=== PATIENT | male | born 1955 | race Caucasian/White ===

== ENCOUNTER 2017-09-05 13:58 | Emergency (ER) | payer MEDICARE, MEDICAID, SELFPAY ==
[2017-09-05 13:59] VITALS: BP 165/105; PULSE 101; RESP 24; TEMP 36.9; O2SAT 97; BMI 32.1
--- NOTE | 2017-09-05 15:14 | ED.DCSUM_ITS ---
- ER Visit Summary Date of Service: 09/05/17 Chief Complaint: [Redness right arm] History of Present Illness: The patient is a 62 M [presents the emergency department with redness to his right arm and concern for some sort of a bite. 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 He is not sure if he scratched his arm. Patient states that often times she will notice a subtle rash that is in different parts of his body that resolves typically very quickly. Patient main concern was to make sure he did not have some sort of a bite on them. Patient denies any fevers or recent illness. Patient has not seen a doctor in over 3 years due to some insurance issues. Patient denies recent illness.] Physical Examination: [HEENT-PERRLA, EOMI. Cranial nerves II through XII grossly intact. TMs clear. Mucous membranes moist. No adenopathy. Cardiovascular-regular rate and rhythm without murmur or ectopy Lungs-clear to auscultation, chest wall stable without crepitus or subcu emphysema Abdomen-normoactive bowel sounds, soft, nontender, no rebound or rigidity, no peritoneal signs. Skin-patient has linear erythematous abrasions noted to the posterior aspect of the forearm and upper arm. There are no insect bites noted. Patient also has some dry skin with some faint erythema and flaking noted superior to the umbilicus which is typical of eczema. Extremities-intact ?4, normal range of motion, normal pulses, atraumatic] Test Results: [None indicated] Emergency Department Course and Treatment: [Patient will be given referral to primary care physician and animal attendants and trainers] Treatment Plan: [Patient advised to use Hydrocort his own cream to the dry skin/ eczema lesions.] Disposition: Discharged to home in stable condition. [] Impression: [Abrasions-superficial Eczema] This note was generated with [employer] dictation software. It may contain incorrect words, spelling, and punctuation that were not noted in review of the chart prior to signing ED Disposition - Plan for ED Patient: Chief Complaint: Wound Referrals: Care Physician,No Primary [Primary Care Provider] -
--- NOTE | 2017-09-05 15:14 | ED.DEP ---
ED Disposition - Plan for ED Patient: Chief Complaint: Wound Instructions: ED Abrasion, Managing Atopic Dermatitis Referrals: Care Physician,No Primary [Primary Care Provider] - Bob Mejias MD [STAFF PHYSICIAN] - Adebayo Blue MD [STAFF PHYSICIAN] -
[2017-09-05 15:21] VITALS: RESP 18
== END 2017-09-05 15:34 | disposition home or self-care (01) ==
LOC: ED 15:30
PROVIDERS: Emergency Provider Emergency Medicine
DX: S50.811A Abrasion of right forearm, initial encounter (principal); S40.811A Abrasion of right upper arm, initial encounter; L30.9 Dermatitis, unspecified; X58.XXXA Exposure to other specified factors, initial encounter; Y93.9 Activity, unspecified; Y92.9 Unspecified place or not applicable; E11.40 Type 2 diabetes mellitus with diabetic neuropathy, unspecified; Z86.79 Personal history of other diseases of the circulatory system; Z86.39 Personal history of other endocrine, nutritional and metabolic disease; Z79.82 Long term (current) use of aspirin; Z72.0 Tobacco use
CPT/HCPCS: 99282

== ENCOUNTER 2023-09-07 14:54 | Inpatient (IN) | payer MEDICARE, SELFPAY ==
[2023-09-07] VITALS (9 sets, daily range): BP systolic 99–141; BP diastolic 85–112; PULSE 101–146; RESP 14–19; TEMP 36.4–36.9; O2SAT 96–100; BMI 22.6
--- NOTE | 2023-09-07 15:20 | CT_ITS ---
CT angiogram of the abdominal aorta with bilateral lower extremity runoff with 3-dimensional reconstructions, with MIP reconstructions Clinical history: wound left foot, deminished pulsed Technique: Multiple helical CT images were obtained from the domes the diaphragms to level of feet after intravenous administration of iodinated contrast with transaxial, coronal and sagittal multiplanar reconstructions. On a separate workstation, 3-dimensional reconstructions were obtained of the arterial vasculature using volume rendering technique and maximal intensity projection technique as per departmental protocol. The protocol utilizes one or more of the following dose reduction techniques: automated exposure control, adjustment of mA and/or kV according to patient size,and/or use of iterative reconstruction technique. RADIATION DOSAGE (If Supplied By Facility): CTDIvol = ( 7.81 ) mGy, DLP = ( 909.17 ) mGycm COMPARISON: FINDINGS: ABDOMEN / PELVIS: Fatty liver.. The visualized portions of the spleen and pancreas appear to be within normal limits. The gallbladder is unremarkable. 2.9 x 4.6 cm right renal cystic lesion.. The visualized bowel is unremarkable. The pelvic structures appear normal. VASCULAR STRUCTURES: There is mild ectasia of the distal with a maximum diameter measuring 2.7 cm abdominal aorta. Intraluminal thrombus in the distal abdominal aorta is noted with nearly 50% luminal narrowing There appears to be good opacification and patency of the celiac trunk, superior mesenteric artery. There appears to be good opacification and patency noted of the left renal artery. Mild narrowing at the right renal artery proximally. There appears to be good opacification and patency noted of the inferior mesenteric artery. ARTERIAL STRUCTURES OF THE RIGHT LOWER EXTREMITY: Common iliac artery: Atherosclerotic calcifications with no hemodynamically significant stenosis. 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 External iliac artery: Appears patent with good opacification. Internal iliac arteries: Occluded proximally with distal reconstitution. Common femoral artery: Atherosclerotic calcifications with no hemodynamically significant stenosis. Superficial femoral arteries: Mild to moderate stenosis at the proximal segment.. Distal occlusion with reconstitution. Popliteal artery: Moderate segmental stenosis. Anterior tibial artery: Appears patent with good opacification. Posterior tibial artery: Appears patent with good opacification. Peroneal artery: Segmental occlusion at the mid calf with distal reconstitution.. ARTERIAL STRUCTURES OF THE LEFT LOWER EXTREMITY: Common iliac artery: Atherosclerotic calcifications with no hemodynamically significant stenosis. Distal aneurysm measuring 1.2 cm just proximal to the bifurcation. External iliac artery: Intraluminal thrombus with 70-75% luminal narrowing. Internal iliac arteries: Appears patent with good opacification. Common femoral artery: Atherosclerotic calcifications with less than 50% luminal narrowing proximally.. Distal occlusion. Superficial femoral arteries: Occluded.. Distal reconstitution by collaterals. Popliteal artery: Appears patent with good opacification. Anterior tibial artery: Appears patent with good opacification. Posterior tibial artery: Appears patent with good opacification. Peroneal artery: Appears patent with opacification. CT/CTA Abd w/Runoff W/WO Contrast IMPRESSION: Stenosis and occlusions as noted the lower extremities. Electronically Signed: Carlos Gupta DO at 17:34 EDT Reading Location ID and State: [facility] / [place] Tel [phone], Service support ,
--- NOTE | 2023-09-07 15:24 | ED.VIS.LOWEX ---
HPI History of Present Illness Chief Complaint: Wound Detail of Chief Complaint: Wound to left foot Informant: patient and family Narrative Narrative: Patient presents with a wound to his left foot that has had for 4 to 5 weeks. Saw orthopedic surgeon today Dr. Ghosh who referred him to to the emergency department for evaluation. Patient has history of some chronic back pain with history of neuropathy related to his back pain. He denies any injury to his foot. He had some discoloration to his left toes for several weeks. He denies fevers or chills. He has history of high cholesterol and remote history of CHF. He will has a [id number] history of smoking and quit 6 weeks ago. PFSH PFSH Home Medications ?Medication ?Instructions ?Recorded ?Last Taken ?Type diazepam 5 mg tablet 5 mg PO DAILY PRN PRN Anxiety 11/30/15 Unknown History aspirin 325 mg tablet 162.5 mg PO DAILY@0800 09/05/17 Unknown History Allergy/AdvReac Type Severity Reaction Status Date / Time Penicillins Allergy Unknown Verified 09/07/23 14:57 Social History Smoking Status: Light Smoker (<10/day) ROS ROS ED Review of Systems ROS Unobtainable: other Constitutional Constitutional ED: Reports lethargy; Denies chills, fever(s), sweats or weight loss Eyes Eyes: Denies blurry vision, change in vision or diplopia ENT ENT ED: Denies rhinorrhea or sore throat Cardiovascular Cardiovascular: Denies chest pain, orthopnea or racing heartbeat Respiratory/Chest Respiratory/Chest: Reports dyspnea on exertion; Denies cough, dyspnea, orthopnea or sputum Gastrointestinal Gastrointestinal: Denies abdominal pain, diarrhea, nausea or vomiting Genitourinary Genitourinary ED: Denies dysuria, hematuria or urinary frequency Musculoskeletal Musculoskeletal: Denies arthralgias, back pain, myalgias or neck pain Integumentary Reports other Details: Wound to left foot ; Denies abscess, Abrasions or rash Neurologic Neurologic: Denies headache(s) or weakness Psychiatric Psychiatric: Denies anxiety, depression or suicidal thoughts Endocrine Endocrinology: Denies polydipsia, polyphagia or polyuria Hematologic/Lymphatic Hematologic/Lymphatic: Denies easy bleeding, easy bruising or lymphadenopathy Allergic/Immunologic Allergic/Immunologic ED: Denies mouth swelling, tongue swelling or urticaria EXAM Physical Exam Const Vital Signs: 09/07/23 14:55 09/07/23 15:55 09/07/23 15:57 Temperature 98.4 F 98 F Temperature Source Temporal Temporal Pulse Rate 146 H 108 H 104 H Respiratory Rate 16 18 14 Blood Pressure 99/85 H 127/112 H 141/99 H Blood Pressure Mean 89 117 113 Pulse Ox 97 98 98 Oxygen Delivery Method Room Air Room Air Room Air 09/07/23 16:00 09/07/23 16:05 09/07/23 17:00 Temperature 98 F 97.8 F Temperature Source Temporal Axillary Pulse Rate 103 H 103 H 105 H Respiratory Rate 14 14 15 Blood Pressure 141/99 H 141/99 H 137/102 H Blood Pressure Mean 113 113 113 Pulse Ox 99 99 99 Oxygen Delivery Method Room Air Room Air Room Air 09/07/23 18:00 Temperature 98.2 F Temperature Source Temporal Pulse Rate 120 H Respiratory Rate 19 H Blood Pressure 135/104 H Blood Pressure Mean 114 Pulse Ox 100 Oxygen Delivery Method Room Air Positive well nourished and well developed General Appearance ED: well developed and NAD HEENT Reports TM's clear and moist mucous membranes normocephalic and atraumatic; Negative for trauma or tenderness Tympanic Membrane ED: Yes TM's clear Eyes PERRL and EOMs intact bilaterally General Eye ED: Negative for pale conjunctiva or scleral icterus Neck no lymphadenopathy, supple and no JVD General: Negative for tenderness Chest Wall inspection of chest normal and palpation of chest normal Chest: Negative for tenderness Resp normal respiratory effort and clear to auscultation bilaterally Effort and Inspection: Negative for respiratory distress or pain with movement Auscultation: Negative for rhonchi, wheezes or diminished lung sounds Cardio regular rhythm, S1 normal heart sound, S2 normal heart sound and no murmurs; Negative for regular rate Cardio Narrative: Tachycardic Peripheral Pulses: pulses 2+ throughout GI normal to inspection, nondistended, normoactive bowel sounds, soft to palpation, non-tender, non-distended and no masses Back/Spine no CVA tenderness and no thoracic nor lumbar tenderness Extremity Extremity Narrative: Left foot-patient does have a wound noted to the left lateral heel with a little bit of odor to it no significant drainage. Slightly tender to palpation. There are some pale discoloration to the toes with some subtle ecchymosis. Diminished cap refill about 5 seconds. Unable to palpate dorsal pedal or posterior tibial pulse General Extremety ED: Negative for edema General Extremity: Negative for edema Neuro oriented x3, CN's II-XII intact bilaterally, no sensory deficits noted and gait normal Sensorium / Orientation: awake, alert, oriented to person, oriented to place and oriented to time Motor Exam: strength 5/5 throughout and strength abnormal Psych mental status grossly normal Skin no rashes or lesions noted and no wounds MDM MDM MDM Narrative Medical decision making narrative: Patient presents with a chronic wound to his left heel. History of pain in the left leg with ambulation. Concern for peripheral vascular disease. IV line established. Blood cultures ordered. CBC with differential white count of 9.2 with hemoglobin 14.6 and platelet count of 320. Chemistries unremarkable. Lactate normal at 2.0. C-reactive was elevated 65.9 and sed rate was elevated 28. Three-view x-rays of the left foot obtained showed my interpretation no evidence of osteomyelitis or gas in the tissues or other abnormalities. Radiology in agreement. CTA abdomen pelvis with runoffs obtained did show some vascular occlusions especially on the left with distal common femoral with reconstitution. Discussed case with Dr. Mg who is the vascular surgeon on-call and he would be happy to see patient in consultation during admission but did not feel patient needed anticoagulation at this time. Discussed case with hospitalist will evaluate patient for admission. Patient does have an elevated glucose however this is not a fasting level but suspect likely type 2 diabetes as well. Lab Data Attestation: I reviewed the patient's lab results. Labs: Laboratory Results - last 24 hr 09/07/23 15:15 WBC 9.2 RBC 5.11 Hgb 14.6 Hct 43.8 MCV 85.7 MCH 28.6 MCHC 33.3 RDW Std Deviation 39.3 RDW Coeff of [place] 12.8 Plt Count 320 MPV 9.5 Immature Gran % (Auto) 0.300 Neut % (Auto) 81.8 H Lymph % (Auto) 11.1 L [place] % (Auto) 6.0 Eos % (Auto) 0.4 Baso % (Auto) 0.4 Absolute Neuts (auto) 7.5 Absolute Lymphs (auto) 1.02 Nucleated RBC % 0 ESR 28 H Sodium 133 L Potassium 3.6 Chloride 100 Carbon Dioxide 23.0 Anion Gap 10 BUN 14 Creatinine 1.00 Est GFR (MDRD) Af Amer 96 Est GFR (MDRD) Non-Af 79 BUN/Creatinine Ratio 14.0 Glucose 178 H Lactic Acid 2.0 Calcium 9.7 Troponin I High Sens 10 C-React Prot Ext Range 65.90 H Radiography Diagnostic Testing: Clinical Impression(s) from Imaging Studies Abdomen/Pelvis CTA 09/07/23 15:20 IMPRESSION: Stenosis and occlusions as noted the lower extremities. Electronically Signed: Carlos Gupta DO at 17:34 EDT , Foot X-Ray 09/07/23 15:40 IMPRESSION: No acute pelvic pathology is seen. Electronically Signed: Carlos Gupta DO at 16:23 EDT , Three-view x-rays left foot obtained interpreted by myself as no evidence of osteomyelitis or gas in the tissues or other acute process. Radiology in agreement. EKG Initial EKG: Attestation: I personally reviewed and interpreted this EKG as follows: Comments: Sinus rhythm with rate of 101 bpm with no acute ST segment changes Discharge Plan Dx/Rx/DC Orders Clinical Impression: Cellulitis of foot, left, Peripheral vascular disease, Hyperglycemia Disposition Disposition: Acute Care [facility]
--- NOTE | 2023-09-07 15:28 | EKG12_ITS ---
Test Reason : Blood Pressure : / mmHG Vent. Rate : 101 BPM Atrial Rate : 101 BPM P-R Int : 140 ms QRS Dur : 076 ms QT Int : 338 ms P-R-T Axes : 022 004 077 degrees QTc Int : 438 ms Sinus tachycardia Otherwise normal ECG Confirmed by Bruno Cevallos ([id number]), digital editor URIAH CALDERA ([id number]) on 09/08/2023 10:14:32 AM Referred By: Confirmed By:Bruno Cevallos
[2023-09-07 15:37] LABS: Absolute Lymphocyte Count 1.02 X10^3/uL (0.83-4.51); Absolute Neutrophil Count 7.5 X10^3/uL (2.0-7.7); Basophil# 0.04 X10^3/uL; Basophil% 0.4 % (0-1); Eosinophil# 0.04 X10^3/uL; Eosinophils% 0.4 % (0-5); Hematocrit 43.8 % (40-54); Hemoglobin 14.6 g/dL (13.0-16.5); Lymphocyte # 1.02 X10^3/ul (0.83-4.51); Lymphocyte % 11.1 % (19-41); Mean Corp Hgb Conc 33.3 g/dL (32-36); Mean Corpuscular Hgb 28.6 pg (27.0-32.0); Mean Corpuscular Volume 85.7 fL (80-94); Mean Platelet Vol. 9.5 fl (6.2-12.0); Monocyte# 0.55 X10^3/uL; NRBC Flagged by Analyzer 0 % (0-5); Neutrophil # 7.52 X10^3/uL (2.7-7.7); Neutrophil % 81.8 % (47-70); Platelet Count 320 K/mm3 (150-450); RBC Distribution Width CV 12.8 % (11.6-14.6); RBC Distribution Width SD 39.3 fl (35.1-43.9); Red Blood Count 5.11 M/mm3 (4.6-6.2); White Blood Count 9.2 K/mm3 (4.4-11.0)
--- NOTE | 2023-09-07 15:40 | RAD_ITS ---
INDICATION: heel wound EXAMINATION/TECHNIQUE: X-RAY - LEFT XR Foot 3 Views COMPARISON: FINDINGS: SOFT TISSUES: No soft tissue swelling or gas. No radiopaque foreign body. BONES/JOINTS: No acute fracture or subluxation.. Normal alignment. Preservation of the joint space.. No sclerotic or destructive changes observed. RAD/Foot min 3 Views IMPRESSION: No acute pelvic pathology is seen. Electronically Signed: Carlos Gupta DO at 16:23 EDT ,
[2023-09-07 15:59] LABS: Anion Gap 10 (5-15); BUN 14 mg/dL (7-18); Calcium,Total 9.7 mg/dL (8.5-10.1); Chloride 100 mmol/L (98-107); EST Glomerular Filtration Rate 79 mL/min (>60); Est Glom Filt Rate - Afr Amer 96 mL/min (>60); Glucose 178 mg/dL (74-106); Potassium 3.6 mmol/L (3.5-5.1); Sodium Level 133 mmol/L (136-145); Troponin-I HS 10 pg/mL (3.0-78.0)
[2023-09-07] MEDS: Ondansetron 4 MG/2 ML Vial IV (16:03)
[2023-09-07] MEDS: Morphine 4 MG/ML Syringe IV ×2 (16:03→18:25)
[2023-09-07 16:34] LABS: Erythrocyte Sedimentation Rate 28 mm/hr (0-20)
[2023-09-07] MEDS: Clindamycin 900 MG/50 ML BAG 75 MG IV (17:56)
--- NOTE | 2023-09-07 18:42 | PCM.HP.STD ---
HPI - General General Date of Admission: 09/07/23 Date of Service: 09/07/23 Chief Complaint: left foot wound HPI Narrative ETHAN CROSS, is a 68 M with no significant PMH who has not seen a PCP in at least 8 years. HE was admittd with a complaint of a left foot wound which had worsened. He noticed that he had a small superficial ulceration on the heel of his left foot about 6 weeks ago. He said he did not think much of it. He however noticed that the ulceration gradually increased and he had associated pain. He initially had some scant discharge but this subsequently improved. He denied any fever or chills, nausea or vomiting, palpitations or any other symptoms. He had not had an ulcer like this before. He denied any history of diabetes. The wound gradually enlarged and he said the pain got worse and was shooting down the back of his left foot into his heel. He does have a history of neuropathy. He admits to a history of smoking and states he quit a few weeks ago. Review of systems otherwise negative. Vitals in the ED were blood pressure 135/104, pulse rate of 117, respiratory rate of 19 and temperature of 97.5 Fahrenheit. He was saturating at 97% on room air. CBC showed hemoglobin of 14.6 with WBC of 9.2 and platelets of 320. ESR was 28. Chemistry shows sodium of 133 with bicarb of 23 and potassium of 3.6. Creatinine was 1. Glucose was 178 and CRP was 65.9. Initial troponin was negative. 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 He has been admitted to be managed for cellulitis of the left lower extremity in the presence of significant peripheral artery disease. [facility] Home Medications ?Medication ?Instructions ?Recorded ?Last Taken ?Type diazepam 5 mg tablet 5 mg PO DAILY PRN PRN Anxiety 11/30/15 Unknown History aspirin 325 mg tablet 162.5 mg PO DAILY@0800 heart health 09/05/17 Unknown History Allergy/AdvReac Type Severity Reaction Status Date / Time Penicillins Allergy Unknown Verified 09/07/23 14:57 Social History Smoking Status: Light Smoker (<10/day) ROS Constitutional Constitutional: Reports malaise and weakness; Denies anorexia, change in weight, chills, fatigue or fever(s) Eyes Eyes: Denies change in vision ENT HEENT: Denies dysphagia, headache(s), sore throat or throat swelling Cardiovascular Cardiovascular: Denies chest pain, edema, orthopnea, palpitations, paroxysmal nocturnal dyspnea or syncope Respiratory/Chest Respiratory/Chest: Denies hemoptysis, shortness of breath at rest, shortness of breath with exertion or wheezing Gastrointestinal Gastrointestinal: Denies abdominal pain, nausea or vomiting Genitourinary Genitourinary: Denies dysuria or nocturia Musculoskeletal Musculoskeletal: Reports extremity pain; Denies back pain, joint pain, joint stiffness, joint swelling, limited range of motion, muscle weakness, neck pain or stiffness Integumentary Integumentary: Reports wounds; Denies dry skin Neurologic Neurologic: Denies confusion, dizziness, focal weakness, headache(s), lack of coordination, numbness, seizures or tingling Psychiatric Psychiatric: Denies anxiety or depression Endocrine Endocrinology: Denies change in body appearance Vital Signs Vital Signs Vital Signs: 09/07/23 14:55 09/07/23 15:55 09/07/23 15:57 Temperature 98.4 F 98 F Temperature Source Temporal Temporal Pulse Rate 146 H 108 H 104 H Respiratory Rate 16 18 14 Blood Pressure 99/85 H 127/112 H 141/99 H Blood Pressure Mean 89 117 113 Pulse Ox 97 98 98 Oxygen Delivery Method Room Air Room Air Room Air 09/07/23 16:00 09/07/23 16:05 09/07/23 17:00 Temperature 98 F 97.8 F Temperature Source Temporal Axillary Pulse Rate 103 H 103 H 105 H Respiratory Rate 14 14 15 Blood Pressure 141/99 H 141/99 H 137/102 H Blood Pressure Mean 113 113 113 Pulse Ox 99 99 99 Oxygen Delivery Method Room Air Room Air Room Air 09/07/23 18:00 09/07/23 18:27 Temperature 98.2 F 97.5 F L Temperature Source Temporal Pulse Rate 120 H 117 H Respiratory Rate 19 H 19 H Blood Pressure 135/104 H 135/104 H Blood Pressure Mean 114 114 Pulse Ox 100 97 Oxygen Delivery Method Room Air Physical Exam Const alert, oriented x3 and no apparent distress General Appearance: cooperative HEENT normocephalic and head/scalp atraumatic Eyes PERRL and EOMs intact bilaterally Neck no lymphadenopathy, supple and no JVD Lymph Lymphatic: no lymphadenopathy noted and no lymphedema noted Resp normal respiratory effort, normal air movement and clear to auscultation bilaterally Cardio regular rate, regular rhythm, S1 normal heart sound, S2 normal heart sound and no murmurs GI normal to inspection, nondistended, normoactive bowel sounds, soft to palpation and non-tender Extremity normal capillary refill, no clubbing, cyanosis or edema and no calf tenderness General Extremity: no tenderness to palpation of joints or extremities Skin Skin Narrative: has a ~ 10 x8cm ulceration on the left heel which appears bloody tinged; had erythema of the surrrounding skin.Distal pulses weak but palpable Neuro CN's II-XII intact bilaterally, no focal motor deficits, no sensory deficits noted and deep tendon reflexes 2+ bilaterally Motor Exam: strength 5/5 throughout and general weakness Psych thought process normal and cooperative Appearance: appropriate Results Lab / Micro Data 09/07/23 15:15 09/07/23 15:15 Labs: Laboratory Results - last 24 hr 09/07/23 15:15: WBC 9.2, RBC 5.11, Hgb 14.6, Hct 43.8, MCV 85.7, MCH 28.6, MCHC 33.3, RDW Std Deviation 39.3, RDW Coeff of [place] 12.8, Plt Count 320, MPV 9.5, Immature Gran % (Auto) 0.300, Neut % (Auto) 81.8 H, Lymph % (Auto) 11.1 L, [place] % (Auto) 6.0, Eos % (Auto) 0.4, Baso % (Auto) 0.4, Absolute Neuts (auto) 7.5, Absolute Lymphs (auto) 1.02, Nucleated RBC % 0, ESR 28 H, Sodium 133 L, Potassium 3.6, Chloride 100, Carbon Dioxide 23.0, Anion Gap 10, BUN 14, Creatinine 1.00, Est GFR (MDRD) Af Amer 96, Est GFR (MDRD) Non-Af 79, BUN/Creatinine Ratio 14.0, Glucose 178 H, Lactic Acid 2.0, Calcium 9.7, Troponin I High Sens 10, C-React Prot Ext Range 65.90 H Imaging Radiology Impression Abdomen/Pelvis CTA 09/07/23 15:20 IMPRESSION: Stenosis and occlusions as noted the lower extremities. Electronically Signed: Carlos Gupta, at 17:34 EDT , Foot X-Ray 09/07/23 15:40 IMPRESSION: No acute pelvic pathology is seen. Electronically Signed: Carlos Gupta DO at 16:23 EDT , Assessment & Plan Assessment/Plan (1) Peripheral vascular disease: (2) Cellulitis of foot, left: (3) Hyperglycemia: PLAN: Plan #LLE cellulitis with ulceration Admit to Med surg xray of the foot showed no bony involvement. get blood cultures and wound cultures consult wound care and podiatry start on IV vancomycin and IV cefepime PO tylenol, oxycodone and IV morphine prn for pain. #Peripheral artery disease CTA of the abdomen and pelvis with runoff to the lower extremity showed evidence of bilateral peripheral artery stenosis. Will consult vascular surgery. 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 I spoke to Dr Mg; will start patient on heparin drip. PO aspirin and high intensity statin #Hyperglycemia: will check A1C to see if he has diabetes. His A1c from back in February 2014 was 6.5. #Sinus tachycardia Patient's heart rate is goes up to around 117. EKG showed sinus tachycardia and his heart rate was 101 at that point. The pain might be contributing to this. He also has some anxiety. I do not see any clear evidence pointing towards a possible PE as he has not had any long distance travel recently and has no history of PE or DVT. He has been started on anticoagulation for the intraluminal thrombus of the external carotid artery. He also received contrast already today so cannot repeat a CTA. His sinus tachycardia persists, he may benefit from a CTA. Will check TSH and also check a 2D echo.\ # Anxiety: On diazepam 5 mg daily as needed DVT prophylaxis: Started on heparin drip as above CODE STATUS: Full code Patient, his sister and brother counseled extensively about different types of CODE STATUS including full code, DNR CCA and DNR CCA. Patient elects to be full code. Total [id number] time 17 minutes. Charges/Coding Visit Charges Inpatient E&M: 30435 Init Hosp L3 Procedures Hospitalists Procedures: 51026 Advncd Care Plan 30 Min
[2023-09-07 19:32] LABS: Reflex Lactate? Y
[2023-09-07] MEDS: 0.9% Normal Saline (1000mL) 1,000 ML 125 ML IV (20:19)
[2023-09-07] MEDS: Cefepime HCl 2 GM in 0.9% Normal Saline (100mL MB+) 100 ML IV (20:19)
[2023-09-07] MEDS: Acetaminophen 325 MG Tablet 650 MG PO (20:23)
[2023-09-07] MEDS: oxyCODONE 5 MG Tablet PO (20:23)
[2023-09-07 20:25] LABS: Lactic Acid 1.7 mmol/L (0.4-1.9)
[2023-09-07 20:42] LABS: International Normalized Ratio 1.1; Prothrombin Time (Protime)PT. 14.6 SECONDS (11.7-14.9)
[2023-09-07 20:43] LABS: Partial Thromboplast Time 33.9 Seconds (24.1-36.2)
[2023-09-07 20:47] LABS: Hemoglobin A1c 7.5 % (3.8-5.6)
--- NOTE | 2023-09-07 20:47 | ART_ITS ---
Reason For Study: Ulcer Procedure A bilateral lower extremity continuous wave Doppler with analog waveform analysis,segmental pressures,and ankle brachial indexes without exercise. Left Segmental Pressures Left thigh = 58mmHg. Left calf = 18mmHg. Left posterior tibial artery = 14mmHg. Left dorsalis pedis artery = 21mmHg. Left digit = 0 mmHg. The left dorsalis pedis waveforms are monophasic. The left posterior tibial artery waveforms are monophasic. Right Segmental Pressures Right brachial= 130mmHg. Right thigh = 143mmHg. Right calf = 61mmHg. Right posterior tibial artery = 68mmHg. Right dorsalis pedis artery = 55mmHg. Right digit = 0 mmHg. The right dorsalis pedis waveforms are monophasic. The right posterior tibial artery waveforms are monophasic. Indices The right ankle brachial index by the dorsalis pedis is 0.42. The right ankle brachial index by the posterior tibial artery is 0.52. The left ankle brachial index by the dorsalis pedis is 0.16. The left ankle brachial index by the posterior tibial artery is 0.11. . Preliminary report given to Alexia in Dr. Mg's office. VL/Lower Ext Art Exam w/o Exercis Interpretation Summary Right GERHARD 0.52, moderate arterial insufficiency. Doppler/PVR waveforms and segm ental pressures reveal distal SFA/popliteal disease. Left GERHARD 0.16, critical arterial insufficiency. Doppler/PVR waveforms and segme ntal pressures reveal [id number] femoral, distal SFA/popliteal disease. Ordering Physician: Lisandro Scott Performed By: Daina Sanchez RVT
[2023-09-07 20:50] LABS: Thyroid Stim Hormone (TSH) 2.42 uIU/mL (0.358-3.74)
[2023-09-07] MEDS: Vancomycin HCl 1,750 MG in 0.9% Normal Saline (500mL Bag) 500 ML 250 MG IV (21:52)
[2023-09-07] MEDS: Heparin Injection (Vial) 5,000 UNIT/ML VIAL 4000 UNIT IV (22:01)
[2023-09-07] MEDS: HEPARIN/D5w 25,000 UNITS 25,000 UNITS/250 ML IV.SOLN. 8 UNITS CONT INF (22:07)
--- NOTE | 2023-09-07 23:24 | PCM.RX.CS ---
Consult Antibiotic Management Pharmacy has been consulted to manage selected antibiotic: Vancomycin Type of Intervention Type of Consult: New start Suspected Infection Suspected Infection: Skin/Soft tissue Labs Labs: Sodium 133 mmol/L (136-145) L 09/07/23 15:15 Potassium 3.6 mmol/L (3.5-5.1) 09/07/23 15:15 Chloride 100 mmol/L (98-107) 09/07/23 15:15 Carbon Dioxide 23.0 mmol/L (21.0-32.0) 09/07/23 15:15 Anion Gap 10 (5-15) 09/07/23 15:15 BUN 14 mg/dL (7-18) 09/07/23 15:15 Creatinine 1.00 mg/dL (0.70-1.30) 09/07/23 15:15 Est GFR (MDRD) Af Amer 96 mL/min (>60) 09/07/23 15:15 Est GFR (MDRD) Non-Af 79 mL/min (>60) 09/07/23 15:15 BUN/Creatinine Ratio 14.0 RATIO (10-20) 09/07/23 15:15 Glucose 178 mg/dL (74-106) H 09/07/23 15:15 Dosing Weight Weight used for dosin kg Estimated Creatinine Clearance Estimated Creatinine Clearance: 68 Goal Trough Goal Trough: 15-20 mcg/mL Pharmacy Plan for Drug Dosing Pharmacy Plan for Drug Dosing: Pharmacy Service will continue to monitor and adjust dosing as required. Follow-Up Labs Follow-Up Labs: Trough: Vancomycin Date/Time Labs Ordered Labs to be done on [date and time ordered]: 09/09/23 @8049
[2023-09-08] VITALS (7 sets, daily range): BP systolic 121–145; BP diastolic 77–98; PULSE 80–105; RESP 18; TEMP 36.4–37.4; O2SAT 95–100
[2023-09-08] MEDS: Morphine 2 MG/ML Syringe IV (03:28)
[2023-09-08] MEDS: 0.9% Saline Lock 10 ML Syringe IV (03:29)
[2023-09-08 03:48] LABS: Bacteria 0 SEEN /hpf (None Seen); Mucous, Urine 0 SEEN /hpf (<or=2+); Red Blood Cells-Urine 0 SEEN /hpf (0-5); Squamous Epithelial Cells - UA 0 SEEN /hpf (0-5); White Blood Cells 0 SEEN /hpf (0-5)
[2023-09-08 03:52] LABS: Color, Urine Yellow (Yellow); Glucose, Dipstick Normal (Normal); Ketone-Dipstick Negative (Negative); Leukocyte Esterase-Dipstick Negative /ul (Negative); Nitrite-Dipstick Negative (Negative); Occult Blood-Urine Negative /ul (Negative); Protein-Dipstick 30 mg/dl (Negative); Specific Gravity, Urine 1.015 (1.002-1.030); Urine Bilirubin Dipstick Negative (Negative); Urine Clarity Clear (Clear); Urine Urobilinogen Normal (Normal); Urine pH 6.5 (5.0 - 8.0)
[2023-09-08 04:34] LABS: Absolute Lymphocyte Count 1.06 X10^3/uL (0.83-4.51); Absolute Neutrophil Count 5.5 X10^3/uL (2.0-7.7); Basophil# 0.03 X10^3/uL; Basophil% 0.4 % (0-1); Eosinophil# 0.14 X10^3/uL; Eosinophils% 1.9 % (0-5); Hematocrit 35.5 % (40-54); Hemoglobin 11.5 g/dL (13.0-16.5); Lymphocyte # 1.06 X10^3/ul (0.83-4.51); Lymphocyte % 14.5 % (19-41); Mean Corp Hgb Conc 32.4 g/dL (32-36); Mean Corpuscular Hgb 28.3 pg (27.0-32.0); Mean Corpuscular Volume 87.2 fL (80-94); Mean Platelet Vol. 9.4 fl (6.2-12.0); Monocyte# 0.53 X10^3/uL; Monocyte% 7.3 % (0-10); NRBC Flagged by Analyzer 0 % (0-5); Neutrophil # 5.51 X10^3/uL (2.7-7.7); Neutrophil % 75.5 % (47-70); Platelet Count 253 K/mm3 (150-450); RBC Distribution Width CV 12.8 % (11.6-14.6); Red Blood Count 4.07 M/mm3 (4.6-6.2); White Blood Count 7.3 K/mm3 (4.4-11.0)
[2023-09-08 04:49] LABS: Anion Gap 9 (5-15); BUN 11 mg/dL (7-18); Calcium,Total 8.4 mg/dL (8.5-10.1); Chloride 105 mmol/L (98-107); Creatinine, Serum 0.74 mg/dL (0.70-1.30); EST Glomerular Filtration Rate 113 mL/min (>60); Est Glom Filt Rate - Afr Amer 136 mL/min (>60); Glucose 132 mg/dL (74-106); Potassium 3.5 mmol/L (3.5-5.1); Sodium Level 137 mmol/L (136-145)
[2023-09-08 04:57] LABS: Partial Thromboplast Time 164.5 Seconds (24.1-36.2)
[2023-09-08] MEDS: oxyCODONE 5 MG Tablet PO ×2 (05:12→21:57)
[2023-09-08] MEDS: Acetaminophen 325 MG Tablet 650 MG PO ×2 (05:12→21:57)
[2023-09-08] MEDS: Cefepime HCl 2 GM in 0.9% Normal Saline (100mL MB+) 100 ML IV ×3 (05:20→22:01)
[2023-09-08] MEDS: 0.9% Normal Saline (1000mL) 1,000 ML 125 ML IV (06:35)
--- NOTE | 2023-09-08 07:11 | CON.PCM_ITS ---
Assessment & Plan Assessment/Plan (1) Atherosclerosis of left lower extremity with gangrene: QUALIFIERS: Peripheral atherosclerosis artery type: [place] artery Qualified Code(s): I70.262 - Atherosclerosis of [place] arteries of extremities with gangrene, left leg PLAN: Patient was examined and evaluated. All findings were discussed with the patient. All questions were answered to the patient satisfaction. Weightbearing status: Partial weightbearing to toes versus heel to the left lower extremity. Full weightbearing to the right lower extremity. After physical lamination the patient does show evidence of decreased blood flow to left lower extremity with dry eschar which is stable. Wound care orders were given to nursing staff for Betadine paint, dry sterile dressing with Kerlex wrap with no compression. Change daily. Left foot radiographs: Radiographs show evidence of a soft tissue defect to the left heel with no concerns of decreased architecture to the calcaneus or periosteal reaction. No evidence of osteomyelitis. CTA: Shows abdomen and pelvis with runoff to the lower extremity showed evidence of bilateral peripheral artery stenosis. Medicine: On board, medical management, IV antibiotics vancomycin and cefepime Vascular surgery: Consult pending WBC: 7.3 ESR: 28 CRP: 65.90 LA: 1.7 Glucose: 132 HbA1c: 7.5 There is no plan from a podiatry standpoint for surgical intervention due to the decreased blood flow to left lower extremity at this time. Appreciate vascular recommendation if whether or not they will intervene during this visit or as an outpatient. At this time we will continue to just provide wound care to left lower extremity with Betadine paint, dry sterile dressing and Kerlix wrap with no compression. Once recommendations are obtained from vascular surgery, the plan will be to take the patient to the operating room to perform excisional debridement with graft application to the left lower extremity either during this hospital stay or as an outpatient. Recommend the patient to continue have strict blood sugar control as his A1c indicates he is a diabetic. Podiatry will continue to follow while in-house. Please reach out to Dr. Scott with any questions or concerns. Thank you for the consult! (2) Cellulitis of foot, left: (3) 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: (4) Type 2 diabetes mellitus with peripheral neuropathy: HPI Consult Data Date of Consult: 09/08/23 HPI Narrative Reason for Consultation: Left lower extremity dry gangrene HPI Narrative: ETHAN AMERICA, is a 68 M who presents emergency hospital with concerns of a large wound to the outside of his left heel. Patient states that he noticed the wound get larger over the past 6 weeks. He has not followed up with his primary care doctor in the past 8 years. He states that he has noticed this colorization to his toes to left lower extremity when compared to the right. Patient states that he has not kept up with his medical health as he should. He states that he notices most of his pain especially at night where he has to dangle his left lower extremity at the side of his bed to make the leg pain improved. He states that he notices most of his pain whenever he is at rest. No treatment thus far. Denies trauma. Denies constitutional symptoms or no acute complaints at this time. [facility] Medical History Myocardial infarct Congestive heart failure (CHF) Hypertension DVT (deep venous thrombosis) Home Medications ?Medication ?Instructions ?Recorded ?Last Taken ?Type diazepam 5 mg tablet 5 mg PO DAILY PRN PRN Anxiety 11/30/15 Unknown History aspirin 325 mg tablet 162.5 mg PO DAILY@0800 heart health 09/05/17 Unknown History Allergy/AdvReac Type Severity Reaction Status Date / Time Penicillins Allergy Unknown Verified 09/07/23 14:57 Social History Smoking Status: Light Smoker (<10/day) Physical Exam Narrative Vascular: DP and PT pulses are faintly palpable to left extremity. Skin temperature is warm to cool from proximal ankle to distal digits to left extremity. Bogginess appreciated to all digits left lower extremity secondary to decreased blood flow. Capillary fill time is delayed. Evidence of possible micro emboli appreciated to the hallux and fifth digit left foot. Neurological: Light touch intact. Patient response to painful stimuli. Dermatological. Left lower extremity shows evidence of full-thickness ulceration/eschar measuring 10.0 x 8.0 x 0.1 cm. Stable with no sign of infection or drainage. Periwound erythema which is blanchable. Skin is tight in nature with evidence of decreased blood flow appreciated to the level of the hallux and fifth digit left foot. Is also concern for micro emboli to left lower extremity. Also skeletal: Muscle strength is 5 and 5 in all quadrants bilateral. Moderate palpatory tenderness appreciated to the hallux and fifth digit of the left foot. Mild to moderate palpatory tenderness appreciated to the dry eschar on the left heel. No pain with calf compression. Const alert, oriented x3 and no apparent distress Lab / Micro Data 09/08/23 04:20 09/08/23 04:20 Labs: Laboratory Results - last 24 hr 09/07/23 15:15: WBC 9.2, RBC 5.11, Hgb 14.6, Hct 43.8, MCV 85.7, MCH 28.6, MCHC 33.3, RDW Std Deviation 39.3, RDW [place]eff [place] 12.8, Plt Count 320, MPV 9.5, Immature Gran % (Auto) 0.300, Neut % (Auto) 81.8 H, Lymph % (Auto) 11.1 L, [place] % (Auto) 6.0, Eos % (Auto) 0.4, Baso % (Auto) 0.4, Absolute Neuts (auto) 7.5, Absolute Lymphs (auto) 1.02, Nucleated RBC % 0, ESR 28 H, PT 14.6, INR 1.1, APTT 33.9, Sodium 133 L, Potassium 3.6, Chloride 100, Carbon Dioxide 23.0, Anion Gap 10, BUN 14, Creatinine 1.00, Est GFR (MDRD) Af Amer 96, Est GFR (MDRD) Non-Af 79, BUN/Creatinine Ratio 14.0, Glucose 178 H, Hemoglobin A1c 7.5 H, Lactic Acid 2.0, Calcium 9.7, Troponin I High Sens 10, C-React Prot Ext Range 65.90 H, TSH 2.42 09/07/23 19:47: Lactic Acid 1.7 09/08/23 03:15: Urine Color Yellow, Urine Clarity Clear, Urine pH 6.5, Ur Specific [place] 1.015, Urine Protein 30 H, Urine Glucose (UA) Normal, Urine Ketones Negative, Urine Occult Blood Negative, Urine Nitrite Negative, Urine Bilirubin Negative, Urine Urobilinogen Normal, Ur Leukocyte Esterase Negative, Urine RBC 0 SEEN, Urine WBC 0 SEEN, Ur Squamous Epith Cells 0 SEEN, Urine Bacteria 0 SEEN, Urine Mucus 0 SEEN 09/08/23 04:20: WBC 7.3, RBC 4.07 L, Hgb 11.5 L, Hct 35.5 L, MCV 87.2, MCH 28.3, MCHC 32.4, RDW Std Deviation 41.0, RDW Coeff [place] 12.8, Plt Count 253, MPV 9.4, Immature Gran % (Auto) 0.400, Neut % (Auto) 75.5 H, Lymph % (Auto) 14.5 L, [place] % (Auto) 7.3, Eos % (Auto) 1.9, Baso % (Auto) 0.4, Absolute Neuts (auto) 5.5, Absolute Lymphs (auto) 1.06, Nucleated RBC % 0, APTT 164.5 H*, Sodium 137, Potassium 3.5, Chloride 105, Carbon Dioxide 23.0, Anion Gap 9, BUN 11, Creatinine 0.74, Estim Creat Clear Calc 84.50, Est GFR (MDRD) Af Amer 136, Est GFR (MDRD) Non-Af 113, BUN/Creatinine Ratio 15.0, Glucose 132 H, Calcium 8.4 L Imaging Radiology Impression Abdomen/Pelvis CTA 09/07/23 15:20 IMPRESSION: Stenosis and occlusions as noted the lower extremities. Electronically Signed: Carlos Gupta DO at 17:34 EDT , Foot X-Ray 09/07/23 15:40 IMPRESSION: No acute pelvic pathology is seen. Electronically Signed: Carlos Gupta DO at 16:23 EDT ,
--- NOTE | 2023-09-08 07:17 | WOUNDNOTE ---
wound photo: left lateral heel
--- NOTE | 2023-09-08 07:25 | WOUNDNOTE ---
skin photo: left foot (toes)
--- NOTE | 2023-09-08 07:29 | PCM.RX.CS ---
Consult Antibiotic Management Pharmacy has been consulted to manage selected antibiotic: Vancomycin Type of Intervention Type of Consult: Follow-up Suspected Infection Suspected Infection: Skin/Soft tissue Labs Labs: Sodium 137 mmol/L (136-145) 09/08/23 04:20 Potassium 3.5 mmol/L (3.5-5.1) 09/08/23 04:20 Chloride 105 mmol/L (98-107) 09/08/23 04:20 Carbon Dioxide 23.0 mmol/L (21.0-32.0) 09/08/23 04:20 Anion Gap 9 (5-15) 09/08/23 04:20 BUN 11 mg/dL (7-18) 09/08/23 04:20 Creatinine 0.74 mg/dL (0.70-1.30) 09/08/23 04:20 Est GFR (MDRD) Af Amer 136 mL/min (>60) 09/08/23 04:20 Est GFR (MDRD) Non-Af 113 mL/min (>60) 09/08/23 04:20 BUN/Creatinine Ratio 15.0 RATIO (10-20) 09/08/23 04:20 Glucose 132 mg/dL (74-106) H 09/08/23 04:20 Goal Trough Goal Trough: 15-20 mcg/mL Pharmacy Plan for Drug Dosing Pharmacy Plan for Drug Dosing: DAILY ASSESSMENT Current Vancomycin Dose: 750mg Q12H Number of Doses Received: 1750mg x1 Current Renal Function: sCr 0.74 Renal Function Trend: improved since admission Lab/Micro: pending Any Change in Vanc Plan: Yes - increase Vancomycin dosing regimen to 1250mg Q12H Pending Level: Vancomycin trough @ 09:30 09/09/23 Pharmacy Service will continue to monitor and adjust dosing as required. Follow-Up Labs Follow-Up Labs: Trough: Vancomycin (09:30 09/09/23)
[2023-09-08 08:46] LABS: Cholesterol 132 mg/dL (200); High Density Lipoprotein 25 mg/dL; Triglycerides 89 mg/dL; Very Low Density Lipoprotein 18 mg/dL (5-40)
[2023-09-08] MEDS: Vancomycin HCl 1,250 MG in 0.9% Normal Saline (250mL Bag) 250 ML 167 MG IV ×2 (09:51→23:03)
[2023-09-08] MEDS: Aspirin 81 MG TAB.CHEW PO (09:52)
[2023-09-08 10:33] LABS: Hemoglobin A1c 7.4 % (3.8-5.6)
--- NOTE | 2023-09-08 12:08 | CASEMGMT ---
Social Work SW met with pt to discuss advance directives.? Pt confirms she has completed a living will and health care POA naming Nandini, sister.? Pt notified that documents are not on file at [facility] and SW requested they be brought in for scanning into the EMR.? DIMPLE Whipple
--- NOTE | 2023-09-08 13:10 | VDLE_ITS ---
Reason For Study: Pre Operative planning RIGHT LEFT GSV Prox Thigh = 0.48cm x 0.51cm GSV Prox Thigh = 0.33cm x 0.38cm GSV Mid Thigh = 0.44cm x 0.47cm GSV Mid Thigh = 0.40cm x 0.41cm GSV Dist Thigh = 0.47cm x 0.49cm GSV Dist Thigh = 0.49cm x 0.48cm GSV Knee = 0.27cm x 0.30cm GSV Knee = 0.55cm x 0.61cm GSV Prox Calf = 0.27cm x 0.31cm GSV Prox Calf = 0.36cm x 0.38cm GSV Mid Calf = 0.29cm x 0.33cm GSV Mid Calf = 0.36cm x 0.43cm GSV Dist Calf = 0.34cm x 0.33cm GSV Dist Calf = 0.41cm x 0.46cm SSV Prox Calf = 0.31cm x 0.28cm SSV Prox Calf = 0.30cm x 0.34cm SSV Mid Calf = 0.20cm x 0.25cm SSV Mid Calf = 0.26cm x 0.27cm SSV Dist Calf = 0.13cm x 0.12cm SSV appears partially compressible. finding is consistent with vein wall thickening and ASV Dist Thigh = 0.49cm x 0.48cm chronic SVT. ASV Knee = 0.45cm x 0.49cm ASV Prox Calf = 0.29cm x 0.34cm ASV Dist calf = 0.32cm x 0.32cm GSV appears patent and compressible. GSV / ASV appear to branch at distal thigh and reconvene at distal calf. GSV / ASV / SSV all appear patent and compressible. Procedure This is a venous duplex using B-mode, color flow and spectral Doppler. Exam performed portable in patient room. Patient was scanned in reverse Trendelenburg position during reflux assessment. The exam was diagnostic. VL/Saphenous Vein Mapping, Bilat Interpretation Summary Right great saphenous vein patent with measurements above. Left great saphenous vein patent with measurements above. Right small saphenous vein patent with measurements above. Left small saphenous vein patent with measurements above. Right accessory saphenous vein patent with measurements above. Ordering Physician: Carolina Del Rio Performed By: Prabhu Danielle RVT
--- NOTE | 2023-09-08 13:11 | EX.PCM.CON.S ---
Assessment & Plan Assessment/Plan (1) Atherosclerosis of left lower extremity with gangrene: QUALIFIERS: Peripheral atherosclerosis artery type: [place] artery Qualified Code(s): I70.262 - Atherosclerosis of [place] arteries of extremities with gangrene, left leg PLAN: Plan CTA showed severe stenosis/occlusion of the L iliac, profunda femoral, common femoral, popliteal artery; there is distal reconstitution of the popliteal. Arterial studies are pending. Based on CTA images, recommend iliac artery stenting, femoral endarterectomy, and femoral-popliteal bypass. The patient is agreeable to this procedure. Will plan to complete on an inpatient basis, timing will be pending OR availability. Will need to obtain both vein mapping and a stress test prior to surgery. Both orders were placed today. He will continue with ASA and Heparin drip at this time. Continue statin. HPI Consult Data Date of Consult: 09/08/23 HPI Narrative HPI Narrative: ETHAN CROSS, is a 68 M who presented to the [facility] ER on 09/07/23 with complaint of L foot wound. He was found to have a wound to the L heel with necrotic tissue overlying and foul odor. His L foot was noted to be pale and his toes with cyanotic discoloration. He was admitted for further management. He had a CTA which showed severe atherosclerotic disease and thrombus in the L iliac, profunda, common femoral, and popliteal arteries. Arterial studies are pending. Wound and blood cultures are pending. He was seen in consultation by Dr Scott with podiatry who plans to address this surgical once vascular status is improved. He states that he noticed this wound start off as a small dark spot about 6 weeks ago. He cannot identify an inciting incident. States he may have had a stone in his shoe or had old shoes. He did replace his shoes but noticed it only continue to worsen. He does report significant pain in his foot at this time, present at rest and slightly improved with dangling. He states he has had bilateral lower extremity aching/cramping for years but always attributed this to his back problems. By his report, patient has not really had any medical care over the last few years. He states at one time he was told he had heart failure and took medications for that but has not in the last few years. Likewise, reports he used to take metformin for diabetes but has not for years. A1c here was 7.4. He is a long-time smoker, about 1 ppd for 45 years. He denies any history of heart attack or coronary interventions. He denies any prior vascular surgical interventions. He does report a history significant for remote spinal injury but never spinal surgery. [facility] Medical History Myocardial infarct Congestive heart failure (CHF) Hypertension DVT (deep venous thrombosis) Home Medications ?Medication ?Instructions ?Recorded ?Last Taken ?Type diazepam 5 mg tablet 5 mg PO DAILY PRN PRN Anxiety 11/30/15 Unknown History aspirin 325 mg tablet 162.5 mg PO DAILY@0800 heart health 09/05/17 Unknown History Allergy/AdvReac Type Severity Reaction Status Date / Time Penicillins Allergy Unknown Verified 09/07/23 14:57 Social History Smoking Status: Light Smoker (<10/day) Physical Exam Const alert, oriented x3 and no apparent distress General Appearance: cooperative HEENT normocephalic, head/scalp atraumatic, hearing grossly normal bilaterally and external ears normal Head and Scalp: normal to inspection and normocephalic Eyes EOMs intact bilaterally General Eye: normal appearance of both eyes Neck General: normal visual inspection and trachea midline Resp normal respiratory effort, no retractions and no use of accessory muscles Effort and Inspection: able to speak in complete sentences Cardio regular rate and regular rhythm Extremity Extremity Narrative: L foot dressing intact. These dressing limited pulse exam, I was able to get a weak monophasic DP signal near the L great toe. R foot with monophasic DP and PT signals. Skin Wounds: wounds noted Wound Narrative: Wound pictures were reviewed showing dry gangrene of the L heel Neuro oriented x3, CN's II-XII intact bilaterally and moves all extremities Speech: speech normal Psych mental status grossly normal Appearance: grossly normal Attitude: calm and engaged Activity / Motor Behavior: appropriate eye contact Speech: normal speech Lab / Micro Data 09/08/23 04:20 09/08/23 04:20 Labs: Laboratory Results - last 24 hr 09/07/23 15:15: WBC 9.2, RBC 5.11, Hgb 14.6, Hct 43.8, MCV 85.7, MCH 28.6, MCHC 33.3, RDW Std Deviation 39.3, RDW Coeff [place] 12.8, Plt Count 320, MPV 9.5, Immature Gran % (Auto) 0.300, Neut % (Auto) 81.8 H, Lymph % (Auto) 11.1 L, [place] % (Auto) 6.0, Eos % (Auto) 0.4, Baso % (Auto) 0.4, Absolute Neuts (auto) 7.5, Absolute Lymphs (auto) 1.02, Nucleated RBC % 0, ESR 28 H, PT 14.6, INR 1.1, APTT 33.9, Sodium 133 L, Potassium 3.6, Chloride 100, Carbon Dioxide 23.0, Anion Gap 10, BUN 14, Creatinine 1.00, Est GFR (MDRD) Af Amer 96, Est GFR (MDRD) Non-Af 79, BUN/Creatinine Ratio 14.0, Glucose 178 H, Hemoglobin A1c 7.5 H, Lactic Acid 2.0, Calcium 9.7, Troponin I High Sens 10, C-React Prot Ext Range 65.90 H, TSH 2.42 09/07/23 19:47: Lactic Acid 1.7 09/08/23 03:15: Urine Color Yellow, Urine Clarity Clear, Urine pH 6.5, Ur Specific [place] 1.015, Urine Protein 30 H, Urine Glucose (UA) Normal, Urine Ketones Negative, Urine Occult Blood Negative, Urine Nitrite Negative, Urine Bilirubin Negative, Urine Urobilinogen Normal, Ur Leukocyte Esterase Negative, Urine RBC 0 SEEN, Urine WBC 0 SEEN, Ur Squamous Epith Cells 0 SEEN, Urine Bacteria 0 SEEN, Urine Mucus 0 SEEN 09/08/23 04:20: WBC 7.3, RBC 4.07 L, Hgb 11.5 L, Hct 35.5 L, MCV 87.2, MCH 28.3, MCHC 32.4, RDW Std Deviation 41.0, RDW Coeff [place] 12.8, Plt Count 253, MPV 9.4, Immature Gran % (Auto) 0.400, Neut % (Auto) 75.5 H, Lymph % (Auto) 14.5 L, [place] % (Auto) 7.3, Eos % (Auto) 1.9, Baso % (Auto) 0.4, Absolute Neuts (auto) 5.5, Absolute Lymphs (auto) 1.06, Nucleated RBC % 0, APTT 164.5 H*, Sodium 137, Potassium 3.5, Chloride 105, Carbon Dioxide 23.0, Anion Gap 9, BUN 11, Creatinine 0.74, Estim Creat Clear Calc 84.50, Est GFR (MDRD) Af Amer 136, Est GFR (MDRD) Non-Af 113, BUN/Creatinine Ratio 15.0, Glucose 132 H, Hemoglobin A1c 7.4 H, Calcium 8.4 L, Triglycerides 89, Cholesterol 132, LDL Cholesterol 89, VLDL Cholesterol 18, HDL Cholesterol 25 L Micro: Microbiology 09/07/23 15:50 Wound - Left Foot Wound Culture - Preliminary GNR lactose process assistant Gram negative genesis Imaging Radiology Impression Abdomen/Pelvis CTA 09/07/23 15:20 IMPRESSION: Stenosis and occlusions as noted the lower extremities. Electronically Signed: Carlos Gupta DO at 17:34 EDT , Foot X-Ray 09/07/23 15:40 IMPRESSION: No acute pelvic pathology is seen. Electronically Signed: Carlos Gupta DO at 16:23 EDT ,
[2023-09-08 13:14] LABS: Partial Thromboplast Time 32.6 Seconds (24.1-36.2)
[2023-09-08] MEDS: Heparin Injection (Vial) 5,000 UNIT/ML VIAL IV ×2 (13:23→23:10)
--- NOTE | 2023-09-08 15:50 | CASEMGMT ---
THANIA GUIDRY Assessment: Face to Face with pt for initial transition planning/care coordination assessment. THANIA GUIDRY introduced self and role at [facility], pt voices understanding and consents to assessment. Pt is A&O x4 and answers all questions appropriately at this time. Pt lying in bed in no distress with sister present in room. Pt appeared to become overwhelmed during assessment. Care providers, pharmacy, and demographics verified/updated. Admitting Dx: cellulitis with LLE heel wound PCP:None, provided pt with a local healthcare directory pamphlet. Pt states he needs to get his foot healed first before getting a PCP. Educated pt on need for PCP and if he had one other services could be available to help him such as HHC. Pt states he will call when he goes home to set up. Specialists:aristides Rivers Pharmacy: [facility] Insurance: [facility] Prescription Benefit: yes LNOK: Nandini Izaguirre, sister Living Arrangements: Pt lives alone in a single story home with no steps to enter. Pt reports he is able to do ADL's but is slow. His sister is preparing meals and doing pt laundry. Pt denies concerns at home. Transportation: Pt drives self and denies concerns with transportation. DME:2 walkers HHC/SNF: Denies hx of Pt states no concerns with going home at time of dc. Discussed in detail importance of PCP. Appears pt will have surgery this stay but it is not scheduled yet. Pt states no further concerns/needs. CM to follow. Advised pt to ask CM if any further question/concerns/needs arise, voices understanding. Pt Goal: Home Plan: TBD pending surgery and progress with therapy Jett MONTEIRO CM
--- NOTE | 2023-09-08 15:58 | PCM.PN.HOSP ---
Reason for Visit Reason for Visit: Left lower extremity wound Subjective Subjective Patient reports significant pain in his left lower extremity. Vascular surgery is at the bedside at the time of my evaluation and he does need intervention however will likely not be able to be done until the end of next week based on the OR schedule and preliminary workup that needs to be done. We did discuss this with the patient's and he voices understanding. We discussed the need for stress test which will be performed tomorrow and he voices understanding. He has no specific complaints other than ongoing pain which is to be expected with a vascular wound in his foot. He does have very significant vascular disease in the left lower extremity. He does realize that once vascular surgery is done he will need some intervention from podiatry and this intervention has yet to be determined. Objective Data Objective Data Vital Signs: Vital Signs Temp Pulse Resp BP Pulse Ox O2 Del Method 98.0 F 96 18 145/96 H 100 Room Air 09/08/23 09:06 09/08/23 09:06 09/08/23 09:06 09/08/23 09:06 09/08/23 09:06 09/08/23 09:06 Oxygen Delivery Method Room Air Weight: 67.6 kg Body Mass Index (BMI) 22.6 Intake & Output: Intake and Output for Last 24 Hours 09/06/23 09/07/23 09/08/23 23:59 23:59 23:59 Intake Total 345.83 / 345.83 2463.91 / 2463.91 Output Total 580 / 580 Balance 345.83 / 345.83 1883.91 / 1883.91 Medical Nutrition Assessment Dietitian: Malnutrition Criteria Met Start: 09/08/23 13:28 Freq: Status: Active Protocol: Document 09/08/23 13:28 CORNELIUS (Rec: 09/08/23 13:28 CORNELIUS [id number]) Nutrition Malnutrition Evidence of Malnutrition Exists Yes Malnutrition (severe): Acute Illness/Injury Evidenced By Suboptimal Energy Intake ( Severe),Weight Loss (Severe) Intake Problem Increased Nutrient Needs (specify) Etiology protein related to skin status Signs/Symptoms as evidenced by LLE heel ulcer Status Active Problem Clinical Problem Acute Disease or Injury Related Malnutrition Etiology related to increased pain from LLE heel ulcer causing inadequate energy intake Signs/Symptoms as evidenced by 12.4% unintentional wt loss and po intake meeting <50% 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 Altered Nutrient-Related Laboratory Values Etiology related to potential undiagnosed DM Signs/Symptoms as evidenced by A1c 7.4 Status Active Problem Recommendation Dietitian Recommendations/Changes Change diet to CHO Control d/t elevated A1c Add Glucerna Shake 4 oz tid w/ meals for increased nutrition if consumed Add Vladimir bid w/ medpass for increased nutrition if consumed Lab / Micro Data 09/08/23 04:20 09/08/23 04:20 Labs: Laboratory Results - last 24 hr 09/07/23 15:15: ESR 28 H, PT 14.6, INR 1.1, APTT 33.9, Sodium 133 L, Potassium 3.6, Chloride 100, Carbon Dioxide 23.0, Anion Gap 10, BUN 14, Creatinine 1.00, Est GFR (MDRD) Af Amer 96, Est GFR (MDRD) Non-Af 79, BUN/Creatinine Ratio 14.0, Glucose 178 H, Hemoglobin A1c 7.5 H, Lactic Acid 2.0, Calcium 9.7, Troponin I High Sens 10, C-React Prot Ext Range 65.90 H, TSH 2.42 09/07/23 19:47: Lactic Acid 1.7 09/08/23 03:15: Urine Color Yellow, Urine Clarity Clear, Urine pH 6.5, Ur Specific [place] 1.015, Urine Protein 30 H, Urine Glucose (UA) Normal, Urine Ketones Negative, Urine Occult Blood Negative, Urine Nitrite Negative, Urine Bilirubin Negative, Urine Urobilinogen Normal, Ur Leukocyte Esterase Negative, Urine RBC 0 SEEN, Urine WBC 0 SEEN, Ur Squamous Epith Cells 0 SEEN, Urine Bacteria 0 SEEN, Urine Mucus 0 SEEN 09/08/23 04:20: WBC 7.3, RBC 4.07 L, Hgb 11.5 L, Hct 35.5 L, MCV 87.2, MCH 28.3, MCHC 32.4, RDW Std Deviation 41.0, RDW [place] 12.8, Plt Count 253, MPV 9.4, Immature Gran % (Auto) 0.400, Neut % (Auto) 75.5 H, Lymph % (Auto) 14.5 L, [place] % (Auto) 7.3, Eos % (Auto) 1.9, Baso % (Auto) 0.4, Absolute Neuts (auto) 5.5, Absolute Lymphs (auto) 1.06, Nucleated RBC % 0, APTT 164.5 H*, Sodium 137, Potassium 3.5, Chloride 105, Carbon Dioxide 23.0, Anion Gap 9, BUN 11, Creatinine 0.74, Estim Creat Clear Calc 84.50, Est GFR (MDRD) Af Amer 136, Est GFR (MDRD) Non-Af 113, BUN/Creatinine Ratio 15.0, Glucose 132 H, Hemoglobin A1c 7.4 H, Calcium 8.4 L, Triglycerides 89, Cholesterol 132, LDL Cholesterol 89, VLDL Cholesterol 18, HDL Cholesterol 25 L 09/08/23 12:17: APTT 32.6 Micro: Microbiology 09/07/23 15:50 Wound - Left Foot Gram Stain - Final 09/07/23 15:50 Wound - Left Foot Wound 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 Electronically Signed: Carlos Gupta DO at 17:34 EDT , Foot X-Ray 09/07/23 15:40 IMPRESSION: No acute pelvic pathology is seen. 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 the bedside HEENT head/scalp atraumatic and moist oral mucous membranes HEENT Narrative: Dentition is poor, Mallampati is 2, no thrush, temporal wasting noted Head and Scalp: normocephalic Eyes PERRL, EOMs intact bilaterally and conjunctivae normal Eyes Narrative: No scleral icterus Neck no lymphadenopathy and supple Neck Narrative: Trachea midline, no thyroid enlargement Resp normal respiratory effort, no retractions, no use of accessory muscles and clear to auscultation bilaterally Resp Narrative: Diffusely diminished but no adventitious sounds noted Auscultation: Negative for rales, rhonchi or wheezes Cardio regular rate, regular rhythm, S1 normal heart sound, S2 normal heart sound, no murmurs, no rub, no gallops and no clicks GI normal to inspection, nondistended, normoactive bowel sounds, soft to palpation and non-tender Extremity no clubbing, cyanosis or edema Extremity Narrative: Decreased lean muscle mass, no significant palpable pedal pulses with decreased cap refill in bilateral lower extremities Skin Skin Narrative: Multiple left lower extremity toes are dusky, lower extremity dressing in place however images reviewed from wound care and show a lateral foot ulcer in the midfoot Neuro oriented x3, moves all extremities and no focal motor deficits Neuro Narrative: Generalized weakness noted but no focal deficits Speech: speech normal Psych affect normal Psych Narrative: Very friendly, pleasant, interacts appropriately Assessment & Plan Assessment/Plan (1) 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: (2) Atherosclerosis of left lower extremity with gangrene: QUALIFIERS: Peripheral atherosclerosis artery type: [place] artery Qualified Code(s): I70.262 - Atherosclerosis of [place] arteries of extremities with gangrene, left leg (3) Peripheral vascular disease: (4) Hyperlipidemia: PLAN: Plan Left foot ulcer related to peripheral vascular disease -Vascular studies are markedly abnormal and will need vascular intervention prior to podiatry being able to manage his foot due to limited healing if blood flow is not reestablished -Continue cefepime and vancomycin -Cultures are pending -Podiatry has evaluated the patient and recommends vascular surgical intervention to be followed by his intervention -Patient is partial weightbearing to his toes versus heel in his left lower extremity with full weightbearing on the right lower extremity -Wound care orders are for Betadine paint with sterile dry dressing and Kerlix wrap with no compression to be changed daily -Imaging shows no evidence of bone involvement at this time -Wound care is following Atherosclerosis of the left lower extremity with gangrene/peripheral vascular disease -CTA of the left lower extremity shows severe stenosis/occlusion of the left iliac, profundofemoral, common femoral, popliteal artery with distal reconstitution at the popliteal artery level -Arterial studies are pending -Current recommendations are for common iliac stenting with femoral endarterectomy and femoropopliteal bypass -This will likely be achieved by next -Check preoperative stress test -Check vein mapping -Continue aspirin and heparin drip -Check lipids and hemoglobin A1c -Atorvastatin 40 mg initiated Hyperglycemia without established diagnosis of diabetes -Hemoglobin A1c is pending -Will likely need diabetic diet and sliding scale insulin -Possible need of Accu-Cheks -Once we have A1c will address further Elevated blood pressure -Systolic pressures have been variable -Will continue to monitor to capture more of a baseline and consider initiating antihypertensives -Hydralazine every 6 hours as needed for systolic greater than 160 for now Remote DVT -Patient is not anticoagulated at baseline -Continue heparin drip for arterial disease Severe malnutrition -Likely related to acute illness -Dietitian is following -Supplements added Tobacco abuse -Highly recommend cessation patient states he realizes that smoking is because this and he needs to quit -Nicotine patch if needed DVT prophylaxis -Continue heparin drip CODE STATUS -Full code as verified upon admission Charges/Coding Visit Charges Inpatient E&M: 50628 Subs Hosp L3
--- NOTE | 2023-09-08 18:59 | NURSING ---
1830 aPTT still pending at this time
[2023-09-08 19:21] LABS: Partial Thromboplast Time 40.8 Seconds (24.1-36.2)
[2023-09-08] MEDS: Atorvastatin Calcium 40 MG Tablet PO (21:57)
[2023-09-09] MEDS: oxyCODONE 5 MG Tablet PO ×3 (01:50→16:33)
[2023-09-09 03:23] VITALS: BP 155/101; PULSE 103; RESP 20; TEMP 36.5; O2SAT 97
[2023-09-09 04:01] LABS: Hemoglobin 10.9 g/dL (13.0-16.5); Mean Corpuscular Hgb 28.5 pg (27.0-32.0); Mean Corpuscular Volume 86.2 fL (80-94); Mean Platelet Vol. 9.3 fl (6.2-12.0); Platelet Count 215 K/mm3 (150-450); RBC Distribution Width CV 13.1 % (11.6-14.6); RBC Distribution Width SD 40.6 fl (35.1-43.9); Red Blood Count 3.83 M/mm3 (4.6-6.2)
[2023-09-09 04:19] LABS: ALB/GLOB Ratio 0.6 RATIO (0.9-2.4); AST(SGOT) 17 U/L (15-37); Alanine Aminotransfer ALT/SGPT 29 U/L (16-61); Albumin, Serum 2.1 g/dL (3.2-5.0); Alkaline Phosphatase 53 U/L (45-117); Anion Gap 8 (5-15); BUN 11 mg/dL (7-18); BUN/Creat Ratio 17.7 RATIO (10-20); Calcium,Total 8.2 mg/dL (8.5-10.1); Chloride 107 mmol/L (98-107); Creatinine, Serum 0.62 mg/dL (0.70-1.30); EST Glomerular Filtration Rate 137 mL/min (>60); Est Glom Filt Rate - Afr Amer 165 mL/min (>60); Globulin 3.8 g/dL (2.2-4.2); Glucose 120 mg/dL (74-106); Magnesium 1.9 mg/dL (1.6-2.6); Phosphorus 2.7 mg/dL (2.5-4.9); Potassium 3.3 mmol/L (3.5-5.1); Protein, Total 5.9 g/dL (6.4-8.2); Sodium Level 137 mmol/L (136-145)
[2023-09-09 04:43] LABS: Partial Thromboplast Time 106.8 Seconds (24.1-36.2)
[2023-09-09] MEDS: Acetaminophen 325 MG Tablet 650 MG PO ×3 (04:55→21:33)
[2023-09-09] MEDS: Cefepime HCl 2 GM in 0.9% Normal Saline (100mL MB+) 100 ML IV ×3 (05:00→21:21)
--- NOTE | 2023-09-09 05:55 | RAD_ITS ---
EXAM: XR CHEST, 1 VIEW CLINICAL INDICATION: preop TECHNIQUE: Frontal view of the chest. COMPARISON: 11/30/2015 FINDINGS: LUNGS AND PLEURAL SPACES: Unremarkable. No consolidation or edema. No pneumothorax. No effusion. HEART: Unremarkable. Cardiac silhouette not enlarged. MEDIASTINUM: Central airways and mediastinal contour are unremarkable. BONES/JOINTS: Unremarkable. No acute fracture. SOFT TISSUES: Unremarkable. RAD/Chest 1 View (Portable) IMPRESSION: No radiographic evidence of acute cardiopulmonary disease. Electronically Signed: Brian Marks MD at 23:59 EDT ,
[2023-09-09 09:30] VITALS: BP 152/109; PULSE 98; RESP 18; TEMP 36.7; O2SAT 99
[2023-09-09] MEDS: Carvedilol 6.25 MG Tablet PO ×2 (09:44→21:33)
[2023-09-09] MEDS: diazePAM 5 MG Tablet PO ×2 (09:45→16:33)
[2023-09-09] MEDS: Aspirin 81 MG TAB.CHEW PO (09:46)
[2023-09-09 10:18] LABS: Vancomycin, Trough Level 16.4 ug/mL (5.0-15.0)
[2023-09-09] MEDS: HEPARIN/D5w 25,000 UNITS 25,000 UNITS/250 ML IV.SOLN. 6 UNITS CONT INF (10:21)
--- NOTE | 2023-09-09 10:28 | PCM.RX.CS ---
Consult Antibiotic Management Pharmacy has been consulted to manage selected antibiotic: Vancomycin Type of Intervention Type of Consult: Follow-up Suspected Infection Suspected Infection: Skin/Soft tissue Prior Doses of Antibiotics Prior Doses of Antibiotics Received/Current Regimen: Vancomycin 1250 mg IV given 09/07 @ 0951, and 09/07 @ 2303 Labs Labs: Sodium 137 mmol/L (136-145) 09/09/23 03:50 Potassium 3.3 mmol/L (3.5-5.1) L 09/09/23 03:50 Chloride 107 mmol/L (98-107) 09/09/23 03:50 Carbon Dioxide 22.0 mmol/L (21.0-32.0) 09/09/23 03:50 Anion Gap 8 (5-15) 09/09/23 03:50 BUN 11 mg/dL (7-18) 09/09/23 03:50 Creatinine 0.62 mg/dL (0.70-1.30) L 09/09/23 03:50 Est GFR (MDRD) Af Amer 165 mL/min (>60) 09/09/23 03:50 Est GFR (MDRD) Non-Af 137 mL/min (>60) 09/09/23 03:50 BUN/Creatinine Ratio 17.7 RATIO (10-20) 09/09/23 03:50 Glucose 120 mg/dL (74-106) H 09/09/23 03:50 Vancomycin Trough 16.4 ug/mL (5.0-15.0) H 09/09/23 09:30 Microbiology Microbiology: Microbiology 09/07/23 15:50 Wound - Left Foot Gram Stain - Final 09/07/23 15:50 Wound - Left Foot Wound Culture - Preliminary Enterobacter cloacae complex Stenotrophomonas maltophilia Dosing Weight Weight used for dosin kg Estimated Creatinine Clearance Estimated Creatinine Clearance: ~ 84 Goal Trough Goal Trough: 15-20 mcg/mL Pharmacy Plan for Drug Dosing Pharmacy Plan for Drug Dosing: Vancomycin trough = 16.4, continue current regimen, trough in 2 days. Pharmacy Service will continue to monitor and adjust dosing as required. Follow-Up Labs Follow-Up Labs: Trough: Vancomycin Date/Time Labs Ordered Labs to be done on [date and time ordered]: 09/11/23 @ 0930
[2023-09-09] MEDS: Vancomycin HCl 1,250 MG in 0.9% Normal Saline (250mL Bag) 250 ML 167 MG IV ×2 (10:37→22:25)
[2023-09-09] MEDS: Vancomycin Trough/Random Due 1 LAB MC (10:38)
[2023-09-09 12:06] LABS: Partial Thromboplast Time 41.5 Seconds (24.1-36.2)
--- NOTE | 2023-09-09 12:20 | PN.HOSP_ITS ---
Reason for Visit Reason for Visit: Left lower extremity arterial wound Subjective Subjective Patient having persistent pain in left foot despite medication. No neuropathy present. Brother at bedside and we explained the overall plan of care for right now. Has just returned from stress test. Objective Data Objective Data Vital Signs: Vital Signs Temp Pulse Resp BP Pulse Ox O2 Del Method 98.0 F 98 18 152/109 H 99 Room Air 09/09/23 09:30 09/09/23 09:30 09/09/23 09:30 09/09/23 09:30 09/09/23 09:30 09/09/23 09:30 Oxygen Delivery Method Room Air Weight: 67.6 kg Body Mass Index (BMI) 22.6 Intake & Output: Intake and Output for Last 24 Hours 09/07/23 09/08/23 09/09/23 23:59 23:59 23:59 Intake Total 345.83 / 345.83 4622.13 / 4622.13 512.0 / 512.0 Output Total 1330 / 1330 300 / 300 Balance 345.83 / 345.83 3292.13 / 3292.13 212.0 / 212.0 Medical Nutrition Assessment Dietitian: Malnutrition Criteria Met Start: 09/08/23 13:28 Freq: Status: Active Protocol: Document 09/08/23 13:28 CORNELIUS (Rec: 09/08/23 13:28 [facility] [id number]) Nutrition Malnutrition Evidence of Malnutrition Exists Yes Malnutrition (severe): Acute Illness/Injury Evidenced By Suboptimal Energy Intake ( Severe),Weight Loss (Severe) Intake Problem Increased Nutrient Needs (specify) Etiology protein related to skin status Signs/Symptoms as evidenced by LLE heel ulcer Status Active Problem Clinical Problem Acute Disease or Injury Related Malnutrition Etiology related to increased pain from LLE heel ulcer causing inadequate energy intake Signs/Symptoms as evidenced by 12.4% unintentional wt loss and po intake meeting <50% 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 Altered Nutrient-Related Laboratory Values Etiology related to potential undiagnosed DM Signs/Symptoms as evidenced by A1c 7.4 Status Active Problem Recommendation Dietitian Recommendations/Changes Change diet to CHO Control d/t elevated A1c Add Glucerna Shake 4 oz tid w/ meals for increased nutrition if consumed Add Vladimir bid w/ medpass for increased nutrition if consumed Lab / Micro Data 09/09/23 03:50 09/09/23 03:50 Labs: Laboratory Results - last 24 hr 09/08/23 12:17: APTT 32.6 09/08/23 18:35: APTT 40.8 H 09/09/23 03:50: WBC 6.0, RBC 3.83 L, Hgb 10.9 L, Hct 33.0 L, MCV 86.2, MCH 28.5, MCHC 33.0, RDW Std Deviation 40.6, RDW Co[place] 13.1, Plt Count 215, MPV 9.3, APTT 106.8 H*, Sodium 137, Potassium 3.3 L, Chloride 107, Carbon Dioxide 22.0, Anion Gap 8, BUN 11, Creatinine 0.62 L, Estim Creat Clear Calc 84.50, Est GFR (MDRD) Af Amer 165, Est GFR (MDRD) Non-Af 137, BUN/Creatinine Ratio 17.7, G lucose 120 H, Calcium 8.2 L, Phosphorus 2.7, Magnesium 1.9, Total Bilirubin 0.60, AST 17, ALT 29, Alkaline Phosphatase 53, Total Protein 5.9 L, Albumin 2.1 L, Globulin 3.8, Albumin/Globulin Ratio 0.6 L 09/09/23 09:30: Vancomycin Trough 16.4 H 09/09/23 11:49: APTT 41.5 H Micro: Microbiology 09/08/23 03:15 Urine, Catheterized Urine Culture - Preliminary Culture exhibits no growth. 09/07/23 15:50 Wound - Left Foot Gram Stain - Final 09/07/23 15:50 Wound - Left Foot Wound Culture - Preliminary Enterobacter cloacae complex Stenotrophomonas maltophilia Coag Negative Staph Gram positive genesis Physical Exam Const alert, oriented x3, no apparent distress and average body habitus; Negative for healthy appearing or well nourished Constitutional Narrative: Upper middle-aged, white male, lying in bed, appears much older than stated age, appears slightly uncomfortable with regards to pain in his leg but nontoxic, brother at bedside, nursing staff at bedside General Appearance: cooperative HEENT normocephalic, head/scalp atraumatic and moist oral mucous membranes HEENT Narrative: Dentition is poor, Mallampati is 2, no thrush Eyes PERRL, EOMs intact bilaterally and conjunctivae normal Eyes Narrative: No scleral icterus Neck no lymphadenopathy, supple and no JVD Neck Narrative: Trachea midline, no thyroid enlargement Resp normal respiratory effort, normal air movement, no retractions, no use of accessory muscles and clear to auscultation bilaterally Resp Narrative: Diffusely diminished but no adventitious sounds noted Auscultation: Negative for rales, rhonchi or wheezes Cardio regular rate, regular rhythm, S1 normal heart sound, S2 normal heart sound, no murmurs, no rub, no gallops and no clicks GI normal to inspection, nondistended, normoactive bowel sounds, soft to palpation and non-tender Extremity no clubbing, cyanosis or edema Extremity Narrative: Decreased lean muscle mass, no significant palpable pedal pulses with decreased cap refill in bilateral lower extremities Skin No no rashes or lesions noted, No no wounds, skin turgor normal, no jaundice, no petechiae and no mottling Neuro oriented x3, moves all extremities and no focal motor deficits Neuro Narrative: Generalized weakness noted but no focal deficits Speech: speech normal Psych thought process normal, cooperative and affect normal Psych Narrative: Very friendly, pleasant, interacts appropriately Appearance: appropriate Assessment & Plan Assessment/Plan (1) 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: (2) Atherosclerosis of left lower extremity with gangrene: QUALIFIERS: Peripheral atherosclerosis artery type: [place] artery Qualified Code(s): I70.262 - Atherosclerosis of [place] arteries of extremities with gangrene, left leg (3) Peripheral vascular disease: (4) Hyperlipidemia: PLAN: Plan Left foot ulcer related to peripheral vascular disease -Vascular studies are markedly abnormal and will need vascular intervention prior to podiatry being able to manage his foot due to limited healing if blood flow is not reestablished -Continue cefepime and vancomycin -Cultures are pending -Podiatry has evaluated the patient and recommends vascular surgical intervention to be followed by his intervention -Patient is partial weightbearing to his toes versus heel in his left lower extremity with full weightbearing on the right lower extremity -Wound care orders are for Betadine paint with sterile dry dressing and Kerlix wrap with no compression to be changed daily -Imaging shows no evidence of bone involvement at this time -Wound care is following Atherosclerosis of the left lower extremity with gangrene/peripheral vascular disease -CTA of the left lower extremity shows severe stenosis/occlusion of the left iliac, profundofemoral, common femoral, popliteal artery with distal reconstitution at the popliteal artery level -Arterial studies read remains pending -Current recommendations are for common iliac stenting with femoral endarterectomy and femoropopliteal bypass -This will likely be achieved by next -Preoperative stress test is pending -Vein mapping ordered and pending -Continue aspirin and heparin drip -Patient is diabetic with an A1c of 7.4 -Total cholesterol is 132 however LDL is 89/HDL 25/triglycerides 89 -Continue atorvastatin 40 mg with LDL goal being less than 70 Hypokalemia -40 mEq's p.o. potassium ordered -Recheck in a.m. Urinary retention -Has had to straight cath x 2 -Start Flomax 0.8 nightly -Suspect BPH with obstruction in combination with narcotics for pain control DM-2-newly diagnosed -Hemoglobin A1c was 7.4 -Transition to cardiac/carb controlled diet -Fasting blood sugars have not been all that high and this morning when 20 -Will likely start on oral agent at discharge in the form of metformin however will wait till procedures have been completed for initiation -Patient is on aspirin and statin Hypertension -Pressures remain elevated -Start Coreg 6.25 -Will consider initiation of losartan after surgery depending on ongoing blood pressure measurements as this would be beneficial with his diabetes diagnosis -Hydralazine every 6 hours as needed for systolic greater than 160 for now Remote DVT -Patient is not anticoagulated at baseline -Continue heparin drip for arterial disease Severe malnutrition -Likely related to acute illness -Dietitian is following -Supplements added Tobacco abuse -Highly recommend cessation patient states he realizes that smoking is because this and he needs to quit -Nicotine patch if needed DVT prophylaxis -Continue heparin drip CODE STATUS -Full code as verified upon admission Charges/Coding Visit Charges Inpatient E&M: 84697 Subs Hosp L3
[2023-09-09] MEDS: Tamsulosin HCl 0.4 MG Capsule 0.8 MG PO (13:52)
[2023-09-09] MEDS: Potassium Chloride Oral Tablet 20 MEQ 40 MEQ PO (13:53)
[2023-09-09] MEDS: Juven (unflavored) Packet 1 PACKET PO (13:54)
[2023-09-09 14:15] VITALS: BP 148/91; PULSE 90; PULSE 94; RESP 18; TEMP 36.7; O2SAT 95
[2023-09-09 18:54] LABS: Partial Thromboplast Time 45.4 Seconds (24.1-36.2)
[2023-09-09 21:28] VITALS: BP 123/90; PULSE 102; RESP 18; TEMP 36.9; O2SAT 96
[2023-09-09] MEDS: Atorvastatin Calcium 40 MG Tablet PO (21:33)
[2023-09-10 05:10] VITALS: BP 141/91; PULSE 97; RESP 18; TEMP 37.1; O2SAT 95
[2023-09-10] MEDS: Cefepime HCl 2 GM in 0.9% Normal Saline (100mL MB+) 100 ML IV (05:37)
[2023-09-10 07:23] LABS: Anion Gap 8 (5-15); BUN 8 mg/dL (7-18); Calcium,Total 8.3 mg/dL (8.5-10.1); Chloride 104 mmol/L (98-107); Creatinine, Serum 0.57 mg/dL (0.70-1.30); EST Glomerular Filtration Rate 151 mL/min (>60); Est Glom Filt Rate - Afr Amer 183 mL/min (>60); Glucose 123 mg/dL (74-106); Potassium 3.4 mmol/L (3.5-5.1); Sodium Level 135 mmol/L (136-145)
[2023-09-10 07:31] LABS: Partial Thromboplast Time 48.7 Seconds (24.1-36.2)
--- NOTE | 2023-09-10 08:16 | PCM.PROGNOTE ---
Subjective Subjective Mr. Mohamud is a 68-year-old male seen at bedside today for follow-up evaluation of left heel wound. Patient denies any acute events overnight. He still admits to having some pain to left lower extremity but is improved. Patient is understanding of this plan of care. He did have a stress test and is awaiting interpretation of results. Denies trauma. Denies constitutional symptoms. No other pedal complaints at this time. Objective Data Objective Data Vital Signs: Vital Signs Temp Pulse Resp BP Pulse Ox O2 Del Method 98.8 F 97 18 141/91 H 95 Room Air 09/10/23 05:10 09/10/23 05:10 09/10/23 05:10 09/10/23 05:10 09/10/23 05:10 09/10/23 05:10 Oxygen Delivery Method Room Air Weight: 67.6 kg Body Mass Index (BMI) 22.6 Intake & Output: Intake and Output for Last 24 Hours 09/08/23 09/09/23 09/10/23 23:59 23:59 23:59 Intake Total 4622.13 / 4622.13 1992.9 / 1991.9 423.13 / 423.13 Output Total 1330 / 1330 1100 / 1100 500 / 500 Balance 3292.13 / 3292.13 892.9 / 892.9 -76.87 / -76.87 Medical Nutrition Assessment Dietitian: Malnutrition Criteria Met Start: 09/08/23 13:28 Freq: Status: Active Protocol: Document 09/08/23 13:28 CORNELIUS (Rec: 09/08/23 13:28 CORNELIUS [id number]) Nutrition Malnutrition Evidence of Malnutrition Exists Yes Malnutrition (severe): Acute Illness/Injury Evidenced By Suboptimal Energy Intake ( Severe),Weight Loss (Severe) Intake Problem Increased Nutrient Needs (specify) Etiology protein related to skin status Signs/Symptoms as evidenced by LLE heel ulcer Status Active Problem Clinical Problem Acute Disease or Injury Related Malnutrition Etiology related to increased pain from LLE heel ulcer causing inadequate energy intake Signs/Symptoms as evidenced by 12.4% unintentional wt loss and po intake meeting <50% 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 Altered Nutrient-Related Laboratory Values Etiology related to potential undiagnosed DM Signs/Symptoms as evidenced by A1c 7.4 Status Active Problem Recommendation Dietitian Recommendations/Changes Change diet to CHO Control d/t elevated A1c Add Glucerna Shake 4 oz tid w/ meals for increased nutrition if consumed Add Vladimir bid w/ medpass for increased nutrition if consumed Lab / Micro Data 09/09/23 03:50 09/10/23 06:40 Labs: Laboratory Results - last 24 hr 09/09/23 09:30: Vancomycin Trough 16.4 H 09/09/23 11:49: APTT 41.5 H 09/09/23 18:21: APTT 45.4 H 09/10/23 00:50: APTT 55.0 H 09/10/23 06:40: APTT 48.7 H, Sodium 135 L, Potassium 3.4 L, Chloride 104, Carbon Dioxide 23.0, Anion Gap 8, BUN 8, Creatinine 0.57 L, Estim Creat Clear Calc 84.50, Est GFR (MDRD) Af Amer 183, Est GFR (MDRD) Non-Af 151, BUN/Creatinine Ratio 14.0, Glucose 123 H, Calcium 8.3 L Micro: Microbiology 09/07/23 15:32 Blood Culture (Wb) - Left Hand Blood Culture - Preliminary No growth in 48 hours. 09/07/23 15:15 Blood Culture (Wb) - Anticubital Left Blood Culture - Preliminary No growth in 48 hours. 09/08/23 03:15 Urine, Catheterized Urine Culture - Preliminary Culture exhibits no growth. 09/07/23 15:50 Wound - Left Foot Gram Stain - Final 09/07/23 15:50 Wound - Left Foot Wound Culture - Preliminary Enterobacter cloacae complex Stenotrophomonas maltophilia Coag Negative Staph Gram positive genesis Radiography Diagnostic Testing: Radiology Impression Chest X-Ray 09/09/23 05:55 IMPRESSION: No radiographic evidence of acute cardiopulmonary disease. Electronically Signed: Brian Marks MD at 23:59 EDT , Physical Exam Narrative Vascular: DP and PT pulses are faintly palpable to left extremity. Skin temperature is warm to cool from proximal ankle to distal digits to left extremity. Bogginess appreciated to all digits left lower extremity secondary to decreased blood flow. Capillary fill time is delayed. Evidence of possible micro emboli appreciated to the hallux and fifth digit left foot, improving. Neurological: Light touch intact. Patient response to painful stimuli. Dermatological. Left lower extremity shows evidence of full-thickness ulceration/eschar measuring 10.0 x 8.0 x 0.1 cm, periwound erythema but stable. Skin is tight in nature with evidence of decreased blood flow appreciated to the level of the hallux and fifth digit left foot. Is also concern for micro emboli to left lower extremity. Musculoskeletal: Muscle strength is 5 and 5 in all quadrants bilateral. Mild palpatory tenderness appreciated to the hallux and fifth digit of the left foot. Mild to moderate palpatory tenderness appreciated to the dry eschar on the left heel. No pain with calf compression. Const alert, oriented x3 and no apparent distress Assessment & Plan Assessment/Plan (1) Atherosclerosis of left lower extremity with gangrene: QUALIFIERS: Peripheral atherosclerosis artery type: [place] artery Qualified Code(s): I70.262 - Atherosclerosis of [place] arteries of extremities with gangrene, left leg PLAN: Patient was examined and evaluated. All findings were discussed with the patient. All questions were answered to the patient satisfaction. Weightbearing status: Partial weightbearing to toes versus heel to left lower extremity. Full weightbearing to the right lower extremity. Continue to have the PRAFO boot in place to left lower extremity and continue to offload the left heel at all times. Wound care orders are in for wound care nurse/nursing to change with Betadine paint dry sterile dressing no compression. Change daily. Cx: E. cloacae, S. maltophilia, Coag (-) Staph, Gm(+) genesis Vascular studies: Right lower extremity shows evidence of PT/DP monophasic pulses. The left lower extremity shows evidence of monophasic pulses to the PT and absent pulses to the DP. Ankle-brachial index to the right lower extremity is 0.52. Ankle-brachial index to the left lower extremity is 0.16. Nuclear medicine stress test: Results pending Chest x-ray:No evidence of acute cardiopulmonary disease. Medicine: On board, medical management. IV antibiotics vancomycin, cefepime Vascular surgery: Recommends iliac artery stenting, femoral endarterectomy, and femoral?popliteal bypass. Procedure pending OR availability. Plan to obtain both vein mapping and stress test prior to surgery. Podiatry will follow from a distance while the patient is in house and will anticipate surgical intervention once vascular surgery has completed their intervention and give recommendations for runoff of the left lower extremity. Podiatry will continue to follow from a distance while the patient is in house. Thank you for letting us be involved with the patient care. 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
[2023-09-10] MEDS: Juven (unflavored) Packet 1 PACKET PO ×2 (09:07→17:22)
[2023-09-10] MEDS: Carvedilol 6.25 MG Tablet PO ×2 (09:07→22:53)
[2023-09-10] MEDS: Losartan Potassium 25 MG Tablet PO (09:07)
[2023-09-10] MEDS: Potassium Chloride Oral Tablet 20 MEQ 40 MEQ PO (09:08)
[2023-09-10] MEDS: Aspirin 81 MG TAB.CHEW PO (09:08)
[2023-09-10] MEDS: Vancomycin HCl 1,250 MG in 0.9% Normal Saline (250mL Bag) 250 ML 167 MG IV ×2 (10:16→22:44)
--- NOTE | 2023-09-10 12:34 | PCM.PN.HOSP ---
Reason for Visit Reason for Visit: Left lower extremity vascular wound Subjective Subjective Patient states his foot still hurts. Still having difficulty sleeping however feels that his pain is controlled as well as it is going to be until more intervention is pursued. We did discuss the fact that he is diabetic. He states has been told this in the past but then was told by somebody else he was not diabetic. He had been on metformin previously and I did discuss with him the fact that we will probably restart this at the time of discharge. He indicated he tolerated it well. We also did discuss the fact that we added losartan for his blood pressure as this was also be renal protective. Objective Data Objective Data Vital Signs: Vital Signs Temp Pulse Resp BP Pulse Ox O2 Del Method 98.8 F 97 18 141/91 H 95 Room Air 09/10/23 05:10 09/10/23 05:10 09/10/23 05:10 09/10/23 05:10 09/10/23 05:10 09/10/23 05:10 Oxygen Delivery Method Room Air Weight: 67.6 kg Body Mass Index (BMI) 22.6 Intake & Output: Intake and Output for Last 24 Hours 09/08/23 09/09/23 09/10/23 23:59 23:59 23:59 Intake Total 4622.13 / 4622.13 1992.9 / 1991.9 758.80 / 758.80 Output Total 1330 / 1330 1100 / 1100 1300 / 1300 Balance 3292.13 / 3292.13 892.9 / 892.9 -541.20 / -541.20 Medical Nutrition Assessment Dietitian: Malnutrition Criteria Met Start: 09/08/23 13:28 Freq: Status: Active Protocol: Document 09/08/23 13:28 CORNELIUS (Rec: 09/08/23 13:28 [facility] [id number]) Nutrition Malnutrition Evidence of Malnutrition Exists Yes Malnutrition (severe): Acute Illness/Injury Evidenced By Suboptimal Energy Intake ( Severe),Weight Loss (Severe) Intake Problem Increased Nutrient Needs (specify) Etiology protein related to skin status Signs/Symptoms as evidenced by LLE heel ulcer Status Active Problem Clinical Problem Acute Disease or Injury Related Malnutrition Etiology related to increased pain from LLE heel ulcer causing inadequate energy intake Signs/Symptoms as evidenced by 12.4% unintentional wt loss and po intake meeting <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 Altered Nutrient-Related Laboratory Values Etiology related to potential undiagnosed DM Signs/Symptoms as evidenced by A1c 7.4 Status Active Problem Recommendation Dietitian Recommendations/Changes Change diet to CHO Control d/t elevated A1c Add Glucerna Shake 4 oz tid w/ meals for increased nutrition if consumed Add Vladimir bid w/ medpass for increased nutrition if consumed Lab / Micro Data 09/09/23 03:50 09/10/23 06:40 Labs: Laboratory Results - last 24 hr 09/09/23 18:21: APTT 45.4 H 09/10/23 00:50: APTT 55.0 H 09/10/23 06:40: APTT 48.7 H, Sodium 135 L, Potassium 3.4 L, Chloride 104, Carbon Dioxide 23.0, Anion Gap 8, BUN 8, Creatinine 0.57 L, Estim Creat Clear Calc 84.50, Est GFR (MDRD) Af Amer 183, Est GFR (MDRD) Non-Af 151, BUN/Creatinine Ratio 14.0, Glucose 123 H, Calcium 8.3 L Micro: Microbiology 09/08/23 03:15 Urine, Catheterized Urine Culture - Final Culture exhibits no growth. 09/07/23 15:50 Wound - Left Foot Gram Stain - Final 09/07/23 15:50 Wound - Left Foot Wound Culture - Final Enterobacter cloacae complex Stenotrophomonas maltophilia Coag Negative Staph Gram positive genesis 09/07/23 15:32 Blood Culture (Wb) - Left Hand Blood Culture - Preliminary No growth in 48 hours. 09/07/23 15:15 Blood Culture (Wb) - Anticubital Left Blood Culture - Preliminary No growth in 48 hours. Radiography Diagnostic Testing: Radiology Impression Chest X-Ray 09/09/23 05:55 IMPRESSION: No radiographic evidence of acute cardiopulmonary disease. Electronically Signed: Brain Marks MD at 23:59 EDT , Physical Exam Const alert, oriented x3, no apparent distress and average body habitus; Negative for healthy appearing or well nourished Constitutional Narrative: Upper middle-aged, white male, sitting up on the edge of the bed eating lunch, appears much older than stated age, appears comfortable, nontoxic General Appearance: cooperative HEENT normocephalic, head/scalp atraumatic and moist oral mucous membranes HEENT Narrative: Dentition is poor, Mallampati is 2, no thrush Resp normal respiratory effort, normal air movement, no retractions, no use of accessory muscles and clear to auscultation bilaterally Resp Narrative: Diffusely diminished but no adventitious sounds noted Auscultation: Negative for rales, rhonchi or wheezes Cardio regular rate, regular rhythm, S1 normal heart sound, S2 normal heart sound, no murmurs, no rub, no gallops and no clicks GI normal to inspection, nondistended, normoactive bowel sounds, soft to palpation and non-tender Extremity no clubbing, cyanosis or edema Extremity Narrative: Decreased lean muscle mass, no significant palpable pedal pulses with decreased cap refill in bilateral lower extremities, left lower extremity dressing in place Skin Skin Narrative: Multiple left lower extremity toes are dusky Neuro oriented x3, moves all extremities and no focal motor deficits Neuro Narrative: Generalized weakness noted but no focal deficits Speech: speech normal Psych thought process normal, cooperative and affect normal Psych Narrative: Very friendly, pleasant, interacts appropriately Appearance: appropriate Assessment & Plan Assessment/Plan (1) 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: (2) Atherosclerosis of left lower extremity with gangrene: QUALIFIERS: Peripheral atherosclerosis artery type: [place] artery Qualified Code(s): I70.262 - Atherosclerosis of [place] arteries of extremities with gangrene, left leg (3) Peripheral vascular disease: (4) Hyperlipidemia: PLAN: Plan Left foot ulcer related to peripheral vascular disease -Vascular studies are markedly abnormal and will need vascular intervention prior to podiatry being able to manage his foot due to limited healing if blood flow is not reestablished -Will continue vancomycin now but transition cefepime to Levaquin as the Enterobacter and coag negative staph are both sensitive to this but stenotrophomonas is present and sensitive to Levaquin and Bactrim. -Cultures show polymicrobial infection with Enterobacter, stenotrophomonas, coag negative staph and another gram-positive genesis -Podiatry has evaluated the patient and recommends vascular surgical intervention to be followed by his intervention -Patient is partial weightbearing to his toes versus heel in his left lower extremity with full weightbearing on the right lower extremity -Wound care orders are for Betadine paint with sterile dry dressing and Kerlix wrap with no compression to be changed daily -Imaging shows no evidence of bone involvement at this time -Wound care is following -Consult ID with polymicrobial infection Atherosclerosis of the left lower extremity with gangrene/peripheral vascular disease -CTA of the left lower extremity shows severe stenosis/occlusion of the left iliac, profundofemoral, common femoral, popliteal artery with distal reconstitution at the popliteal artery level -Arterial studies read remains pending -Current recommendations are for common iliac stenting with femoral endarterectomy and femoropopliteal bypass -This will likely be achieved by next -Stress test done but read is pending -Vein mapping ordered and pending -Continue aspirin and heparin drip -Patient is diabetic with an A1c of 7.4 -Total cholesterol is 132 however LDL is 89/HDL 25/triglycerides 89 -Continue atorvastatin 40 mg with LDL goal being less than 70 Hypokalemia - repeat potassium 40 mEq today and then recheck in a.m. Urinary retention -Has had to straight cath x 2 -Cont Flomax 0.8 nightly -Suspect BPH with obstruction in combination with narcotics for pain control DM-2-newly diagnosed -Hemoglobin A1c was 7.4 -Transition to cardiac/carb controlled diet -Fasting blood sugars have not been all that high and this morning when 20 -Will likely start on oral agent at discharge in the form of metformin however will wait till procedures have been completed for initiation -Patient is on aspirin and statin Hypertension -Pressures remain elevated -Continue Coreg 6.25 -Add Losartan 25mg daily -Hydralazine every 6 hours as needed for systolic greater than 160 for now Remote DVT -Patient is not anticoagulated at baseline -Continue heparin drip for arterial disease Severe malnutrition -Likely related to acute illness -Dietitian is following -Supplements added Tobacco abuse -Highly recommend cessation patient states he realizes that smoking is because this and he needs to quit -Nicotine patch if needed DVT prophylaxis -Continue heparin drip CODE STATUS -Full code as verified upon admission Charges/Coding Visit Charges Inpatient E&M: 18154 Subs Hosp L2
[2023-09-10 15:07] LABS: Partial Thromboplast Time 48.9 Seconds (24.1-36.2)
[2023-09-10] MEDS: levoFLOXacin IV 750 MG/150 ML BAG 100 MG IV (15:17)
[2023-09-10 15:40] VITALS: BP 100/78; PULSE 97; RESP 18; TEMP 37; O2SAT 98
--- NOTE | 2023-09-10 16:59 | PN.SURG_ITS ---
Subjective Subjective No new issues, pain modestly controlled. Arterial study and vein mapping completed, stress test done not yet interpreted. Objective Data Objective Data Vital Signs: Vital Signs Temp Pulse Resp BP Pulse Ox O2 Del Method 98.6 F 97 18 100/78 98 Room Air 09/10/23 15:40 09/10/23 15:40 09/10/23 15:40 09/10/23 15:40 09/10/23 15:40 09/10/23 15:40 Oxygen Delivery Method Room Air Weight: 149 lb 0.52 oz Body Mass Index (BMI) 22.6 Intake & Output: Intake and Output for Last 24 Hours 09/08/23 09/09/23 09/10/23 23:59 23:59 23:59 Intake Total 4622.13 / 4622.13 1992.9 / 1991.9 1206.85 / 1206.85 Output Total 1330 / 1330 1100 / 1100 1300 / 1300 Balance 3292.13 / 3292.13 892.9 / 892.9 -93.15 / -93.15 Medical Nutrition Assessment Dietitian: Malnutrition Criteria Met Start: 09/08/23 13:28 Freq: Status: Active Protocol: Document 09/08/23 13:28 SLA (Rec: 09/08/23 13:28 [facility] [id number]) Nutrition Malnutrition Evidence of Malnutrition Exists Yes Malnutrition (severe): Acute Illness/Injury Evidenced By Suboptimal Energy Intake ( Severe),Weight Loss (Severe) Intake Problem Increased Nutrient Needs (specify) Etiology protein related to skin status Signs/Symptoms as evidenced by LLE heel ulcer Status Active Problem Clinical Problem Acute Disease or Injury Related Malnutrition Etiology related to increased pain from LLE heel ulcer causing inadequate energy intake Signs/Symptoms as evidenced by 12.4% unintentional wt loss and po intake meeting <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 Altered Nutrient-Related Laboratory Values Etiology related to potential undiagnosed DM Signs/Symptoms as evidenced by A1c 7.4 Status Active Problem Recommendation Dietitian Recommendations/Changes Change diet to CHO Control d/t elevated A1c Add Glucerna Shake 4 oz tid w/ meals for increased nutrition if consumed Add Vladimir bid w/ medpass for increased nutrition if consumed Lab / Micro Data 09/09/23 03:50 09/10/23 06:40 Labs: Laboratory Results - last 24 hr 09/09/23 18:21: APTT 45.4 H 09/10/23 00:50: APTT 55.0 H 09/10/23 06:40: APTT 48.7 H, Sodium 135 L, Potassium 3.4 L, Chloride 104, Carbon Dioxide 23.0, Anion Gap 8, BUN 8, Creatinine 0.57 L, Estim Creat Clear Calc 84.50, Est GFR (MDRD) Af Amer 183, Est GFR (MDRD) Non-Af 151, BUN/Creatinine Ratio 14.0, Glucose 123 H, Calcium 8.3 L 09/10/23 14:35: APTT 48.9 H Micro: Microbiology 09/08/23 03:15 Urine, Catheterized Urine Culture - Final Culture exhibits no growth. 09/07/23 15:50 Wound - Left Foot Gram Stain - Final 09/07/23 15:50 Wound - Left Foot Wound Culture - Final Enterobacter cloacae complex Stenotrophomonas maltophilia Coag Negative Staph Gram positive genesis 09/07/23 15:32 Blood Culture (Wb) - Left Hand Blood Culture - Preliminary No growth in 48 hours. 09/07/23 15:15 Blood Culture (Wb) - Anticubital Left Blood Culture - Preliminary No growth in 48 hours. Radiography Diagnostic Testing: Radiology Impression Chest X-Ray 09/09/23 05:55 IMPRESSION: No radiographic evidence of acute cardiopulmonary disease. Electronically Signed: Brian Marks MD at 23:59 EDT Reading Location ID and State: [address] [place] [address] Tel , Service support , Physical Exam Const alert, oriented x3, no apparent distress and healthy appearing General Appearance: cooperative; Negative for combative or lethargic Orientation / Consciousness: awake Exam Limitations: no limitations HEENT Head and Scalp: normocephalic and atraumatic Eyes EOMs intact bilaterally General Eye: normal appearance of both eyes Neck full ROM, no lymphadenopathy, thyroid normal and No no carotid bruits General: trachea midline; Negative for lymphadenopathy or tenderness Thyroid: thyroid normal Resp normal respiratory effort and no use of accessory muscles Effort and Inspection: Negative for labored, stridor or audible wheezes Cardio regular rate and regular rhythm Back/Spine Cervical Spine: cervical ROM normal Extremity full ROM, normal capillary refill and no clubbing, cyanosis or edema Skin no rashes or lesions noted and no wounds Neuro oriented x3, CN's II-XII intact bilaterally, no focal motor deficits and no sensory deficits noted Psych thought process normal, cooperative, affect normal, speech normal and activity/motor behavior normal Assessment & Plan Assessment/Plan (1) Atherosclerosis of left lower extremity with gangrene: QUALIFIERS: Peripheral atherosclerosis artery type: [place] artery Qualified Code(s): I70.262 - Atherosclerosis of [place] arteries of extremities with gangrene, left leg PLAN: -CTA with multi level disease -will need left iliac stent, extensive femoral endarterectomy, fem-pop -GERHARD 0.14 -vein adequate on mapping -await stress test results -will look for OR time -cont heparin Charges/Coding Multi Select Codes Visit Charges Visit Charges: 44837 Subs Hosp L3
[2023-09-10 17:06] LABS: Heparin-Induced Plt Ab 0.027 OD (0.000-0.400)
[2023-09-10] MEDS: Tamsulosin HCl 0.4 MG Capsule 0.8 MG PO (17:22)
[2023-09-10] MEDS: HEPARIN/D5w 25,000 UNITS 25,000 UNITS/250 ML IV.SOLN. 10 UNITS CONT INF (17:22)
[2023-09-10] MEDS: Acetaminophen 325 MG Tablet 650 MG PO (17:30)
[2023-09-10] MEDS: oxyCODONE 5 MG Tablet PO ×2 (17:30→22:53)
[2023-09-10 21:30] LABS: Partial Thromboplast Time 63.6 Seconds (24.1-36.2)
[2023-09-10 22:50] VITALS: BP 106/83; PULSE 99; RESP 20; TEMP 36.7; O2SAT 95
[2023-09-10] MEDS: Atorvastatin Calcium 40 MG Tablet PO (22:53)
[2023-09-11 03:24] LABS: Hematocrit 33.1 % (40-54); Hemoglobin 10.7 g/dL (13.0-16.5); Mean Corp Hgb Conc 32.3 g/dL (32-36); Mean Corpuscular Hgb 28.5 pg (27.0-32.0); Mean Platelet Vol. 9.4 fl (6.2-12.0); Platelet Count 234 K/mm3 (150-450); RBC Distribution Width CV 13.2 % (11.6-14.6); RBC Distribution Width SD 41.6 fl (35.1-43.9); Red Blood Count 3.76 M/mm3 (4.6-6.2)
[2023-09-11 03:33] LABS: Anion Gap 7 (5-15); BUN 14 mg/dL (7-18); BUN/Creat Ratio 24.5 RATIO (10-20); Calcium,Total 8.5 mg/dL (8.5-10.1); Chloride 105 mmol/L (98-107); Creatinine, Serum 0.57 mg/dL (0.70-1.30); EST Glomerular Filtration Rate 150 mL/min (>60); Est Glom Filt Rate - Afr Amer 182 mL/min (>60); Glucose 132 mg/dL (74-106); Magnesium 1.9 mg/dL (1.6-2.6); Potassium 3.8 mmol/L (3.5-5.1); Sodium Level 137 mmol/L (136-145)
[2023-09-11 04:31] LABS: Partial Thromboplast Time 61.1 Seconds (24.1-36.2)
[2023-09-11 05:11] VITALS: BP 143/86; PULSE 91; RESP 20; TEMP 36.8; O2SAT 96
[2023-09-11] MEDS: Acetaminophen 325 MG Tablet 650 MG PO ×3 (05:17→21:34)
[2023-09-11] MEDS: oxyCODONE 5 MG Tablet PO ×3 (05:17→21:34)
[2023-09-11 09:20] VITALS: BP 89/69; PULSE 100; RESP 16; TEMP 36.6; O2SAT 94
[2023-09-11] MEDS: levoFLOXacin IV 750 MG/150 ML BAG 100 MG IV (09:28)
[2023-09-11] MEDS: Juven (unflavored) Packet 1 PACKET PO ×2 (09:46→17:51)
[2023-09-11] MEDS: Aspirin 81 MG TAB.CHEW PO (09:46)
[2023-09-11 11:09] LABS: Vancomycin, Trough Level 17.1 ug/mL (5.0-15.0)
--- NOTE | 2023-09-11 11:18 | PCM.RX.CS ---
Consult Antibiotic Management Pharmacy has been consulted to manage selected antibiotic: Vancomycin Type of Intervention Type of Consult: Follow-up Suspected Infection Suspected Infection: Skin/Soft tissue Prior Doses of Antibiotics Prior Doses of Antibiotics Received/Current Regimen: current dose is vanc 1250mg IV q12h Labs Labs: Sodium 137 mmol/L (136-145) 09/11/23 03:05 Potassium 3.8 mmol/L (3.5-5.1) 09/11/23 03:05 Chloride 105 mmol/L (98-107) 09/11/23 03:05 Carbon Dioxide 25.0 mmol/L (21.0-32.0) 09/11/23 03:05 Anion Gap 7 (5-15) 09/11/23 03:05 BUN 14 mg/dL (7-18) 09/11/23 03:05 Creatinine 0.57 mg/dL (0.70-1.30) L 09/11/23 03:05 Est GFR (MDRD) Af Amer 182 mL/min (>60) 09/11/23 03:05 Est GFR (MDRD) Non-Af 150 mL/min (>60) 09/11/23 03:05 BUN/Creatinine Ratio 24.5 RATIO (10-20) H 09/11/23 03:05 Glucose 132 mg/dL (74-106) H 09/11/23 03:05 Vancomycin Trough 17.1 ug/mL (5.0-15.0) H 09/11/23 10:15 Microbiology Microbiology: Microbiology 09/08/23 03:15 Urine, Catheterized Urine Culture - Final Culture exhibits no growth. 09/07/23 15:50 Wound - Left Foot Gram Stain - Final 09/07/23 15:50 Wound - Left Foot Wound Culture - Final Enterobacter cloacae complex Stenotrophomonas maltophilia Coag Negative Staph Gram positive genesis 09/07/23 15:32 Blood Culture (Wb) - Left Hand Blood Culture - Preliminary No growth in 48 hours. 09/07/23 15:15 Blood Culture (Wb) - Anticubital Left Blood Culture - Preliminary No growth in 48 hours. Dosing Weight Weight used for dosin.6 kg Estimated Creatinine Clearance Estimated Creatinine Clearance: 84 ml/min Goal Trough Goal Trough: 15-20 mcg/mL Pharmacy Plan for Drug Dosing Pharmacy Plan for Drug Dosing: The vanc trough drawn at 10:15 today (approx 11.5 hours after the previous dose) was 17.1. This is within goal range again so will keep same dose. Repeat another trough in 4 days per protocol. Pharmacy Service will continue to monitor and adjust dosing as required. Follow-Up Labs Follow-Up Labs: Trough: Vancomycin Date/Time Labs Ordered Labs to be done on [date and time ordered]: 09/15/23 09:30
[2023-09-11 11:25] VITALS: BP 135/80; PULSE 105; RESP 16; TEMP 37.2; O2SAT 96
--- NOTE | 2023-09-11 11:29 | PCM.PN.HOSP ---
Reason for Visit Reason for Visit: Left lower extremity foot wound Subjective Subjective Patient reports he still not sleeping well. Sounds as if his pain is a little bit better controlled. Frustrated because his breakfast keeps getting interrupted by therapy and then me. I apologized and he voiced understanding. Objective Data Objective Data Vital Signs: Vital Signs Temp Pulse Resp BP Pulse Ox O2 Del Method 97.8 F 100 16 89/69 L 94 Room Air 09/11/23 09:20 09/11/23 09:20 09/11/23 09:20 09/11/23 09:20 09/11/23 09:20 09/11/23 09:20 Oxygen Delivery Method Room Air Weight: 67.6 kg Body Mass Index (BMI) 22.6 Intake & Output: Intake and Output for Last 24 Hours 09/09/23 09/10/23 09/11/23 23:59 23:59 23:59 Intake Total 1992.9 / 1992.9 1516.02 / 1516.02 345.17 / 345.17 Output Total 1100 / 1100 1999 / 1999 700 / 700 Balance 892.9 / 892.9 -483.98 / -483.98 -354.83 / -354.83 Medical Nutrition Assessment Dietitian: Malnutrition Criteria Met Start: 09/08/23 13:28 Freq: Status: Active Protocol: Document 09/08/23 13:28 CORNELIUS (Rec: 09/08/23 13:28 [facility] [id number]) Nutrition Malnutrition Evidence of Malnutrition Exists Yes Malnutrition (severe): Acute Illness/Injury Evidenced By Suboptimal Energy Intake ( Severe),Weight Loss (Severe) Intake Problem Increased Nutrient Needs (specify) Etiology protein related to skin status Signs/Symptoms as evidenced by LLE heel ulcer Status Active Problem Clinical Problem Acute Disease or Injury Related Malnutrition Etiology related to increased pain from LLE heel ulcer causing inadequate energy intake Signs/Symptoms as evidenced by 12.4% unintentional wt loss and po intake meeting <50% 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 Altered Nutrient-Related Laboratory Values Etiology related to potential undiagnosed DM Signs/Symptoms as evidenced by A1c 7.4 Status Active Problem Recommendation Dietitian Recommendations/Changes Change diet to CHO Control d/t elevated A1c Add Glucerna Shake 4 oz tid w/ meals for increased nutrition if consumed Add Vladimir bid w/ medpass for increased nutrition if consumed Lab / Micro Data 09/11/23 03:05 09/11/23 03:05 Labs: Laboratory Results - last 24 hr 09/08/23 04:20: Heparin-induced Plt Ab 0.027 09/10/23 14:35: APTT 48.9 H 09/10/23 21:07: APTT 63.6 H 09/11/23 03:05: WBC 6.0, RBC 3.76 L, Hgb 10.7 L, Hct 33.1 L, MCV 88.0, MCH 28.5, MCHC 32.3, RDW Std Deviation 41.6, RDW Coeff [place] 13.2, Plt Count 234, MPV 9.4, APTT 61.1 H, Sodium 137, Potassium 3.8, Chloride 105, Carbon Dioxide 25.0, Anion Gap 7, BUN 14, Creatinine 0.57 L, Estim Creat Clear Calc 84.50, Est GFR (MDRD) Af Amer 182, Est GFR (MDRD) Non-Af 150, BUN/Creatinine Ratio 24.5 H, Glucose 132 H, Calcium 8.5, Magnesium 1.9 09/11/23 10:15: Vancomycin Trough 17.1 H Micro: Microbiology 09/08/23 03:15 Urine, Catheterized Urine Culture - Final Culture exhibits no growth. 09/07/23 15:50 Wound - Left Foot Gram Stain - Final 09/07/23 15:50 Wound - Left Foot Wound Culture - Final Enterobacter cloacae complex Stenotrophomonas maltophilia Coag Negative Staph Gram positive genesis 09/07/23 15:32 Blood Culture (Wb) - Left Hand Blood Culture - Preliminary No growth in 48 hours. 09/07/23 15:15 Blood Culture (Wb) - Anticubital Left Blood Culture - Preliminary No growth in 48 hours. Physical Exam Const alert, oriented x3, no apparent distress and average body habitus; Negative for healthy appearing or well nourished Constitutional Narrative: Upper middle-aged, white male, sitting up in a chair reclined eating breakfast and watching television, appears much older than stated age, appears comfortable, nontoxic General Appearance: cooperative HEENT normocephalic, head/scalp atraumatic and moist oral mucous membranes HEENT Narrative: Dentition is extremely poor, Mallampati 2, no thrush Resp normal respiratory effort, normal air movement, no retractions, no use of accessory muscles and clear to auscultation bilaterally Resp Narrative: Diffusely diminished but no adventitious sounds noted Auscultation: Negative for rales, rhonchi or wheezes Cardio regular rate, regular rhythm, S1 normal heart sound, S2 normal heart sound, no murmurs, no rub, no gallops and no clicks GI normal to inspection, nondistended, normoactive bowel sounds, soft to palpation and non-tender Extremity no clubbing, cyanosis or edema Extremity Narrative: Decreased lean muscle mass, no significant palpable pedal pulses with decreased cap refill in bilateral lower extremities, left lower extremity dressing in place but toes are dusky Neuro oriented x3, moves all extremities and no focal motor deficits Neuro Narrative: Generalized weakness noted but no focal deficits Speech: speech normal Psych cooperative and affect normal Psych Narrative: Pleasant interacts and appropriately Assessment & Plan Assessment/Plan (1) 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: (2) Atherosclerosis of left lower extremity with gangrene: QUALIFIERS: Peripheral atherosclerosis artery type: [place] artery Qualified Code(s): I70.262 - Atherosclerosis of [place] arteries of extremities with gangrene, left leg (3) Peripheral vascular disease: (4) Hyperlipidemia: PLAN: Plan Left foot ulcer related to peripheral vascular disease -Wound cultures are positive for Enterobacter, coag negative staph, and stenotrophomonas since -Continue vancomycin and Levaquin -ID consult is pending -Outpatient follow-up at wound center with podiatry after discharge -No surgical intervention required as an inpatient from podiatry standpoint -Toe-touch weightbearing on left lower extremity for now -Wound care orders are for Betadine paint with sterile dry dressing and Kerlix wrap with no compression to be changed daily -Imaging shows no evidence of bone involvement at this time -Wound care is following Atherosclerosis of the left lower extremity with gangrene/peripheral vascular disease -CTA of the left lower extremity shows severe stenosis/occlusion of the left iliac, profundofemoral, common femoral, popliteal artery with distal reconstitution at the popliteal artery level -Arterial studies read remains pending -Current recommendations are for common iliac stenting with femoral endarterectomy and femoropopliteal bypass -I rediscussed with Dr. 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 twice daily at discharge -Patient is on aspirin and statin Hypertension -Pressures remain elevated -Continue Coreg 6.25 -Discontinue losartan as blood pressures tend to be a little bit lower with this addition and will transition to lisinopril 2.5 mg daily -Hydralazine every 6 hours as needed for systolic greater than 160 for now Remote DVT -Patient is not anticoagulated at baseline -Continue heparin drip for arterial disease Severe malnutrition -Likely related to acute illness -Dietitian is following -Supplements added Tobacco abuse -Highly recommend cessation patient states he realizes that smoking is because this and he needs to quit -Nicotine patch if needed DVT prophylaxis -Continue heparin drip CODE STATUS -Full code Charges/Coding Visit Charges Inpatient E&M: 33788 Subs Hosp L2
[2023-09-11] MEDS: Vancomycin HCl 1,250 MG in 0.9% Normal Saline (250mL Bag) 250 ML 167 MG IV ×2 (12:01→21:34)
--- NOTE | 2023-09-11 12:02 | STRESSREP ---
Stress Test Report Date: 09/09/2023 Procedure: Pharmacologic stress nuclear imaging study Indications: Preoperative evaluation Consent: Per the patient Procedure: The patient underwent pharmacologic (Regadenoson) evaluation with a peak heart rate of 153 beats per minute (100%predicted maximal heart rate) and a peak blood pressure of 150/92 mmHg. The baseline ECG demonstrated normal sinus rhythm. EKG during lexiscan infusion revealed no significant ischemic changes. EKG post infusion revealed no significant ischemic changes [There were no cardiac dysrhythmias pretest, during pharmacologic infusion, or recovery]. [There was no complaint of chest discomfort during pharmacologic infusion or recovery]. The examination was discontinued secondary to completion of protocol. Impression: 1. Lexiscan stress test test is negative for Lexiscan infusion induced EKG changes of ischemia. 2. Lexiscan stress test test is negative for Lexiscan infusion induced chest pain. 3. Results of the nuclear portion of the test is as below Myocardial perfusion imaging study: Technique: The patient was injected with 11 millicuries of technetium 99m Cardiolite and subsequently rest SPECT Cardiolite nuclear imaging was obtained in the horizontal long, vertical long, and short axis views. The patient underwent pharmacologic [Regadenoson 0.4mg] evaluation. Please see above for details. The patient was injected with 36 millicuries of technetium 99m Cardiolite and subsequently stress SPECT Cardiolite nuclear imaging was obtained in the horizontal long, vertical long, and short axis views. A gated Cardiolite study at peak stress was obtained. Interpretation: Rest and stress SPECT Cardiolite nuclear imaging status post realignment, normalization, and attenuation correction demonstrate no evidence of significant ischemia or infarction after attenuation correction. Prior to attenuation correction there is mild decrease in the radioisotope uptake in the inferior wall on both the rest and stress images suggestive of diaphragmatic attenuation artifact. Gated images reveal no significant regional wall motion abnormalities. The reported LVEF is greater than 70%. Impression: 1. There is no evidence of significant ischemia or infarction. 2. Estimated ejection fraction is greater than 70%. This note was generated with [employer] software. It may contain incorrect words, spelling, and punctuation that were not noted in checking the note before signing.
[2023-09-11 15:55] VITALS: BP 108/91; PULSE 110; RESP 16; TEMP 37.1; O2SAT 97
[2023-09-11] MEDS: Tamsulosin HCl 0.4 MG Capsule 0.8 MG PO (17:51)
[2023-09-11] MEDS: HEPARIN/D5w 25,000 UNITS 25,000 UNITS/250 ML IV.SOLN. 10 UNITS CONT INF (18:38)
[2023-09-11 19:50] VITALS: BP 138/90; PULSE 107; RESP 18; TEMP 37.3; O2SAT 97
[2023-09-11] MEDS: Carvedilol 6.25 MG Tablet PO (19:50)
[2023-09-11] MEDS: Atorvastatin Calcium 40 MG Tablet PO (19:50)
[2023-09-11] MEDS: MELATONIN 10 MG TABLET PO (21:34)
[2023-09-12] VITALS (7 sets, daily range): BP systolic 102–156; BP diastolic 68–100; PULSE 95–104; RESP 16–20; TEMP 36.3–37; O2SAT 95–98
[2023-09-12] MEDS: diazePAM 5 MG Tablet PO ×2 (00:48→15:20)
[2023-09-12] MEDS: Aspirin 81 MG TAB.CHEW PO (07:59)
[2023-09-12] MEDS: Juven (unflavored) Packet 1 PACKET PO ×2 (07:59→16:46)
[2023-09-12 08:30] LABS: Partial Thromboplast Time 46.7 Seconds (24.1-36.2)
[2023-09-12] MEDS: Lisinopril 5 MG Tablet PO (09:02)
[2023-09-12] MEDS: Carvedilol 6.25 MG Tablet PO ×2 (09:02→20:01)
--- NOTE | 2023-09-12 09:47 | WOUNDNOTE ---
skin photo: left foot (toes)
--- NOTE | 2023-09-12 09:47 | WOUNDNOTE ---
wound photo: left lateral heel
[2023-09-12] MEDS: Vancomycin HCl 1,250 MG in 0.9% Normal Saline (250mL Bag) 250 ML 167 MG IV ×2 (09:49→21:34)
--- NOTE | 2023-09-12 09:58 | PCM.CONS.GEN ---
Assessment & Plan Assessment/Plan (1) Atherosclerosis of left lower extremity with gangrene: QUALIFIERS: Peripheral atherosclerosis artery type: [place] artery Qualified Code(s): I70.262 - Atherosclerosis of [place] arteries of extremities with gangrene, left leg PLAN: Wound cx with enterobacter, steno, CoNS, GPR. Cont vanc, levaquin. Vascular and podiatry following. Will change levaquin to po. Will follow, thank you (2) Type 2 diabetes mellitus with peripheral neuropathy: HPI Consult Data Date of Consult: 09/12/23 HPI Narrative Reason for Consultation: foot infection HPI Narrative: ETHAN CROSS, is a 68 M who presented 09/06 with several weeks L foot progressive pain, dark ulceration. Thinks it started with a rock in his shoe. No fever, no n/v/d. No recent abx prior to admit. No drainage from foot. Came to ED, admitted on vanc/cefepime. Seen by podiatry and vascular. Now on vanc/levaquin. Reports rash with PCN as a small child, not sure if has taken other beta lactams. Full ROS performed and neg except as noted above. [facility] Medical History Tobacco abuse Myocardial infarct Congestive heart failure (CHF) Hypertension DVT (deep venous thrombosis) Home Medications ?Medication ?Instructions ?Recorded ?Last Taken ?Type diazepam 5 mg tablet 5 mg PO DAILY PRN PRN Anxiety 11/30/15 Unknown History aspirin 325 mg tablet 162.5 mg PO DAILY@0800 heart health 09/05/17 Unknown History Allergy/AdvReac Type Severity Reaction Status Date / Time Penicillins Allergy Unknown Verified 09/07/23 14:57 Social History Smoking Status: Light Smoker (<10/day) Physical Exam Const alert, oriented x3 and no apparent distress General Appearance: cooperative HEENT normocephalic and head/scalp atraumatic Eyes PERRL and EOMs intact bilaterally Neck supple and No nodes Resp normal air movement and clear to auscultation bilaterally Cardio regular rate and regular rhythm GI soft to palpation, non-tender and non-distended Extremity General Extremity: edema Skin Skin Narrative: reviewed wound photos Neuro CN's II-XII intact bilaterally Medical Records Data Medical Nutrition Assessment Dietitian: Malnutrition Criteria Met Start: 09/08/23 13:28 Freq: Status: Active Protocol: Document 09/08/23 13:28 CORNELIUS (Rec: 09/08/23 13:28 CORNELIUS [id number]) Nutrition Malnutrition Evidence of Malnutrition Exists Yes Malnutrition (severe): Acute Illness/Injury Evidenced By Suboptimal Energy Intake ( Severe),Weight Loss (Severe) Intake Problem Increased Nutrient Needs (specify) Etiology protein related to skin status Signs/Symptoms as evidenced by LLE heel ulcer Status Active Problem Clinical Problem Acute Disease or Injury Related Malnutrition Etiology related to increased pain from LLE heel ulcer causing inadequate energy intake Signs/Symptoms as evidenced by 12.4% unintentional wt loss and po intake meeting <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 09/11/23 03:05 09/11/23 03:05 Labs: Laboratory Results - last 24 hr 09/11/23 10:15: Vancomycin Trough 17.1 H 09/12/23 07:59: APTT 46.7 H
[2023-09-12] MEDS: Acetaminophen 325 MG Tablet 650 MG PO ×2 (10:33→17:58)
[2023-09-12] MEDS: levoFLOXacin 750 MG Tablet PO (10:33)
--- NOTE | 2023-09-12 15:26 | PN.HOSP_ITS ---
Reason for Visit Reason for Visit: Left foot pain and wound Subjective Subjective Patient states his pain is old but better controlled. Denies any acute complaints at this time. We did discuss that his stress test was negative and would not need cardiology involvement preoperatively. Currently awaiting plan from Dr. Mg for surgical intervention. Objective Data Objective Data Vital Signs: Vital Signs Temp Pulse Resp BP Pulse Ox O2 Del Method 98.2 F 96 18 102/68 97 Room Air 09/12/23 14:50 09/12/23 14:50 09/12/23 14:50 09/12/23 14:50 09/12/23 14:50 09/12/23 14:50 Oxygen Delivery Method Room Air Weight: 67.6 kg Body Mass Index (BMI) 22.6 Intake & Output: Intake and Output for Last 24 Hours 09/10/23 09/11/23 09/12/23 23:59 23:59 23:59 Intake Total 1516.02 / 1516.02 1977.33 / 2377.33 1219 / 1219 Output Total 1999 / 1999 1100 / 1450 1550 / 1550 Balance -483.98 / -483.98 877.33 / 927.33 -331 / -331 Medical Nutrition Assessment Dietitian: Malnutrition Criteria Met Start: 09/08/23 13:28 Freq: Status: Active Protocol: Document 09/08/23 13:28 CORNELIUS (Rec: 09/08/23 13:28 [facility] [id number]) Nutrition Malnutrition Evidence of Malnutrition Exists Yes Malnutrition (severe): Acute Illness/Injury Evidenced By Suboptimal Energy Intake ( Severe),Weight Loss (Severe) Intake Problem Increased Nutrient Needs (specify) Etiology protein related to skin status Signs/Symptoms as evidenced by LLE heel ulcer Status Active Problem Clinical Problem Acute Disease or Injury Related Malnutrition Etiology related to increased pain from LLE heel ulcer causing inadequate energy intake Signs/Symptoms as evidenced by 12.4% unintentional wt loss and po intake meeting <50% 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 09/07/23 15:50 Wound - Left Foot Gram Stain - Final 09/07/23 15:50 Wound - Left Foot Wound Culture - Final Enterobacter cloacae complex Stenotrophomonas maltophilia Coag Negative Staph Gram positive genesis 09/07/23 15:32 Blood Culture (Wb) - Left Hand Blood Culture - Preliminary No growth in 48 hours. 09/07/23 15:15 Blood Culture (Wb) - Anticubital Left Blood Culture - Preliminary No growth in 48 hours. Physical Exam Const alert, oriented x3, no apparent distress and average body habitus; Negative for healthy appearing or well nourished Constitutional Narrative: Upper middle-aged, white male, finishing going to the bathroom and getting cleaned up, appears much older than stated age, appears comfortable, nontoxic, needs significant help for transfer back to bed General Appearance: cooperative HEENT normocephalic, head/scalp atraumatic and moist oral mucous membranes HEENT Narrative: Dentition is poor, Mallampati is 2, no thrush Resp normal respiratory effort, normal air movement, no retractions, no use of accessory muscles and clear to auscultation bilaterally Resp Narrative: Diffusely diminished but no adventitious sounds noted Auscultation: Negative for rales, rhonchi or wheezes Cardio regular rate, regular rhythm, S1 normal heart sound, S2 normal heart sound, no murmurs, no rub, no gallops and no clicks GI normal to inspection, nondistended, normoactive bowel sounds, soft to palpation and non-tender Extremity no clubbing, cyanosis or edema Extremity Narrative: Decreased lean muscle mass, no significant palpable pedal pulses with decreased cap refill in bilateral lower extremities, left lower extremity dressing in place but toes are dusky Skin Skin Narrative: Multiple left lower extremity toes are dusky, left heel wound reviewed and photographed from wound nursing notes and shows significant eschar involving a long area but does not appear to be deep at first glance Neuro oriented x3, moves all extremities and no focal motor deficits Neuro Narrative: Generalized weakness noted but no focal deficits Speech: speech normal Psych thought process normal, cooperative and affect normal Psych Narrative: Pleasant interacts and appropriately Appearance: appropriate Assessment & Plan Assessment/Plan (1) 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: (2) Atherosclerosis of left lower extremity with gangrene: QUALIFIERS: Peripheral atherosclerosis artery type: [place] artery Qualified Code(s): I70.262 - Atherosclerosis of [place] arteries of extremities with gangrene, left leg (3) Peripheral vascular disease: (4) Hyperlipidemia: PLAN: Plan Left foot ulcer related to peripheral vascular disease -Wound cultures are positive for Enterobacter, coag negative staph, and stenotrophomonas since -Continue vancomycin and Levaquin -ID evaluated the patient and transition to oral Levaquin--> will discuss and see if we can discontinue vancomycin tomorrow -Toe-touch weightbearing on left lower extremity for now -Wound care orders are for Betadine paint with sterile dry dressing and Kerlix wrap with no compression to be changed daily -No plans from podiatry for any surgical intervention as an inpatient -Will plan for outpatient wound center after discharge -Imaging shows no evidence of bone involvement at this time -Wound care is following Atherosclerosis of the left lower extremity with gangrene/peripheral vascular disease -CTA of the left lower extremity shows severe stenosis/occlusion of the left iliac, profundofemoral, common femoral, popliteal artery with distal reconstitution at the popliteal artery level -Current recommendations are for common iliac stenting with femoral endarterectomy and femoropopliteal bypass -Awaiting confirmation for surgical timing from Dr. 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 twice daily at discharge -Patient is on aspirin and statin Hypertension -Pressures remain elevated -Continue Coreg 6.25 -Continue lisinopril at 5 mg daily -Hold lisinopril preoperatively -Goal blood pressure is less than 130/80 -Hydralazine every 6 hours as needed for systolic greater than 160 for now Remote DVT -Patient is not anticoagulated at baseline -Continue heparin drip for arterial disease per vascular surgery Severe malnutrition -Likely related to acute illness -Dietitian is following -Supplements added Tobacco abuse -Highly recommend cessation patient states he realizes that smoking is because this and he needs to quit -Nicotine patch if needed DVT prophylaxis -Continue heparin drip CODE STATUS -Full code Charges/Coding Visit Charges Inpatient E&M: 93616 Subs Hosp L2
[2023-09-12 15:44] LABS: Partial Thromboplast Time 46.3 Seconds (24.1-36.2)
[2023-09-12] MEDS: Tamsulosin HCl 0.4 MG Capsule 0.8 MG PO (16:46)
[2023-09-12] MEDS: HEPARIN/D5w 25,000 UNITS 25,000 UNITS/250 ML IV.SOLN. 12 UNITS CONT INF (16:47)
--- NOTE | 2023-09-12 17:27 | PCM.PN.SRG ---
Subjective Subjective Mr. Mohamud is seen resting in bed this afternoon. He does not have any new complaints/concerns. He was switched to PO antibiotics today. Pain remains modestly controlled. Objective Data Objective Data Vital Signs: Vital Signs Temp Pulse Resp BP Pulse Ox O2 Del Method 98.2 F 96 18 102/68 97 Room Air 09/12/23 14:50 09/12/23 14:50 09/12/23 14:50 09/12/23 14:50 09/12/23 14:50 09/12/23 14:50 Oxygen Delivery Method Room Air Weight: 149 lb 0.52 oz Body Mass Index (BMI) 22.6 Intake & Output: Intake and Output for Last 24 Hours 09/10/23 09/11/23 09/12/23 23:59 23:59 23:59 Intake Total 1516.02 / 1516.02 1977.33 / 2377.33 1305.07 / 1305.07 Output Total 1999 / 1999 1100 / 1450 1550 / 1550 Balance -483.98 / -483.98 877.33 / 927.33 -244.93 / -244.93 Medical Nutrition Assessment Dietitian: Malnutrition Criteria Met Start: 09/08/23 13:28 Freq: Status: Active Protocol: Document 09/08/23 13:28 CORNELIUS (Rec: 09/08/23 13:28 [facility] [id number]) Nutrition Malnutrition Evidence of Malnutrition Exists Yes Malnutrition (severe): Acute Illness/Injury Evidenced By Suboptimal Energy Intake ( Severe),Weight Loss (Severe) Intake Problem Increased Nutrient Needs (specify) Etiology protein related to skin status Signs/Symptoms as evidenced by LLE heel ulcer Status Active Problem Clinical Problem Acute Disease or Injury Related Malnutrition Etiology related to increased pain from LLE heel ulcer causing inadequate energy intake Signs/Symptoms as evidenced by 12.4% unintentional wt loss and po intake meeting <50% of est nutritional needs x 2 months [employer] Status Active Problem Altered Nutrient-Related Laboratory Values Etiology related to potential undiagnosed DM Signs/Symptoms as evidenced by A1c 7.4 Status Active Problem Recommendation Dietitian Recommendations/Changes Change diet to CHO Control d/t elevated A1c Add Glucerna Shake 4 oz tid w/ meals for increased nutrition if consumed Add Vladimir bid w/ medpass for increased nutrition if consumed Lab / Micro Data 09/11/23 03:05 09/11/23 03:05 Labs: Laboratory Results - last 24 hr 09/12/23 07:59: APTT 46.7 H 09/12/23 15:10: APTT 46.3 H Micro: Microbiology 09/08/23 03:15 Urine, Catheterized Urine Culture - Final Culture exhibits no growth. 09/07/23 15:50 Wound - Left Foot Gram Stain - Final 09/07/23 15:50 Wound - Left Foot Wound Culture - Final Enterobacter cloacae complex Stenotrophomonas maltophilia Coag Negative Staph Gram positive genesis 09/07/23 15:32 Blood Culture (Wb) - Left Hand Blood Culture - Preliminary No growth in 48 hours. 09/07/23 15:15 Blood Culture (Wb) - Anticubital Left Blood Culture - Preliminary No growth in 48 hours. Physical Exam Const alert, oriented x3 and no apparent distress General Appearance: cooperative HEENT normocephalic, head/scalp atraumatic, hearing grossly normal bilaterally and external ears normal Head and Scalp: normal to inspection and normocephalic Eyes EOMs intact bilaterally General Eye: normal appearance of both eyes Neck General: normal visual inspection and trachea midline Resp normal respiratory effort, no retractions and no use of accessory muscles Effort and Inspection: able to speak in complete sentences Cardio regular rate and regular rhythm Extremity Extremity Narrative: L foot dressing intact. Skin Wounds: wounds noted Wound Narrative: Wound pictures were reviewed showing dry gangrene of the L heel Neuro oriented x3, CN's II-XII intact bilaterally and moves all extremities Speech: speech normal Psych mental status grossly normal Appearance: grossly normal Attitude: calm and engaged Activity / Motor Behavior: appropriate eye contact Speech: normal speech Assessment & Plan Assessment/Plan (1) Atherosclerosis of left lower extremity with gangrene: QUALIFIERS: Peripheral atherosclerosis artery type: [place] artery Qualified Code(s): I70.262 - Atherosclerosis of [place] arteries of extremities with gangrene, left leg PLAN: Plan Patient is scheduled for surgery on 09/17 at 0730. Continue heparin and ASA. No need to hold ASA for surgery.
[2023-09-12] MEDS: oxyCODONE 5 MG Tablet PO (20:01)
[2023-09-12] MEDS: Atorvastatin Calcium 40 MG Tablet PO (20:02)
[2023-09-12] MEDS: MELATONIN 10 MG TABLET PO (21:34)
[2023-09-12 22:50] LABS: Partial Thromboplast Time 51.3 Seconds (24.1-36.2)
[2023-09-13] VITALS (8 sets, daily range): BP systolic 98–139; BP diastolic 62–93; PULSE 89–97; RESP 16–20; TEMP 36.4–36.8; O2SAT 95–99
[2023-09-13 05:18] LABS: Hematocrit 33.2 % (40-54); Hemoglobin 10.8 g/dL (13.0-16.5); Mean Corp Hgb Conc 32.5 g/dL (32-36); Mean Corpuscular Hgb 28.6 pg (27.0-32.0); Mean Corpuscular Volume 88.1 fL (80-94); Mean Platelet Vol. 9.1 fl (6.2-12.0); Platelet Count 255 K/mm3 (150-450); RBC Distribution Width CV 13.5 % (11.6-14.6); RBC Distribution Width SD 42.9 fl (35.1-43.9); Red Blood Count 3.77 M/mm3 (4.6-6.2); White Blood Count 8.8 K/mm3 (4.4-11.0)
[2023-09-13] MEDS: oxyCODONE 5 MG Tablet PO ×4 (05:20→21:06)
[2023-09-13] MEDS: Acetaminophen 325 MG Tablet 650 MG PO ×3 (05:20→21:06)
[2023-09-13] MEDS: levoFLOXacin 750 MG Tablet PO (05:20)
[2023-09-13 05:41] LABS: Anion Gap 7 (5-15); BUN 15 mg/dL (7-18); BUN/Creat Ratio 27.8 RATIO (10-20); Calcium,Total 8.8 mg/dL (8.5-10.1); Chloride 104 mmol/L (98-107); Creatinine, Serum 0.54 mg/dL (0.70-1.30); EST Glomerular Filtration Rate 161 mL/min (>60); Est Glom Filt Rate - Afr Amer 195 mL/min (>60); Glucose 145 mg/dL (74-106); Potassium 3.9 mmol/L (3.5-5.1); Sodium Level 136 mmol/L (136-145)
[2023-09-13 05:45] LABS: Partial Thromboplast Time 63.3 Seconds (24.1-36.2)
[2023-09-13] MEDS: Aspirin 81 MG TAB.CHEW PO (07:28)
[2023-09-13] MEDS: Juven (unflavored) Packet 1 PACKET PO ×2 (07:28→16:15)
[2023-09-13] MEDS: Vancomycin HCl 1,250 MG in 0.9% Normal Saline (250mL Bag) 250 ML 167 MG IV ×2 (09:54→21:06)
[2023-09-13] MEDS: Carvedilol 3.125 MG TABLET PO ×2 (10:47→16:15)
--- NOTE | 2023-09-13 10:47 | PCM.PN.HOSP ---
Reason for Visit Reason for Visit: Left foot wound Subjective Subjective No issues overnight. Patient is aware that his surgery will be next Monday. Denies any issues currently. Just had some oxycodone so he states he is tired. Objective Data Objective Data Vital Signs: Vital Signs Temp Pulse Resp BP Pulse Ox O2 Del Method 97.9 F 89 18 109/73 95 Room Air 09/13/23 10:25 09/13/23 10:25 09/13/23 10:25 09/13/23 10:25 09/13/23 10:25 09/13/23 10:25 Oxygen Delivery Method Room Air Weight: 67.6 kg Body Mass Index (BMI) 22.6 Intake & Output: Intake and Output for Last 24 Hours 09/11/23 09/12/23 09/13/23 23:59 23:59 23:59 Intake Total 1977.33 / 2377.33 1903.47 / 1903.47 440.57 / 440.57 Output Total 1100 / 1450 2600 / 2600 800 / 800 Balance 877.33 / 927.33 -696.53 / -696.53 -359.43 / -359.43 Medical Nutrition Assessment Dietitian: Malnutrition Criteria Met Start: 09/08/23 13:28 Freq: Status: Active Protocol: Document 09/13/23 10:30 NAOMI (Rec: 09/13/23 10:30 [id number]) Nutrition Malnutrition Evidence of Malnutrition Exists Yes Malnutrition (severe): Chronic Evidenced By Suboptimal Energy Intake ( Severe),Weight Loss (Severe) Intake Problem Increased Nutrient Needs (specify) Etiology protein related to skin status Signs/Symptoms as evidenced by LLE heel ulcer Status Active Problem Clinical Problem Chronic Disease or Condition Related Malnutrition Etiology severe related to decreased appetite caused by increased pain from LLE heel ulcer Signs/Symptoms as evidenced by 12.4% unintentional wt loss and po intake meeting <75% of estimated nutritional needs x 2 months prior to admission Status Active Problem Acute Disease or Injury Related Malnutrition Status Inactive Problem Altered Nutrient-Related Laboratory Values Etiology related to diet/lifestyle and newly diagnosed diabetes Signs/Symptoms as evidenced by A1C 7.4 Status Active Problem Recommendation Dietitian Recommendations/Changes Continue CCD diet to manage blood sugars. Continue Glucerna Shake 4 oz tid w/ meals for increased nutrition if consumed Continue Vladimir bid w/ medpass for increased nutrition if consumed Lab / Micro Data 09/13/23 05:05 09/13/23 05:05 Labs: Laboratory Results - last 24 hr 09/12/23 15:10: APTT 46.3 H 09/12/23 22:00: APTT 51.3 H 09/13/23 05:05: WBC 8.8, RBC 3.77 L, Hgb 10.8 L, Hct 33.2 L, MCV 88.1, MCH 28.6, MCHC 32.5, RDW Std Deviation 42.9, RDW [place] 13.5, Plt Count 255, MPV 9.1, APTT 63.3 H, Sodium 136, Potassium 3.9, Chloride 104, Carbon Dioxide 25.0, Anion Gap 7, BUN 15, Creatinine 0.54 L, Estim Creat Clear Calc 84.50, Est GFR (MDRD) Af Amer 195, Est GFR (MDRD) Non-Af 161, BUN/Creatinine Ratio 27.8 H, Glucose 145 H, Calcium 8.8 Micro: Microbiology 09/07/23 15:15 Blood Culture (Wb) - Anticubital Left Blood Culture - Final No growth in 5 days. 09/07/23 15:32 Blood Culture (Wb) - Left Hand Blood Culture - Final No growth in 5 days. 09/08/23 03:15 Urine, Catheterized Urine Culture - Final Culture exhibits no growth. 09/07/23 15:50 Wound - Left Foot Gram Stain - Final 09/07/23 15:50 Wound - Left Foot Wound Culture - Final Enterobacter cloacae complex Stenotrophomonas maltophilia Coag Negative Staph Gram positive genesis Radiography Diagnostic Testing: Radiology Impression Extremity Arterial Study 09/07/23 20:47 Interpretation Summary Right GERHARD 0.52, moderate arterial insufficiency. Doppler/PVR waveforms and segmental pressures reveal distal SFA/popliteal disease. Left GERHARD 0.16, critical arterial insufficiency. Doppler/PVR waveforms and segmental pressures reveal axuzq-jvqnq-pzxiunhr femoral, distal SFA/popliteal disease. Ordering Physician: Lisandro Scott Performed By: Daina Sanchez, RVT Saphenous Venous Mapping 09/08/23 13:10 Interpretation Summary Right great saphenous vein patent with measurements above. Left great saphenous vein patent with measurements above. Right small saphenous vein patent with measurements above. Left small saphenous vein patent with measurements above. Right accessory saphenous vein patent with measurements above. Ordering Physician: Carolina Del Rio Performed By: Prabhu Danielle, RVT Physical Exam Const alert, oriented x3, no apparent distress and average body habitus; Negative for healthy appearing or well nourished Constitutional Narrative: Upper middle-aged, white male, lying in bed napping but awakens easily, appears comfortable, nontoxic General Appearance: cooperative HEENT normocephalic, head/scalp atraumatic and moist oral mucous membranes HEENT Narrative: Mallampati 2, dentition is poor Resp normal respiratory effort, normal air movement, no retractions, no use of accessory muscles and clear to auscultation bilaterally Resp Narrative: Diffusely diminished but no adventitious sounds noted Auscultation: Negative for rales, rhonchi or wheezes Cardio regular rate, regular rhythm, S1 normal heart sound, S2 normal heart sound, no murmurs, no rub, no gallops and no clicks GI normal to inspection, nondistended, normoactive bowel sounds, soft to palpation and non-tender Extremity no clubbing, cyanosis or edema Extremity Narrative: No significant edema, no clubbing or cyanosis, ischemic changes noted in the distal toes on the left with nonpalpable pulses bilaterally, bilateral cap refill is poor left worse than right, left lower extremity dressing in place for wound Neuro oriented x3, moves all extremities and no focal motor deficits Neuro Narrative: Generalized weakness noted but no focal deficits Speech: speech normal Psych thought process normal, cooperative and affect normal Psych Narrative: Pleasant interacts and appropriately Appearance: appropriate Assessment & Plan Assessment/Plan (1) 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: (2) Atherosclerosis of left lower extremity with gangrene: QUALIFIERS: Peripheral atherosclerosis artery type: [place] artery Qualified Code(s): I70.262 - Atherosclerosis of [place] arteries of extremities with gangrene, left leg (3) Peripheral vascular disease: (4) Hyperlipidemia: PLAN: Plan Left foot ulcer related to peripheral vascular disease -Wound cultures are positive for Enterobacter, coag negative staph, and stenotrophomonas since -Continue IV vancomycin and p.o. Levaquin -Antibiotics per infectious disease -Toe-touch weightbearing on left lower extremity for now -Wound care orders are for Betadine paint with sterile dry dressing and Kerlix wrap with no compression to be changed daily -No plans from podiatry for any surgical intervention as an inpatient -Will plan for outpatient wound center after discharge -Imaging shows no evidence of bone involvement at this time -Wound care is following Atherosclerosis of the left lower extremity with gangrene/peripheral vascular disease -CTA of the left lower extremity shows severe stenosis/occlusion of the left iliac, profundofemoral, common femoral, popliteal artery with distal reconstitution at the popliteal artery level -Current recommendations are for common iliac stenting with femoral endarterectomy and femoropopliteal bypass -Awaiting confirmation for surgical timing from Dr. 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 twice daily at discharge -Patient is on aspirin and statin Hypertension -Pressures remain elevated -Continue Coreg but decreased to 3.125 daily -Continue lisinopril but decrease to 2.5 mg daily -Hold lisinopril preoperatively -Goal blood pressure is less than 130/80 -Hydralazine every 6 hours as needed for systolic greater than 160 for now -Has not required any as needed medication Remote DVT -Patient is not anticoagulated at baseline -Continue heparin drip for arterial disease per vascular surgery Severe malnutrition -Likely related to acute illness -Dietitian is following -Supplements added Tobacco abuse -Highly recommend cessation patient states he realizes that smoking is because this and he needs to quit -Nicotine patch if needed DVT prophylaxis -Continue heparin drip CODE STATUS -Full code Charges/Coding Visit Charges Inpatient E&M: 16596 Subs Hosp L2
[2023-09-13] MEDS: HEPARIN/D5w 25,000 UNITS 25,000 UNITS/250 ML IV.SOLN. 13 UNITS CONT INF (11:35)
[2023-09-13 12:48] LABS: Partial Thromboplast Time 47.6 Seconds (24.1-36.2)
--- NOTE | 2023-09-13 13:54 | PN.ID_ITS ---
Physical Exam Narrative Feeling ok, no fever, no n/v/d. Const alert and no apparent distress General Appearance: cooperative Resp normal air movement and clear to auscultation bilaterally Cardio regular rate and regular rhythm GI soft to palpation, non-tender and non-distended Skin Skin Narrative: no new rash, foot wrapped ID ID: Route of nutrition/ use of supplements: [] Nutritional Intake: [] IV Site: [] Mendoza Catheter: [] Assessment & Plan Assessment/Plan (1) Atherosclerosis of left lower extremity with gangrene: QUALIFIERS: Peripheral atherosclerosis artery type: [place] artery Qualified Code(s): I70.262 - Atherosclerosis of [place] arteries of extremities with gangrene, left leg PLAN: Wound cx with enterobacter, steno, CoNS, GPR. Cont vanc, levaquin. Vascular and podiatry following. OR planned for 09/17 with vascular. Will follow (2) Type 2 diabetes mellitus with peripheral neuropathy:
--- NOTE | 2023-09-13 14:38 | CASEMGMT ---
Plan for OR on 09/18/23, RN CM to follow for needs post surgery.
[2023-09-13] MEDS: Tamsulosin HCl 0.4 MG Capsule 0.8 MG PO (16:15)
[2023-09-13 19:58] LABS: Partial Thromboplast Time 55.4 Seconds (24.1-36.2)
[2023-09-13] MEDS: Atorvastatin Calcium 40 MG Tablet PO (21:01)
[2023-09-13] MEDS: MELATONIN 10 MG TABLET PO (21:01)
[2023-09-13] MEDS: diazePAM 5 MG Tablet PO (21:06)
[2023-09-14 04:15] VITALS: BP 143/90; PULSE 96; RESP 16; TEMP 36.6; O2SAT 93
[2023-09-14] MEDS: Acetaminophen 325 MG Tablet 650 MG PO ×3 (04:22→19:43)
[2023-09-14] MEDS: oxyCODONE 5 MG Tablet PO ×4 (04:22→21:55)
[2023-09-14] MEDS: levoFLOXacin 750 MG Tablet PO (05:43)
[2023-09-14] MEDS: Morphine 2 MG/ML Syringe IV (06:55)
[2023-09-14] MEDS: HEPARIN/D5w 25,000 UNITS 25,000 UNITS/250 ML IV.SOLN. 14 UNITS CONT INF (07:17)
[2023-09-14 07:23] LABS: Partial Thromboplast Time 56.4 Seconds (24.1-36.2)
[2023-09-14 08:30] VITALS: BP 136/89; PULSE 104; RESP 18; TEMP 37.2; O2SAT 94
[2023-09-14] MEDS: Carvedilol 3.125 MG TABLET PO ×2 (08:31→16:42)
[2023-09-14] MEDS: Juven (unflavored) Packet 1 PACKET PO ×2 (08:31→16:42)
[2023-09-14] MEDS: Lisinopril 2.5 MG Tablet PO (08:31)
[2023-09-14] MEDS: Aspirin 81 MG TAB.CHEW PO (08:31)
--- NOTE | 2023-09-14 08:53 | PCM.PN.SRG ---
Subjective Subjective He continues to have pain in his L foot, this is generally well controlled/tolerable on current regimen. He remains on heparin drip, Hgb overall stable. No new complaints/concerns. Objective Data Objective Data Vital Signs: Vital Signs Temp Pulse Resp BP Pulse Ox O2 Del Method 97.8 F 96 16 143/90 H 93 Room Air 09/14/23 04:15 09/14/23 04:15 09/14/23 04:15 09/14/23 04:15 09/14/23 04:15 09/14/23 04:15 Oxygen Delivery Method Room Air Weight: 149 lb 0.52 oz Body Mass Index (BMI) 22.6 Intake & Output: Intake and Output for Last 24 Hours 09/12/23 09/13/23 09/14/23 23:59 23:59 23:59 Intake Total 1903.47 / 1903.47 1082.44 / 1282.44 635.02 / 635.02 Output Total 2600 / 2600 1500 / 2300 1700 / 1700 Balance -696.53 / -696.53 -417.56 / -1017.56 -1064.98 / -1064.98 Medical Nutrition Assessment Dietitian: Malnutrition Criteria Met Start: 09/08/23 13:28 Freq: Status: Active Protocol: Document 09/13/23 10:30 (Rec: 09/13/23 10:30 [id number]) Nutrition Malnutrition Evidence of Malnutrition Exists Yes Malnutrition (severe): Chronic Evidenced By Suboptimal Energy Intake ( Severe),Weight Loss (Severe) Intake Problem Increased Nutrient Needs (specify) Etiology protein related to skin status Signs/Symptoms as evidenced by LLE heel ulcer Status Active Problem Clinical Problem Chronic Disease or Condition Related Malnutrition Etiology severe related to decreased appetite caused by increased pain from LLE heel ulcer Signs/Symptoms as evidenced by 12.4% unintentional wt loss and po intake meeting <75% of estimated nutritional needs x 2 months prior to admission Status Active Problem Acute Disease or Injury Related Malnutrition Status Inactive Problem Altered Nutrient-Related Laboratory Values Etiology related to diet/lifestyle and newly diagnosed diabetes Signs/Symptoms as evidenced by A1C 7.4 Status Active Problem Recommendation Dietitian Recommendations/Changes Continue CCD diet to manage blood sugars. Continue Glucerna Shake 4 oz tid w/ meals for increased nutrition if consumed Continue Vladimir bid w/ medpass for increased nutrition if consumed Lab / Micro Data 09/13/23 05:05 09/13/23 05:05 Labs: Laboratory Results - last 24 hr 09/13/23 12:10: APTT 47.6 H 09/13/23 19:03: APTT 55.4 H 09/14/23 01:08: APTT 60.0 H 09/14/23 06:29: APTT 56.4 H Micro: Microbiology 09/07/23 15:15 Blood Culture (Wb) - Anticubital Left Blood Culture - Final No growth in 5 days. 09/07/23 15:32 Blood Culture (Wb) - Left Hand Blood Culture - Final No growth in 5 days. 09/08/23 03:15 Urine, Catheterized Urine Culture - Final Culture exhibits no growth. 09/07/23 15:50 Wound - Left Foot Gram Stain - Final 09/07/23 15:50 Wound - Left Foot Wound Culture - Final Enterobacter cloacae complex Stenotrophomonas maltophilia Coag Negative Staph Gram positive genesis Physical Exam Const alert, oriented x3 and no apparent distress General Appearance: cooperative HEENT normocephalic, head/scalp atraumatic, hearing grossly normal bilaterally and external ears normal Head and Scalp: normal to inspection and normocephalic Eyes EOMs intact bilaterally General Eye: normal appearance of both eyes Neck General: normal visual inspection and trachea midline Resp normal respiratory effort, no retractions and no use of accessory muscles Effort and Inspection: able to speak in complete sentences Cardio regular rate and regular rhythm Extremity Extremity Narrative: L foot dressing intact. Skin Wounds: wounds noted Wound Narrative: Wound pictures were reviewed showing dry gangrene of the L heel Neuro oriented x3, CN's II-XII intact bilaterally and moves all extremities Speech: speech normal Psych mental status grossly normal Appearance: grossly normal Attitude: calm and engaged Activity / Motor Behavior: appropriate eye contact Speech: normal speech Assessment & Plan Assessment/Plan (1) Atherosclerosis of left lower extremity with gangrene: QUALIFIERS: Peripheral atherosclerosis artery type: [place] artery Qualified Code(s): I70.262 - Atherosclerosis of [place] arteries of extremities with gangrene, left leg PLAN: Plan Plan remains for surgery on 09/17 at 0730. Continue ASA and heparin drip.
[2023-09-14] MEDS: Vancomycin HCl 1,250 MG in 0.9% Normal Saline (250mL Bag) 250 ML 167 MG IV ×2 (09:39→21:38)
--- NOTE | 2023-09-14 13:11 | PN.HOSP_ITS ---
Reason for Visit Reason for Visit: Left lower extremity wound Subjective Subjective Patient states he is sleepy this morning. Is sleeping better at night as well. Just took some pain medication. No complaints at this time. Objective Data Objective Data Vital Signs: Vital Signs Temp Pulse Resp BP Pulse Ox O2 Del Method 99 F 104 H 18 136/89 H 94 Room Air 09/14/23 08:30 09/14/23 08:30 09/14/23 08:30 09/14/23 08:30 09/14/23 08:30 09/14/23 08:30 Oxygen Delivery Method Room Air Weight: 67.6 kg Body Mass Index (BMI) 22.6 Intake & Output: Intake and Output for Last 24 Hours 09/12/23 09/13/23 09/14/23 23:59 23:59 23:59 Intake Total 1903.47 / 1903.47 1082.44 / 1282.44 910.02 / 910.02 Output Total 2600 / 2600 1500 / 2300 1999 / 1999 Balance -696.53 / -696.53 -417.56 / -1017.56 -1089.98 / -1089.98 Medical Nutrition Assessment Dietitian: Malnutrition Criteria Met Start: 09/08/23 13:28 Freq: Status: Active Protocol: Document 09/13/23 10:30 LO (Rec: 09/13/23 10:30 [id number]) Nutrition Malnutrition Evidence of Malnutrition Exists Yes Malnutrition (severe): Chronic Evidenced By Suboptimal Energy Intake ( Severe),Weight Loss (Severe) Intake Problem Increased Nutrient Needs (specify) Etiology protein related to skin status Signs/Symptoms as evidenced by LLE heel ulcer Status Active Problem Clinical Problem Chronic Disease or Condition Related Malnutrition Etiology severe related to decreased appetite caused by increased pain from LLE heel ulcer Signs/Symptoms as evidenced by 12.4% unintentional wt loss and po intake meeting <75% of estimated nutritional needs x 2 months prior to admission Status Active Problem Acute Disease or Injury Related Malnutrition Status Inactive Problem Altered Nutrient-Related Laboratory Values Etiology related to diet/lifestyle and newly diagnosed diabetes Signs/Symptoms as evidenced by A1C 7.4 Status Active Problem Recommendation Dietitian Recommendations/Changes Continue CCD diet to manage blood sugars. Continue Glucerna Shake 4 oz tid w/ meals for increased nutrition if consumed Continue Vladimir bid w/ medpass for increased nutrition if consumed Lab / Micro Data 09/13/23:05 09/13/23 05:05 Labs: Laboratory Results - last 24 hr 09/13/23 19:03: APTT 55.4 H 09/14/23 01:08: APTT 60.0 H 09/14/23 06:29: APTT 56.4 H Micro: Microbiology 09/07/23 15:15 Blood Culture (Wb) - Anticubital Left Blood Culture - Final No growth in 5 days. 09/07/23 15:32 Blood Culture (Wb) - Left Hand Blood Culture - Final No growth in 5 days. 09/08/23 03:15 Urine, Catheterized Urine Culture - Final Culture exhibits no growth. 09/07/23 15:50 Wound - Left Foot Gram Stain - Final 09/07/23 15:50 Wound - Left Foot Wound Culture - Final Enterobacter cloacae complex Stenotrophomonas maltophilia Coag Negative Staph Gram positive genesis Physical Exam Const alert, oriented x3, no apparent distress and average body habitus; Negative for healthy appearing or well nourished Constitutional Narrative: Upper middle-aged, white male, lying in bed napping but awakens easily, appears comfortable, nontoxic General Appearance: cooperative HEENT normocephalic, head/scalp atraumatic and moist oral mucous membranes HEENT Narrative: Mallampati 2, no thrush, dentition is poor Resp normal respiratory effort, normal air movement, no retractions, no use of accessory muscles and clear to auscultation bilaterally Resp Narrative: Diffusely diminished but no adventitious sounds noted Auscultation: Negative for rales, rhonchi or wheezes Cardio regular rate, regular rhythm, S1 normal heart sound, S2 normal heart sound, no murmurs, no rub, no gallops and no clicks GI normal to inspection, nondistended, normoactive bowel sounds, soft to palpation and non-tender Extremity no clubbing, cyanosis or edema Extremity Narrative: Does appear worse with regards to ischemia, no palpable pulses bilateral lower extremities, dressing in place Neuro oriented x3, moves all extremities and no focal motor deficits Neuro Narrative: Generalized weakness noted but no focal deficits Speech: speech normal Psych thought process normal, cooperative and affect normal Psych Narrative: Pleasant interacts and appropriately Appearance: appropriate Assessment & Plan Assessment/Plan (1) 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: (2) Atherosclerosis of left lower extremity with gangrene: QUALIFIERS: Peripheral atherosclerosis artery type: [place] artery Qualified Code(s): I70.262 - Atherosclerosis of [place] arteries of extremities with gangrene, left leg (3) Peripheral vascular disease: (4) Hyperlipidemia: PLAN: Plan Left foot ulcer related to peripheral vascular disease -Wound cultures are positive for Enterobacter, coag negative staph, and stenotrophomonas since -Continue IV vancomycin and p.o. Levaquin -Antibiotics per infectious disease -Toe-touch weightbearing on left lower extremity for now -Wound care orders are for Betadine paint with sterile dry dressing and Kerlix wrap with no compression to be changed daily -No plans from podiatry for any surgical intervention as an inpatient -Will plan for outpatient wound center after discharge -Imaging shows no evidence of bone involvement at this time -Wound care is following Atherosclerosis of the left lower extremity with gangrene/peripheral vascular disease -CTA of the left lower extremity shows severe stenosis/occlusion of the left iliac, profundofemoral, common femoral, popliteal artery with distal reconstitution at the popliteal artery level -Current recommendations are for common iliac stenting with femoral endarterectomy and femoropopliteal bypass -Plan is for surgery on a.m. 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 twice daily at discharge -Patient is on aspirin and statin -Continue low-dose GWYN inhibitor for renal protection in the setting of diabetes Hypertension -Pressures remain elevated -Continue Coreg 3.125 daily -Continue lisinopril 2.5 mg daily -Hold lisinopril preoperatively -Goal blood pressure is less than 130/80 -Hydralazine every 6 hours as needed for systolic greater than 160 for now -Has not required any as needed medication Remote DVT -Patient is not anticoagulated at baseline -Continue heparin drip for arterial disease per vascular surgery Severe malnutrition -Likely related to acute illness -Dietitian is following -Supplements added Tobacco abuse -Highly recommend cessation patient states he realizes that smoking is because this and he needs to quit -Nicotine patch if needed DVT prophylaxis -Continue heparin drip CODE STATUS -Full code Charges/Coding Visit Charges Inpatient E&M: 38151 Subs Hosp L2
[2023-09-14 13:35] VITALS: BP 108/71; PULSE 106; RESP 18; TEMP 36.6; O2SAT 97
--- NOTE | 2023-09-14 14:49 | PCM.PROGNOTE ---
Subjective Subjective Patient was seen today for follow up on left foot. He is resting in bed with family at bedside. He relates to pain to left foot. He is planning to have vascular intervention on September 17. No new complaints. Objective Data Objective Data Vital Signs: Vital Signs Temp Pulse Resp BP Pulse Ox O2 Del Method 97.8 F 106 H 18 108/71 97 Room Air 09/14/23 13:35 09/14/23 13:35 09/14/23 13:35 09/14/23 13:35 09/14/23 13:35 09/14/23 13:35 Oxygen Delivery Method Room Air Weight: 67.6 kg Body Mass Index (BMI) 22.6 Intake & Output: Intake and Output for Last 24 Hours 09/12/23 09/13/23 09/14/23 23:59 23:59 23:59 Intake Total 1903.47 / 1903.47 1082.44 / 1282.44 910.02 / 910.02 Output Total 2600 / 2600 1500 / 2300 1999 / 1999 Balance -696.53 / -696.53 -417.56 / -1017.56 -1089.98 / -1089.98 Medical Nutrition Assessment Dietitian: Malnutrition Criteria Met Start: 09/08/23 13:28 Freq: Status: Active Protocol: Document 09/13/23 10:30 NAOMI (Rec: 09/13/23 10:30 [id number]) Nutrition Malnutrition Evidence of Malnutrition Exists Yes Malnutrition (severe): Chronic Evidenced By Suboptimal Energy Intake ( Severe),Weight Loss (Severe) Intake Problem Increased Nutrient Needs (specify) Etiology protein related to skin status Signs/Symptoms as evidenced by LLE heel ulcer Status Active Problem Clinical Problem Chronic Disease or Condition Related Malnutrition Etiology severe related to decreased appetite caused by increased pain from LLE heel ulcer Signs/Symptoms as evidenced by 12.4% unintentional wt loss and po intake meeting <75% of estimated nutritional needs x 2 months prior to admission Status Active Problem Acute Disease or Injury Related Malnutrition Status Inactive Problem Altered Nutrient-Related Laboratory Values Etiology related to diet/lifestyle and newly diagnosed diabetes Signs/Symptoms as evidenced by A1C 7.4 Status Active Problem Recommendation Dietitian Recommendations/Changes Continue CCD diet to manage blood sugars. Continue Glucerna Shake 4 oz tid w/ meals for increased nutrition if consumed Continue Vladimir bid w/ medpass for increased nutrition if consumed Lab / Micro Data 09/13/23 05:05 09/13/23 05:05 Labs: Laboratory Results - last 24 hr 09/13/23 19:03: APTT 55.4 H 09/14/23 01:08: APTT 60.0 H 09/14/23 06:29: APTT 56.4 H Micro: Microbiology 09/07/23 15:15 Blood Culture (Wb) - Anticubital Left Blood Culture - Final No growth in 5 days. 09/07/23 15:32 Blood Culture (Wb) - Left Hand Blood Culture - Final No growth in 5 days. 09/08/23 03:15 Urine, Catheterized Urine Culture - Final Culture exhibits no growth. 09/07/23 15:50 Wound - Left Foot Gram Stain - Final 09/07/23 15:50 Wound - Left Foot Wound Culture - Final Enterobacter cloacae complex Stenotrophomonas maltophilia Coag Negative Staph Gram positive genesis Physical Exam Const alert, oriented x3 and no apparent distress Constitutional Narrative: Left foot with dry stable eschar to the lateral hindfoot, toes left foot dusky with delayed CFT, chronic vascular disease to the left foot, no maloder, no drainage, no fluctuance, no crepitus, no visible abscess, no streaking present, slight erythema to the eschar margins, but otherwise no erythema to the foot or ankle, calf is soft and supple bilateral. Assessment & Plan Assessment/Plan (1) Peripheral vascular disease: (2) Atherosclerosis of left lower extremity with gangrene: QUALIFIERS: Peripheral atherosclerosis artery type: [place] artery Qualified Code(s): I70.262 - Atherosclerosis of [place] arteries of extremities with gangrene, left leg (3) Type 2 diabetes mellitus with peripheral neuropathy: PLAN: Plan Evaluation performed. Reviewed diagnostic data. Chronic left LE vascular disease - patient is planning to have vascular intervention with Dr. Mg on September 18, 2023. Discussed with Dr. Mg today. Patient is on antibiotics per ID service. Keep left foot padded and offloaded - patient has foam offloading boot. Continue with betadine gauze dressing changes daily. Podiatry - no plans for debridement at this time - will continue to monitor foot - patient to have vascular intervention as noted above, will let foot demarcate, and plan to have possible debridement in future. Podiatry will continue to follow.
--- NOTE | 2023-09-14 15:50 | CASEMGMT ---
Social Work- SW met with pt and pt sister to begin discussions on pt's preferences at d/c. Pt states that he would like to go to TCU if needed. Sw will f/u with pt following his surgery next week. DIMPLE Whipple
[2023-09-14] MEDS: diazePAM 5 MG Tablet PO (15:55)
[2023-09-14 16:40] VITALS: BP 102/68; PULSE 108; RESP 18; TEMP 36.4; O2SAT 96
[2023-09-14] MEDS: Tamsulosin HCl 0.4 MG Capsule 0.8 MG PO (16:42)
[2023-09-14] MEDS: MELATONIN 10 MG TABLET PO (21:33)
[2023-09-14] MEDS: Atorvastatin Calcium 40 MG Tablet PO (21:33)
[2023-09-14] MEDS: 0.9% Saline Lock 10 ML Syringe IV (21:38)
[2023-09-14 21:41] VITALS: BP 119/83; PULSE 112; RESP 18; TEMP 36.8; O2SAT 96
[2023-09-14 21:42] VITALS: PULSE 112
[2023-09-15] MEDS: HEPARIN/D5w 25,000 UNITS 25,000 UNITS/250 ML IV.SOLN. 14 UNITS CONT INF ×2 (03:55→22:06)
[2023-09-15] MEDS: Acetaminophen 325 MG Tablet 650 MG PO ×3 (03:57→21:57)
[2023-09-15 04:00] VITALS: BP 134/75; PULSE 108; RESP 16; TEMP 36.8; O2SAT 95
[2023-09-15] MEDS: levoFLOXacin 750 MG Tablet PO (05:31)
[2023-09-15] MEDS: oxyCODONE 5 MG Tablet PO ×4 (06:32→21:56)
[2023-09-15 08:23] VITALS: PULSE 98
[2023-09-15 08:38] LABS: Vancomycin, Trough Level 16.8 ug/mL (5.0-15.0)
[2023-09-15 08:51] LABS: Partial Thromboplast Time 57.1 Seconds (24.1-36.2)
--- NOTE | 2023-09-15 09:11 | PCM.RX.CS ---
Consult Antibiotic Management Pharmacy has been consulted to manage selected antibiotic: Vancomycin Type of Intervention Type of Consult: Follow-up Suspected Infection Suspected Infection: Skin/Soft tissue Prior Doses of Antibiotics Prior Doses of Antibiotics Received/Current Regimen: Presently on 1250mg iv q12h. Labs Labs: Sodium 136 mmol/L (136-145) 09/13/23 05:05 Potassium 3.9 mmol/L (3.5-5.1) 09/13/23 05:05 Chloride 104 mmol/L (98-107) 09/13/23 05:05 Carbon Dioxide 25.0 mmol/L (21.0-32.0) 09/13/23 05:05 Anion Gap 7 (5-15) 09/13/23 05:05 BUN 15 mg/dL (7-18) 09/13/23 05:05 Creatinine 0.54 mg/dL (0.70-1.30) L 09/13/23 05:05 Est GFR (MDRD) Af Amer 195 mL/min (>60) 09/13/23 05:05 Est GFR (MDRD) Non-Af 161 mL/min (>60) 09/13/23 05:05 BUN/Creatinine Ratio 27.8 RATIO (10-20) H 09/13/23 05:05 Glucose 145 mg/dL (74-106) H 09/13/23 05:05 Vancomycin Trough 16.8 ug/mL (5.0-15.0) H 09/15/23 07:45 Microbiology Microbiology: Microbiology 09/07/23 15:15 Blood Culture (Wb) - Anticubital Left Blood Culture - Final No growth in 5 days. 09/07/23 15:32 Blood Culture (Wb) - Left Hand Blood Culture - Final No growth in 5 days. 09/08/23 03:15 Urine, Catheterized Urine Culture - Final Culture exhibits no growth. 09/07/23 15:50 Wound - Left Foot Gram Stain - Final 09/07/23 15:50 Wound - Left Foot Wound Culture - Final Enterobacter cloacae complex Stenotrophomonas maltophilia Coag Negative Staph Gram positive genesis Dosing Weight Weight used for dosin.6 kg Estimated Creatinine Clearance Estimated Creatinine Clearance: 85ml/min Goal Trough Goal Trough: 10-15 mcg/mL Pharmacy Plan for Drug Dosing Pharmacy Plan for Drug Dosing: Trough today 16.8 and in desired range of 15-20 mcg/ml. Continue same dose with new trough before another 4th dose per protocol. Pharmacy Service will continue to monitor and adjust dosing as required. Follow-Up Labs Follow-Up Labs: Trough: Vancomycin (6.1.24 @0190)
[2023-09-15] MEDS: Aspirin 81 MG TAB.CHEW PO (09:14)
[2023-09-15] MEDS: Juven (unflavored) Packet 1 PACKET PO ×2 (09:15→16:38)
[2023-09-15] MEDS: Carvedilol 3.125 MG TABLET PO ×2 (09:15→16:39)
[2023-09-15] MEDS: Lisinopril 2.5 MG Tablet PO (09:16)
[2023-09-15] MEDS: Vancomycin HCl 1,250 MG in 0.9% Normal Saline (250mL Bag) 250 ML 167 MG IV ×2 (09:36→22:00)
[2023-09-15] MEDS: Vancomycin Trough/Random Due 1 LAB MC (09:37)
[2023-09-15 09:47] VITALS: BP 139/90; PULSE 115; RESP 18; TEMP 36.7; O2SAT 97
--- NOTE | 2023-09-15 10:06 | NURSING ---
heparin remains at current dose of 14/hr due to ptt in goal range PTT ordered for 09/15 am
--- NOTE | 2023-09-15 11:08 | PCM.PN.HOSP ---
Reason for Visit Reason for Visit: Left foot wound Subjective Subjective Patient states he is sleeping little bit better. He states he is not sleeping for long periods of time but he states he feels like the quality of his sleep is better and his pain control is better. No issues at this time. Aware that the plan is for surgery on Monday. Objective Data Objective Data Vital Signs: Vital Signs Temp Pulse Resp BP Pulse Ox O2 Del Method 98.0 F 115 H 18 139/90 H 97 Room Air 09/15/23 09:47 09/15/23 09:47 09/15/23 09:47 09/15/23 09:47 09/15/23 09:47 09/15/23 09:47 Oxygen Delivery Method Room Air Weight: 67.6 kg Body Mass Index (BMI) 22.6 Intake & Output: Intake and Output for Last 24 Hours 09/13/23 09/14/23 09/15/23 23:59 23:59 23:59 Intake Total 1082.44 / 1282.44 1185.02 / 1535.02 897.43 / 897.43 Output Total 1500 / 2300 2000 / 2200 1100 / 1100 Balance -417.56 / -1017.56 -814.98 / -664.98 -202.57 / -202.57 Medical Nutrition Assessment Dietitian: Malnutrition Criteria Met Start: 09/08/23 13:28 Freq: Status: Active Protocol: Document 09/13/23 10:30 LO (Rec: 09/13/23 10:30 [id number]) Nutrition Malnutrition Evidence of Malnutrition Exists Yes Malnutrition (severe): Chronic Evidenced By Suboptimal Energy Intake ( Severe),Weight Loss (Severe) Intake Problem Increased Nutrient Needs (specify) Etiology protein related to skin status Signs/Symptoms as evidenced by LLE heel ulcer Status Active Problem Clinical Problem Chronic Disease or Condition Related Malnutrition Etiology severe related to decreased appetite caused by increased pain from LLE heel ulcer Signs/Symptoms as evidenced by 12.4% unintentional wt loss and po intake meeting <75% of estimated nutritional needs x 2 months prior to admission Status Active Problem Acute Disease or Injury Related Malnutrition Status Inactive Problem Altered Nutrient-Related Laboratory Values Etiology related to diet/lifestyle and newly diagnosed diabetes Signs/Symptoms as evidenced by A1C 7.4 Status Active Problem Recommendation Dietitian Recommendations/Changes Continue CCD diet to manage blood sugars. Continue Glucerna Shake 4 oz tid w/ meals for increased nutrition if consumed Continue Vladimir bid w/ medpass for increased nutrition if consumed Lab / Micro Data 09/13/23 05:05 09/13/23 05:05 Labs: Laboratory Results - last 24 hr 09/15/23 07:45: APTT 57.1 H, Vancomycin Trough 16.8 H Micro: Microbiology 09/07/23 15:15 Blood Culture (Wb) - Anticubital Left Blood Culture - Final No growth in 5 days. 09/07/23 15:32 Blood Culture (Wb) - Left Hand Blood Culture - Final No growth in 5 days. 09/08/23 03:15 Urine, Catheterized Urine Culture - Final Culture exhibits no growth. 09/07/23 15:50 Wound - Left Foot Gram Stain - Final 09/07/23 15:50 Wound - Left Foot Wound Culture - Final Enterobacter cloacae complex Stenotrophomonas maltophilia Coag Negative Staph Gram positive genesis Physical Exam Const alert, oriented x3, no apparent distress and average body habitus; Negative for healthy appearing or well nourished Constitutional Narrative: Upper middle-aged, white male, sitting up in a chair at the bedside, watching television, appears comfortable, nontoxic General Appearance: cooperative HEENT normocephalic, head/scalp atraumatic and moist oral mucous membranes HEENT Narrative: Dentition is poor, Mallampati is 2, no thrush Resp normal respiratory effort, normal air movement, no retractions, no use of accessory muscles and clear to auscultation bilaterally Resp Narrative: Diffusely diminished but no adventitious sounds noted Auscultation: Negative for rales, rhonchi or wheezes Cardio regular rate, regular rhythm, S1 normal heart sound, S2 normal heart sound, no murmurs, no rub, no gallops and no clicks GI normal to inspection, nondistended, normoactive bowel sounds, soft to palpation and non-tender Extremity no clubbing, cyanosis or edema Extremity Narrative: Toes are slightly more ischemic than they have been with no palpable pulses and poor cap refill bilateral lower extremities left greater than right Neuro oriented x3, moves all extremities and no focal motor deficits Neuro Narrative: Generalized weakness noted but no focal deficits Speech: speech normal Psych thought process normal, cooperative and affect normal Psych Narrative: Pleasant interacts and appropriately Appearance: appropriate Assessment & Plan Assessment/Plan (1) 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 Levaquin -Antibiotics per infectious disease -Toe-touch weightbearing on left lower extremity for now -Wound care orders are for Betadine paint with sterile dry dressing and Kerlix wrap with no compression to be changed daily -No plans from podiatry for any surgical intervention as an inpatient per discussion with Dr. Scott -Will plan for outpatient wound center after discharge -Imaging shows no evidence of bone involvement at this time -Wound care is following Atherosclerosis of the left lower extremity with gangrene/peripheral vascular disease -CTA of the left lower extremity shows severe stenosis/occlusion of the left iliac, profundofemoral, common femoral, popliteal artery with distal reconstitution at the popliteal artery level -Current recommendations are for common iliac stenting with femoral endarterectomy and femoropopliteal bypass -Plan is for surgery on a.m. 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 twice daily at discharge -Patient is on aspirin and statin -Continue low-dose GWYN inhibitor for renal protection in the setting of diabetes Hypertension -Pressures remain elevated -Continue Coreg 3.125 daily -Continue lisinopril 2.5 mg daily -Hold lisinopril preoperatively--> hold order is in place -Goal blood pressure is less than 130/80 -Hydralazine every 6 hours as needed for systolic greater than 160 for now -Has not required any as needed medication Remote DVT -Patient is not anticoagulated at baseline -Continue heparin drip for arterial disease per vascular surgery Severe malnutrition -Likely related to acute illness -Dietitian is following -Supplements added Tobacco abuse -Highly recommend cessation patient states he realizes that smoking is because this and he needs to quit -Nicotine patch if needed DVT prophylaxis -Continue heparin drip CODE STATUS -Full code Charges/Coding Visit Charges Inpatient E&M: 92993 Subs Hosp L2
[2023-09-15] MEDS: diazePAM 5 MG Tablet PO (12:43)
[2023-09-15 16:00] VITALS: BP 121/66; PULSE 70; RESP 18; TEMP 36.7; O2SAT 99
[2023-09-15] MEDS: Tamsulosin HCl 0.4 MG Capsule 0.8 MG PO (16:38)
[2023-09-15] MEDS: MELATONIN 10 MG TABLET PO (19:50)
[2023-09-15] MEDS: Atorvastatin Calcium 40 MG Tablet PO (19:50)
[2023-09-15 19:59] VITALS: BP 143/79; PULSE 108; RESP 18; TEMP 36.9; O2SAT 96
[2023-09-16] MEDS: Morphine 2 MG/ML Syringe IV (00:05)
[2023-09-16 02:30] VITALS: BP 136/92; PULSE 114; RESP 18; TEMP 36.9; O2SAT 94
[2023-09-16] MEDS: levoFLOXacin 750 MG Tablet PO (05:06)
[2023-09-16 06:08] LABS: Hematocrit 33.3 % (40-54); Hemoglobin 10.5 g/dL (13.0-16.5); Mean Corp Hgb Conc 31.5 g/dL (32-36); Mean Corpuscular Hgb 28.1 pg (27.0-32.0); Mean Platelet Vol. 9.3 fl (6.2-12.0); Platelet Count 301 K/mm3 (150-450); RBC Distribution Width CV 14.4 % (11.6-14.6); RBC Distribution Width SD 45.4 fl (35.1-43.9); Red Blood Count 3.74 M/mm3 (4.6-6.2); White Blood Count 8.9 K/mm3 (4.4-11.0)
[2023-09-16 06:13] LABS: Partial Thromboplast Time 66.5 Seconds (24.1-36.2)
[2023-09-16 06:33] LABS: Anion Gap 7 (5-15); BUN 14 mg/dL (7-18); BUN/Creat Ratio 20.9 RATIO (10-20); Chloride 103 mmol/L (98-107); Creatinine, Serum 0.67 mg/dL (0.70-1.30); EST Glomerular Filtration Rate 126 mL/min (>60); Est Glom Filt Rate - Afr Amer 152 mL/min (>60); Glucose 152 mg/dL (74-106); Potassium 3.7 mmol/L (3.5-5.1); Sodium Level 134 mmol/L (136-145)
[2023-09-16 08:00] VITALS: BP 145/65; PULSE 90; RESP 18; TEMP 36.9; O2SAT 97
--- NOTE | 2023-09-16 08:41 | PCM.PN.HOSP ---
Subjective Subjective Doing well, no issues overnight Objective Data Objective Data Vital Signs: Vital Signs Temp Pulse Resp BP Pulse Ox O2 Del Method 98.4 F 114 H 18 136/92 H 94 Room Air 09/16/23 02:30 09/16/23 02:30 09/16/23 02:30 09/16/23 02:30 09/16/23 02:30 09/16/23 02:30 Oxygen Delivery Method Room Air Weight: 149 lb 0.52 oz Body Mass Index (BMI) 22.6 Intake & Output: Intake and Output for Last 24 Hours 09/15/23 09/16/23 09/17/23 03:59 03:59 03:59 Intake Total 1582.45 / 1582.45 2833 / 2833 Output Total 1400 / 1400 1750 / 1750 900 / 900 Balance 182.45 / 182.45 1083 / 1083 -900 / -900 Medical Nutrition Assessment Dietitian: Malnutrition Criteria Met Start: 09/08/23 13:28 Freq: Status: Active Protocol: Document 09/13/23 10:30 (Rec: 09/13/23 10:30 [id number]) Nutrition Malnutrition Evidence of Malnutrition Exists Yes Malnutrition (severe): Chronic Evidenced By Suboptimal Energy Intake ( Severe),Weight Loss (Severe) Intake Problem Increased Nutrient Needs (specify) Etiology protein related to skin status Signs/Symptoms as evidenced by LLE heel ulcer Status Active Problem Clinical Problem Chronic Disease or Condition Related Malnutrition Etiology severe related to decreased appetite caused by increased pain from LLE heel ulcer Signs/Symptoms as evidenced by 12.4% unintentional wt loss and po intake meeting <75% of estimated nutritional needs x 2 months prior to admission Status Active Problem Acute Disease or Injury Related Malnutrition Status Inactive Problem Altered Nutrient-Related Laboratory Values Etiology related to diet/lifestyle and newly diagnosed diabetes Signs/Symptoms as evidenced by A1C 7.4 Status Active Problem Recommendation Dietitian Recommendations/Changes Continue CCD diet to manage blood sugars. Continue Glucerna Shake 4 oz tid w/ meals for increased nutrition if consumed Continue Vladimir bid w/ medpass for increased nutrition if consumed Lab / Micro Data 09/16/23 05:25 09/16/23 05:25 Labs: Laboratory Results - last 24 hr 09/15/23 07:45: APTT 57.1 H 09/16/23 05:25: WBC 8.9, RBC 3.74 L, Hgb 10.5 L, Hct 33.3 L, MCV 89.0, MCH 28.1, MCHC 31.5 L, RDW Std Deviation 45.4 H, RDW Coeff [place] 14.4, Plt Count 301, MPV 9.3, APTT 66.5 H, Sodium 134 L, Potassium 3.7, Chloride 103, Carbon Dioxide 24.0, Anion Gap 7, BUN 14, Creatinine 0.67 L, Estim Creat Clear Calc 84.50, Est GFR (MDRD) Af Amer 152, Est GFR (MDRD) Non-Af 126, BUN/Creatinine Ratio 20.9 H, Glucose 152 H, Calcium 9.0 Micro: Microbiology 09/07/23 15:15 Blood Culture (Wb) - Anticubital Left Blood Culture - Final No growth in 5 days. 09/07/23 15:32 Blood Culture (Wb) - Left Hand Blood Culture - Final No growth in 5 days. 09/08/23 03:15 Urine, Catheterized Urine Culture - Final Culture exhibits no growth. 09/07/23 15:50 Wound - Left Foot Gram Stain - Final 09/07/23 15:50 Wound - Left Foot Wound Culture - Final Enterobacter cloacae complex Stenotrophomonas maltophilia Coag Negative Staph Gram positive genesis Physical Exam Narrative General: Alert, Oriented x3, Cooperative, No apparent distress HEENT: Atraumatic, PERRLA, EOMI, Normocephalic Oral: Moist Mucosa Neck: Supple, No JVD Lungs: Diminished, Normal air movement, No rhonchi, No wheeze, No rales Cardiovascular: Regular rate, Regular Rhythm, Normal S1, Normal S2, No murmurs Abdomen: Soft, Non Tender, Non-Distended, No Hepato-splenomegaly Extremities: No edema, Capillary Refill Less than 3 Seconds Skin: Left lower extremity with ischemic toes and diminished pulses on the left greater than the right Musculoskeletal: No Tenderness to Palpation of Joints or Extremities Neurological: No focal neurological deficits, Motor Exam 5/5 strength throughout, Sensory exam intact to light touch and pain Psych/Mental Status: Normal Affect, Appropriate Assessment & Plan Assessment/Plan (1) 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: (2) Atherosclerosis of left lower extremity with gangrene: QUALIFIERS: Peripheral atherosclerosis artery type: [place] artery Qualified Code(s): I70.262 - Atherosclerosis of [place] arteries of extremities with gangrene, left leg (3) Peripheral vascular disease: (4) Hyperlipidemia: PLAN: Plan 1. Left foot ulcer secondary to peripheral vascular disease/atherosclerosis of left lower extremity with gangrene ? Continue with IV antibiotics ? Appreciate infectious disease assistance ? Cultures are positive for Enterobacter as well as coag negative staph and stenotrophomonas ? He is toe-touch weightbearing ? Plan for vascular intervention on Monday as CTA of the left lower extremity showed severe stenosis and occlusion of the left iliac as well as common femoral popliteal artery plan for common iliac stenting and femoropopliteal bypass ? Continue with aspirin and heparin drip 2. Essential HTN ? He was not on any medications on admission, continue with aspirin ? We will monitor make adjustments as necessary ? Continue with Coreg as well as lisinopril ? She does have hydralazine as needed available 3. DM2 ? A1c was 7.4 ? Sliding scale insulin with Accu-Cheks ? Plan for metformin on discharge 4. BPH with obstruction ? Continue with Flomax 5. Severe malnutrition -Likely related to acute illness -Dietitian is following -Supplements added DVT: Heparin drip Charges/Coding Visit Charges Inpatient E&M: 52236 Subs Hosp L2
[2023-09-16] MEDS: Lisinopril 2.5 MG Tablet PO (09:48)
[2023-09-16] MEDS: Aspirin 81 MG TAB.CHEW PO (09:48)
[2023-09-16] MEDS: Juven (unflavored) Packet 1 PACKET PO ×2 (09:49→17:00)
[2023-09-16] MEDS: Carvedilol 3.125 MG TABLET PO ×2 (09:49→17:00)
[2023-09-16] MEDS: oxyCODONE 5 MG Tablet PO (10:04)
[2023-09-16] MEDS: Vancomycin HCl 1,250 MG in 0.9% Normal Saline (250mL Bag) 250 ML 167 MG IV ×2 (10:05→23:07)
[2023-09-16 15:11] VITALS: BP 110/73; PULSE 110; RESP 18; TEMP 37.1; O2SAT 98
[2023-09-16] MEDS: Tamsulosin HCl 0.4 MG Capsule 0.8 MG PO (17:00)
[2023-09-16] MEDS: HEPARIN/D5w 25,000 UNITS 25,000 UNITS/250 ML IV.SOLN. 14 UNITS CONT INF (20:01)
[2023-09-16 21:36] VITALS: BP 120/81; PULSE 106; RESP 15; TEMP 37.2; O2SAT 94
[2023-09-16] MEDS: MELATONIN 10 MG TABLET PO (21:41)
[2023-09-16] MEDS: Atorvastatin Calcium 40 MG Tablet PO (21:41)
[2023-09-16 22:00] VITALS: PULSE 106; RESP 15
[2023-09-16 22:23] LABS: Vancomycin, Trough Level 14.7 ug/mL (5.0-15.0)
--- NOTE | 2023-09-16 22:41 | PCM.RX.CS ---
Consult Antibiotic Management Pharmacy has been consulted to manage selected antibiotic: Vancomycin Type of Intervention Type of Consult: Follow-up Labs Labs: Sodium 134 mmol/L (136-145) L 09/16/23 05:25 Potassium 3.7 mmol/L (3.5-5.1) 09/16/23 05:25 Chloride 103 mmol/L (98-107) 09/16/23 05:25 Carbon Dioxide 24.0 mmol/L (21.0-32.0) 09/16/23 05:25 Anion Gap 7 (5-15) 09/16/23 05:25 BUN 14 mg/dL (7-18) 09/16/23 05:25 Creatinine 0.67 mg/dL (0.70-1.30) L 09/16/23 05:25 Est GFR (MDRD) Af Amer 152 mL/min (>60) 09/16/23 05:25 Est GFR (MDRD) Non-Af 126 mL/min (>60) 09/16/23 05:25 BUN/Creatinine Ratio 20.9 RATIO (10-20) H 09/16/23 05:25 Glucose 152 mg/dL (74-106) H 09/16/23 05:25 Vancomycin Trough 14.7 ug/mL (5.0-15.0) 09/16/23 21:42 Microbiology Microbiology: Microbiology 09/07/23 15:15 Blood Culture (Wb) - Anticubital Left Blood Culture - Final No growth in 5 days. 09/07/23 15:32 Blood Culture (Wb) - Left Hand Blood Culture - Final No growth in 5 days. 09/08/23 03:15 Urine, Catheterized Urine Culture - Final Culture exhibits no growth. 09/07/23 15:50 Wound - Left Foot Gram Stain - Final 09/07/23 15:50 Wound - Left Foot Wound Culture - Final Enterobacter cloacae complex Stenotrophomonas maltophilia Coag Negative Staph Gram positive genesis Goal Trough Goal Trough: 15-20 mcg/mL Pharmacy Plan for Drug Dosing Pharmacy Plan for Drug Dosing: Pharmacy Service will continue to monitor and adjust dosing as required. TROUGH 14.7 @ 11.5 HOURS. NO CHANGES, FOLLOW UP TROUGH IN 2 DAYS Follow-Up Labs Follow-Up Labs: Trough: Vancomycin Date/Time Labs Ordered Labs to be done on [date and time ordered]: 09/17 @ 7811
[2023-09-17] VITALS (8 sets, daily range): BP systolic 121–126; BP diastolic 76–91; PULSE 98–115; RESP 15–16; TEMP 36.3–37.6; O2SAT 93–98; BMI 22.0
[2023-09-17 05:08] LABS: Absolute Lymphocyte Count 1.14 X10^3/uL (0.83-4.51); Absolute Neutrophil Count 6.2 X10^3/uL (2.0-7.7); Basophil# 0.05 X10^3/uL; Basophil% 0.6 % (0-1); Eosinophil# 0.04 X10^3/uL; Eosinophils% 0.5 % (0-5); Hematocrit 28.6 % (40-54); Hemoglobin 9.5 g/dL (13.0-16.5); Lymphocyte # 1.14 X10^3/ul (0.83-4.51); Lymphocyte % 13.6 % (19-41); Mean Corp Hgb Conc 33.2 g/dL (32-36); Mean Corpuscular Hgb 29.4 pg (27.0-32.0); Mean Corpuscular Volume 88.5 fL (80-94); Mean Platelet Vol. 8.9 fl (6.2-12.0); Monocyte# 0.91 X10^3/uL; Monocyte% 10.8 % (0-10); NRBC Flagged by Analyzer 0 % (0-5); Neutrophil # 6.22 X10^3/uL (2.7-7.7); Platelet Count 281 K/mm3 (150-450); RBC Distribution Width CV 14.3 % (11.6-14.6); RBC Distribution Width SD 45.4 fl (35.1-43.9); Red Blood Count 3.23 M/mm3 (4.6-6.2); White Blood Count 8.4 K/mm3 (4.4-11.0)
[2023-09-17 05:38] LABS: Partial Thromboplast Time 71.6 Seconds (24.1-36.2)
[2023-09-17 05:46] LABS: Anion Gap 7 (5-15); BUN 16 mg/dL (7-18); BUN/Creat Ratio 27.9 RATIO (10-20); Calcium,Total 8.6 mg/dL (8.5-10.1); Chloride 104 mmol/L (98-107); Creatinine, Serum 0.57 mg/dL (0.70-1.30); EST Glomerular Filtration Rate 150 mL/min (>60); Est Glom Filt Rate - Afr Amer 182 mL/min (>60); Glucose 157 mg/dL (74-106); Potassium 3.5 mmol/L (3.5-5.1); Sodium Level 134 mmol/L (136-145)
[2023-09-17] MEDS: levoFLOXacin 750 MG Tablet PO (06:45)
--- NOTE | 2023-09-17 08:24 | PN.HOSP_ITS ---
Subjective Subjective Doing well, no issues overnight Objective Data Objective Data Vital Signs: Vital Signs Temp Pulse Resp BP Pulse Ox O2 Del Method 97.5 F L 111 H 15 123/79 H 93 Room Air 09/17/23 03:00 09/17/23 03:00 09/17/23 03:24 09/17/23 03:00 09/17/23 03:00 09/17/23 03:24 Oxygen Delivery Method Room Air Weight: 149 lb 0.52 oz Body Mass Index (BMI) 22.6 Intake & Output: Intake and Output for Last 24 Hours 09/16/23 09/17/23 09/18/23 03:59 03:59 03:59 Intake Total 2833 / 2833 2900 / 2900 160.77 / 160.77 Output Total 1750 / 1750 2450 / 2450 Balance 1083 / 1083 450 / 450 160.77 / 160.77 Medical Nutrition Assessment Dietitian: Malnutrition Criteria Met Start: 09/08/23 13:28 Freq: Status: Active Protocol: Document 09/13/23 10:30 (Rec: 09/13/23 10:30 [id number]) Nutrition Malnutrition Evidence of Malnutrition Exists Yes Malnutrition (severe): Chronic Evidenced By Suboptimal Energy Intake ( Severe),Weight Loss (Severe) Intake Problem Increased Nutrient Needs (specify) Etiology protein related to skin status Signs/Symptoms as evidenced by LLE heel ulcer Status Active Problem Clinical Problem Chronic Disease or Condition Related Malnutrition Etiology severe related to decreased appetite caused by increased pain from LLE heel ulcer Signs/Symptoms as evidenced by 12.4% unintentional wt loss and po intake meeting <75% of estimated nutritional needs x 2 months prior to admission Status Active Problem Acute Disease or Injury Related Malnutrition Status Inactive Problem Altered Nutrient-Related Laboratory Values Etiology related to diet/lifestyle and newly diagnosed diabetes Signs/Symptoms as evidenced by A1C 7.4 Status Active Problem Recommendation Dietitian Recommendations/Changes Continue CCD diet to manage blood sugars. Continue Glucerna Shake 4 oz tid w/ meals for increased nutrition if consumed Continue Vladimir bid w/ medpass for increased nutrition if consumed Lab / Micro Data 09/17/23 04:25 09/17/23 04:25 Labs: Laboratory Results - last 24 hr 09/16/23 21:42: Vancomycin Trough 14.7 09/17/23 04:25: WBC 8.4, RBC 3.23 L, Hgb 9.5 L, Hct 28.6 L, MCV 88.5, MCH 29.4, MCHC 33.2 D, RDW Std Deviation 45.4 H, RDW Coeff [place] 14.3, Plt Count 281, MPV 8.9, Immature Gran % (Auto) 0.500, Neut % (Auto) 74.0 H, Lymph % (Auto) 13.6 L, Price % (Auto) 10.8 H, Eos % (Auto) 0.5, Baso % (Auto) 0.6, Absolute Neuts (auto) 6.2, Absolute Lymphs (auto) 1.14, Nucleated RBC % 0, APTT 71.6 H, Sodium 134 L, Potassium 3.5, Chloride 104, Carbon Dioxide 23.0, Anion Gap 7, BUN 16, C reatinine 0.57 L, Estim Creat Clear Calc 84.50, Est GFR (MDRD) Af Amer 182, Est GFR (MDRD) Non-Af 150, BUN/Creatinine Ratio 27.9 H, Glucose 157 H, Calcium 8.6 Micro: Microbiology 09/07/23 15:15 Blood Culture (Wb) - Anticubital Left Blood Culture - Final No growth in 5 days. 09/07/23 15:32 Blood Culture (Wb) - Left Hand Blood Culture - Final No growth in 5 days. 09/08/23 03:15 Urine, Catheterized Urine Culture - Final Culture exhibits no growth. 09/07/23 15:50 Wound - Left Foot Gram Stain - Final 09/07/23 15:50 Wound - Left Foot Wound Culture - Final Enterobacter cloacae complex Stenotrophomonas maltophilia Coag Negative Staph Gram positive genesis Physical Exam Narrative General: Alert, Oriented x3, Cooperative, No apparent distress HEENT: Atraumatic, PERRLA, EOMI, Normocephalic Oral: Moist Mucosa Neck: Supple, No JVD Lungs: Diminished, Normal air movement, No rhonchi, No wheeze, No rales Cardiovascular: Regular rate, Regular Rhythm, Normal S1, Normal S2, No murmurs Abdomen: Soft, Non Tender, Non-Distended, No Hepato-splenomegaly Extremities: No edema, poor peripheral perfusion Skin: Left lower extremity with ischemic toes and diminished pulses on the left greater than the right Musculoskeletal: No Tenderness to Palpation of Joints or Extremities Neurological: No focal neurological deficits, Motor Exam 5/5 strength throughout, Sensory exam intact to light touch and pain Psych/Mental Status: Normal Affect, Appropriate Assessment & Plan Assessment/Plan (1) 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 Left foot ulcer secondary to peripheral vascular disease/atherosclerosis of left lower extremity with gangrene ? Continue with IV antibiotics ? Appreciate infectious disease assistance ? Cultures are positive for Enterobacter as well as coag negative staph and stenotrophomonas ? He is toe-touch weightbearing ? Plan for vascular intervention on Monday as CTA of the left lower extremity showed severe stenosis and occlusion of the left iliac as well as common femoral popliteal artery plan for common iliac stenting and femoropopliteal bypass ? Continue with aspirin and heparin drip 2. Essential HTN ? He was not on any medications on admission, continue with aspirin ? We will monitor make adjustments as necessary ? Continue with Coreg as well as lisinopril ? She does have hydralazine as needed available 3. DM2 ? A1c was 7.4 ? Sliding scale insulin with Accu-Cheks ? Plan for metformin on discharge 4. BPH with obstruction ? Continue with Flomax 5. Severe malnutrition -Likely related to acute illness -Dietitian is following -Supplements added DVT: Heparin drip Charges/Coding Visit Charges Inpatient E&M: 72041 Subs Hosp L2
[2023-09-17] MEDS: Carvedilol 3.125 MG TABLET PO ×2 (08:25→16:09)
[2023-09-17] MEDS: Aspirin 81 MG TAB.CHEW PO (08:26)
[2023-09-17] MEDS: Juven (unflavored) Packet 1 PACKET PO ×2 (08:26→16:09)
--- NOTE | 2023-09-17 10:22 | PCM.PN.SRG ---
Subjective Subjective No new issues. Pain controlled. No F/C. Objective Data Objective Data A&O x 3, NAD RRR Resp non labored, no accessory muscle use LLE digits dusky, unchanged Vital Signs: Vital Signs Temp Pulse Resp BP Pulse Ox O2 Del Method 97.5 F L 111 H 15 123/79 H 93 Room Air 09/17/23 03:00 09/17/23 03:00 09/17/23 03:24 09/17/23 03:00 09/17/23 03:00 09/17/23 03:24 Oxygen Delivery Method Room Air Weight: 149 lb 0.52 oz Body Mass Index (BMI) 22.6 Intake & Output: Intake and Output for Last 24 Hours 09/15/23 09/16/23 09/17/23 23:59 23:59 23:59 Intake Total 3430.43 / 3430.43 2425 / 2625 635.77 / 635.77 Output Total 1450 / 1950 2550 / 2950 400 / 400 Balance 1980.43 / 1480.43 -125 / -325 235.77 / 235.77 Medical Nutrition Assessment Dietitian: Malnutrition Criteria Met Start: 09/08/23 13:28 Freq: Status: Active Protocol: Document 09/13/23 10:30 LO (Rec: 09/13/23 10:30 LO [id number]) Nutrition Malnutrition Evidence of Malnutrition Exists Yes Malnutrition (severe): Chronic Evidenced By Suboptimal Energy Intake ( Severe),Weight Loss (Severe) Intake Problem Increased Nutrient Needs (specify) Etiology protein related to skin status Signs/Symptoms as evidenced by LLE heel ulcer Status Active Problem Clinical Problem Chronic Disease or Condition Related Malnutrition Etiology severe related to decreased appetite caused by increased pain from LLE heel ulcer Signs/Symptoms as evidenced by 12.4% unintentional wt loss and po intake meeting <75% of estimated nutritional needs x 2 months prior to admission Status Active Problem Acute Disease or Injury Related Malnutrition Status Inactive Problem Altered Nutrient-Related Laboratory Values Etiology related to diet/lifestyle and newly diagnosed diabetes Signs/Symptoms as evidenced by A1C 7.4 Status Active Problem Recommendation Dietitian Recommendations/Changes Continue CCD diet to manage blood sugars. Continue Glucerna Shake 4 oz tid w/ meals for increased nutrition if consumed Continue Vladimir bid w/ medpass for increased nutrition if consumed Lab / Micro Data 09/17/23 04:25 09/17/23 04:25 Labs: Laboratory Results - last 24 hr 09/16/23 21:42: Vancomycin Trough 14.7 09/17/23 04:25: WBC 8.4, RBC 3.23 L, Hgb 9.5 L, Hct 28.6 L, MCV 88.5, MCH 29.4, MCHC 33.2 D, RDW Std Deviation 45.4 H, RDW Co[place] 14.3, Plt Count 281, MPV 8.9, Immature Gran % (Auto) 0.500, Neut % (Auto) 74.0 H, Lymph % (Auto) 13.6 L, [place] % (Auto) 10.8 H, Eos % (Auto) 0.5, Baso % (Auto) 0.6, Absolute Neuts (auto) 6.2, Absolute Lymphs (auto) 1.14, Nucleated RBC % 0, APTT 71.6 H, Sodium 134 L, Potassium 3.5, Chloride 104, Carbon Dioxide 23.0, Anion Gap 7, BUN 16, Creatinine 0.57 L, Estim Creat Clear Calc 84.50, Est GFR (MDRD) Af Amer 182, Est GFR (MDRD) Non-Af 150, BUN/Creatinine Ratio 27.9 H, Glucose 157 H, Calcium 8.6 Micro: Microbiology 09/07/23 15:15 Blood Culture (Wb) - Anticubital Left Blood Culture - Final No growth in 5 days. 09/07/23 15:32 Blood Culture (Wb) - Left Hand Blood Culture - Final No growth in 5 days. 09/08/23 03:15 Urine, Catheterized Urine Culture - Final Culture exhibits no growth. 09/07/23 15:50 Wound - Left Foot Gram Stain - Final 09/07/23 15:50 Wound - Left Foot Wound Culture - Final Enterobacter cloacae complex Stenotrophomonas maltophilia Coag Negative Staph Gram positive genesis Assessment & Plan Assessment/Plan (1) Atherosclerosis of left lower extremity with gangrene: QUALIFIERS: Peripheral atherosclerosis artery type: [place] artery Qualified Code(s): I70.262 - Atherosclerosis of [place] arteries of extremities with gangrene, left leg PLAN: -OR tomorrow -questions answered, agreeable to proceed/sign consent -NPO for surgery, hold heparin at 0600 hrs tomorrow -type and cross -on atbx Charges/Coding Visit Charges Inpatient E&M: 67942 Subs Hosp L2
[2023-09-17] MEDS: Vancomycin HCl 1,250 MG in 0.9% Normal Saline (250mL Bag) 250 ML 167 MG IV ×2 (11:39→23:00)
[2023-09-17 14:25] LABS: Partial Thromboplast Time 60.9 Seconds (24.1-36.2)
[2023-09-17] MEDS: Tamsulosin HCl 0.4 MG Capsule 0.8 MG PO (16:09)
[2023-09-17] MEDS: HEPARIN/D5w 25,000 UNITS 25,000 UNITS/250 ML IV.SOLN. 13 UNITS CONT INF (17:11)
[2023-09-17 20:30] LABS: Partial Thromboplast Time 59.6 Seconds (24.1-36.2)
[2023-09-17] MEDS: oxyCODONE 5 MG Tablet PO (21:21)
[2023-09-17] MEDS: Atorvastatin Calcium 40 MG Tablet PO (21:22)
[2023-09-17] MEDS: MELATONIN 10 MG TABLET PO (23:05)
[2023-09-18] VITALS (17 sets, daily range): BP systolic 96–147; BP diastolic 66–88; PULSE 86–107; RESP 14–25; TEMP 36.1–37; O2SAT 94–99
[2023-09-18 06:04] LABS: Absolute Lymphocyte Count 1.08 X10^3/uL (0.83-4.51); Basophil# 0.05 X10^3/uL; Basophil% 0.6 % (0-1); Eosinophil# 0.09 X10^3/uL; Eosinophils% 1.1 % (0-5); Hematocrit 29.6 % (40-54); Hemoglobin 9.5 g/dL (13.0-16.5); Lymphocyte # 1.08 X10^3/ul (0.83-4.51); Lymphocyte % 13.4 % (19-41); Mean Corp Hgb Conc 32.1 g/dL (32-36); Mean Corpuscular Hgb 28.5 pg (27.0-32.0); Mean Corpuscular Volume 88.9 fL (80-94); Mean Platelet Vol. 9.1 fl (6.2-12.0); Monocyte# 0.79 X10^3/uL; Monocyte% 9.8 % (0-10); NRBC Flagged by Analyzer 0 % (0-5); Neutrophil # 6.01 X10^3/uL (2.7-7.7); Neutrophil % 74.6 % (47-70); Platelet Count 293 K/mm3 (150-450); RBC Distribution Width CV 14.3 % (11.6-14.6); RBC Distribution Width SD 45.4 fl (35.1-43.9); Red Blood Count 3.33 M/mm3 (4.6-6.2); White Blood Count 8.1 K/mm3 (4.4-11.0)
[2023-09-18 06:19] LABS: Bedside Glucose 139 mg/dL (74-106)
--- NOTE | 2023-09-18 06:30 | RAD_ITS ---
PROCEDURE: Intraoperative fluoroscopic services were provided for left iliac stent and left femoral endarterectomy and popliteal bypass graft. DATE OF EXAMINATION: September 18, 2023. INDICATION: Male, 68 years old. Left lower extremity ischemia. FLUOROSCOPY TIME (if supplied): (5 minutes and 5 seconds) minutes/seconds. 71.8 mCi. RAD/Fluoroscopy 1 Hr or Less IMPRESSION: Intraoperative imaging provided for left femoral endarterectomy and left iliac stent placement. Electronically Signed: Seferino Donahue MD at 14:11 EDT ,
[2023-09-18 06:34] LABS: Partial Thromboplast Time 53.5 Seconds (24.1-36.2)
[2023-09-18 06:37] LABS: Anion Gap 8 (5-15); BUN 13 mg/dL (7-18); Calcium,Total 8.6 mg/dL (8.5-10.1); Chloride 104 mmol/L (98-107); Creatinine, Serum 0.57 mg/dL (0.70-1.30); EST Glomerular Filtration Rate 152 mL/min (>60); Est Glom Filt Rate - Afr Amer 184 mL/min (>60); Estimated Creatinine Clearance 84.75 ml/min; Glucose 154 mg/dL (74-106); Potassium 3.6 mmol/L (3.5-5.1); Sodium Level 135 mmol/L (136-145)
[2023-09-18] MEDS: Lactated Ringers 1,000 ML 15 ML IV (07:30)
--- NOTE | 2023-09-18 07:30 | PLAQ_PTH ---
PATIENT: ETHAN CROSS LOC: [facility] U#:[id number] AGE/SX: 68/M ROOM: [facility] RE09/07/[address]: Dr. Everette Workman MD : 1955 BED: 1 DIS: 09/21/2023 SPEC #: [id number] RECD: 09/18/23 17:51 STATUS: PRIYANKA RECarlos Enrique #: [id number] NAYELI: 09/18/23 07:[address]: Acosta Mg DEPT: SURGICAL PATHOLOGY RECD BY: Yolanda Fry ENTERED: 09/19/23 07:48 SP TYPE: PLAQUE OTHR DR: MD Dr. Lisandro Barrett, DPM DO Dr. Rosa Porter MD Dr. Nicholas F Kotsonis, MD Dr. Robert Leininger, MD No Primary Care Phys Tissues: PLAQUE Procedures: Decalcification bone/plaque Surgery Specimen Level III Comments: @ Ordering doctor for DEC edited from to @ by CHERIE at 09/19/23 1250 @ Ordering doctor for SUIII edited from to @ by CHERIE at 09/19/23 1250 @ Submitting doctor edited from to @ by CHERIE at 09/19/23 1250 HEADER OPERATION: Femoral endarterectomy, sartorius flap, femoral popliteal PRE-OP DIAGNOSIS: Peripheral vascular disease TISSUE SUBMITTED: Plaque, left femoral MICROSCOPIC DIAGNOSIS Left femoral artery plaque, endarterectomy: Calcified atheromatous plaque with occluding blood clot . Focal ossification of media. / 09/21/2023 GROSS DESCRIPTION Received in fixative is one container labeled with the patient's name and designated Plaque, left femoral. The specimen consists of a firm piece of delgado-yellow indurated tissue measuring 7.5cm in length and up to 1.2cm in diameter. The lumen appears to be completely filled with blood clot. The specimen cuts with a gritty sensation. Toggle Press Folder And Feeder sections are submitted in two cassettes after decalcification. / 09/19/2023 TC:5 CPT:91771,73357
[2023-09-18] MEDS: Heparin Injection (Vial) 5,000 UNIT/ML VIAL 5000 UNIT (08:24)
[2023-09-18] MEDS: Heparin 10,000 UNITS/10 ML Vial 10000 UNITS (08:24)
--- NOTE | 2023-09-18 08:35 | WOUNDNOTE ---
Pt is currently off unit for vascular procedure.
--- NOTE | 2023-09-18 09:21 | PCM.PN.HOSP ---
Subjective Subjective N.p.o. for surgical intervention today Objective Data Objective Data Vital Signs: Vital Signs Temp Pulse Resp BP Pulse Ox O2 Del Method 97.3 F L 99 15 147/88 H 99 Room Air 09/18/23 03:00 09/18/23 03:52 09/18/23 03:00 09/18/23 03:00 09/18/23 03:00 09/18/23 03:52 Oxygen Delivery Method Room Air Weight: 149 lb 7.574 oz Body Mass Index (BMI) 22.0 Intake & Output: Intake and Output for Last 24 Hours 09/17/23 09/18/23 09/19/23 03:59 03:59 03:59 Intake Total 2900 / 2900 2984.02 / 2984.02 132.38 / 132.38 Output Total 2450 / 2450 1400 / 1400 400 / 400 Balance 450 / 450 1584.02 / 1584.02 -267.62 / -267.62 Medical Nutrition Assessment Dietitian: Malnutrition Criteria Met Start: 09/08/23 13:28 Freq: Status: Active Protocol: Document 09/13/23 10:30 LO (Rec: 09/13/23 10:30 [id number]) Nutrition Malnutrition Evidence of Malnutrition Exists Yes Malnutrition (severe): Chronic Evidenced By Suboptimal Energy Intake ( Severe),Weight Loss (Severe) Intake Problem Increased Nutrient Needs (specify) Etiology protein related to skin status Signs/Symptoms as evidenced by LLE heel ulcer Status Active Problem Clinical Problem Chronic Disease or Condition Related Malnutrition Etiology severe related to decreased appetite caused by increased pain from LLE heel ulcer Signs/Symptoms as evidenced by 12.4% unintentional wt loss and po intake meeting <75% of estimated nutritional needs x 2 months prior to admission Status Active Problem Acute Disease or Injury Related Malnutrition Status Inactive Problem Altered Nutrient-Related Laboratory Values Etiology related to diet/lifestyle and newly diagnosed diabetes Signs/Symptoms as evidenced by A1C 7.4 Status Active Problem Recommendation Dietitian Recommendations/Changes Continue CCD diet to manage blood sugars. Continue Glucerna Shake 4 oz tid w/ meals for increased nutrition if consumed Continue Vladimir bid w/ medpass for increased nutrition if consumed Lab / Micro Data 09/18/23 05:18 09/18/23 05:18 Labs: Laboratory Results - last 24 hr 09/17/23 10:40: Blood Type A POSITIVE, Antibody Screen NEGATIVE, Crossmatch See Detail 09/17/23 13:40: APTT 60.9 H 09/17/23 19:48: APTT 59.6 H 09/18/23 05:18: WBC 8.1, RBC 3.33 L, Hgb 9.5 L, Hct 29.6 L, MCV 88.9, MCH 28.5, MCHC 32.1, RDW Std Deviation 45.4 H, RDW Co[place] 14.3, Plt Count 293, MPV 9.1, Immature Gran % (Auto) 0.500, Neut % (Auto) 74.6 H, Lymph % (Auto) 13.4 L, [place] % (Auto) 9.8, Eos % (Auto) 1.1, Baso % (Auto) 0.6, Absolute Neuts (auto) 6.0, Absolute Lymphs (auto) 1.08, Nucleated RBC % 0, APTT 53.5 H, Sodium 135 L, Potassium 3.6, Chloride 104, Carbon Dioxide 23.0, Anion Gap 8, BUN 13, Creatinine 0.57 L, Estim Creat Clear Calc 84.75, Est GFR (MDRD) Af Amer 184, Est GFR (MDRD) Non-Af 152, BUN/Creatinine Ratio 23.0 H, Glucose 154 H, Calcium 8.6 09/18/23 05:58: POC Glucose 139 H Micro: Microbiology 09/07/23 15:15 Blood Culture (Wb) - Anticubital Left Blood Culture - Final No growth in 5 days. 09/07/23 15:32 Blood Culture (Wb) - Left Hand Blood Culture - Final No growth in 5 days. 09/08/23 03:15 Urine, Catheterized Urine Culture - Final Culture exhibits no growth. 09/07/23 15:50 Wound - Left Foot Gram Stain - Final 09/07/23 15:50 Wound - Left Foot Wound Culture - Final Enterobacter cloacae complex Stenotrophomonas maltophilia Coag Negative Staph Gram positive genesis Physical Exam Narrative General: Alert, Oriented x3, Cooperative, No apparent distress HEENT: Atraumatic, PERRLA, EOMI, Normocephalic Oral: Moist Mucosa Neck: Supple, No JVD Lungs: Diminished, Normal air movement, No rhonchi, No wheeze, No rales Cardiovascular: Regular rate, Regular Rhythm, Normal S1, Normal S2, No murmurs Abdomen: Soft, Non Tender, Non-Distended, No Hepato-splenomegaly Extremities: No edema, poor peripheral perfusion Skin: Left lower extremity with ischemic toes and diminished pulses on the left greater than the right Musculoskeletal: No Tenderness to Palpation of Joints or Extremities Neurological: No focal neurological deficits, Motor Exam 5/5 strength throughout, Sensory exam intact to light touch and pain Psych/Mental Status: Normal Affect, Appropriate Assessment & Plan Assessment/Plan (1) 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: (2) Atherosclerosis of left lower extremity with gangrene: QUALIFIERS: Peripheral atherosclerosis artery type: [place] artery Qualified Code(s): I70.262 - Atherosclerosis of [place] arteries of extremities with gangrene, left leg (3) Peripheral vascular disease: (4) Hyperlipidemia: PLAN: Plan 1. Left foot ulcer secondary to peripheral vascular disease/atherosclerosis of left lower extremity with gangrene ? Continue with IV antibiotics ? Appreciate infectious disease assistance ? Cultures are positive for Enterobacter as well as coag negative staph and stenotrophomonas ? He is toe-touch weightbearing ? Plan for vascular intervention 09/18/2023 as CTA of the left lower extremity showed severe stenosis and occlusion of the left iliac as well as common femoral popliteal artery plan for common iliac stenting and femoropopliteal bypass ? Continue with aspirin 2. Essential HTN ? He was not on any medications on admission, continue with aspirin ? We will monitor make adjustments as necessary ? Continue with Coreg as well as lisinopril ? She does have hydralazine as needed available 3. DM2 ? A1c was 7.4 ? Sliding scale insulin with Accu-Cheks ? Plan for metformin on discharge 4. BPH with obstruction ? Continue with Flomax 5. Severe malnutrition -Likely related to acute illness -Dietitian is following -Supplements added DVT: Heparin drip Charges/Coding Visit Charges Inpatient E&M: 35926 Subs Hosp L2
[2023-09-18] MEDS: Vancomycin HCl 1,250 MG in 0.9% Normal Saline (250mL Bag) 250 ML 167 MG IV (10:00)
--- NOTE | 2023-09-18 16:37 | OP.PCM_ITS ---
Report of Operation Date of Procedure: 09/18/23 Pre-Operative Diagnosis: atherosclerosis [place] arteries with gangrene, left lo wer extremity Post-Operative Diagnosis: same Surgery/Procedure Performed:: left common femoral endarterectomy left profunda endarterectomy left external iliac stent left femoral-below knee popliteal bypass with reversed GSV left sartorius flap Surgeon: Acosta Mg Type of Anesthesia: General Estimated Blood Loss (mL): 550 Description of Procedure: Kulwant Orrlver PTX 8x100
--- NOTE | 2023-09-18 16:37 | PCM.OPRPT ---
Report of Operation Date of Procedure: 09/18/23 Pre-Operative Diagnosis: atherosclerosis [place] arteries with gangrene, left lower extremity Post-Operative Diagnosis: same Surgery/Procedure Performed:: left common femoral endarterectomy left profunda endarterectomy left external iliac stent left femoral-below knee popliteal bypass with reversed GSV left sartorius flap Surgeon: Acosta Mg Type of Anesthesia: General Estimated Blood Loss (mL): 550 Description of Procedure: HPI: Patient is a 68-year-old male who is presented with left lower extremity rest pain and ganglion he was found to have severe multilevel arterial insufficiency with external iliac artery high-grade stenosis, totally occluded with left common femoral, profundofemoral, SFA popliteal with reconstitution of below the knee popliteal artery. Given his degree of arterial insufficiency and his tissue loss and he is taken now for multilevel revascularization. Description of procedure: Upon obtaining informed consent and verification correct patient procedure and site patient taken to the operating room he was placed under general anesthesia. He was then positioned prepped and draped in usual sterile fashion and timeout is performed. Ultrasound was used to deni the great saphenous vein along the entirety of the length of the thigh and down to the mid calf. Longitudinal incision was made over the common femoral artery and Bovie electrocautery was dissect down to the subcutaneous tissue. Self-retaining retractors then put in position further dissection was carried in the femoral sheath. The femoral sheath was incised vertically up to the inguinal ligament was freed along its inferior border likely retracted cephalad. Sharp dissection then used to dissect free the common femoral artery up onto the distal external artery with the vessel was patent. The right and he is placed Vesseloops around the medial and lateral vessels as well as the distal external iliac artery. Next dissection was carried down distally onto the femoral bifurcation onto the superficial femoral artery. This was then dissected free circumferentially and a right angle was placed vessel loop. Sharp dissection used to dissect free down the profundofemoral artery down onto the tertiary branches before a patent soft and palpable vessel was encountered. A right angle used to place Vesseloops around each of the tertiary branches individually. Next a longitudinal incision was made medial to the tibia and Bovie electrocautery to dissect down through the subcutaneous tissue and self-retaining retractor put in position. Further dissection was then carried down to the gastrocnemius muscle which was retracted posterior medially and then blunt dissection used to dissect down to the neurovascular bundle. Sharp dissection was dissect free the popliteal artery which was soft and relatively free of any atherosclerosis. Dissection carried distally onto the anterior tibial artery and tibioperoneal trunk annulotomy was placed vascular proximally and distally. The anterior tibial vein was ligated at its origin to provide better visualization. Next the saphenous vein was harvested via skip incisions along the medial thigh and calf with sidebranches ligated with silk ties and then divided. Next a tunneler was used to tunnel anatomically from the popliteal incision to the common femoral artery. Patient was then heparinized allowed to circulate for 3 minutes. Given the degree of disease of the distal external iliac artery we chose to access the vessel and placed over the wire prior to clamping so a micropuncture sheath was accessed the distal external iliac artery in retrograde fashion was exchanged out for micropuncture sheath. Through the micropuncture sheath Bentson wire was advanced into the abdominal aorta and the micropuncture sheath exchanged for a pigtail catheter. This then advanced over the wire and positioned into the aorta after which a hand-injection subtraction angiography was performed revealing satisfactory positioning. Bentson wires and readvanced through the catheter and the catheter withdrawn. The distal external iliac artery, sidebranches, SFA and tertiary profunda branches were then occluded with Vesseloops longitudinal arteriotomy created with 11 blade on the common femoral artery extended Xiong scissors down distally onto the very distal secondary branches of the profunda. Given the extensive common femoral and external artery repair required a modifier 22 was applied to the bypass which had a total of 1 hour vessel preparation for the bypass to be performed. Next performed her endarterectomy with a freer elevator with satisfactory endpoint distally on the profunda and eversion endarterectomy was performed with the SFA origin. The distal endpoint was intact with 7-0 Prolene interrupted sutures and bovine pericardial patch was then brought on the field. Required 2 separate pericardial patches to cover the entirety of the length of the endarterectomy of both the profunda and the common femoral artery. We began at the profunda with the initial patch and this was then secured in position using 5-0 Prolene. At the profunda were withdrawn and the patch was then transected and a second patch was secured becoming cephalad and suture line carried down towards the distal vessel. This patch was then cut to length to match the initial patch and a suture line was completed. Next 5-0 Prolene was used to close the patch junction transversely. 7 [place] sheath was then advanced over the [place] wire which exited via the patch junction site. This was then advanced into the common iliac artery and a marker pigtail catheter advanced over the wire. This was then positioned in the external iliac artery and the sheath withdrawn down to the common femoral artery. Injection subtraction angiography was performed which confirmed the extent of the lesion and the length was obtained with the pigtail catheter markings. A 6 mm x 80 angioplasty was advanced in position and used to predilate the lesion to nominal for 3 minutes then deflated and withdrawn. A Hortaulver PTX 8 x 100 was advanced in position and deployed. This then postdilated with a 7 mm x 80 angioplasty balloon. Completion angiography revealed satisfactory response with no significant residual stenosis and no extravasation dissection. The sheath and wire were then withdrawn and the suture line secured. Next the great saphenous vein was ligated and divided at the distal extent of the harvest site as well as the saphenofemoral junction. The saphenofemoral junction was oversewn with 5-0 Prolene. The vein was then flushed and sidebranches assessed with reinforcement performed as needed with Prolene. The common femoral artery was then reoccluded with atraumatic clamps and longitudinal arteriotomy created the patch and extended Xiong scissors. The vein was then oriented in reverse fashion and beveled to match the arteriotomy. The anastomosis performed using a 6-0 Prolene running fashion. After completing suture and the vessel clamps were released and there was brisk pulsatile flow through the bypass graft. The vein was then marked to maintain orientation and secured at the time of the flow through the popliteal incision. The popliteal artery was then occluded with Vesseloops and longitudinal arteriotomy created 11 blade extended Xiong scissors. The vein was then cut to length and beveled to match the arteriotomy and anastomosis performed using 6-0 Prolene in running fashion. Podoplanin suture line the vessels were backbled and the graft was flushed. After completing suture line clamps removed satisfactory stasis was noted. There is a palpable pulse in the bypass graft and the outflow vessels. We then turned our attention to the sartorius muscle with dissection carried laterally with Bovie electrocautery to the fascia. The fascia was then incised longitudinally exposing the sartorius muscle. This was then dissected free up to the ASIS and the muscle was then mobilized along its lateral border. The muscle insertion was then taken down with Bovie cautery and then transposed over the vessels and bypass proximal segment. The incisions were then inspected for hemostasis and Floseal topical hemostatic applied to the femoral profunda endarterectomy sites. Once satisfactory stasis was noted the muscle was secured in position with 2-0 Vicryl and interrupted fashion. Incision was then closed with 2-0 Vicryl, 3-0 Vicryl, 4 Monocryl and Dermabond for the skin. At the conclusion of case patient was awake from anesthesia taken recovery room anticipated admission to the intensive care unit for hemodynamic and vascular monitoring. Grafts/Implants Used: Radius Zilver PTX 8x100
[2023-09-18 17:53] LABS: Bedside Glucose 196 mg/dL (74-106)
[2023-09-18] MEDS: 0.45% Normal Saline 1,000 ML 75 ML IV (18:04)
[2023-09-18] MEDS: Tamsulosin HCl 0.4 MG Capsule 0.8 MG PO (18:08)
[2023-09-18] MEDS: Carvedilol 3.125 MG TABLET PO (18:16)
[2023-09-18] MEDS: Acetaminophen 325 MG Tablet 650 MG PO (20:06)
[2023-09-18] MEDS: Clopidogrel Bisulfate 300 MG Tablet PO (20:06)
[2023-09-18] MEDS: oxyCODONE 5 MG Tablet PO (20:06)
[2023-09-18] MEDS: 0.9% Saline Lock 10 ML Syringe IV (21:46)
[2023-09-18] MEDS: MELATONIN 10 MG TABLET PO (21:46)
[2023-09-18] MEDS: Atorvastatin Calcium 40 MG Tablet PO (21:46)
[2023-09-18] MEDS: HEPARIN/D5w 25,000 UNITS 25,000 UNITS/250 ML IV.SOLN. 5 UNITS CONT INF (21:47)
[2023-09-18] MEDS: Morphine 2 MG/ML Syringe IV (21:53)
[2023-09-18] MEDS: Insulin Lispro 100 UNIT/ML INSULN.PEN SC (22:03)
[2023-09-18 22:18] LABS: Bedside Glucose 199 mg/dL (74-106)
[2023-09-18 22:36] LABS: Vancomycin, Trough Level 13.6 ug/mL (5.0-15.0)
[2023-09-18] MEDS: Vancomycin HCl 1,500 MG in 0.9% Normal Saline (500mL Bag) 500 ML 250 MG IV (23:01)
[2023-09-19] VITALS (27 sets, daily range): BP systolic 88–117; BP diastolic 59–76; PULSE 90–111; RESP 11–24; TEMP 36.4–37.4; O2SAT 93–99; BMI 23.8
--- NOTE | 2023-09-19 01:57 | PCM.RX.CS ---
Consult Antibiotic Management Pharmacy has been consulted to manage selected antibiotic: Vancomycin Type of Intervention Type of Consult: Follow-up Labs Labs: Sodium 135 mmol/L (136-145) L 09/18/23 05:18 Potassium 3.6 mmol/L (3.5-5.1) 09/18/23 05:18 Chloride 104 mmol/L (98-107) 09/18/23 05:18 Carbon Dioxide 23.0 mmol/L (21.0-32.0) 09/18/23 05:18 Anion Gap 8 (5-15) 09/18/23 05:18 BUN 13 mg/dL (7-18) 09/18/23 05:18 Creatinine 0.57 mg/dL (0.70-1.30) L 09/18/23 05:18 Est GFR (MDRD) Af Amer 184 mL/min (>60) 09/18/23 05:18 Est GFR (MDRD) Non-Af 152 mL/min (>60) 09/18/23 05:18 BUN/Creatinine Ratio 23.0 RATIO (10-20) H 09/18/23 05:18 Glucose 154 mg/dL (74-106) H 09/18/23 05:18 Vancomycin Trough 13.6 ug/mL (5.0-15.0) 09/18/23 21:40 Microbiology Microbiology: Microbiology 09/07/23 15:15 Blood Culture (Wb) - Anticubital Left Blood Culture - Final No growth in 5 days. 09/07/23 15:32 Blood Culture (Wb) - Left Hand Blood Culture - Final No growth in 5 days. 09/08/23 03:15 Urine, Catheterized Urine Culture - Final Culture exhibits no growth. 09/07/23 15:50 Wound - Left Foot Gram Stain - Final 09/07/23 15:50 Wound - Left Foot Wound Culture - Final Enterobacter cloacae complex Stenotrophomonas maltophilia Coag Negative Staph Gram positive genesis Goal Trough Goal Trough: 15-20 mcg/mL Pharmacy Plan for Drug Dosing Pharmacy Plan for Drug Dosing: Pharmacy Service will continue to monitor and adjust dosing as required. TROUGH 13.6 @ 11.5 HOURS. INCREASE TO 1500MG Q12H AND FOLLOW UP TROUGH PRIOR TO 4TH DOSE Follow-Up Labs Follow-Up Labs: Trough: Vancomycin Date/Time Labs Ordered Labs to be done on [date and time ordered]: 08/19 @ 1000
[2023-09-19 03:27] LABS: Absolute Lymphocyte Count 0.78 X10^3/uL (0.83-4.51); Absolute Neutrophil Count 7.1 X10^3/uL (2.0-7.7); Basophil# 0.04 X10^3/uL; Basophil% 0.5 % (0-1); Eosinophil# 0.02 X10^3/uL; Eosinophils% 0.2 % (0-5); Hematocrit 24.1 % (40-54); Hemoglobin 7.7 g/dL (13.0-16.5); Lymphocyte # 0.78 X10^3/ul (0.83-4.51); Lymphocyte % 8.8 % (19-41); Mean Corpuscular Hgb 28.6 pg (27.0-32.0); Mean Corpuscular Volume 89.6 fL (80-94); Mean Platelet Vol. 8.9 fl (6.2-12.0); Monocyte# 0.81 X10^3/uL; Monocyte% 9.1 % (0-10); NRBC Flagged by Analyzer 0 % (0-5); Neutrophil # 7.14 X10^3/uL (2.7-7.7); Neutrophil % 80.6 % (47-70); Platelet Count 252 K/mm3 (150-450); RBC Distribution Width CV 14.5 % (11.6-14.6); RBC Distribution Width SD 46.8 fl (35.1-43.9); Red Blood Count 2.69 M/mm3 (4.6-6.2); White Blood Count 8.9 K/mm3 (4.4-11.0)
[2023-09-19 03:39] LABS: Partial Thromboplast Time 50.8 Seconds (24.1-36.2)
[2023-09-19 03:41] LABS: Anion Gap 5 (5-15); BUN 12 mg/dL (7-18); BUN/Creat Ratio 19.8 RATIO (10-20); Chloride 105 mmol/L (98-107); EST Glomerular Filtration Rate 141 mL/min (>60); Est Glom Filt Rate - Afr Amer 171 mL/min (>60); Estimated Creatinine Clearance 84.75 ml/min; Glucose 159 mg/dL (74-106); Potassium 3.7 mmol/L (3.5-5.1); Sodium Level 136 mmol/L (136-145)
[2023-09-19] MEDS: levoFLOXacin 750 MG Tablet PO (05:39)
[2023-09-19] MEDS: Acetaminophen 325 MG Tablet 650 MG PO ×2 (07:41→15:02)
[2023-09-19] MEDS: oxyCODONE 5 MG Tablet PO ×3 (07:41→20:04)
[2023-09-19] MEDS: Juven (unflavored) Packet 1 PACKET PO ×2 (07:42→16:16)
[2023-09-19] MEDS: Aspirin 81 MG TAB.CHEW PO (07:42)
[2023-09-19] MEDS: Carvedilol 3.125 MG TABLET PO ×2 (07:42→17:57)
[2023-09-19 08:09] LABS: Bedside Glucose 117 mg/dL (74-106)
--- NOTE | 2023-09-19 08:55 | PN.HOSP_ITS ---
Subjective Subjective Doing well, no issues overnight. No significant pain from surgery and he does have pulses intact Objective Data Objective Data Vital Signs: Vital Signs Temp Pulse Resp BP Pulse Ox O2 Del Method O2 Flow Rate 98.6 F 98 16 103/71 98 Room Air 3 09/19/23 08:00 09/19/23 08:00 09/19/23 08:00 09/19/23 08:00 09/19/23 08:00 09/19/23 08:00 09/18/23 16:50 Oxygen Flow Rate (L/min) 3 Oxygen Delivery Method Room Air Weight: 161 lb 2.526 oz Body Mass Index (BMI) 23.8 Intake & Output: Intake and Output for Last 24 Hours 09/18/23 09/19/23 09/20/23 03:59 03:59 03:59 Intake Total 2984.02 / 2984.02 4873.88 / 4873.88 150 / 150 Output Total 1400 / 1400 2690 / 2690 900 / 900 Balance 1584.02 / 1584.02 2183.88 / 2183.88 -750 / -750 Medical Nutrition Assessment Dietitian: Malnutrition Criteria Met Start: 09/08/23 13:28 Freq: Status: Active Protocol: Document 09/13/23 10:30 LO (Rec: 09/13/23 10:30 LO [id number]) Nutrition Malnutrition Evidence of Malnutrition Exists Yes Malnutrition (severe): Chronic Evidenced By Suboptimal Energy Intake ( Severe),Weight Loss (Severe) Intake Problem Increased Nutrient Needs (specify) Etiology protein related to skin status Signs/Symptoms as evidenced by LLE heel ulcer Status Active Problem Clinical Problem Chronic Disease or Condition Related Malnutrition Etiology severe related to decreased appetite caused by increased pain from LLE heel ulcer Signs/Symptoms as evidenced by 12.4% unintentional wt loss and po intake meeting <75% of estimated nutritional needs x 2 months prior to admission Status Active Problem Acute Disease or Injury Related Malnutrition Status Inactive Problem Altered Nutrient-Related Laboratory Values Etiology related to diet/lifestyle and newly diagnosed diabetes Signs/Symptoms as evidenced by A1C 7.4 Status Active Problem Recommendation Dietitian Recommendations/Changes Continue CCD diet to manage blood sugars. Continue Glucerna Shake 4 oz tid w/ meals for increased nutrition if consumed Continue Vladimir bid w/ medpass for increased nutrition if consumed Lab / Micro Data 09/19/23 03:15 09/19/23 03:15 Labs: Laboratory Results - last 24 hr 09/18/23 17:35: POC Glucose 196 H 09/18/23 21:40: Vancomycin Trough 13.6 09/18/23 22:00: POC Glucose 199 H 09/19/23 03:15: WBC 8.9, RBC 2.69 L, Hgb 7.7 L, Hct 24.1 L, MCV 89.6, MCH 28.6, MCHC 32.0, RDW Std Deviation 46.8 H, RDW Coeff [place] 14.5, Plt Count 252, MPV 8.9, Immature Gran % (Auto) 0.800, Neut % (Auto) 80.6 H, Lymph % (Auto) 8.8 L, [place] % (Auto) 9.1, Eos % (Auto) 0.2, Baso % (Auto) 0.5, Absolute Neuts (auto) 7.1, Absolute Lymphs (auto) 0.78 L, Nucleated RBC % 0, APTT 50.8 H, Sodium 136, Potassium 3.7, Chloride 105, Carbon Dioxide 26.0, Anion Gap 5, BUN 12, C reatinine 0.60 L, Estim Creat Clear Calc 84.75, Est GFR (MDRD) Af Amer 171, Est GFR (MDRD) Non-Af 141, BUN/Creatinine Ratio 19.8, Glucose 159 H, Calcium 8.0 L 09/19/23 07:37: POC Glucose 117 H Micro: Microbiology 09/07/23 15:15 Blood Culture (Wb) - Anticubital Left Blood Culture - Final No growth in 5 days. 09/07/23 15:32 Blood Culture (Wb) - Left Hand Blood Culture - Final No growth in 5 days. 09/08/23 03:15 Urine, Catheterized Urine Culture - Final Culture exhibits no growth. 09/07/23 15:50 Wound - Left Foot Gram Stain - Final 09/07/23 15:50 Wound - Left Foot Wound Culture - Final Enterobacter cloacae complex Stenotrophomonas maltophilia Coag Negative Staph Gram positive genesis Radiography Diagnostic Testing: Radiology Impression Fluoroscopy 09/18/23 06:30 IMPRESSION: Intraoperative imaging provided for left femoral endarterectomy and left iliac stent placement. Electronically Signed: Seferino Donahue MD at 14:11 EDT , Physical Exam Narrative General: Alert, Oriented x3, Cooperative, No apparent distress HEENT: Atraumatic, PERRLA, EOMI, Normocephalic Oral: Moist Mucosa Neck: Supple, No JVD Lungs: Diminished, Normal air movement, No rhonchi, No wheeze, No rales Cardiovascular: Regular rate, Regular Rhythm, Normal S1, Normal S2, No murmurs Abdomen: Soft, Non Tender, Non-Distended, No Hepato-splenomegaly Extremities: No edema, poor peripheral perfusion Skin: Left lower extremity with ischemic toes and dopplerable pulses after surgical intervention Musculoskeletal: No Tenderness to Palpation of Joints or Extremities Neurological: No focal neurological deficits, Motor Exam 5/5 strength throughout, Sensory exam intact to light touch and pain Psych/Mental Status: Normal Affect, Appropriate Assessment & Plan Assessment/Plan (1) 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: (2) Atherosclerosis of left lower extremity with gangrene: QUALIFIERS: Peripheral atherosclerosis artery type: [place] artery Qualified Code(s): I70.262 - Atherosclerosis of [place] arteries of extremities with gangrene, left leg (3) Peripheral vascular disease: (4) Hyperlipidemia: PLAN: Plan 1. Left foot ulcer secondary to peripheral vascular disease status post left common femoral endarterectomy with a left femoral below the knee popliteal bypass and external iliac stent on 09/18/2023/atherosclerosis of left lower extremity with gangrene ? Continue with IV antibiotics ? Appreciate infectious disease assistance ? Cultures are positive for Enterobacter as well as coag negative staph and stenotrophomonas ? He is toe-touch weightbearing ? Continue with aspirin 2. Essential HTN ? He was not on any medications on admission, continue with aspirin ? We will monitor make adjustments as necessary ? Continue with Coreg as well as lisinopril ? She does have hydralazine as needed available 3. DM2 ? A1c was 7.4 ? Sliding scale insulin with Accu-Cheks ? Plan for metformin on discharge 4. BPH with obstruction ? Continue with Flomax 5. Severe malnutrition -Likely related to acute illness -Dietitian is following -Supplements added DVT: Heparin drip Charges/Coding Visit Charges Inpatient E&M: 41123 Subs Hosp L2
--- NOTE | 2023-09-19 09:55 | CASEMGMT ---
Social Work Referral made to TCU, SW will continue to follow. As per physician, pt will be ready for discharge later this week. KARLA Mcadams
--- NOTE | 2023-09-19 10:36 | PCM.PN.SRG ---
Subjective Subjective Mr. Mohamud was seen resting in bed this morning with family member at bedside. He does report pain in the RLE, he has point tenderness at a spot on his posteromedial distal calf/ankle. There is a wound in this area. There is no erythema, focal swelling, warmth. Objective Data Objective Data Vital Signs: Vital Signs Temp Pulse Resp BP Pulse Ox O2 Del Method O2 Flow Rate 98.6 F 91 16 96/67 97 Room Air 3 09/19/23 08:00 09/19/23 10:09/19/23 10:00 09/19/23 10:00 09/19/23 10:00 09/19/23 10:00 09/18/23 16:50 Oxygen Flow Rate (L/min) 3 Oxygen Delivery Method Room Air Weight: 161 lb 2.526 oz Body Mass Index (BMI) 23.8 Intake & Output: Intake and Output for Last 24 Hours 09/17/23 09/18/23 09/19/23 23:59 23:59 23:59 Intake Total 3034.02 / 3184.02 4768.88 / 4768.88 1308.75 / 1308.75 Output Total 1600 / 1800 2890 / 2890 900 / 900 Balance 1434.02 / 1384.02 1878.88 / 1878.88 408.75 / 408.75 Medical Nutrition Assessment Dietitian: Malnutrition Criteria Met Start: 09/08/23 13:28 Freq: Status: Active Protocol: Document 09/13/23 10:30 (Rec: 09/13/23 10:30 [id number]) Nutrition Malnutrition Evidence of Malnutrition Exists Yes Malnutrition (severe): Chronic Evidenced By Suboptimal Energy Intake ( Severe),Weight Loss (Severe) Intake Problem Increased Nutrient Needs (specify) Etiology protein related to skin status Signs/Symptoms as evidenced by LLE heel ulcer Status Active Problem Clinical Problem Chronic Disease or Condition Related Malnutrition Etiology severe related to decreased appetite caused by increased pain from LLE heel ulcer Signs/Symptoms as evidenced by 12.4% unintentional wt loss and po intake meeting <75% of estimated nutritional needs x 2 months prior to admission Status Active Problem Acute Disease or Injury Related Malnutrition Status Inactive Problem Altered Nutrient-Related Laboratory Values Etiology related to diet/lifestyle and newly diagnosed diabetes Signs/Symptoms as evidenced by A1C 7.4 Status Active Problem Recommendation Dietitian Recommendations/Changes Continue CCD diet to manage blood sugars. Continue Glucerna Shake 4 oz tid w/ meals for increased nutrition if consumed Continue Vladimir bid w/ medpass for increased nutrition if consumed Lab / Micro Data 09/19/23 14:48 09/19/23 03:15 Labs: Laboratory Results - last 24 hr 09/17/23 10:40: Blood Type A POSITIVE, Antibody Screen NEGATIVE, Crossmatch See Detail 09/18/23 17:35: POC Glucose 196 H 09/18/23 21:40: Vancomycin Trough 13.6 09/18/23 22:00: POC Glucose 199 H 09/19/23 03:15: WBC 8.9, RBC 2.69 L, Hgb 7.7 L, Hct 24.1 L, MCV 89.6, MCH 28.6, MCHC 32.0, RDW Std Deviation 46.8 H, RDW [place] 14.5, Plt Count 252, MPV 8.9, Immature Gran % (Auto) 0.800, Neut % (Auto) 80.6 H, Lymph % (Auto) 8.8 L, [place] % (Auto) 9.1, Eos % (Auto) 0.2, Baso % (Auto) 0.5, Absolute Neuts (auto) 7.1, Absolute Lymphs (auto) 0.78 L, Nucleated RBC % 0, APTT 50.8 H, Sodium 136, Potassium 3.7, Chloride 105, Carbon Dioxide 26.0, Anion Gap 5, BUN 12, Creatinine 0.60 L, Estim Creat Clear Calc 84.75, Est GFR (MDRD) Af Amer 171, Est GFR (MDRD) Non-Af 141, BUN/Creatinine Ratio 19.8, Glucose 159 H, Calcium 8.0 L 09/19/23 07:37: POC Glucose 117 H Micro: Microbiology 09/07/23 15:15 Blood Culture (Wb) - Anticubital Left Blood Culture - Final No growth in 5 days. 09/07/23 15:32 Blood Culture (Wb) - Left Hand Blood Culture - Final No growth in 5 days. 09/08/23 03:15 Urine, Catheterized Urine Culture - Final Culture exhibits no growth. 09/07/23 15:50 Wound - Left Foot Gram Stain - Final 09/07/23 15:50 Wound - Left Foot Wound Culture - Final Enterobacter cloacae complex Stenotrophomonas maltophilia Coag Negative Staph Gram positive genesis Radiography Diagnostic Testing: Radiology Impression Fluoroscopy 09/18/23 06:30 IMPRESSION: Intraoperative imaging provided for left femoral endarterectomy and left iliac stent placement. Electronically Signed: Seferino Donahue MD at 14:11 EDT , Physical Exam Const alert, oriented x3 and no apparent distress General Appearance: cooperative HEENT normocephalic, head/scalp atraumatic, hearing grossly normal bilaterally, external ears normal and external nose normal Eyes EOMs intact bilaterally Neck General: normal visual inspection and trachea midline Resp normal respiratory effort, no retractions and no use of accessory muscles Effort and Inspection: able to speak in complete sentences; Negative for labored, stridor or audible wheezes Cardio regular rate and regular rhythm Extremity Extremity Narrative: Good L DP and PT signals, faintly palpable L foot warm and pink L groin incision site is covered with Prevena vac dressing with good seal noted L medial leg incision sites with postoperative dressings C/D/I Skin no rashes or lesions noted Skin Narrative: L heel wound stable dry gangrene L great toe with discoloration Neuro oriented x3, CN's II-XII intact bilaterally, moves all extremities and no focal motor deficits Psych mental status grossly normal Appearance: grossly normal Attitude: calm and engaged Activity / Motor Behavior: appropriate eye contact Speech: normal speech Mood & Affect: euthymic mood Assessment & Plan Assessment/Plan (1) Atherosclerosis of left lower extremity with gangrene: QUALIFIERS: Peripheral atherosclerosis artery type: [place] artery Qualified Code(s): I70.262 - Atherosclerosis of [place] arteries of extremities with gangrene, left leg PLAN: He is POD#1 from L common femoral and profunda femoral endarterectomy, L ext iliac stent, L femoral to below knee popliteal bypass with reversed GSV, and L sartorius flap. His pain is overall fairly controlled. His Hgb was 7.7 this morning. Transfused 1 unit PRBC and it improved to 9.0. Will continue with heparin drip today and anticipate transitioning to Xarelto tomorrow. D/c jauregui. Continue to advance diet. Plan is for d/c to [facility].
[2023-09-19 11:42] LABS: Bedside Glucose 153 mg/dL (74-106)
[2023-09-19] MEDS: Vancomycin HCl 1,500 MG in 0.9% Normal Saline (500mL Bag) 500 ML 250 MG IV ×2 (12:24→21:33)
[2023-09-19] MEDS: Insulin Lispro 100 UNIT/ML INSULN.PEN SC ×2 (12:25→20:02)
--- NOTE | 2023-09-19 13:25 | PCM.PN.ID ---
Physical Exam Narrative Feeling ok, pain improved in foot. No fever. Const alert and no apparent distress General Appearance: cooperative Resp normal air movement and clear to auscultation bilaterally Cardio regular rate and regular rhythm GI soft to palpation, non-tender and non-distended Skin Skin Narrative: leg wrapped, toes warmer ID ID: Route of nutrition/ use of supplements: [] Nutritional Intake: [] IV Site: [] Mendoza Catheter: [] Assessment & Plan Assessment/Plan (1) Atherosclerosis of left lower extremity with gangrene: QUALIFIERS: Peripheral atherosclerosis artery type: [place] artery Qualified Code(s): I70.262 - Atherosclerosis of [place] arteries of extremities with gangrene, left leg PLAN: Wound cx with enterobacter, steno, CoNS, GPR. Cont vanc, levaquin. Vascular and podiatry following. OR for 6/3 with vascular intervention, blood flow is improved. Will follow (2) Type 2 diabetes mellitus with peripheral neuropathy:
--- NOTE | 2023-09-19 14:36 | WOUNDNOTE ---
wound photo: left heel
--- NOTE | 2023-09-19 14:37 | WOUNDNOTE ---
wound photo: toes left foot
[2023-09-19 15:23] LABS: Hematocrit 27.8 % (40-54)
--- NOTE | 2023-09-19 15:46 | CASEMGMT ---
Social Work TCU can take pt as long as no new needs arise. SW let pt and pt's sister know. They asked SW about Medicare Part D, pt's sister states that the [facility] was going to follow up on this. SW will ask [facility] to follow up w/pt and sister tomorrow. MAURICE did explain the SNF Medicare benefit to pt and pt's sister. SW will continue to follow. KARLA Mcadams
[2023-09-19] MEDS: Tamsulosin HCl 0.4 MG Capsule 0.8 MG PO (16:16)
[2023-09-19 16:44] LABS: Bedside Glucose 123 mg/dL (74-106)
[2023-09-19] MEDS: MELATONIN 10 MG TABLET PO ×2 (20:04)
[2023-09-19] MEDS: Atorvastatin Calcium 40 MG Tablet PO (20:04)
[2023-09-19 20:40] LABS: Bedside Glucose 219 mg/dL (74-106)
[2023-09-20] VITALS (19 sets, daily range): BP systolic 93–120; BP diastolic 61–84; PULSE 92–107; RESP 12–24; TEMP 36.7–37.7; O2SAT 96–100; BMI 24.3
[2023-09-20] MEDS: 0.9% Saline Lock 10 ML Syringe IV ×4 (03:29→23:30)
[2023-09-20] MEDS: Morphine 2 MG/ML Syringe IV ×2 (03:29→23:30)
[2023-09-20 03:38] LABS: Absolute Lymphocyte Count 0.83 X10^3/uL (0.83-4.51); Absolute Neutrophil Count 7.2 X10^3/uL (2.0-7.7); Basophil# 0.06 X10^3/uL; Basophil% 0.7 % (0-1); Eosinophil# 0.04 X10^3/uL; Eosinophils% 0.4 % (0-5); Hematocrit 26.9 % (40-54); Hemoglobin 8.7 g/dL (13.0-16.5); Lymphocyte # 0.83 X10^3/ul (0.83-4.51); Lymphocyte % 9.2 % (19-41); Mean Corp Hgb Conc 32.3 g/dL (32-36); Mean Corpuscular Volume 89.7 fL (80-94); Mean Platelet Vol. 8.9 fl (6.2-12.0); Monocyte# 0.85 X10^3/uL; Monocyte% 9.4 % (0-10); NRBC Flagged by Analyzer 0 % (0-5); Neutrophil % 79.9 % (47-70); Platelet Count 260 K/mm3 (150-450); RBC Distribution Width CV 14.3 % (11.6-14.6); RBC Distribution Width SD 46.7 fl (35.1-43.9)
[2023-09-20 03:48] LABS: International Normalized Ratio 1.2
[2023-09-20 03:49] LABS: Partial Thromboplast Time 43.6 Seconds (24.1-36.2)
[2023-09-20 04:03] LABS: Anion Gap 7 (5-15); BUN 11 mg/dL (7-18); BUN/Creat Ratio 16.8 RATIO (10-20); Calcium,Total 8.1 mg/dL (8.5-10.1); Chloride 103 mmol/L (98-107); Creatinine, Serum 0.66 mg/dL (0.70-1.30); EST Glomerular Filtration Rate 129 mL/min (>60); Est Glom Filt Rate - Afr Amer 156 mL/min (>60); Estimated Creatinine Clearance 88.38 ml/min; Glucose 136 mg/dL (74-106); Potassium 3.5 mmol/L (3.5-5.1); Sodium Level 136 mmol/L (136-145)
[2023-09-20] MEDS: levoFLOXacin 750 MG Tablet PO (05:51)
--- NOTE | 2023-09-20 06:31 | SUR.OPER ---
09/20/23 All miscellaneous supply items will be charged by the Master Planner with a Batch Charge
[2023-09-20] MEDS: HEPARIN/D5w 25,000 UNITS 25,000 UNITS/250 ML IV.SOLN. 11 UNITS CONT INF (07:53)
[2023-09-20] MEDS: Juven (unflavored) Packet 1 PACKET PO ×2 (08:22→17:03)
[2023-09-20] MEDS: Carvedilol 3.125 MG TABLET PO ×2 (08:22→17:05)
[2023-09-20] MEDS: Aspirin 81 MG TAB.CHEW PO (08:22)
[2023-09-20 08:30] LABS: Bedside Glucose 131 mg/dL (74-106)
[2023-09-20] MEDS: Vancomycin Trough/Random Due 1 LAB MC (10:00)
[2023-09-20] MEDS: Acetaminophen 325 MG Tablet 650 MG PO (10:11)
[2023-09-20] MEDS: oxyCODONE 5 MG Tablet PO ×2 (10:11→14:31)
--- NOTE | 2023-09-20 10:23 | PN.HOSP_ITS ---
Subjective Subjective Doing well, no issues overnight. No significant surgical pain Objective Data Objective Data Vital Signs: Vital Signs Temp Pulse Resp BP Pulse Ox O2 Del Method O2 Flow Rate 98.1 F 101 H 12 102/74 97 Nasal Cannula 1 09/20/23 08:00 09/20/23 09:00 09/20/23 09:00 09/20/23 09:00 09/20/23 09:00 09/20/23 09:00 09/20/23 09:00 Oxygen Flow Rate (L/min) 1 Oxygen Delivery Method Nasal Cannula Weight: 165 lb 2.02 oz Body Mass Index (BMI) 24.3 Intake & Output: Intake and Output for Last 24 Hours 09/19/23 09/20/23 09/21/23 03:59 03:59 03:59 Intake Total 4873.88 / 4873.88 2439.75 / 2439.75 670.5 / 670.5 Output Total 2690 / 2690 1575 / 1575 500 / 500 Balance 2183.88 / 2183.88 864.75 / 864.75 170.5 / 170.5 Medical Nutrition Assessment Dietitian: Malnutrition Criteria Met Start: 09/08/23 13:28 Freq: Status: Active Protocol: Document 09/13/23 10:30 LO (Rec: 09/13/23 10:30 [id number]) Nutrition Malnutrition Evidence of Malnutrition Exists Yes Malnutrition (severe): Chronic Evidenced By Suboptimal Energy Intake ( Severe),Weight Loss (Severe) Intake Problem Increased Nutrient Needs (specify) Etiology protein related to skin status Signs/Symptoms as evidenced by LLE heel ulcer Status Active Problem Clinical Problem Chronic Disease or Condition Related Malnutrition Etiology severe related to decreased appetite caused by increased pain from LLE heel ulcer Signs/Symptoms as evidenced by 12.4% unintentional wt loss and po intake meeting <75% of estimated nutritional needs x 2 months prior to admission Status Active Problem Acute Disease or Injury Related Malnutrition Status Inactive Problem Altered Nutrient-Related Laboratory Values Etiology related to diet/lifestyle and newly diagnosed diabetes Signs/Symptoms as evidenced by A1C 7.4 Status Active Problem Recommendation Dietitian Recommendations/Changes Continue CCD diet to manage blood sugars. Continue Glucerna Shake 4 oz tid w/ meals for increased nutrition if consumed Continue Vladimir bid w/ medpass for increased nutrition if consumed Lab / Micro Data 09/20/23 03:15 09/20/23 03:15 Labs: Laboratory Results - last 24 hr 09/17/23 10:40: Blood Type A POSITIVE, Antibody Screen NEGATIVE, Crossmatch See Detail 09/19/23 11:25: POC Glucose 153 H 09/19/23 14:48: Hgb 9.0 L, Hct 27.8 L 09/19/23 16:12: POC Glucose 123 H 09/19/23 20:01: POC Glucose 219 H 09/20/23 03:15: WBC 9.0, RBC 3.00 L, Hgb 8.7 L, Hct 26.9 L, MCV 89.7, MCH 29.0, MCHC 32.3, RDW Std Deviation 46.7 H, RDW [place] 14.3, Plt Count 260, MPV 8.9, Immature Gran % (Auto) 0.400, Neut % (Auto) 79.9 H, Lymph % (Auto) 9.2 L, [place] % (Auto) 9.4, Eos % (Auto) 0.4, Baso % (Auto) 0.7, Absolute Neuts (auto) 7.2, Absolute Lymphs (auto) 0.83, Nucleated RBC % 0, PT 15.0 H, INR 1.2, APTT 43.6 H, Sodium 136, Potassium 3.5, Chloride 103, Carbon Dioxide 26.0, Anion Gap 7, BUN 11, Creatinine 0.66 L, Estim Creat Clear Calc 88.38, Est GFR (MDRD) Af Amer 156, Est GFR (MDRD) Non-Af 129, BUN/Creatinine Ratio 16.8, Glucose 136 H, C alcium 8.1 L 09/20/23 08:09: POC Glucose 131 H Micro: Microbiology 09/07/23 15:15 Blood Culture (Wb) - Anticubital Left Blood Culture - Final No growth in 5 days. 09/07/23 15:32 Blood Culture (Wb) - Left Hand Blood Culture - Final No growth in 5 days. 09/08/23 03:15 Urine, Catheterized Urine Culture - Final Culture exhibits no growth. 09/07/23 15:50 Wound - Left Foot Gram Stain - Final 09/07/23 15:50 Wound - Left Foot Wound Culture - Final Enterobacter cloacae complex Stenotrophomonas maltophilia Coag Negative Staph Gram positive genesis Physical Exam Narrative General: Alert, Oriented x3, Cooperative, No apparent distress HEENT: Atraumatic, PERRLA, EOMI, Normocephalic Oral: Moist Mucosa Neck: Supple, No JVD Lungs: Diminished, Normal air movement, No rhonchi, No wheeze, No rales Cardiovascular: Regular rate, Regular Rhythm, Normal S1, Normal S2, No murmurs Abdomen: Soft, Non Tender, Non-Distended, No Hepato-splenomegaly Extremities: No edema Skin: Left lower extremity with ischemic toes and dopplerable pulses after surgical intervention Musculoskeletal: No Tenderness to Palpation of Joints or Extremities Neurological: No focal neurological deficits, Motor Exam 5/5 strength throughout, Sensory exam intact to light touch and pain Psych/Mental Status: Normal Affect, Appropriate Assessment & Plan Assessment/Plan (1) 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: (2) Atherosclerosis of left lower extremity with gangrene: QUALIFIERS: Peripheral atherosclerosis artery type: [place] artery Qualified Code(s): I70.262 - Atherosclerosis of [place] arteries of extremities with gangrene, left leg (3) Peripheral vascular disease: (4) Hyperlipidemia: PLAN: Plan 1. Left foot ulcer secondary to peripheral vascular disease status post left common femoral endarterectomy with a left femoral below the knee popliteal bypass and external iliac stent on 09/18/2023/atherosclerosis of left lower extremity with gangrene ? Continue with IV antibiotics ? Appreciate infectious disease assistance ? Cultures are positive for Enterobacter as well as coag negative staph and stenotrophomonas ? He is toe-touch weightbearing ? Continue with aspirin will need to be transitioned to Xarelto on discharge 2. Essential HTN ? He was not on any medications on admission, continue with aspirin ? We will monitor make adjustments as necessary ? Continue with Coreg as well as lisinopril ? She does have hydralazine as needed available 3. DM2 ? A1c was 7.4 ? Sliding scale insulin with Accu-Cheks ? Plan for metformin on discharge 4. BPH with obstruction ? Continue with Flomax 5. Severe malnutrition -Likely related to acute illness -Dietitian is following -Supplements added DVT: Heparin drip Charges/Coding Visit Charges Inpatient E&M: 67919 Subs Hosp L2
[2023-09-20 10:55] LABS: Vancomycin, Trough Level 15.4 ug/mL (5.0-15.0)
[2023-09-20] MEDS: Insulin Lispro 100 UNIT/ML INSULN.PEN SC ×2 (11:28→20:24)
[2023-09-20] MEDS: Vancomycin HCl 1,500 MG in 0.9% Normal Saline (500mL Bag) 500 ML 250 MG IV ×2 (11:35→23:29)
[2023-09-20 11:48] LABS: Bedside Glucose 175 mg/dL (74-106)
--- NOTE | 2023-09-20 12:23 | PCM.RX.CS ---
Consult Antibiotic Management Pharmacy has been consulted to manage selected antibiotic: Vancomycin Type of Intervention Type of Consult: Follow-up Suspected Infection Suspected Infection: Skin/Soft tissue Prior Doses of Antibiotics Prior Doses of Antibiotics Received/Current Regimen: 09/18/23 @ 2301 09/19/23 @ 1224 09/19/23@ 5423 Labs Labs: Sodium 136 mmol/L (136-145) 09/20/23 03:15 Potassium 3.5 mmol/L (3.5-5.1) 09/20/23 03:15 Chloride 103 mmol/L (98-107) 09/20/23 03:15 Carbon Dioxide 26.0 mmol/L (21.0-32.0) 09/20/23 03:15 Anion Gap 7 (5-15) 09/20/23 03:15 BUN 11 mg/dL (7-18) 09/20/23 03:15 Creatinine 0.66 mg/dL (0.70-1.30) L 09/20/23 03:15 Est GFR (MDRD) Af Amer 156 mL/min (>60) 09/20/23 03:15 Est GFR (MDRD) Non-Af 129 mL/min (>60) 09/20/23 03:15 BUN/Creatinine Ratio 16.8 RATIO (10-20) 09/20/23 03:15 Glucose 136 mg/dL (74-106) H 09/20/23 03:15 Vancomycin Trough 15.4 ug/mL (5.0-15.0) H 09/20/23 10:00 Microbiology Microbiology: Microbiology 09/07/23 15:15 Blood Culture (Wb) - Anticubital Left Blood Culture - Final No growth in 5 days. 09/07/23 15:32 Blood Culture (Wb) - Left Hand Blood Culture - Final No growth in 5 days. 09/08/23 03:15 Urine, Catheterized Urine Culture - Final Culture exhibits no growth. 09/07/23 15:50 Wound - Left Foot Gram Stain - Final 09/07/23 15:50 Wound - Left Foot Wound Culture - Final Enterobacter cloacae complex Stenotrophomonas maltophilia Coag Negative Staph Gram positive genesis Dosing Weight Weight used for dosin kg Estimated Creatinine Clearance Estimated Creatinine Clearance: 88 Goal Trough Goal Trough: 15-20 mcg/mL Pharmacy Plan for Drug Dosing Pharmacy Plan for Drug Dosing: Pharmacy Service will continue to monitor and adjust dosing as required. Follow-Up Labs Follow-Up Labs: Trough: Vancomycin Date/Time Labs Ordered Labs to be done on [date and time ordered]: 09/21/23 @ 1999
--- NOTE | 2023-09-20 13:47 | PCM.PN.SRG ---
Subjective Subjective Mr. Mohamud was seen this morning resting in bed. He still has general pain through his LLE but admits it is not unbearable as it was prior to surgery. The pain he has now he describes as a shooting, burning pain starting in his groin and shooting down his leg. No signs of bleeding with increase to therapeutic dose of heparin. Objective Data Objective Data Vital Signs: Vital Signs Temp Pulse Resp BP Pulse Ox O2 Del Method O2 Flow Rate 98.1 F 101 H 24 H 106/67 99 Nasal Cannula 1 09/20/23 08:00 09/20/23 10:00 09/20/23 10:00 09/20/23 10:00 09/20/23 10:00 09/20/23 10:00 09/20/23 10:00 Oxygen Flow Rate (L/min) 1 Oxygen Delivery Method Nasal Cannula Weight: 165 lb 2.02 oz Body Mass Index (BMI) 24.3 Intake & Output: Intake and Output for Last 24 Hours 09/18/23 09/19/23 09/20/23 23:59 23:59 23:59 Intake Total 4768.88 / 4768.88 2969.75 / 2969.75 670.5 / 670.5 Output Total 2890 / 2890 1575 / 1575 500 / 500 Balance 1878.88 / 1878.88 1394.75 / 1394.75 170.5 / 170.5 Medical Nutrition Assessment Dietitian: Malnutrition Criteria Met Start: 09/08/23 13:28 Freq: Status: Active Protocol: Document 09/13/23 10:30 (Rec: 09/13/23 10:30 [id number]) Nutrition Malnutrition Evidence of Malnutrition Exists Yes Malnutrition (severe): Chronic Evidenced By Suboptimal Energy Intake ( Severe),Weight Loss (Severe) Intake Problem Increased Nutrient Needs (specify) Etiology protein related to skin status Signs/Symptoms as evidenced by LLE heel ulcer Status Active Problem Clinical Problem Chronic Disease or Condition Related Malnutrition Etiology severe related to decreased appetite caused by increased pain from LLE heel ulcer Signs/Symptoms as evidenced by 12.4% unintentional wt loss and po intake meeting <75% of estimated nutritional needs x 2 months prior to admission Status Active Problem Acute Disease or Injury Related Malnutrition Status Inactive Problem Altered Nutrient-Related Laboratory Values Etiology related to diet/lifestyle and newly diagnosed diabetes Signs/Symptoms as evidenced by A1C 7.4 Status Active Problem Recommendation Dietitian Recommendations/Changes Continue CCD diet to manage blood sugars. Continue Glucerna Shake 4 oz tid w/ meals for increased nutrition if consumed Continue Vladimir bid w/ medpass for increased nutrition if consumed Lab / Micro Data 09/20/23 03:15 09/20/23 03:15 Labs: Laboratory Results - last 24 hr 09/17/23 10:40: Crossmatch See Detail 09/19/23 14:48: Hgb 9.0 L, Hct 27.8 L 09/19/23 16:12: POC Glucose 123 H 09/19/23 20:01: POC Glucose 219 H 09/20/23 03:15: WBC 9.0, RBC 3.00 L, Hgb 8.7 L, Hct 26.9 L, MCV 89.7, MCH 29.0, MCHC 32.3, RDW Std Deviation 46.7 H, RDW [place] 14.3, Plt Count 260, MPV 8.9, Immature Gran % (Auto) 0.400, Neut % (Auto) 79.9 H, Lymph % (Auto) 9.2 L, [place] % (Auto) 9.4, Eos % (Auto) 0.4, Baso % (Auto) 0.7, Absolute Neuts (auto) 7.2, Absolute Lymphs (auto) 0.83, Nucleated RBC % 0, PT 15.0 H, INR 1.2, APTT 43.6 H, Sodium 136, Potassium 3.5, Chloride 103, Carbon Dioxide 26.0, Anion Gap 7, BUN 11, Creatinine 0.66 L, Estim Creat Clear Calc 88.38, Est GFR (MDRD) Af Amer 156, Est GFR (MDRD) Non-Af 129, BUN/Creatinine Ratio 16.8, Glucose 136 H, Calcium 8.1 L 09/20/23 08:09: POC Glucose 131 H 09/20/23 10:00: Vancomycin Trough 15.4 H 09/20/23 11:26: POC Glucose 175 H Micro: Microbiology 09/07/23 15:15 Blood Culture (Wb) - Anticubital Left Blood Culture - Final No growth in 5 days. 09/07/23 15:32 Blood Culture (Wb) - Left Hand Blood Culture - Final No growth in 5 days. 05/24/24 03:15 Urine, Catheterized Urine Culture - Final Culture exhibits no growth. 09/07/23 15:50 Wound - Left Foot Gram Stain - Final 09/07/23 15:50 Wound - Left Foot Wound Culture - Final Enterobacter cloacae complex Stenotrophomonas maltophilia Coag Negative Staph Gram positive genesis Physical Exam Const alert, oriented x3 and no apparent distress General Appearance: cooperative HEENT normocephalic, head/scalp atraumatic, hearing grossly normal bilaterally, external ears normal and external nose normal Eyes EOMs intact bilaterally Neck General: normal visual inspection and trachea midline Resp normal respiratory effort, no retractions and no use of accessory muscles Effort and Inspection: able to speak in complete sentences; Negative for labored, stridor or audible wheezes Cardio regular rate and regular rhythm Extremity Extremity Narrative: Good L DP and PT signals, faintly palpable L foot warm and pink L groin incision site is covered with Prevena vac dressing with good seal noted L medial leg incision sites with postoperative dressings C/D/I Skin no rashes or lesions noted Skin Narrative: L heel wound stable dry gangrene L great toe with discoloration Neuro oriented x3, CN's II-XII intact bilaterally, moves all extremities and no focal motor deficits Psych mental status grossly normal Appearance: grossly normal Attitude: calm and engaged Activity / Motor Behavior: appropriate eye contact Speech: normal speech Mood & Affect: euthymic mood Assessment & Plan Assessment/Plan (1) Atherosclerosis of left lower extremity with gangrene: QUALIFIERS: Peripheral atherosclerosis artery type: [place] artery Qualified Code(s): I70.262 - Atherosclerosis of [place] arteries of extremities with gangrene, left leg PLAN: He is POD#2 from L common femoral and profunda femoral endarterectomy, L ext iliac stent, L femoral to below knee popliteal bypass with reversed GSV, and L sartorius flap. His pain today sounds more neurogenic in nature, he did have extensive dissection associated with the profunda femoral endart which may be contributing to this. Will initiate gabapentin to see if this provides improved pain control. His L DP and PT signals remain strong and significantly improved from preop. His Hgb was stable at 8.7 today. No signs of bleeding with therapeutic heparin today so will transition to Xarelto. Plan is for d/c to TCU. From a surgical standpoint, he is appropriate for discharge when a TCU bed is available.
[2023-09-20 14:49] LABS: Partial Thromboplast Time 52.4 Seconds (24.1-36.2)
[2023-09-20] MEDS: Heparin Injection (Vial) 5,000 UNIT/ML VIAL IV (15:11)
[2023-09-20 17:01] LABS: Bedside Glucose 121 mg/dL (74-106)
[2023-09-20] MEDS: Tamsulosin HCl 0.4 MG Capsule 0.8 MG PO (17:03)
[2023-09-20] MEDS: Gabapentin 100 MG Capsule PO (17:06)
--- NOTE | 2023-09-20 17:26 | NURSING ---
Report called to Letitia MONTEIRO in PCU.
[2023-09-20] MEDS: Rivaroxaban 20 MG Tablet PO (18:27)
[2023-09-20] MEDS: Atorvastatin Calcium 40 MG Tablet PO (20:24)
[2023-09-20 21:46] LABS: Partial Thromboplast Time 70.3 Seconds (24.1-36.2)
[2023-09-20 22:28] LABS: Bedside Glucose 170 mg/dL (74-106)
[2023-09-20] MEDS: 0.9% Normal Saline (250mL Bag) 250 ML 15 ML IV (23:29)
[2023-09-21 03:19] VITALS: BMI 24.5
[2023-09-21] MEDS: levoFLOXacin 750 MG Tablet PO (05:33)
[2023-09-21 06:00] VITALS: BP 117/78; PULSE 94; RESP 14; TEMP 37; O2SAT 97
[2023-09-21 06:33] LABS: Bedside Glucose 129 mg/dL (74-106)
[2023-09-21 07:17] VITALS: O2SAT 93
[2023-09-21 07:54] VITALS: BP 106/73; PULSE 95; RESP 16; TEMP 36.7; O2SAT 97
[2023-09-21] MEDS: Aspirin 81 MG TAB.CHEW PO (08:01)
[2023-09-21] MEDS: Carvedilol 3.125 MG TABLET PO (08:01)
[2023-09-21] MEDS: Juven (unflavored) Packet 1 PACKET PO (08:02)
[2023-09-21] MEDS: oxyCODONE 5 MG Tablet PO (08:02)
[2023-09-21] MEDS: Gabapentin 100 MG Capsule PO ×2 (08:02→11:33)
--- NOTE | 2023-09-21 09:49 | PCM.TXEXTCAR ---
Diet Diet Order/Speech Therapy: 09/19/23 16:09 Diet: Consistent Carb - Calorie Controlled Type of Dietary Supplement:: Glucerna Shake Is pt able to select menu?: Yes Diet Comments: 4 oz TID w/meals, no apples only bananas How many daily calories?: 1800 calorie Routine Orders/Code Status Routine Lab Work: CBC and BMP Code Status: Full Code Wound(s) LEFT HEEL: Wound Type: Stasis Ulcer left lateral heel: Wound Type: dry black eschar (pressure/PVD) Dressing Change: betadine with dry dressing LEFT HIP: Wound Type: Pressure Injury LEFT LEG: Wound Type: Surgical Incision Therapies Physical Therapy: Eval and Treat Occupational Therapy: Eval and Treat Problem/Diagnosis (1) Atherosclerosis of left lower extremity with gangrene: Status: Acute Code(s): I70.262 - Atherosclerosis of [place] arteries of extremities with gangrene, left leg Plan 1. Left foot ulcer secondary to peripheral vascular disease status post left common femoral endarterectomy with a left femoral below the knee popliteal bypass and external iliac stent on 09/18/2023/atherosclerosis of left lower extremity with gangrene ? Continue with IV antibiotics ? Appreciate infectious disease assistance ? Cultures are positive for Enterobacter as well as coag negative staph and stenotrophomonas ? He is toe-touch weightbearing ? Continue with aspirin will need to be transitioned to Xarelto on discharge 2. Essential HTN ? He was not on any medications on admission, continue with aspirin ? We will monitor make adjustments as necessary ? Continue with Coreg as well as lisinopril ? She does have hydralazine as needed available 3. DM2 ? A1c was 7.4 ? Sliding scale insulin with Accu-Cheks ? Plan for metformin on discharge 4. BPH with obstruction ? Continue with Flomax 5. Severe malnutrition -Likely related to acute illness -Dietitian is following -Supplements added DVT: Heparin drip Allergies/Procedures Done in Hospital Allergies Penicillins Allergy (Verified 09/07/23 14:57) Unknown Procedures: None Type of Care/Length of Stay Estimated LOS: Convalescent Care Less Than 30 days Type of Care Needed: Skilled Rehab Potential: Good Prognosis: Good Additional Orders/Day of Discharge Day of Discharge: 09/21/23 Dietary and Speech Recommendations Dietitian Recommendations/Changes: ADAT to CCD diet to manage blood sugars when medically able. Resume Glucerna Shake 4 oz tid w/ meals when diet advances >Clear Liquid for increased nutrition if consumed Continue Vladimir bid w/ medpass to promote wound healing Discharge Plan Admission Admit Date/Time: 09/07/23 18:26 Attending Provider: Everette Workman Primary Care Provider: Care Physician,No Primary Consulting Providers: Rosa Braxton; Negra Stovall; Ze Conte; Lisandro Scott; Acosta Mg Discharge Orders/Prescriptions Prescriptions: New atorvastatin 40 mg Tablet 40 mg PO QHS Qty: 0 0RF carvedilol 3.125 mg Tablet 3.125 mg PO BIDCM Qty: 0 0RF tamsulosin 0.4 mg Capsule 0.8 mg PO DAILY@1730 Qty: 0 0RF aspirin 81 mg Tablet,Chewable 81 mg PO BREAKFAST Qty: 0 0RF gabapentin 100 mg Capsule 100 mg PO TIDCM Qty: 0 0RF lisinopril 2.5 mg Tablet 2.5 mg PO DAILY Qty: 0 0RF oxycodone 5 mg Tablet 5 mg PO Q4H PRN PRN (Reason: Pain Score 4-10) Qty: 0 0RF Xarelto 20 mg Tablet 20 mg PO DINNER Qty: 0 0RF Continued diazepam 5 MG tablet 5 mg PO DAILY PRN PRN (Reason: Anxiety) Patient Comments: has not taken for a few weeks Discontinued aspirin 325 MG tablet 162.5 mg PO DAILY@0800 Referrals / Follow Up: Care Physician,No Primary [Primary Care Provider] - Disposition Disposition (needs filled in before D/C Order can be placed): Long-Term Facility (1) Atherosclerosis of left lower extremity with gangrene Qualifiers: Peripheral atherosclerosis artery type: [place] artery Qualified Code(s): I70.262 - Atherosclerosis of [place] arteries of extremities with gangrene, left leg
--- NOTE | 2023-09-21 10:37 | PN.ID_ITS ---
Physical Exam Narrative Feeling ok, pain controlled, no fever Const alert and no apparent distress Resp normal air movement and clear to auscultation bilaterally Cardio regular rate and regular rhythm GI soft to palpation, non-tender and non-distended Skin Skin Narrative: reviewed most recent wound photos ID ID: Route of nutrition/ use of supplements: [] Nutritional Intake: [] IV Site: [] Mendoza Catheter: [] Assessment & Plan Assessment/Plan (1) Atherosclerosis of left lower extremity with gangrene: QUALIFIERS: Peripheral atherosclerosis artery type: [place] artery Qualified Code(s): I70.262 - Atherosclerosis of [place] arteries of extremities with gangrene, left leg PLAN: Wound cx with enterobacter, steno, CoNS, GPR. On vanc, levaquin. Vascular and podiatry following. OR for 6/3 with vascular intervention, blood flow is improved. Will stop abx, ok for discharge from ID perspective. Will follow (2) Type 2 diabetes mellitus with peripheral neuropathy:
[2023-09-21] MEDS: Insulin Lispro 100 UNIT/ML INSULN.PEN SC (11:28)
[2023-09-21 12:20] LABS: Bedside Glucose 173 mg/dL (74-106)
--- NOTE | 2023-09-21 12:59 | CASEMGMT ---
Patient is ready for discharge to TCU. SW spoke with patient. Introduced self and role at [facility]. Patient was aware he was going to TCU today. Patient denied the need for SW to call his family. Plan: d/c to [facility] TCU under skilled level of care. Miladis PALOMO
--- NOTE | 2023-09-21 13:26 | PCM.DC.SUM ---
Providers Date of Admission: 09/07/23 Primary Care Physician: Ragini Primary Care Phys Consultations 09/07/23 19:09 Consult: Podiatry Routine Consulting Provider: Lisandro Scott Reason for Consult: left foot wound with cellulitis EMERGENT Consult: No MD Notified: Yes Date Notified: 09/07/23 Time Notified: 18:41 Method of Notification: Text 09/08/23 06:45 Consult: Onc/Wound/tone regulator Routine Comment: Reason for Consult:: L heel stasis ulcer 09/08/23 08:18 Consult: Vascular Surgery Routine Consulting Provider: Acosta Mg Reason for Consult: L LE Wound and Vascular disease EMERGENT Consult: No MD Notified: Yes Date Notified: 09/08/23 Time Notified: 08:18 Method of Notification: Answering Service 09/10/23 12:38 Consult: Infectious Disease Routine Consulting Provider: Ze Conte Reason for Consult: Polymicrobial LLE vascular wound infection EMERGENT Consult: No MD Notified: Yes Date Notified: 09/12/23 Time Notified: 05:11 Method of Notification: Answering Service Reason For Visit: CELLULITIS WITH LLE HEEL WOUND Diagnosis Discharge Diagnosis (1) Atherosclerosis of left lower extremity with gangrene: Status: Acute Code(s): I70.262 - Atherosclerosis of [place] arteries of extremities with gangrene, left leg Qualifiers: Peripheral atherosclerosis artery type: [place] artery Qualified Code(s): I70.262 - Atherosclerosis of [place] arteries of extremities with gangrene, left leg Medications at Discharge Home Medications diazepam 5 mg tablet 5 mg PO DAILY PRN PRN Anxiety 11/30/15 aspirin 81 mg chewable tablet 81 mg PO BREAKFAST #0 tabs 09/21/23 atorvastatin 40 mg tablet 40 mg PO QHS #0 tabs 09/21/23 carvedilol 3.125 mg tablet 3.125 mg PO BIDCM #0 tabs 09/21/23 gabapentin 100 mg capsule 100 mg PO TIDCM #0 caps 09/21/23 lisinopril 2.5 mg tablet 2.5 mg PO DAILY #0 tabs 09/21/23 oxycodone 5 mg tablet 5 mg PO Q4H PRN PRN Pain Score 4-10 #0 tabs 09/21/23 rivaroxaban 20 mg tablet (Xarelto) 20 mg PO DINNER #0 tabs 09/21/23 tamsulosin 0.4 mg capsule 0.8 mg (2 x 0.4 mg) PO DAILY@1730 #0 caps 09/21/23 Hospital Course Operations - (left common femoral endarterectomy left profunda endarterectomy left external iliac stent left femoral-below knee popliteal bypass with reversed GSV left sartorius flap ) Procedures Nuclear stress test Summary of Care Provided Minutes Spent on Discharge: 36 Hospital Course: Per HPI: ETHAN CROSS, is a 68 M with no significant PMH who has not seen a PCP in at least 8 years. HE was admittd with a complaint of a left foot wound which had worsened. He noticed that he had a small superficial ulceration on the heel of his left foot about 6 weeks ago. He said he did not think much of it. He however noticed that the ulceration gradually increased and he had associated pain. He initially had some scant discharge but this subsequently improved. He denied any fever or chills, nausea or vomiting, palpitations or any other symptoms. He had not had an ulcer like this before. He denied any history of diabetes. The wound gradually enlarged and he said the pain got worse and was shooting down the back of his left foot into his heel. He does have a history of neuropathy. He admits to a history of smoking and states he quit a few weeks ago. Review of systems otherwise negative. Vitals in the ED were blood pressure 135/104, pulse rate of 117, respiratory rate of 19 and temperature of 97.5 Fahrenheit. He was saturating at 97% on room air. CBC showed hemoglobin of 14.6 with WBC of 9.2 and platelets of 320. ESR was 28. Chemistry shows sodium of 133 with bicarb of 23 and potassium of 3.6. Creatinine was 1. Glucose was 178 and CRP was 65.9. Initial troponin was negative. 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 He has been admitted to be managed for cellulitis of the left lower extremity in the presence of significant peripheral artery disease. Hospital Course: 1. Left foot ulcer secondary to peripheral vascular disease status post left common femoral endarterectomy and left femoral to below the knee popliteal bypass and external iliac stent on 09/18/2023/atherosclerosis of left lower extremity with gangrene with severe protein calorie malnutrition?68-year-old male presented to the hospital with a left foot wound and pain. He had arterial studies that showed significantly reduced ABIs in his left lower extremity from his left common femoral artery down to dorsalis pedis. Initially podiatry was consulted and then recommended vascular evaluation and potential intervention. He did have a stress test for surgical clearance that demonstrated no ischemic issues. He was started on blood pressure medications as well as cholesterol medications prior to surgery. Infectious disease was also consulted secondary to the ulceration and infection cultures were obtained from his foot wound that demonstrated Enterobacter as well as coag negative staph and stenotrophomonas. He was started on vancomycin and Levaquin which she completed prior to discharge and does not need any antibiotics on discharge. He underwent surgery on 09/18/2023 which he tolerated well. No active signs of bleeding from his wounds. He was maintained on a heparin drip during his hospitalization and transition to Xarelto 20 mg nightly prior to discharge. Discussed with him the plan for discharge to SNF today and he expressed understanding of the risks and benefits of [facility] and would like to go today. He remains toe-touch weightbearing. 2. DM2?A1c on admission was 7.4 and was continued on sliding scale insulin and Accu-Cheks while here in the hospital. Will plan for discharge on metformin 500 mg daily as his blood sugars have been very well-controlled while here in the hospital and appropriate diet. 3. Essential hypertension?he was not taking any medications on admission, and was started on Coreg as well as lisinopril which we will continue on discharge. Physical Exam Narrative General: Alert, Oriented x3, Cooperative, No apparent distress HEENT: Atraumatic, PERRLA, EOMI, Normocephalic Oral: Moist Mucosa Neck: Supple, No JVD Lungs: Diminished, Normal air movement, No rhonchi, No wheeze, No rales Cardiovascular: Regular rate, Regular Rhythm, Normal S1, Normal S2, No murmurs Abdomen: Soft, Non Tender, Non-Distended, No Hepato-splenomegaly Extremities: No edema Skin: Left lower extremity with ischemic toes and dopplerable pulses after surgical intervention Musculoskeletal: No Tenderness to Palpation of Joints or Extremities Neurological: No focal neurological deficits, Motor Exam 5/5 strength throughout, Sensory exam intact to light touch and pain Psych/Mental Status: Normal Affect, Appropriate Medical Records Data Medical Nutrition Assessment Dietitian: Malnutrition Criteria Met Start: 09/08/23 13:28 Freq: Status: Active Protocol: Document 09/13/23 10:30 LO (Rec: 09/13/23 10:30 LO [id number]) Nutrition Malnutrition Evidence of Malnutrition Exists Yes Malnutrition (severe): Chronic Evidenced By Suboptimal Energy Intake ( Severe),Weight Loss (Severe) Intake Problem Increased Nutrient Needs (specify) Etiology protein related to skin status Signs/Symptoms as evidenced by LLE heel ulcer Status Active Problem Clinical Problem Chronic Disease or Condition Related Malnutrition Etiology severe related to decreased appetite caused by increased pain from LLE heel ulcer Signs/Symptoms as evidenced by 12.4% unintentional wt loss and po intake meeting <75% of estimated nutritional needs x 2 months prior to admission Status Active Problem Acute Disease or Injury Related Malnutrition Status Inactive Problem Altered Nutrient-Related Laboratory Values Etiology related to diet/lifestyle and newly diagnosed diabetes Signs/Symptoms as evidenced by A1C 7.4 Status Active Problem Recommendation Dietitian Recommendations/Changes Continue CCD diet to manage blood sugars. Continue Glucerna Shake 4 oz tid w/ meals for increased nutrition if consumed Continue Vladimir bid w/ medpass for increased nutrition if consumed Weight / BMI Weight Weight: 165 lb 12.602 oz Body Mass Index (BMI) 24.5 ABG / Lab / Microbiology Data 09/20/23 03:15 09/20/23 03:15 Laboratory: Laboratory Results - last 24 hr 09/17/23 10:40: Crossmatch See Detail 09/20/23 14:25: APTT 52.4 H 09/20/23 16:34: POC Glucose 121 H 09/20/23 20:15: POC Glucose 170 H 09/20/23 21:22: APTT 70.3 H 09/21/23 05:31: POC Glucose 129 H 09/21/23 11:23: POC Glucose 173 H Microbiology: Microbiology 09/07/23 15:15 Blood Culture (Wb) - Anticubital Left Blood Culture - Final No growth in 5 days. 09/07/23 15:32 Blood Culture (Wb) - Left Hand Blood Culture - Final No growth in 5 days. 09/08/23 03:15 Urine, Catheterized Urine Culture - Final Culture exhibits no growth. 09/07/23 15:50 Wound - Left Foot Gram Stain - Final 09/07/23 15:50 Wound - Left Foot Wound Culture - Final Enterobacter cloacae complex Stenotrophomonas maltophilia Coag Negative Staph Gram positive genesis Meaningful Use Info Meaningful Use Meaningful Use Diagnoses (Choose all that apply): None applicable Ischemic Stroke Statin Dosing Therapy Reference: STATIN DOSE THERAPY REFERENCE: * Patients > 75 years receive moderate or high dose statin therapy. * Patients 75 years or YOUNGER should receive HIGH intensity statin dose unless contraindicated. You will be required to document reason for non-treatment if statin daily dose does not meet guidelines. HIGH DOSE STATIN THERAPY DAILY Atorvastatin > than or = to 40 mg Rosuvastatin > than or = to 20 mg Amlodipine + Atorvastatin > than or = to 2.5/40 mg Ezetimibe + Simvastatin 10/80 mg Simvastatin 80mg Discharge Plan Admission Admit Date/Time: 09/07/23 18:26 Attending Provider: Everette Workman Primary Care Provider: Care Physician,No Primary Consulting Providers: Rosa Braxton; Negra Stovall; Ze Conte; Lisandro Scott; Acosta Mg Discharge Orders/Prescriptions Prescriptions: New atorvastatin 40 mg Tablet 40 mg PO QHS Qty: 0 0RF carvedilol 3.125 mg Tablet 3.125 mg PO BIDCM Qty: 0 0RF tamsulosin 0.4 mg Capsule 0.8 mg PO DAILY@1730 Qty: 0 0RF aspirin 81 mg Tablet,Chewable 81 mg PO BREAKFAST Qty: 0 0RF gabapentin 100 mg Capsule 100 mg PO TIDCM Qty: 0 0RF lisinopril 2.5 mg Tablet 2.5 mg PO DAILY Qty: 0 0RF oxycodone 5 mg Tablet 5 mg PO Q4H PRN PRN (Reason: Pain Score 4-10) Qty: 0 0RF Xarelto 20 mg Tablet 20 mg PO DINNER Qty: 0 0RF Continued diazepam 5 MG tablet 5 mg PO DAILY PRN PRN (Reason: Anxiety) Patient Comments: has not taken for a few weeks Discontinued aspirin 325 MG tablet 162.5 mg PO DAILY@0800 Referrals / Follow Up: Care Physician,No Primary [Primary Care Provider] - Disposition Disposition (needs filled in before D/C Order can be placed): Residential Facility Charges/Coding Visit Charges Inpatient E&M: 07136 Disch Hosp >30min
--- NOTE | 2023-09-21 13:48 | NURSING ---
Report called to TCU nurse. Pt to go to [facility]. Nurse will call when room is clean
[2023-09-21 13:59] VITALS: BP 109/71; PULSE 101; RESP 16; TEMP 37; O2SAT 98
--- NOTE | 2023-09-21 14:48 | CHAPLAIN ---
Type of Pastoral Visit _x__ Initial Visit ___ Follow-up Visit ___ On-call Visit ___ General Patient Visit ___ Spiritual Assessment ___ Family Conference ___ Bereavement ___ Rapid Response ___ Code Blue ___ Other (describe below) Pastoral Care Referral From _x__ Patient ___ Family ___ Nurse ___ Physician ___ Watch Technician ___ Admitting Manager ___ Other (describe below) Sacrament/Intervention _x__ Active listening ___ Anointing ___ Evangelical ___ Bereavement ___ Communion ___ Joelle exploration ___ ___ Life review _x__ Prayer ___ Reconciliation ___ Sacrament of Sick ___ Supportive presence ___ Wedding ___ Other (describe below) Pastoral Comments patient says that he is handling things okay with acknowledgement that he needs help and patience; pt says he is not particularly quaker but believes we all need help; pt denies concerns but accepts a prayer
== END 2023-09-21 14:57 | DRG 270 ==
LOC: ED 18:12 → MS3 18:26 → ICU 09-18 10:12 → PCU 09-20 18:00
PROVIDERS: Family Medicine; Internal Medicine; Internal Medicine Infectious Disease; Surgery Trauma Surgery; Admitting Provider Student in an Organized Health Care Education/Training Program; Emergency Provider Emergency Medicine; Visit Provider Family Medicine
PROC: 04CL3ZZ Extirpation of Matter from Left Femoral Artery, Percutaneous Approach (ICD-10-PCS; principal; 2023-09-18 07:10)
DX: I70.262 Atherosclerosis of native arteries of extremities with gangrene, left leg (principal); E43 Unspecified severe protein-calorie malnutrition; L97.421 Non-pressure chronic ulcer of left heel and midfoot limited to breakdown of skin; E11.42 Type 2 diabetes mellitus with diabetic polyneuropathy; E11.621 Type 2 diabetes mellitus with foot ulcer; B96.5 Pseudomonas (aeruginosa) (mallei) (pseudomallei) as the cause of diseases classified elsewhere; I11.0 Hypertensive heart disease with heart failure; E11.65 Type 2 diabetes mellitus with hyperglycemia; I50.9 Heart failure, unspecified; I65.29 Occlusion and stenosis of unspecified carotid artery; F17.210 Nicotine dependence, cigarettes, uncomplicated; E78.5 Hyperlipidemia, unspecified; E87.6 Hypokalemia; Z79.01 Long term (current) use of anticoagulants; Z79.82 Long term (current) use of aspirin; Z79.84 Long term (current) use of oral hypoglycemic drugs; N40.1 Benign prostatic hyperplasia with lower urinary tract symptoms; Z68.24 Body mass index [BMI] 24.0-24.9, adult; R33.8 Other retention of urine
CPT/HCPCS: 36415; 71045; 73630; 75635; 76000; 78452; 80048; 80053; 80061; 80202; 81001; 82962; 83036; 83605; 83735; 84100; 84443; 84484; 85014; 85018; 85025; 85027; 85610; 85652; 85730; 86022; 86140; 86850; 86900; 86901; 86920; 86922; 87040; 87070; 87077; 87086; 87186; 87205; 88304; 88311; 93005; 93017; 93923; 93970; 94668; 97110; 97162; 97166; 97530; 97535; 97802; 97803; 99252; 99285; A4648; A9500; C1769; C1894; J7030; J7040; J7050; J7120; P9016; Q9967; A4216; C1725; G0463; J2405; J2785

== ENCOUNTER 2023-09-21 15:19 | Inpatient (IN) | payer MEDICARE, SELFPAY ==
[2023-09-21 15:34] VITALS: BP 119/81; PULSE 101; RESP 18; TEMP 37.4; O2SAT 97; BMI 25.7
[2023-09-21] MEDS: oxyCODONE 5 MG Tablet PO (18:04)
[2023-09-21] MEDS: Carvedilol 3.125 MG TABLET PO (18:04)
[2023-09-21] MEDS: Rivaroxaban 20 MG Tablet PO (18:04)
[2023-09-21] MEDS: Tamsulosin HCl 0.4 MG Capsule 0.8 MG PO (18:04)
[2023-09-21] MEDS: Gabapentin 100 MG Capsule PO (18:04)
--- NOTE | 2023-09-21 21:00 | PCM.HP.STD ---
HPI - General General Date of Admission: 09/21/23 Date of Service: 09/21/23 Chief Complaint: Here for rehabilitation, wound care. HPI Narrative 09/07/2023 ETHAN CROSS, is a 68 Male who presents to [facility] ED left foot wound. Left foot wound for 4-5 weeks, Dr. Encinas referred patient to ED. Low back pain with neuropathy, no foot injury, left toes dislocated. Chronic left heel wound, lactate 2.0, CRP 65.9, ESR 28. X-ray left foot negative osteomyelitis. CTA abdomen/pelvis with runoff showed vascular occlusion left lower extremity. Discussed with Dr. Mg for vascular intervention. 09/07/2023 Admit [facility]. Vancomycin, Cefepime, chang cultured, pain control for left lower extremity cellulitis. Dr. Mg consulted for PVD. 09/08/2023 Left lower extremity pain, stress test prior to LLE intervention. Vancomycin, Cefepime for LLE cellulitis. Betadine, DSD, Kerlix to left heel wound. 09/09/2023 Left foot pain persists. Cardiac stress test negative, EF 70%. 09/10/2023 Left foot pain persists. Culture growing Enterobacter, stenotrophomonas, Coagulase negative staph, Consult Dr. Conte, Infectious Disease. Diabetes Mellitus Type 2, A1c 7.4, Metformin 500mg bid, aspirin, statin. 09/11/2023 Left foot pain better. Imaging negative for osteomyelitis. Aspirin, Heparin drop for left lower extremity PVD/occlusion. 09/12/2023 Dr. Conte recommended Vancomycin, Levaquin for Enterobacter, Steno, CoNS, GPR. 09/12/2023 Left foot pain better. Recommend tobacco cessation. 09/13/2023 Oxycodone for left foot pain. Vancomycin, Levaqin for left lower extremity cellulitis. 09/14/2023 Sleepy. Heparin drip for LLE PVD/occlusion. 09/18/2023 Dr. Mg performed left common femoral endarterectomy, left profunda endarterectomy, left external iliac stent, left femoral below knee popliteal bypass with GSV, Left sartorius flap. 09/19/2023 Doing well, pain controlled. Continue iv antibiotics for LLE cellulitis. 09/20/2023 Doing well, no pain. Aspirin to Xarelto on discharge. 09/20/2023 LLE pain much better. Gabapentin for left sciatic pain. 09/21/2023 Dr. Conte stopped all antibiotics. 09/21/2023 Admit to TCU with debility, here for rehabilitation, strengthening, wound care, prior to discharge home alone. [facility] Medical History Tobacco abuse Myocardial infarct Congestive heart failure (CHF) Hypertension DVT (deep venous thrombosis) Home Medications ?Medication ?Instructions ?Recorded ?Last Taken ?Type diazepam 5 mg tablet 5 mg PO DAILY PRN PRN Anxiety 11/30/15 09/15/23 History aspirin 81 mg chewable tablet 81 mg PO BREAKFAST Heart #0 tabs 09/21/23 09/21/23 08:00 Rx atorvastatin 40 mg tablet 40 mg PO QHS Cholesterol #0 tabs 09/21/23 09/20/23 Rx carvedilol 3.125 mg tablet 3.125 mg PO BIDCM BP #0 tabs 09/21/23 09/21/23 08:00 Rx gabapentin 100 mg capsule 100 mg PO TIDCM Nerve Pain #0 caps 09/21/23 09/21/23 11:35 Rx lisinopril 2.5 mg tablet 2.5 mg PO DAILY BP #0 tabs 09/21/23 09/16/23 Rx metformin 500 mg tablet 500 mg PO DAILY Diabetes 09/21/23 Unknown History oxycodone 5 mg tablet 5 mg PO Q4H PRN PRN Pain Score 09/21/23 09/21/23 08:00 Rx 4-10 #0 tabs rivaroxaban 20 mg tablet (Xarelto) 20 mg PO DINNER Blood Thinner #0 09/21/23 09/20/23 Rx tabs tamsulosin 0.4 mg capsule 0.8 mg (2 x 0.4 mg) PO DAILY@1730 09/21/23 09/20/23 Rx Urinary Retention #0 caps Allergy/AdvReac Type Severity Reaction Status Date / Time Penicillins Allergy Unknown Verified 09/07/23 14:57 Surgical History H/O right knee surgery Social History (Updated 09/21/23 @ 21:[address] Roney Kaur MD) household members: none Smoking Status: Former smoker alcohol intake: never substance use type: does not use ROS Constitutional Constitutional: Reports fatigue and weakness; Denies chills, fever(s) or weight gain ENT HEENT: Denies headache(s), nasal congestion or nasal discharge Cardiovascular Cardiovascular: Denies chest pain or palpitations Respiratory/Chest Respiratory/Chest: Denies cough, excessive phlegm production or shortness of breath with exertion Gastrointestinal Gastrointestinal: Denies abdominal pain, nausea or vomiting Genitourinary Genitourinary: Denies dysuria Musculoskeletal Musculoskeletal: Reports radiating pain into limb and other Details: Left heel pain. ; Denies joint pain or joint swelling Integumentary Integumentary: Denies rash or wounds Neurologic Neurologic: Denies focal weakness, numbness or tingling Psychiatric Psychiatric: Denies anxiety, auditory hallucinations, depression, homicidal ideation or suicidal ideation Vital Signs Vital Signs Vital Signs: 09/21/23 15:34 09/21/23 15:34 Temperature 99.3 F H Temperature Source Temporal Pulse Rate 101 H Pulse Rhythm Regular Pulse Strength Normal (2+) Respiratory Rate 18 Respiratory Effort Normal Non-Labored Respiratory Depth Normal Respiratory Pattern Normal Blood Pressure 119/81 H Blood Pressure Mean 93 Blood Pressure Position Semi-Fowlers Blood Pressure Location Right Arm Pulse Ox 97 Oxygen Delivery Method Room Air Room Air Weight Weight: 76.566 kg Body Mass Index (BMI) 25.7 Physical Exam Const alert General Appearance: cooperative HEENT normocephalic Eyes PERRL and EOMs intact bilaterally Neck supple, no JVD and no carotid bruits Resp normal respiratory effort, normal air movement and clear to auscultation bilaterally Cardio regular rate and regular rhythm GI normal to inspection, nondistended, normoactive bowel sounds, non-tender and non-distended Extremity normal capillary refill Extremity Narrative: Left foot dressed, left medial leg wound with wound VAC. General Extremity: Negative for edema Skin no rashes or lesions noted General Skin Exam: no breakdown Psych affect normal Appearance: appropriate Assessment & Plan Assessment/Plan (1) Debility: (2) 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: (3) Type 2 diabetes mellitus with peripheral neuropathy: (4) Atherosclerosis of left lower extremity with gangrene: QUALIFIERS: Peripheral atherosclerosis artery type: [place] artery Qualified Code(s): I70.262 - Atherosclerosis of [place] arteries of extremities with gangrene, left leg (5) Peripheral vascular disease: (6) Cellulitis of foot, left: (7) Hyperlipidemia: (8) Type 2 diabetes mellitus with hyperglycemia: (9) Anxiety: (10) Essential (primary) hypertension: PLAN: Plan 68 year old male with below past medical history hospitalized for cellulitis left lower extremity, left heel arterial ulcer, underwent left lower extremity revascularization 09/18/[address] Mg, admitted to TCU with debility, here for rehabilitation, strengthening, prior to discharge home alone. Debility - PT/OT. Pain - Tylenol 1000mg q6 prn pain (1-3), Tramadol 50mg q6 prn pain (4-5), Oxycodone 5mg q4 prn pain (6-10). Bowel - senna/colace 2 tablets bid, Magnesium citrate 300ml daily prn. Adult immunization - Administer pneumonia vaccine, covid vaccine, flu vaccine as appropriate. DVT prophylaxis - on Xarelto. PVD s/p LLE revascularization - Xarelto 20mg daily, Aspirin 81mg daily. Hyperlipidemia - Atorvastatin 40mg qhs. Hypertension - Coreg 3.125mg bidcm. Lisinopril 2.5mg daily. Anxiety - Diazepam 5mg daily prn, stable chronic snf use, GDR not recommended. Diabetic polyneuropathy/left sciatica - Gabapentin 100mg tidcm. Skin irritation - Calmoseptine topical bid, Eucerin topical bidcm. Diabetes Mellitus II - Metformin 500mg daily. BPH - Tamsulosin 0.8mg daily.
[2023-09-21] MEDS: Atorvastatin Calcium 40 MG Tablet PO (22:25)
[2023-09-21] MEDS: Menthol/Lanolin/Calamine/Znox 113 GM Tube 1 APPLIC TOPICAL (22:25)
[2023-09-21] MEDS: Senna/Docusate Sodium 1 Tablet 2 TABLET PO (22:25)
[2023-09-21] MEDS: 0.9% Saline Lock 10 ML Syringe IV (22:26)
[2023-09-22 06:15] LABS: Absolute Lymphocyte Count 0.94 X10^3/uL (0.83-4.51); Absolute Neutrophil Count 6.3 X10^3/uL (2.0-7.7); Basophil# 0.05 X10^3/uL; Basophil% 0.6 % (0-1); Eosinophil# 0.18 X10^3/uL; Eosinophils% 2.2 % (0-5); Hematocrit 27.3 % (40-54); Hemoglobin 8.8 g/dL (13.0-16.5); Lymphocyte # 0.94 X10^3/ul (0.83-4.51); Lymphocyte % 11.4 % (19-41); Mean Corp Hgb Conc 32.2 g/dL (32-36); Mean Corpuscular Hgb 28.7 pg (27.0-32.0); Mean Corpuscular Volume 88.9 fL (80-94); Monocyte# 0.72 X10^3/uL; Monocyte% 8.7 % (0-10); NRBC Flagged by Analyzer 0 % (0-5); Neutrophil # 6.27 X10^3/uL (2.7-7.7); Neutrophil % 76.1 % (47-70); Platelet Count 302 K/mm3 (150-450); RBC Distribution Width CV 14.4 % (11.6-14.6); Red Blood Count 3.07 M/mm3 (4.6-6.2); White Blood Count 8.2 K/mm3 (4.4-11.0)
[2023-09-22] MEDS: metFORMIN HCl 500 MG Tablet PO (08:53)
[2023-09-22] MEDS: Gabapentin 100 MG Capsule PO ×3 (08:53→17:02)
[2023-09-22] MEDS: Menthol/Lanolin/Calamine/Znox 113 GM Tube 1 APPLIC TOPICAL ×2 (08:53→20:14)
[2023-09-22] MEDS: Carvedilol 3.125 MG TABLET PO ×2 (08:53→17:01)
[2023-09-22] MEDS: Aspirin 81 MG TAB.CHEW PO (08:53)
[2023-09-22] MEDS: Lisinopril 2.5 MG Tablet PO (08:54)
[2023-09-22] MEDS: Senna/Docusate Sodium 1 Tablet 2 TABLET PO ×2 (08:54→20:14)
[2023-09-22 09:36] LABS: Anion Gap 9 (5-15); BUN 15 mg/dL (7-18); Chloride 103 mmol/L (98-107); Creatinine, Serum 0.56 mg/dL (0.70-1.30); EST Glomerular Filtration Rate 156 mL/min (>60); Est Glom Filt Rate - Afr Amer 188 mL/min (>60); Glucose 145 mg/dL (74-106); Potassium 3.6 mmol/L (3.5-5.1); Sodium Level 137 mmol/L (136-145)
[2023-09-22] MEDS: Tuberculin,Purif.prot.deriv. 50 TU/ML Vial 0.1 ML ID (10:08)
[2023-09-22 10:27] VITALS: BP 120/78; PULSE 105; RESP 16; TEMP 36.3; O2SAT 97
--- NOTE | 2023-09-22 10:39 | CASEMGMT ---
Addendum entered by Jaclyn Cotton 09/22/23 13:07: SW reached out to [facility] retail pharmacy who ran pt social security to verify prescription coverage. Information attached to pt is as follows: Plan: [employer] BIN: [id number] ID: [id number] RX Group: [id number] DIMPLE Whipple Original Note: Social Work- SW met with Marlon, brother, to pass on resources for prescription programs, transportation programs, office of the aging/direction home and community action senior services. Marlon also expressed some concerns that warranted SW passing on patient Lester andrews, contact information. DIMPLE Whipple
--- NOTE | 2023-09-22 11:57 | NURSING ---
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 He has stated he prefers to do independent activities such as tv or read the paper in his room when not in therapy. His brother will visit from [place] and sister lives here. Staff will continue to remind him of weekly activities, encourage social activities and respect his right to say no.
--- NOTE | 2023-09-22 12:52 | NURSING ---
Updated that a patient on the unit tested covid positive. Patient does not want family called, said he will update them.
--- NOTE | 2023-09-22 13:51 | CON.PCM_ITS ---
Assessment & Plan Assessment/Plan (1) Atherosclerosis of left lower extremity with gangrene: QUALIFIERS: Peripheral atherosclerosis artery type: [place] artery Qualified Code(s): I70.262 - Atherosclerosis of [place] arteries of extremities with gangrene, left leg (2) Type 2 diabetes mellitus with peripheral neuropathy: (3) 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: (4) Type 2 diabetes mellitus with foot ulcer: (5) Essential (primary) hypertension: (6) Hyperlipidemia: (7) Debility: PLAN: Plan Patient seen and evaluated Reviewed prior radiographs from ED visit 09/07/2023 demonstrating no acute pathology. Reviewed recent laboratory data on 09/22/2023. WBC WNL, A1c 7.4% on 09/08/2023. Patient has finished antibiotic course Vanco/Levaquin per ID recommendation. Examination left Foot: DP and PT pulses are faintly palpable to the left lower extremity, CFT less than 4 seconds to digits of the left foot s/p vascular intervention. Normal temperature gradient. Left lower extremity posterior lateral heel demonstrates evidence of full-thickness ulceration/eschar measuring 10.0 cm x 8.0 cm x 0.1 cm. Periwound erythema has improved s/p vascular intervention. Eschar is noted to be stable at this time. The skin is taut with rubor and peeling skin about the digits of the forefoot with concern of possible micro emboli to the hallux and fifth digit. There is noted improvement s/p vascular intervention. No signs of infection. Patient did undergo successful vascular intervention on 09/18/2023 and is continue to be followed by Dr. Mg. Evaluation s/p vascular intervention demonstrates improvement in pedal pulses and capillary fill time in addition to improvement in digits of the forefoot. At this time recommend continued monitoring of the digits of the forefoot, but will recommend debridement of the posterior lateral heel eschar. Discussed with patient and his brother today planning to perform debridement in outpatient setting via either return to the OR with debridement and application of advanced wound care product versus debridement with Sanytl with additional debridement at wound care center with continued applications of advanced wound care product. Discussed with patient and brother possibility of performing both debridement in OR and continued care in wound center. I did address questions and concerns regarding the wound sites and foot following his vascular intervention. All questions were answered to the patient and brothers level of satisfaction. Discussed the procedures required for debridement in detail in addition to answering questions pertaining to the advanced wound care products of use. Patient and brother are understanding of the care plan at this time. Patient states they are continuing to work with therapy to aid in establishing more strength prior to possible discharge home. The patient's brother states that he will be going back to [place] soon but will continue to check-in. Dressings were changed consisting of Betadine to the hallux and fifth digit and posterior lateral heel. Dressed with dry sterile dressing and ABD offloading padding. Dressings changed daily. Nursing to assist in dressing changes. Recommend continued offloading via PRAFO boot to the right and left lower extremity at all times. Weightbearing status: Full weightbearing to the right lower extremity. Protective weightbearing in surgical shoe to the left foot. Medicine team currently following for medical management, they are greatly appreciated. Vascular surgery continuing to follow s/p left common femoral endarterectomy, left profunda endarterectomy, left external iliac stent, and left femoropopliteal bypass with reversed GSV and sartorius flap on 09/18/2023. Wound nurse continuing to follow for assistance in dressing changes, she is appreciated. Podiatry will continue to follow for local wound care. Recommending debridement of the left heel in outpatient setting with application of advanced wound care product. Will likely need continued wound care at the wound center following his discharge. Jr. Danilo BakerPHarika. [facility] [phone] HPI Consult Data Date of Consult: 09/22/23 HPI Narrative Reason for Consultation: Atherosclerosis of left lower extremity with gangrene and heel eschar HPI Narrative: ETHAN CROSS, is a 68 M who presents to [facility] on 09/07/2023 with left foot wound which had worsened. He had noticed a eschar/ulcer on his left foot 6 weeks prior to admission which gradually increased in size with increased associated pain over this course of time. He did state occasional drainage but denied fever or chills, nausea or vomiting, palpitations. Radiographs in the ED were negative for acute pathology. Patient does state he has diabetes and has neuropathy and does not feel much in his feet. Recent A1c 7.4% on 09/08/2023. He was a former smoker but has since quit prior to his admission. Podiatry was consulted and patient did follow-up with Dr. Scott who did recommend vascular intervention prior to podiatric intervention. Vascular surgery was consulted and patient did undergo vascular intervention on 09/18/2023 with left common femoral endarterectomy, left profunda endarterectomy, left external iliac stent, and left femoropopliteal bypass with reversed GSV and sartorius flap. Patient was admitted to the ICU following his surgery and did have good recovery with improvement of pedal pulses. He was discharged to the TCU for rehabilitation, wound care, and continued monitoring s/p vascular intervention. Podiatry consulted for continued monitoring with plan for outpatient debridement once tissue has demarcated. [facility] Medical History Tobacco abuse Myocardial infarct Congestive heart failure (CHF) Hypertension DVT (deep venous thrombosis) Home Medications ?Medication ?Instructions ?Recorded ?Last Taken ?Type diazepam 5 mg tablet 5 mg PO DAILY PRN PRN Anxiety 11/30/15 09/15/23 History aspirin 81 mg chewable tablet 81 mg PO BREAKFAST Heart #0 tabs 09/21/23 09/21/23 08:00 Rx atorvastatin 40 mg tablet 40 mg PO QHS Cholesterol #0 tabs 09/21/23 09/20/23 Rx carvedilol 3.125 mg tablet 3.125 mg PO BIDCM BP #0 tabs 09/21/23 09/21/23 08:00 Rx gabapentin 100 mg capsule 100 mg PO TIDCM Nerve Pain #0 caps 09/21/23 09/21/23 11:35 Rx lisinopril 2.5 mg tablet 2.5 mg PO DAILY BP #0 tabs 09/21/23 09/16/23 Rx metformin 500 mg tablet 500 mg PO DAILY Diabetes 09/21/23 Unknown History oxycodone 5 mg tablet 5 mg PO Q4H PRN PRN Pain Score 09/21/23 09/21/23 08:00 Rx 4-10 #0 tabs rivaroxaban 20 mg tablet (Xarelto) 20 mg PO DINNER Blood Thinner #0 09/21/23 09/20/23 Rx tabs tamsulosin 0.4 mg capsule 0.8 mg (2 x 0.4 mg) PO DAILY@1730 09/21/23 09/20/23 Rx Urinary Retention #0 caps Allergy/AdvReac Type Severity Reaction Status Date / Time Penicillins Allergy Unknown Verified 09/07/23 14:57 Surgical History H/O right knee surgery Social History (Updated 09/21/23 @ 21:[address] Roney Kaur MD) household members: none Smoking Status: Former smoker alcohol intake: never substance use type: does not use ROS Constitutional Constitutional: Reports fatigue and weakness; Denies chills or fever(s) Eyes Eyes: Denies burning, diplopia or itchy eyes ENT HEENT: Denies dysphagia, rhinorrhea or sore throat Cardiovascular Cardiovascular: Denies chest pain or palpitations Respiratory/Chest Respiratory/Chest: Denies cough, dyspnea or wheezing Gastrointestinal Gastrointestinal: Denies abdominal pain, constipation, diarrhea, nausea or vomiting Genitourinary Genitourinary: Denies dysuria or hematuria Musculoskeletal Musculoskeletal: Denies joint pain, joint stiffness or joint swelling Integumentary Integumentary: Denies jaundice, lesions, pruritus or rash Neurologic Neurologic: Denies dizziness, numbness or seizures Psychiatric Psychiatric: Denies anxiety or depression Endocrine Endocrinology: Denies cold intolerance or heat intolerance Physical Exam Const alert, oriented x3 and no apparent distress General Appearance: cooperative HEENT normocephalic Eyes General Eye: normal appearance of both eyes Neck General: normal visual inspection Lymph Lymphatic: no lymphadenopathy noted and no lymphedema noted Resp normal respiratory effort Cardio regular rate and regular rhythm Extremity Extremity Narrative: Vascular: DP and PT pulses are faintly palpable to the left lower extremity, Weakly palpable to the right lower extremity. CFT less than 4 seconds to digits of the left foot s/p vascular intervention. Normal temperature gradient. There is some rubor noted to the digits with possible micro emboli appreciated to the distal hallux and the fifth digit of the left foot, they are improving s/p vascular intervention. Neurologic: Light touch sensation intact. Gross sensation intact. Protective sensation is diminished to the foot consistent with diabetic peripheral polyneuropathy. Patient does respond to painful stimuli. Dermatologic: Left lower extremity posterior lateral heel demonstrates evidence of full-thickness ulceration/eschar measuring 10.0 cm x 8.0 cm x 0.1 cm. Periwound erythema has improved s/p vascular intervention. Eschar is noted to be stable at this time. The skin is taut with rubor and peeling skin about the digits of the forefoot with concern of micro emboli to the hallux and fifth digit. There is noted improvement s/p vascular intervention. No signs of infection. Musculoskeletal: Muscle strength 5 of 5 age-appropriate. There is some tenderness to palpation about the hallux and fifth digit of the left foot. There is mild to moderate tenderness about the dry stable eschar posterior lateral heel. There is decreased range of motion about the ankle joint with the knee extended and the foot in dorsiflexion without pain or crepitus. No pain to palpation left calf. Skin no rashes or lesions noted, skin turgor normal and no jaundice Neuro moves all extremities Lab / Micro Data 09/22/23 05:23 09/22/23 05:23 Labs: Laboratory Results - last 24 hr 09/22/23 05:23: WBC 8.2, RBC 3.07 L, Hgb 8.8 L, Hct 27.3 L, MCV 88.9, MCH 28.7, MCHC 32.2, RDW Std Deviation 46.0 H, RDW [place] 14.4, Plt Count 302, MPV 9.0, Immature Gran % (Auto) 1.000 H, Neut % (Auto) 76.1 H, Lymph % (Auto) 11.4 L , Humphreys % (Auto) 8.7, Eos % (Auto) 2.2, Baso % (Auto) 0.6, Absolute Neuts (auto) 6.3, Absolute Lymphs (auto) 0.94, Nucleated RBC % 0, Sodium 137, Potassium 3.6, Chloride 103, Carbon Dioxide 25.0, Anion Gap 9, BUN 15, Creatinine 0.56 L, Estim Creat Clear Calc 85.50, Est GFR (MDRD) Af Amer 188, Est GFR (MDRD) Non-Af 156, B UN/Creatinine Ratio 27.0 H, Glucose 145 H, Calcium 8.0 L Micro: Microbiology 09/22/23 10:05 Nasal Secretion SARS-CoV-2 Antigen (Rapid) - Final
[2023-09-22 13:58] VITALS: O2SAT 97
--- NOTE | 2023-09-22 14:13 | CASEMGMT ---
Social Work SW met with pt and brother Marlon and introduced self and role of SW. Psychosocial assessment completed. Pt had advance directives on file at [facility] naming his sister Nandini Izaguirre. SW educated pt and brother that Medicare will pay for TCU for first 20 days. Starting on day 21 (10/10) pt will have a copay. SW also briefly discussed Medicaid and watermelon inspector care. Pt is hopeful he will be able to return to his home at [facility] alone, but this will depend on pt's functional ability at time of discharge. MAURICE will continue to follow for dc planning and support. DIMPLE [place]
--- NOTE | 2023-09-22 14:30 | PHA.CONS_ITS ---
TCU RX Drug Regimen Review Subjective/Objective Subjective/Objective: Subjective: DW is a 68 yr old male who presented to the ED on 09/06 for a left foot wound. Resident was admitted to [facility] for left lower extremity cellulitis and the wound was cultured. Resident was put on antibiotics while on the floor and is now being discharged to the transitional care unit for rehabilitation, strengthening, and wound care prior to discharging to home. Objective: Allergies Penicillins Allergy (Verified 09/07/23 14:57) Unknown Current Medications Generic Name Dose Route Start Last Admin Trade Name Freq PRN Reason Stop Dose Admin Acetaminophen 1,000 mg 09/21/23 21:20 Acetaminophen 500 Mg Tablet PO Q6H PRN PRN Pain Score 1-3 Aspirin 81 mg 09/22/23 08:00 09/22/23 08:53 Aspirin 81 Mg Tab.Chew PO 81 mg BREAKFAST DEVAN Administration Atorvastatin Calcium 40 mg 09/21/23 22:00 09/21/23 22:25 Atorvastatin Calcium 40 Mg Tablet PO 40 mg QHS DEVAN Administration Calamine/Phenol 1 applic 09/21/23 22:00 09/22/23 08:53 Menthol/Lanolin/Calamine/Znox 113 Gm Tube TOPICAL 1 applic BID [facility] Administration Protocol Carvedilol 3.125 mg 09/21/23 17:00 09/22/23 08:53 Carvedilol 3.125 Mg Tablet PO 3.125 mg BIDCM [facility] Administration Protocol Diazepam 5 mg 09/21/23 15:55 Diazepam 5 Mg Tablet PO DAILY PRN PRN Anxiety Gabapentin 100 mg 09/21/23 17:45 09/22/23 12:53 Gabapentin 100 Mg Capsule PO 100 mg TIDCM DEVAN Administration L-Arginine/L-Glutamine/Calcium HMB 1 packet 09/22/23 17:00 Vladimir (Unflavored) Packet PO BIDCM [facility] Lisinopril 2.5 mg 09/22/23 10:00 09/22/23 08:54 Lisinopril 2.5 Mg Tablet PO 2.5 mg DAILY DEVAN Administration Protocol Magnesium Citrate 300 ml 09/21/23 21:20 Magnesium Citrate 300 Ml PO DAILY PRN Constipation Metformin HCl 500 mg 09/22/23 08:00 09/22/23 08:53 Metformin Hcl 500 Mg Tablet PO 500 mg DAILYCM [facility] Administration Multi-Ingredient Cream 1 applic 09/21/23 18:24 Petrolatum 33% Tube TOPICAL BID PRN PRN DRY SKIN Protocol Oxycodone HCl 5 mg 09/21/23 21:22 Oxycodone 5 Mg Tablet PO Q4H PRN PRN Pain 6-10 q4hrs or Pre PT/OT Rivaroxaban 20 mg 09/21/23 17:00 09/21/23 18:04 Rivaroxaban 20 Mg Tablet PO 20 mg DINNER DEVAN Administration Senna/Docusate Sodium 2 tablet 09/21/23 22:00 09/22/23 08:54 Senna/Docusate Sodium 1 Tablet PO 2 tablet BID DEVAN Administration Sodium Chloride 10 - 40 ml 09/21/23 15:45 09/21/23 22:26 0.9% Saline Lock 10 Ml Syringe IV 20 ml UD PRN Administration SALINE FLUSH Tamsulosin HCl 0.8 mg 09/21/23 17:30 09/21/23 18:04 Tamsulosin Hcl 0.4 Mg Capsule PO 0.8 mg DAILY@1730 DEVAN Administration Tramadol HCl 50 mg 09/21/23 21:20 Tramadol 50 Mg Tablet PO Q6H PRN PRN Pain 4-5 q6h or Pre PT/OT Tuberculin PPD 0.1 ml 09/29/23 10:00 Tuberculin,Purif.Prot.Deriv. 50 Tu/Ml Vial ID 09/29/23 10:01 X1 ONE Problem List Essential (primary) hypertension (Acute) Anxiety (Acute) Type 2 diabetes mellitus with hyperglycemia (Acute) Debility (Acute) Hyperlipidemia (Acute) 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 (Acute) Type 2 diabetes mellitus with peripheral neuropathy (Acute) Atherosclerosis of left lower extremity with gangrene (Acute) Peripheral vascular disease (Acute) Cellulitis of foot, left (Acute) Vital Signs Temp Pulse Resp BP Pulse Ox O2 Del Method 97.4 F L 105 H 16 120/78 97 Room Air 09/22/23 10:27 09/22/23 10:27 09/22/23 10:27 09/22/23 10:27 09/22/23 13:58 09/22/23 10:27 Oxygen Delivery Method Room Air Weight: 76.566 kg Body Mass Index (BMI) 25.7 Sodium 137 mmol/L (136-145) 09/22/23 05:23 Potassium 3.6 mmol/L (3.5-5.1) 09/22/23 05:23 Chloride 103 mmol/L (98-107) 09/22/23 05:23 Carbon Dioxide 25.0 mmol/L (21.0-32.0) 09/22/23 05:23 Anion Gap 9 (5-15) 09/22/23 05:23 BUN 15 mg/dL (7-18) 09/22/23 05:23 Creatinine 0.56 mg/dL (0.70-1.30) L 09/22/23 05:23 Est GFR (MDRD) Af Amer 188 mL/min (>60) 09/22/23 05:23 Est GFR (MDRD) Non-Af 156 mL/min (>60) 09/22/23 05:23 BUN/Creatinine Ratio 27.0 RATIO (10-20) H 09/22/23 05:23 Glucose 145 mg/dL (74-106) H 09/22/23 05:23 Assessment/Plan: 1. Pain- acetaminophen 1000mg PO Q6H PRN (1-3), tramadol 50mg PO Q6H PRN pain (4-5), oxycodone 5mg PO Q4H PRN pain (6-10). Please continue to monitor for s/s of increased/decreased pain, falls (BEERs), respiratory depression, agitation, and constipation. - To date, no prn medications have been used. Pain is currently controlled on the current regimen. 2. Bowel- senna/docusate 2 tablets PO BID, magnesium citrate 300ml daily PRN. Please continue to monitor for s/s of constipation/diarrhea. - 1 bowel movement documented (09/20) 3. DVT prophylaxis/ PVD s/p LLE revascularization- Xarelto 20mg PO daily, Aspirin 81mg PO daily. Please continue to monitor for s/s of bleeding (Hgb 8.8 g/dL Hct 27.3% 09/21) and dizziness. 4. Hyperlipidemia- atorvastatin 40mg PO QHS. Please continue to monitor lipid panel annually (in range 08/2023), myopathy, and myalgias. 5. Hypertension- carvedilol 3.125mg PO BIDCM, lisinopril 2.5mg PO daily. Please continue to monitor BP (120/78 09/21), pulse (range 101-105 BPM) and dizziness. 6. Diabetes mellitus II - metformin 500mg PO daily. Please continue to monitor A1c (7.4 09/07), vitamin b12, GFR (165 on 09/21), and diarrhea. Please consider increasing the metformin dose to BID based on glucose and A1c value. 7. Diabetic neuropathy: gabapentin 100mg PO TIDCM. Please continue to monitor for oversedation, falls (BEERs), renal function (CrCl 85 mL/min on 09/21). 8. BPH- tamsulosin 0.8mg PO daily. Please continue to monitor for dizziness, hypotension, and headache. 9. Skin irritation- Calmoseptine topically BID, Eucerin topical BID. Please monitor for skin irritation, redness, and ulcer formation. Assessment/Plan for indications treated with psychotropic medications: 1.Anxiety- Diazepam 5mg PO daily PRN. Please monitor for confusion (BEERs), falls (BEERs), delirium (BEERs), and drowsiness. - Resident has not taken any at this time. Medical chart and medication regimen reviewed. The following medication irregularities or issues were identified: 1. Diabetes mellitus II - metformin 500mg PO daily. Please consider increasing the metformin dose to BID based on glucose and A1c values. Note: eGFR is 156, no renal adjustment needed. Date Date of Note:: 09/22/23
--- NOTE | 2023-09-22 14:53 | CHAPLAIN ---
Type of Pastoral Visit ___ Initial Visit ___ Follow-up Visit ___ On-call Visit ___ General Patient Visit ___ Spiritual Assessment ___ Family Conference ___ Bereavement ___ Rapid Response ___ Code Blue ___ Other (describe below) Pastoral Care Referral From ___ Patient ___ Family ___ Nurse ___ Physician ___ Psychiatric Rn ___ Wire Drawing Setter ___ Other (describe below) Sacrament/Intervention ___ Active listening ___ Anointing ___ Confucianist ___ Bereavement ___ Communion ___ Joelle exploration ___ ___ Life review ___ Prayer ___ Reconciliation ___ Sacrament of Sick ___ Supportive presence ___ Wedding ___ Other (describe below) Pastoral Comments spoke with brother of this patient in the activities area; brother is encouraged to know that patient will receive spiritual care here and asks some questions about approach to pt such as this one; offer to see patient at better time when family from out of state is not present
[2023-09-22] MEDS: Juven (unflavored) Packet 1 PACKET PO (17:01)
[2023-09-22] MEDS: Rivaroxaban 20 MG Tablet PO (17:02)
[2023-09-22] MEDS: Tamsulosin HCl 0.4 MG Capsule 0.8 MG PO (17:02)
[2023-09-22 20:00] VITALS: O2SAT 96
[2023-09-22] MEDS: 0.9% Saline Lock 10 ML Syringe IV (20:15)
[2023-09-22] MEDS: Atorvastatin Calcium 40 MG Tablet PO (20:15)
[2023-09-23] MEDS: oxyCODONE 5 MG Tablet PO ×2 (01:15→22:30)
[2023-09-23] MEDS: Juven (unflavored) Packet 1 PACKET PO ×2 (08:30→17:19)
[2023-09-23] MEDS: metFORMIN HCl 500 MG Tablet PO (08:30)
[2023-09-23] MEDS: Aspirin 81 MG TAB.CHEW PO (08:30)
[2023-09-23] MEDS: Menthol/Lanolin/Calamine/Znox 113 GM Tube 1 APPLIC TOPICAL ×2 (08:30→22:31)
[2023-09-23] MEDS: Senna/Docusate Sodium 1 Tablet 2 TABLET PO ×2 (08:30→22:30)
[2023-09-23] MEDS: Lisinopril 2.5 MG Tablet PO (08:30)
[2023-09-23] MEDS: Gabapentin 100 MG Capsule PO ×3 (08:30→17:22)
[2023-09-23] MEDS: Carvedilol 3.125 MG TABLET PO ×2 (08:30→17:23)
[2023-09-23 10:00] VITALS: BP 100/63; PULSE 66; RESP 16; TEMP 37.1; O2SAT 96
--- NOTE | 2023-09-23 10:26 | CASEMGMT ---
Social Work Cesar from [facility] called, pt's brother Marlon asked to speak w/SW. MAURICE called Marlon, who is in pt's room in [facility] at present. He states MAURICE Anaya was able to get them the information for pt's part D prescription plan. He states that they tried to find the company on the internet in order to try to get a card, and could not find it. Marlon states did call pt's pharmacy to ask if giving them the information Jaclyn found would be enough to get pt's medications, or if they need a card. Marlon states he was told it would be enough. However, he still would like a card. MAURICE explained can call the pharmacy again to see if there is a phone number associated with the policy. MAURICE called, the help phone number listed is , and there is a Contract # also, [id number]. MAURICE called Marlon back and passed his information on to him. KARLA Mcadams
[2023-09-23] MEDS: Tamsulosin HCl 0.4 MG Capsule 0.8 MG PO (17:19)
[2023-09-23] MEDS: Rivaroxaban 20 MG Tablet PO (17:19)
[2023-09-23] MEDS: Atorvastatin Calcium 40 MG Tablet PO (22:30)
[2023-09-23] MEDS: 0.9% Saline Lock 10 ML Syringe IV (22:33)
[2023-09-24] MEDS: Gabapentin 100 MG Capsule PO ×3 (09:08→17:43)
[2023-09-24] MEDS: Juven (unflavored) Packet 1 PACKET PO ×2 (09:09→17:40)
[2023-09-24] MEDS: Aspirin 81 MG TAB.CHEW PO (09:09)
[2023-09-24] MEDS: Senna/Docusate Sodium 1 Tablet 2 TABLET PO ×2 (09:09→20:22)
[2023-09-24] MEDS: Lisinopril 2.5 MG Tablet PO (09:09)
[2023-09-24] MEDS: metFORMIN HCl 500 MG Tablet PO (09:09)
[2023-09-24] MEDS: Carvedilol 3.125 MG TABLET PO ×2 (09:09→17:40)
[2023-09-24] MEDS: Menthol/Lanolin/Calamine/Znox 113 GM Tube 1 APPLIC TOPICAL ×2 (09:09→20:21)
[2023-09-24] MEDS: oxyCODONE 5 MG Tablet PO ×2 (09:14→20:29)
[2023-09-24 09:25] VITALS: BP 127/76; PULSE 105; RESP 16; TEMP 36.4; O2SAT 95
[2023-09-24] MEDS: Rivaroxaban 20 MG Tablet PO (17:40)
[2023-09-24] MEDS: Tamsulosin HCl 0.4 MG Capsule 0.8 MG PO (17:41)
[2023-09-24] MEDS: Atorvastatin Calcium 40 MG Tablet PO (20:22)
[2023-09-24] MEDS: 0.9% Saline Lock 10 ML Syringe IV (20:27)
[2023-09-25] MEDS: metFORMIN HCl 500 MG Tablet PO (08:59)
[2023-09-25] MEDS: Juven (unflavored) Packet 1 PACKET PO ×2 (08:59→17:55)
[2023-09-25] MEDS: Carvedilol 3.125 MG TABLET PO ×2 (08:59→17:55)
[2023-09-25] MEDS: Lisinopril 2.5 MG Tablet PO (08:59)
[2023-09-25] MEDS: Gabapentin 100 MG Capsule PO ×3 (08:59→18:01)
[2023-09-25] MEDS: Aspirin 81 MG TAB.CHEW PO (08:59)
[2023-09-25] MEDS: Menthol/Lanolin/Calamine/Znox 113 GM Tube 1 APPLIC TOPICAL ×2 (09:00→21:52)
[2023-09-25] MEDS: oxyCODONE 5 MG Tablet PO (09:38)
--- NOTE | 2023-09-25 10:18 | NURSING ---
Patient having dizziness when getting up with therapy, BP 112/73 while sitting, upon standing 90/59. Updated Dr. Kaur, orders for 500cc NS bolus.
[2023-09-25] MEDS: 0.9% Normal Saline (500mL Bag) 500 ML IV (10:31)
--- NOTE | 2023-09-25 11:06 | WOUNDNOTE ---
wound photo: left groin/upper thigh
--- NOTE | 2023-09-25 11:08 | WOUNDNOTE ---
wound photo: left lower leg
--- NOTE | 2023-09-25 11:09 | WOUNDNOTE ---
wound photo: left leg
--- NOTE | 2023-09-25 11:09 | WOUNDNOTE ---
wound photo: toes left foot
--- NOTE | 2023-09-25 11:10 | WOUNDNOTE ---
wound photo: left lateral heel
--- NOTE | 2023-09-25 11:11 | WOUNDNOTE ---
skin photo: right heel
--- NOTE | 2023-09-25 11:30 | NURSING ---
Offered covid vaccine. Patient reports he had vaccine very recently about a week ago.
--- NOTE | 2023-09-25 11:46 | WOUNDNOTE ---
Pt wanted this nurse to assess the right heel. there is a small calloused area noted. patient states he feels that is how the heel on the left started as well. will monitor. right heel in offloading boot at this time. applied skin prep for protection.
[2023-09-25] MEDS: Acetaminophen 500 MG Tablet 1000 MG PO (14:19)
[2023-09-25] MEDS: traMADol 50 MG Tablet PO (14:20)
--- NOTE | 2023-09-25 14:22 | NURSING ---
Patient was positive for orthostatic hypotension this AM w/ symptomatic dizziness. 500 cc fluid bolus given per MD. Patient BP 111/61 after bolus.
[2023-09-25 14:23] VITALS: BP 111/61
[2023-09-25 15:23] VITALS: BP 115/72; PULSE 99; RESP 18; TEMP 37.4; O2SAT 98
--- NOTE | 2023-09-25 15:23 | CHAPLAIN ---
Type of Pastoral Visit _x__ Initial Visit ___ Follow-up Visit ___ On-call Visit ___ General Patient Visit ___ Spiritual Assessment ___ Family Conference ___ Bereavement ___ Rapid Response ___ Code Blue ___ Other (describe below) Pastoral Care Referral From _x__ Patient ___ Family ___ Nurse ___ Physician ___ Brake Lining Driller ___ Solar Panel Installer ___ Other (describe below) Sacrament/Intervention _x__ Active listening ___ Anointing ___ Worship ___ Bereavement ___ Communion ___ Joelle exploration ___ ___ Life review _x__ Prayer ___ Reconciliation ___ Sacrament of Sick ___ Supportive presence ___ Wedding ___ Other (describe below) Pastoral Comments patient was recently seen in the PCU; pt is watching TV; conversation is casual and pt does not speak of any concerns although he is wondering how his legs are really; pt accepts a prayer for support but does not engage in any meaningful conversation;
--- NOTE | 2023-09-25 16:29 | CASEMGMT ---
Social Work MAURICE met with patient's sister, Nandini to discuss medical insurance Part D. Nandini informed MAURICE that she has been unable to speak with anyone within insurance. Nandini informed MAURICE that she was notified that she would have to provide advanced directive paperwork to insurance in order to obtain information. Nandini requested that MAURICE fax information to [facility] [phone]. MAURICE faxed documents per family request. STACIA Dalal
[2023-09-25] MEDS: Tamsulosin HCl 0.4 MG Capsule 0.8 MG PO (17:55)
[2023-09-25] MEDS: Rivaroxaban 20 MG Tablet PO (17:55)
[2023-09-25 21:46] VITALS: PULSE 98; RESP 16; O2SAT 94
[2023-09-25] MEDS: Atorvastatin Calcium 40 MG Tablet PO (21:48)
[2023-09-25] MEDS: Senna/Docusate Sodium 1 Tablet 2 TABLET PO (21:48)
[2023-09-25] MEDS: Nystatin Powder 15gm Bottle 1 APPLIC TOPICAL (21:52)
[2023-09-26 08:34] VITALS: BP 108/76; PULSE 93; RESP 18; O2SAT 97
[2023-09-26] MEDS: 0.9% Saline Lock 10 ML Syringe IV ×2 (08:35→20:19)
[2023-09-26] MEDS: Gabapentin 100 MG Capsule PO ×2 (08:35→13:14)
[2023-09-26] MEDS: Senna/Docusate Sodium 1 Tablet 2 TABLET PO ×2 (08:36→20:16)
[2023-09-26] MEDS: metFORMIN HCl 500 MG Tablet PO (08:36)
[2023-09-26] MEDS: Menthol/Lanolin/Calamine/Znox 113 GM Tube 1 APPLIC TOPICAL ×2 (08:36→20:15)
[2023-09-26] MEDS: Juven (unflavored) Packet 1 PACKET PO ×2 (08:37→18:15)
[2023-09-26] MEDS: Aspirin 81 MG TAB.CHEW PO (08:37)
[2023-09-26] MEDS: Lisinopril 2.5 MG Tablet PO (08:39)
[2023-09-26] MEDS: Carvedilol 3.125 MG TABLET PO ×2 (08:39→18:15)
[2023-09-26] MEDS: oxyCODONE 5 MG Tablet PO ×2 (12:24→20:27)
--- NOTE | 2023-09-26 12:33 | NURSING ---
Pt's bp108/76, p-93 r-18, sp02-97% on room air this morning. Updated pt that another pt on unit tested Covid positive today. Pt refused offer to notify family, states he will notify them himself.
[2023-09-26 14:44] VITALS: TEMP 37.1
[2023-09-26 15:13] VITALS: BMI 23.3
--- NOTE | 2023-09-26 17:40 | NURSING ---
Pt complaining today of neuropathic pain to left leg, foot. States scheduled gabapentin is not effective for longer than [address] Kaur, who entered order to increase [Gabapentin] dosage to 300mg TID.
[2023-09-26] MEDS: Gabapentin 300 MG Capsule PO (18:14)
[2023-09-26] MEDS: Tamsulosin HCl 0.4 MG Capsule 0.8 MG PO (18:15)
[2023-09-26] MEDS: Rivaroxaban 20 MG Tablet PO (18:15)
[2023-09-26 20:00] VITALS: PULSE 96; O2SAT 95
[2023-09-26] MEDS: Atorvastatin Calcium 40 MG Tablet PO (20:16)
[2023-09-26] MEDS: Nystatin Powder 15gm Bottle 1 APPLIC TOPICAL (20:18)
[2023-09-27] MEDS: oxyCODONE 5 MG Tablet PO ×3 (04:37→21:32)
[2023-09-27 05:00] VITALS: PULSE 98; O2SAT 95
[2023-09-27] MEDS: Gabapentin 300 MG Capsule PO ×3 (08:20→17:37)
[2023-09-27] MEDS: metFORMIN HCl 500 MG Tablet PO (08:22)
[2023-09-27] MEDS: Carvedilol 3.125 MG TABLET PO ×2 (08:23→17:34)
[2023-09-27] MEDS: Juven (unflavored) Packet 1 PACKET PO ×2 (08:23→17:34)
[2023-09-27] MEDS: Menthol/Lanolin/Calamine/Znox 113 GM Tube 1 APPLIC TOPICAL ×2 (08:23→20:42)
[2023-09-27] MEDS: Senna/Docusate Sodium 1 Tablet 2 TABLET PO ×2 (08:23→20:43)
[2023-09-27] MEDS: Nystatin Powder 15gm Bottle 1 APPLIC TOPICAL ×2 (08:25→20:42)
[2023-09-27] MEDS: Lisinopril 2.5 MG Tablet PO (08:26)
[2023-09-27] MEDS: traMADol 50 MG Tablet PO (08:37)
[2023-09-27] MEDS: Acetaminophen 500 MG Tablet 1000 MG PO (08:37)
[2023-09-27] MEDS: 0.9% Saline Lock 10 ML Syringe IV ×2 (08:39→20:45)
[2023-09-27 08:44] VITALS: BP 120/85; PULSE 100
--- NOTE | 2023-09-27 09:11 | PCM.PROGNOTE ---
Subjective Subjective Patient was seen today for follow up on left foot. He is resting in bed alone. Patient underwent intervention to left lower extremity per vascular surgery including left fem-pop bypass. Patient denies fever chills, nausea, vomitting. Patient has no other complaints. Objective Data Objective Data Vital Signs: Vital Signs Temp Pulse Resp BP Pulse Ox O2 Del Method 98.7 F 100 18 120/85 H 95 Room Air 09/26/23 14:44 09/27/23 08:44 09/26/23 08:34 09/27/23 08:44 09/27/23 05:00 09/27/23 05:00 Oxygen Delivery Method Room Air Weight: 69.655 kg Body Mass Index (BMI) 23.3 Intake & Output: Intake and Output for Last 24 Hours 09/25/23 09/26/23 09/27/23 23:59 23:59 23:59 Intake Total 1160 / 1160 680 / 680 60 / 60 Output Total 250 / 250 250 / 250 450 / 450 Balance 910 / 910 430 / 430 -390 / -390 Medical Nutrition Assessment Dietitian: Malnutrition Criteria Met Start: 09/08/23 13:28 Freq: Status: Active Protocol: Document 09/13/23 10:30 LO (Rec: 09/13/23 10:30 LO [id number]) Nutrition Malnutrition Evidence of Malnutrition Exists Yes Malnutrition (severe): Chronic Evidenced By Suboptimal Energy Intake ( Severe),Weight Loss (Severe) Intake Problem Increased Nutrient Needs (specify) Etiology protein related to skin status Signs/Symptoms as evidenced by LLE heel ulcer Status Active Problem Clinical Problem Chronic Disease or Condition Related Malnutrition Etiology severe related to decreased appetite caused by increased pain from LLE heel ulcer Signs/Symptoms as evidenced by 12.4% unintentional wt loss and po intake meeting <75% of estimated nutritional needs x 2 months prior to admission Status Active Problem Acute Disease or Injury Related Malnutrition Status Inactive Problem Altered Nutrient-Related Laboratory Values Etiology related to diet/lifestyle and newly diagnosed diabetes Signs/Symptoms as evidenced by A1C 7.4 Status Active Problem Recommendation Dietitian Recommendations/Changes Continue CCD diet to manage blood sugars. Continue Glucerna Shake 4 oz tid w/ meals for increased nutrition if consumed Continue Vladimir bid w/ medpass for increased nutrition if consumed Lab / Micro Data 09/22/23 05:23 09/22/23 05:23 Labs: Laboratory Results - last 24 hr 09/13/23 19:03: APTT 55.4 H 09/14/23 01:08: APTT 60.0 H 09/14/23 06:29: APTT 56.4 H Micro: Microbiology 09/22/23 10:05 Nasal Secretion SARS-CoV-2 Antigen (Rapid) - Final Physical Exam Const alert, oriented x3 and no apparent distress Constitutional Narrative: Left foot with dry stable eschar to the lateral hindfoot, dry gangrene distal tuft of the left hallux and 5th toe. No acute signs fo infection left foot edematous, warm to touch. DP/PT pulses are palpable. Assessment & Plan Assessment/Plan (1) Peripheral vascular disease: (2) Atherosclerosis of left lower extremity with gangrene: QUALIFIERS: Peripheral atherosclerosis artery type: [place] artery Qualified Code(s): I70.262 - Atherosclerosis of [place] arteries of extremities with gangrene, left leg (3) Type 2 diabetes mellitus with peripheral neuropathy: (4) Non-pressure chronic ulcer of other part of left foot with necrosis of bone: (5) Other acute osteomyelitis, left ankle and foot: PLAN: Plan Evaluation performed. Reviewed diagnostic data. Patient is on antibiotics per ID service. Keep left foot padded and offloaded - patient has foam offloading boot. Continue with betadine gauze dressing changes daily. patient underwent vascular intervention involving: left common femoral endarterectomy left profunda endarterectomy left external iliac stent left femoral-below knee popliteal bypass with reversed GSV left sartorius flap Stable eschar to left foot hallux/5th toe and lateral foot - well demarcated Will plan for left foot partial hallux and 5th toe amputation along with heel wound debridement and application of a skin substitute on 09/28/23 at 12pm xarelto placed on hold, patient NPO after midnight Podiatry will continue to follow.
--- NOTE | 2023-09-27 09:59 | CASEMGMT ---
Social Work- Care Planning IDT met with patient, sister, Nandini, and brother in law, Kaleb at bedside to complete care planning. Discussed patient progress with therapy (PT/OT), dietary, and activities. Patient is independent with activities. Patient is on a regular diet, ensures and alden for wound care. Patient is currently SBA for bed mobility. Sit/stand and transfers patient is min assist and contact guard. Patient is WBAT on right foot and protected weight bearing on left foot. Patient has debridement scheduled on 09/28/2023 for left foot. Patient's blood pressure drops with therapy, but continues to be monitored. Upper body dressing patient is independent. Patient will require assistance for lower body dressing. Patient is min A for toileting. Patient states that he has a walker at home. Patient does not have a wheelchair, but he is able to obtain a wheelchair, if needed. Patient's sister informed team that the patient will have issues with showering due to weight bearing status. Patient is currently unable to get in shower. Patient will require a shower seat/ transfer bench. MAURICE educated patient and family on Medicare insurance coverage and benefits for current residential. Patient was notified that residential is currently covered 100% for first 20 days; copay days begin 10/11/2023. Patient's sister, Nandini. Patient states that he had Medicaid in the past, but he is currently not obtaining medicaid. Nandini informed MAURICE that the patient has been in contact with [facility]. Nandini informed MAURICE that she has been discussing continued rehab at a residential facility. Nandini inquired about [facility]. Patient would like to review [facility] with family. MAURICE will continue to monitor for continued care. STACIA Dalal
--- NOTE | 2023-09-27 10:03 | NURSING ---
Call from Dr. Sanchez, patient to got to surgery tomorrow at 12pm.
--- NOTE | 2023-09-27 10:13 | NURSING ---
UP TO SEE PT WITH THANIA ODOM WOUND NURSE. THANIA ODOM DID PT DRESSING. PT WILL HAVE SURGERY 09/28/23 AT 12 NOON. PT IS TO BE NPO AT MIDNIGHT,ASPIRIN AND XARELTO ON HOLD. RN AWARE
--- NOTE | 2023-09-27 12:40 | NURSING ---
Received phone call from AC. Pt to have surgery tomorrow on left foot. Pt to be NPO after midnight. Morning of Surgery only give Coreg, Gabapentin and Lisinopril hold all other medications.
[2023-09-27 13:45] VITALS: BP 93/64; PULSE 91; RESP 18; TEMP 36.3; O2SAT 98
[2023-09-27 13:58] VITALS: BP 102/64
[2023-09-27] MEDS: Tamsulosin HCl 0.4 MG Capsule 0.8 MG PO (17:34)
[2023-09-27] MEDS: Atorvastatin Calcium 40 MG Tablet PO (20:43)
[2023-09-28 06:43] VITALS: BMI 22.8
[2023-09-28] MEDS: Carvedilol 3.125 MG TABLET PO ×2 (08:18→17:33)
[2023-09-28] MEDS: Lisinopril 2.5 MG Tablet PO (08:18)
[2023-09-28 08:32] VITALS: BP 120/76; PULSE 94
[2023-09-28] MEDS: Gabapentin 300 MG Capsule PO ×3 (08:57→17:29)
--- NOTE | 2023-09-28 10:05 | CASEMGMT ---
Social Work SW met with patient at bedside to yadira ABEL. BIM () and PhQ-2 () Patient informed SW that he has been discussing care plans with his sister. Patient anticipate transition to nursing facility for continue rehab post TCU stay. Patient informed SW that he would like to improve with therapy. Patient stated that I feel like I've been declining with therapy going the opposite direction. Patient has procedure for debridement and potential amputation of toes. Patient expressed concern for functional status. SW informed patient that he will be reassessed post procedure. Patient informed SW that he wants to be able to return home post rehabilitation. SW will continue to follow to support discharge planning. STACIA Dalal
--- NOTE | 2023-09-28 10:35 | NURSING ---
PT LEFT FLOOR BY BED AT 1035 FOR SURGERY WITH .
--- NOTE | 2023-09-28 11:00 | CASEMGMT ---
Social Work SW met with patient's sister, Nandini informed SW that she discussed placement with patient and family. Nandini informed SW that she would like referral submitted to [facility] for placement at nursing facility. Nandini informed SW that the patient was notified that he may require placement for up to 2 months for rehabilitation. Nandini informed SW that the patient's brother, Marlon will be returning from [place] to support patient this weekend. MAURICE will submit referral to [facility] via [facility]. STACIA Dalal
[2023-09-28 13:56] VITALS: BP 96/70; PULSE 91; RESP 17; TEMP 36.9; O2SAT 96
--- NOTE | 2023-09-28 16:14 | NURSING ---
PT RETURNED FROM SURGERY BY BED AT 1335. ALERT AND ORIENTED X3,VITALS DONE AND WNL. SEE NEW ORDERS.
[2023-09-28] MEDS: Juven (unflavored) Packet 1 PACKET PO (17:25)
[2023-09-28] MEDS: oxyCODONE 5 MG Tablet PO (17:29)
[2023-09-28] MEDS: Tamsulosin HCl 0.4 MG Capsule 0.8 MG PO (17:30)
[2023-09-28 17:35] VITALS: BP 107/62; PULSE 96
[2023-09-28 19:55] VITALS: PULSE 98; RESP 16; O2SAT 93
[2023-09-28] MEDS: Menthol/Lanolin/Calamine/Znox 113 GM Tube 1 APPLIC TOPICAL (20:00)
[2023-09-28] MEDS: Atorvastatin Calcium 40 MG Tablet PO (20:00)
[2023-09-28] MEDS: Senna/Docusate Sodium 1 Tablet 2 TABLET PO (20:00)
[2023-09-28] MEDS: Nystatin Powder 15gm Bottle 1 APPLIC TOPICAL (20:00)
[2023-09-29 06:10] LABS: Absolute Lymphocyte Count 1.24 X10^3/uL (0.83-4.51); Absolute Neutrophil Count 8.6 X10^3/uL (2.0-7.7); Basophil# 0.03 X10^3/uL; Basophil% 0.3 % (0-1); Eosinophil# 0.17 X10^3/uL; Eosinophils% 1.6 % (0-5); Hematocrit 27.9 % (40-54); Hemoglobin 8.8 g/dL (13.0-16.5); Lymphocyte # 1.24 X10^3/ul (0.83-4.51); Lymphocyte % 11.5 % (19-41); Mean Corp Hgb Conc 31.5 g/dL (32-36); Mean Corpuscular Hgb 28.1 pg (27.0-32.0); Mean Corpuscular Volume 89.1 fL (80-94); Monocyte# 0.74 X10^3/uL; Monocyte% 6.8 % (0-10); NRBC Flagged by Analyzer 0 % (0-5); Neutrophil # 8.55 X10^3/uL (2.7-7.7); Platelet Count 451 K/mm3 (150-450); RBC Distribution Width CV 14.1 % (11.6-14.6); RBC Distribution Width SD 45.4 fl (35.1-43.9); Red Blood Count 3.13 M/mm3 (4.6-6.2); White Blood Count 10.8 K/mm3 (4.4-11.0)
[2023-09-29 06:48] LABS: Anion Gap 10 (5-15); BUN 23 mg/dL (7-18); BUN/Creat Ratio 36.8 RATIO (10-20); Calcium,Total 8.6 mg/dL (8.5-10.1); Chloride 99 mmol/L (98-107); Creatinine, Serum 0.62 mg/dL (0.70-1.30); EST Glomerular Filtration Rate 136 mL/min (>60); Est Glom Filt Rate - Afr Amer 164 mL/min (>60); Estimated Creatinine Clearance 85.23 ml/min; Glucose 157 mg/dL (74-106); Potassium 3.9 mmol/L (3.5-5.1); Sodium Level 133 mmol/L (136-145)
--- NOTE | 2023-09-29 08:13 | NURSING ---
Leak Hunter Note, MDS for 09/28/2023 Complete
[2023-09-29] MEDS: Menthol/Lanolin/Calamine/Znox 113 GM Tube 1 APPLIC TOPICAL ×2 (08:49→22:35)
[2023-09-29] MEDS: Juven (unflavored) Packet 1 PACKET PO ×2 (08:49→17:22)
[2023-09-29] MEDS: Carvedilol 3.125 MG TABLET PO ×2 (08:49→17:22)
[2023-09-29] MEDS: Nystatin Powder 15gm Bottle 1 APPLIC TOPICAL ×2 (08:49→22:34)
[2023-09-29] MEDS: Aspirin 81 MG TAB.CHEW PO (08:49)
[2023-09-29] MEDS: metFORMIN HCl 500 MG Tablet PO (08:50)
[2023-09-29] MEDS: Senna/Docusate Sodium 1 Tablet 2 TABLET PO ×2 (08:50→22:35)
[2023-09-29] MEDS: Lisinopril 2.5 MG Tablet PO (08:50)
[2023-09-29] MEDS: Gabapentin 300 MG Capsule PO ×3 (08:55→17:22)
[2023-09-29] MEDS: oxyCODONE 5 MG Tablet PO ×3 (08:55→22:36)
--- NOTE | 2023-09-29 08:58 | PCM.PROGNOTE ---
Subjective Subjective Patient seen 1 day postop. Patient notes well-controlled pain overnight. Denies fever chills nausea vomiting chest pain calf pain shortness of breath. Denies any changes overnight. Objective Data Objective Data Vital Signs: Vital Signs Temp Pulse Resp BP Pulse Ox O2 Del Method 98.5 F 98 16 107/62 93 Room Air 09/28/23 13:56 09/28/23 19:55 09/28/23 19:55 09/28/23 17:35 09/28/23 19:55 09/28/23 19:55 Oxygen Delivery Method Room Air Weight: 68.181 kg Body Mass Index (BMI) 22.8 Intake & Output: Intake and Output for Last 24 Hours 09/27/23 09/28/23 09/29/23 23:59 23:59 23:59 Intake Total 380 / 380 120 / 120 Output Total 450 / 450 575 / 575 Balance -70 / -70 -455 / -455 Lab / Micro Data 09/29/23 05:24 09/29/23 05:24 Labs: Laboratory Results - last 24 hr 09/29/23 05:24: WBC 10.8, RBC 3.13 L, Hgb 8.8 L, Hct 27.9 L, MCV 89.1, MCH 28.1, MCHC 31.5 L, RDW Std Deviation 45.4 H, RDW Coeff of [place] 14.1, Plt Count 451 H, MPV 9.0, Immature Gran % (Auto) 0.800, Neut % (Auto) 79.0 H, Lymph % (Auto) 11.5 L, [place] % (Auto) 6.8, Eos % (Auto) 1.6, Baso % (Auto) 0.3, Absolute Neuts (auto) 8.6 H, Absolute Lymphs (auto) 1.24, Nucleated RBC % 0, Sodium 133 L, Potassium 3.9, Chloride 99, Carbon Dioxide 24.0, Anion Gap 10, BUN 23 H, Creatinine 0.62 L, Estim Creat Clear Calc 85.23, Est GFR (MDRD) Af Amer 164, Est GFR (MDRD) Non-Af 136, BUN/Creatinine Ratio 36.8 H, Glucose 157 H, Calcium 8.6 Micro: Microbiology 09/29/23 07:00 Nasal Secretion SARS-CoV-2 Antigen (Rapid) - Final 09/22/23 10:05 Nasal Secretion SARS-CoV-2 Antigen (Rapid) - Final Physical Exam Narrative Neurovascular status unchanged. Left hallux and fifth digit amputation site intact with well-approximated sutures. Left heel wound Adaptic left intact. No residual signs of infection. No signs of DVT to bilateral lower extremity. Const alert and oriented x3 Assessment & Plan Assessment/Plan (1) Other acute osteomyelitis, left ankle and foot: PLAN: Exam performed incisions intact to left hallux and fifth digits. Wound healthy to lateral foot. No acute signs of infection. Redressed with Betadine Adaptic 4 x 4's ABD pads Kerlix and Bartolo. Nonweightbearing left lower extremity No additional antibiotics indicated at this time pending bone cultures and bone pathology to left heel Keep dressing clean dry and intact till next week I will follow-up with patient next week (2) Non-pressure chronic ulcer of other part of left foot with necrosis of bone: (3) Type 2 diabetes mellitus with foot ulcer: QUALIFIERS: Diabetes mellitus [facility] insulin use: with terminal operations supervisor use Qualified Code(s): E11.621 - Type 2 diabetes mellitus with foot ulcer; L97.509 - Non-pressure chronic ulcer of other part of unspecified foot with unspecified severity; Z79.4 - [facility] (current) use of insulin
--- NOTE | 2023-09-29 09:10 | WOUNDNOTE ---
Dr Sanchez was in to change the dressing to the left foot today. dressing is to remain in place until Monday. Nursing is aware and orders were placed. will continue to monitor. pt states he tolerated the dressing change well.
[2023-09-29] MEDS: Tuberculin,Purif.prot.deriv. 50 TU/ML Vial 0.1 ML ID (11:25)
[2023-09-29 14:56] VITALS: BP 98/72; PULSE 100; RESP 17; TEMP 36.7; O2SAT 96
[2023-09-29] MEDS: Tamsulosin HCl 0.4 MG Capsule 0.8 MG PO (17:22)
[2023-09-29] MEDS: Atorvastatin Calcium 40 MG Tablet PO (22:35)
[2023-09-29] MEDS: Acetaminophen 500 MG Tablet 1000 MG PO (22:36)
[2023-09-29] MEDS: 0.9% Saline Lock 10 ML Syringe IV (22:47)
[2023-09-30] MEDS: traMADol 50 MG Tablet PO ×3 (02:28→20:21)
[2023-09-30] MEDS: oxyCODONE 5 MG Tablet PO ×2 (08:38→16:30)
[2023-09-30] MEDS: Senna/Docusate Sodium 1 Tablet 2 TABLET PO ×2 (08:39→20:22)
[2023-09-30] MEDS: Gabapentin 300 MG Capsule PO ×3 (08:39→17:47)
[2023-09-30] MEDS: Juven (unflavored) Packet 1 PACKET PO ×2 (08:39→17:47)
[2023-09-30] MEDS: Lisinopril 2.5 MG Tablet PO (08:39)
[2023-09-30] MEDS: Carvedilol 3.125 MG TABLET PO ×2 (08:39→17:47)
[2023-09-30] MEDS: metFORMIN HCl 500 MG Tablet PO (08:39)
[2023-09-30] MEDS: Aspirin 81 MG TAB.CHEW PO (08:39)
[2023-09-30] MEDS: Menthol/Lanolin/Calamine/Znox 113 GM Tube 1 APPLIC TOPICAL ×2 (08:41→20:15)
[2023-09-30] MEDS: Nystatin Powder 15gm Bottle 1 APPLIC TOPICAL ×2 (08:42→20:22)
[2023-09-30 08:47] VITALS: PULSE 100; RESP 16; TEMP 36.6; O2SAT 96
--- NOTE | 2023-09-30 15:28 | NURSING ---
spoke with Dr Kaur regarding xarelto still on hold since 09/26/23. new order to restart tonight.
[2023-09-30] MEDS: Acetaminophen 500 MG Tablet 1000 MG PO (16:30)
[2023-09-30] MEDS: Tamsulosin HCl 0.4 MG Capsule 0.8 MG PO (17:47)
[2023-09-30] MEDS: Rivaroxaban 20 MG Tablet PO (17:48)
[2023-09-30 17:51] VITALS: BP 119/68; PULSE 97
[2023-09-30] MEDS: Petrolatum 33% Tube 1 APPLIC TOPICAL (20:15)
[2023-09-30] MEDS: Atorvastatin Calcium 40 MG Tablet PO (20:22)
[2023-09-30 20:26] VITALS: PULSE 98; RESP 18; O2SAT 93
[2023-10-01] MEDS: Aspirin 81 MG TAB.CHEW PO (09:10)
[2023-10-01] MEDS: Gabapentin 300 MG Capsule PO ×3 (09:10→17:32)
[2023-10-01] MEDS: Juven (unflavored) Packet 1 PACKET PO ×2 (09:11→17:26)
[2023-10-01] MEDS: metFORMIN HCl 500 MG Tablet PO (09:11)
[2023-10-01] MEDS: Carvedilol 3.125 MG TABLET PO ×2 (09:11→17:26)
[2023-10-01] MEDS: Senna/Docusate Sodium 1 Tablet 2 TABLET PO ×2 (09:12→20:57)
[2023-10-01] MEDS: Nystatin Powder 15gm Bottle 1 APPLIC TOPICAL ×2 (09:12→20:56)
[2023-10-01] MEDS: Menthol/Lanolin/Calamine/Znox 113 GM Tube 1 APPLIC TOPICAL ×2 (09:12→20:56)
[2023-10-01] MEDS: Lisinopril 2.5 MG Tablet PO (09:12)
[2023-10-01 09:17] VITALS: BP 100/74; PULSE 111
[2023-10-01] MEDS: Tamsulosin HCl 0.4 MG Capsule 0.8 MG PO (17:26)
[2023-10-01] MEDS: Rivaroxaban 20 MG Tablet PO (17:26)
[2023-10-01] MEDS: oxyCODONE 5 MG Tablet PO (17:32)
[2023-10-01] MEDS: traMADol 50 MG Tablet PO (20:56)
[2023-10-01] MEDS: Atorvastatin Calcium 40 MG Tablet PO (20:57)
[2023-10-01 21:00] VITALS: PULSE 99; RESP 16; O2SAT 94
[2023-10-02] MEDS: oxyCODONE 5 MG Tablet PO ×4 (02:22→22:03)
[2023-10-02] MEDS: Aspirin 81 MG TAB.CHEW PO (09:30)
[2023-10-02] MEDS: Juven (unflavored) Packet 1 PACKET PO ×2 (09:30→16:27)
[2023-10-02] MEDS: metFORMIN HCl 500 MG Tablet PO (09:31)
[2023-10-02] MEDS: Menthol/Lanolin/Calamine/Znox 113 GM Tube 1 APPLIC TOPICAL ×2 (09:31→22:05)
[2023-10-02] MEDS: Nystatin Powder 15gm Bottle 1 APPLIC TOPICAL ×2 (09:31→22:05)
[2023-10-02] MEDS: Lisinopril 2.5 MG Tablet PO (09:32)
[2023-10-02] MEDS: Senna/Docusate Sodium 1 Tablet 2 TABLET PO ×2 (09:32→22:03)
[2023-10-02] MEDS: Carvedilol 3.125 MG TABLET PO ×2 (09:32→16:27)
[2023-10-02] MEDS: Gabapentin 300 MG Capsule PO ×3 (09:35→17:51)
[2023-10-02 09:40] VITALS: BP 117/76; PULSE 118
--- NOTE | 2023-10-02 13:47 | WOUNDNOTE ---
wound photo: left lateral heel
--- NOTE | 2023-10-02 13:48 | WOUNDNOTE ---
wound photo: left great toe
--- NOTE | 2023-10-02 13:48 | WOUNDNOTE ---
wound photo: left 5th toe
--- NOTE | 2023-10-02 15:12 | NURSING ---
LEIRN/WOUND NURSE IN TO CHANGE PT DRESSING TO FOOT. SEE NEW ORDERS.
[2023-10-02 15:35] VITALS: BP 115/74; PULSE 100; RESP 16; TEMP 36.9; O2SAT 97
[2023-10-02] MEDS: Tamsulosin HCl 0.4 MG Capsule 0.8 MG PO (16:28)
[2023-10-02] MEDS: Rivaroxaban 20 MG Tablet PO (16:28)
[2023-10-02] MEDS: Atorvastatin Calcium 40 MG Tablet PO (22:03)
[2023-10-02] MEDS: Acetaminophen 500 MG Tablet 1000 MG PO (22:04)
[2023-10-02 22:15] VITALS: O2SAT 99
[2023-10-03 06:00] VITALS: BMI 22.6
[2023-10-03] MEDS: Menthol/Lanolin/Calamine/Znox 113 GM Tube 1 APPLIC TOPICAL ×2 (08:30→20:38)
[2023-10-03] MEDS: Nystatin Powder 15gm Bottle 1 APPLIC TOPICAL ×2 (08:30→20:38)
[2023-10-03] MEDS: Gabapentin 300 MG Capsule PO ×3 (08:31→17:35)
[2023-10-03] MEDS: Juven (unflavored) Packet 1 PACKET PO ×2 (08:31→17:35)
[2023-10-03] MEDS: Aspirin 81 MG TAB.CHEW PO (08:31)
[2023-10-03] MEDS: Senna/Docusate Sodium 1 Tablet 2 TABLET PO ×2 (08:31→20:39)
[2023-10-03] MEDS: metFORMIN HCl 500 MG Tablet PO (08:31)
[2023-10-03] MEDS: Lisinopril 2.5 MG Tablet PO (08:31)
[2023-10-03] MEDS: Carvedilol 3.125 MG TABLET PO ×2 (08:31→17:35)
[2023-10-03] MEDS: oxyCODONE 5 MG Tablet PO ×2 (08:33→17:34)
[2023-10-03] MEDS: Ciprofloxacin 500 MG Tablet PO ×2 (09:39→20:38)
[2023-10-03] MEDS: Doxycycline 100 MG CAPSULE 200 MG PO (09:40)
[2023-10-03 11:12] VITALS: BP 96/43; PULSE 114; RESP 18; TEMP 36.3; O2SAT 96
--- NOTE | 2023-10-03 14:55 | CASEMGMT ---
Social Work SW met with pt and sister Nandini and discussed discharge plan. It has been discussed that pt would benefit from going to SNF where he can stay for duration of recovery. A list of SNF providers including quality and resource use data and consistent with the patient?s preferred geographic region, medical needs, and insurance network were provided from the [employer] Guide. Pt preferred provider is [facility]. SW explained that medicare day 20 is on 10/09 and copay days start on 10/10. Pt's sister indicates that pt will not be able to afford this. Nandini states that pt has talked to Danna from [facility] but is uncertain how things have been left with Medicaid. Email sent to Danna at [facility] to discuss pt's finances. Referral sent to [facility]. MAURICE will await determination of acceptance. [employer] [place]
[2023-10-03 17:29] VITALS: BP 110/73; PULSE 93
[2023-10-03] MEDS: Acetaminophen 500 MG Tablet 1000 MG PO (17:34)
[2023-10-03] MEDS: Rivaroxaban 20 MG Tablet PO (17:35)
[2023-10-03] MEDS: Tamsulosin HCl 0.4 MG Capsule 0.8 MG PO (17:35)
[2023-10-03] MEDS: traMADol 50 MG Tablet PO (20:37)
[2023-10-03] MEDS: Atorvastatin Calcium 40 MG Tablet PO (20:37)
[2023-10-03] MEDS: Doxycycline 100 MG CAPSULE PO (20:38)
[2023-10-03 20:44] VITALS: PULSE 95; RESP 18; O2SAT 100
[2023-10-04] MEDS: oxyCODONE 5 MG Tablet PO ×2 (06:49→22:34)
[2023-10-04 06:53] VITALS: PULSE 100; RESP 16; O2SAT 99
--- NOTE | 2023-10-04 08:15 | MDS.RN ---
Information for the MDS was obtained from review of the clinical record, interview of resident, staff, and direct observation of resident?s care.
[2023-10-04 08:46] VITALS: BP 114/71; PULSE 103; RESP 16; TEMP 36.8; O2SAT 97
[2023-10-04] MEDS: Menthol/Lanolin/Calamine/Znox 113 GM Tube 1 APPLIC TOPICAL ×2 (08:47→22:28)
[2023-10-04] MEDS: Carvedilol 3.125 MG TABLET PO ×2 (08:48→17:57)
[2023-10-04] MEDS: Juven (unflavored) Packet 1 PACKET PO ×2 (08:48→17:55)
[2023-10-04] MEDS: Ciprofloxacin 500 MG Tablet PO ×2 (08:48→22:30)
[2023-10-04] MEDS: Aspirin 81 MG TAB.CHEW PO (08:48)
[2023-10-04] MEDS: Gabapentin 300 MG Capsule PO ×3 (08:48→17:54)
[2023-10-04] MEDS: Doxycycline 100 MG CAPSULE PO ×2 (08:48→22:29)
[2023-10-04] MEDS: metFORMIN HCl 500 MG Tablet PO (08:48)
[2023-10-04] MEDS: Lisinopril 2.5 MG Tablet PO (08:48)
[2023-10-04] MEDS: Senna/Docusate Sodium 1 Tablet 2 TABLET PO ×2 (08:48→22:30)
[2023-10-04] MEDS: Nystatin Powder 15gm Bottle 1 APPLIC TOPICAL ×2 (08:49→22:29)
--- NOTE | 2023-10-04 16:05 | CASEMGMT ---
Social Work [facility] is able to accept pt under a skilled level of care. MAURICE met with pt and sister Nandini and explained this. Pt was meeting with Danna from [facility] and pt is not eligible for Medicaid at this time. Pt aware that he will have a copay cost starting on 10/10. Pt requesting to dc to [facility] on Monday 10/09 as he would like to stay for time recorder visit on Monday. SW spoke with [facility] and they are able to accept pt on Monday. Pt and sister notified. Pt's sister would like to use [employer] wheelchair van for transportation. DC Date: 10/09 DC Disposition: [facility], skilled level of care [facility] [place]
[2023-10-04] MEDS: Tamsulosin HCl 0.4 MG Capsule 0.8 MG PO (17:53)
[2023-10-04] MEDS: Rivaroxaban 20 MG Tablet PO (17:54)
--- NOTE | 2023-10-04 20:40 | PCM.DC.SUM ---
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 Routine Comment: Reason For Visit: CELLILLITIS WITH LLE/HEAL WOUND Diagnosis Discharge Diagnosis (1) Other acute osteomyelitis, left ankle and foot: Status: Acute Code(s): M86.172 - Other acute osteomyelitis, left ankle and foot (2) Non-pressure chronic ulcer of other part of left foot with necrosis of bone: Status: Chronic Code(s): L97.524 - Non-pressure chronic ulcer of other part of left foot with necrosis of bone (3) Type 2 diabetes mellitus with foot ulcer: Status: Acute Code(s): E11.621 - Type 2 diabetes mellitus with foot ulcer; L97.509 - Non-pressure chronic ulcer of other part of unspecified foot with unspecified severity Qualifiers: Diabetes mellitus terminal computer operator insulin use: with terminal computer operator use Qualified Code(s): E11.621 - Type 2 diabetes mellitus with foot ulcer; L97.509 - Non-pressure chronic ulcer of other part of unspecified foot with unspecified severity; Z79.4 - half-way (current) use of insulin Plan 68 year old male with below past medical history hospitalized for cellulitis left lower extremity, left heel arterial ulcer, underwent left lower extremity revascularization 09/18/[address] Mg, admitted to TCU with debility, here for rehabilitation, strengthening, prior to discharge home alone. Debility - PT/OT. Pain - Tylenol 1000mg q6 prn pain (1-3), Tramadol 50mg q6 prn pain (4-5), Oxycodone 5mg q4 prn pain (6-10). Bowel - senna/colace 2 tablets bid, Magnesium citrate 300ml daily prn. Adult immunization - Administer pneumonia vaccine, covid vaccine, flu vaccine as appropriate. DVT prophylaxis - on Xarelto. PVD s/p LLE revascularization - Xarelto 20mg daily, Aspirin 81mg daily. Hyperlipidemia - Atorvastatin 40mg qhs. Hypertension - Coreg 3.125mg bidcm. Lisinopril 2.5mg daily. 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 Diabetic polyneuropathy/left sciatica - Gabapentin 100mg tidcm. Skin irritation - Calmoseptine topical bid, Eucerin topical bidcm. Diabetes Mellitus II - Metformin 500mg daily. BPH - Tamsulosin 0.8mg daily. Medications at Discharge Home Medications aspirin 81 mg chewable tablet 81 mg PO BREAKFAST Heart #0 tabs 09/21/23 atorvastatin 40 mg tablet 40 mg PO QHS Cholesterol #0 tabs 09/21/23 carvedilol 3.125 mg tablet 3.125 mg PO BIDCM BP #0 tabs 09/21/23 lisinopril 2.5 mg tablet 2.5 mg PO DAILY BP #0 tabs 09/21/23 metformin 500 mg tablet 500 mg PO DAILY Diabetes 09/21/23 rivaroxaban 20 mg tablet (Xarelto) 20 mg PO DINNER Blood Thinner #0 tabs 09/21/23 tamsulosin 0.4 mg capsule 0.8 mg (2 x 0.4 mg) PO DAILY@1730 Urinary Retention #0 caps 09/21/23 Petrolatum 33% [Eucerin Eqivalent] 1 applic topical BID PRN PRN ##0 10/04/23 acetaminophen 500 mg tablet 1,000 mg (2 x 500 mg) PO Q6H PRN PRN Pain Score 1-3 #0 tabs 10/04/23 arginine 7 gram-glutam 7 gram-CaHMB 1.5 auxa-pcftq-[id number]-min oral pwd pkt (Vladimir (with collagen)) 1 packet PO BIDCM #0 ea 10/04/23 ciprofloxacin HCl 500 mg tablet 500 mg PO BID #0 tabs 10/04/23 doxycycline monohydrate 100 mg capsule 100 mg PO BID #0 caps 10/04/23 gabapentin 300 mg capsule 300 mg PO TIDCM #0 caps 10/04/23 menthol 0.44 %-zinc oxide 20.6 % topical ointment (Calmoseptine) 1 applic topical BID #0 grams 10/04/23 nystatin 100,000 unit/gram topical powder (Nyamyc) 1 applic topical BID #0 grams 10/04/23 oxycodone 5 mg tablet 5 mg PO Q4H PRN PRN Pain 6-10 q4hrs or Pre PT/OT 3 days #18 tabs 10/04/23 sennosides 8.6 mg-docusate sodium 50 mg tablet (Stool Softener-Stimulant Laxative) 2 tab PO BID #0 tabs 10/04/23 tramadol 50 mg tablet 50 mg PO Q6H PRN PRN Pain 4-5 q6h or Pre PT/OT 3 days #12 tabs 10/04/23 Hospital Course Operations - (See below.) Procedures None Summary of Care Provided Minutes Spent on Discharge: 35 Hospital Course: 68 year old male with below past medical history hospitalized for cellulitis left lower extremity, left heel arterial ulcer, underwent left lower extremity revascularization 09/18/[address] Mg, admitted to TCU with debility, here for rehabilitation, strengthening, prior to discharge home alone. 09/28/2023 Dr. Sanchez performed following: Surgery/Procedure Performed:: 1 left hallux amputation 2 left fifth toe partial amputation 3 left heel wound debridement down to including level of bone 4 application of skin substitute graft left foot wound 09/28/2023 Surgical cultures growing pseudomonas, staph carnosus carnos, on Cipro/Doxycycline. Discharge to [facility] 10/10/2023, Skilled. Physical Exam Const alert General Appearance: cooperative HEENT normocephalic Eyes PERRL and EOMs intact bilaterally Neck supple, no JVD and no carotid bruits Resp normal respiratory effort, normal air movement and clear to auscultation bilaterally Cardio regular rate and regular rhythm GI normal to inspection, nondistended, normoactive bowel sounds, non-tender and non-distended Extremity normal capillary refill Extremity Narrative: Left lower extremity dressed. General Extremity: Negative for edema Skin no rashes or lesions noted General Skin Exam: no breakdown Psych affect normal Appearance: appropriate Weight / BMI Weight Weight: 67.721 kg Body Mass Index (BMI) 22.6 ABG / Lab / Microbiology Data 09/29/23 05:24 09/29/23 05:24 Microbiology: Microbiology 09/29/23 07:00 Nasal Secretion SARS-CoV-2 Antigen (Rapid) - Final 09/22/23 10:05 Nasal Secretion SARS-CoV-2 Antigen (Rapid) - Final D/C Instructions Discharge Diet: No restrictions Discharge Activity: Return to Normal Activity, May Shower and Use Walker Weight Bearing Status: No weight bearing (Left lower extremity.) Call your doctor if you observe: Fever of 101 or Higher, Inability to urinate, Inability to have a bowel movement, Shortness of breath, Dizziness, Fainting spells, Swelling in the ankles, Chest pain and Uncontrolled pain Additional Instructions: Discharge to [facility] 10/10/2023, Skilled. Please Follow Up With: Acosta Mg MD When: As scheduled. Meaningful Use Info Meaningful Use Meaningful Use Diagnoses (Choose all that apply): None applicable Ischemic Stroke Statin Dosing Therapy Reference: STATIN DOSE THERAPY REFERENCE: * Patients > 75 years receive moderate or high dose statin therapy. * Patients 75 years or YOUNGER should receive HIGH intensity statin dose unless contraindicated. You will be required to document reason for non-treatment if statin daily dose does not meet guidelines. HIGH DOSE STATIN THERAPY DAILY Atorvastatin > than or = to 40 mg Rosuvastatin > than or = to 20 mg Amlodipine + Atorvastatin > than or = to 2.5/40 mg Ezetimibe + Simvastatin 10/80 mg Simvastatin 80mg Discharge Plan Admission Admit Date/Time: 09/21/23 15:19 Primary Reason for Your Visit: Debility. Attending Provider: Roney Kaur Chi Primary Care Provider: Care Physician,No Primary Instructions Additional Instructions / Restrictions: Discharge to [facility] 10/10/2023, Skilled. Discharge Orders/Prescriptions Prescriptions: New sennosides-docusate sodium [Stool Softener-Stimulant Laxat] 8.6-50 mg Tablet 2 tab PO BID Qty: 0 0RF ciprofloxacin HCl 500 mg Tablet 500 mg PO BID Qty: 0 0RF tramadol 50 mg Tablet 50 mg PO Q6H PRN PRN (Reason: Pain 4-5 q6h or Pre PT/OT) 3 Days Qty: 12 0RF acetaminophen 500 mg Tablet 1,000 mg PO Q6H PRN PRN (Reason: Pain Score 1-3) Qty: 0 0RF doxycycline monohydrate 100 mg Capsule 100 mg PO BID Qty: 0 0RF gabapentin 300 mg Capsule 300 mg PO TIDCM Qty: 0 0RF nystatin [Nyamyc] 100,000 unit/gram Powder 1 applic topical BID Qty: 0 0RF Protocol: *Topical Application Instructions APPLICATION INSTRUCTIONS: groin and scrotum oxycodone 5 mg Tablet 5 mg PO Q4H PRN PRN (Reason: Pain 6-10 q4hrs or Pre PT/OT) 3 Days Qty: 18 0RF menthol-zinc oxide [Calmoseptine] 0.44-20.6 % Ointment 1 applic topical BID Qty: 0 0RF Protocol: *Topical Application Instructions APPLICATION INSTRUCTIONS: bilateral buttocks Vladimir (with collagen) 7-7-1.5 gram Powder In Packet 1 packet PO BIDCM Qty: 0 0RF Petrolatum 33% [Eucerin Eqivalent] 1 applic topical BID PRN PRNQty: 0 0RF Continued atorvastatin 40 mg Tablet 40 mg PO QHS Qty: 0 0RF carvedilol 3.125 mg Tablet 3.125 mg PO BIDCM Qty: 0 0RF tamsulosin 0.4 mg Capsule 0.8 mg PO DAILY@1730 Qty: 0 0RF aspirin 81 mg Tablet,Chewable 81 mg PO BREAKFAST Qty: 0 0RF lisinopril 2.5 mg Tablet 2.5 mg PO DAILY Qty: 0 0RF Xarelto 20 mg Tablet 20 mg PO DINNER Qty: 0 0RF metformin 500 mg tablet 500 mg PO DAILY Discontinued diazepam 5 MG tablet 5 mg PO DAILY PRN PRN (Reason: Anxiety) Patient Comments: has not taken for a few weeks gabapentin 100 mg Capsule 100 mg PO TIDCM Qty: 0 0RF oxycodone 5 mg Tablet 5 mg PO Q4H PRN PRN (Reason: Pain Score 4-10) Qty: 0 0RF Referrals / Follow Up: Care Physician,No Primary [Primary Care Provider] - Disposition Disposition (needs filled in before D/C Order can be placed): Intermediate Facility
--- NOTE | 2023-10-04 20:51 | TREXTCAR_ITS ---
Diet Diet Order/Speech Therapy: 09/28/23 13:53 Diet: Consistent Carb - Calorie Controlled Dietary Modifications:: No Added Salt Is pt able to select menu?: Yes Diet Comments: Glucerna 4oz TID w/meals no apples or bananas How many daily calories?: 1999 calorie Routine Orders/Code Status Code Status: DNRCC-A (No intubation.) Wound(s) Left heel: Wound Type: Neuropathic/Diabetic Foot Ulcer Dressing Change: betadine/Adaptic Left big toe: Wound Type: Surgical Incision Dressing Change: Dry Sterile Dressing Left 3rd toe: Wound Type: Blister Dressing Change: Dry Sterile Dressing Left 4th toe: Wound Type: discoloration Dressing Change: Dry Sterile Dressing Left calf: Wound Type: Surgical Incision Left calf and thigh: Wound Type: Surgical Incision Left groin: Wound Type: Surgical Incision Dressing Change: Wound Vac Therapies Weight Bearing: Non weight bearing Extremity Affected:: Left Lower Physical Therapy: Eval and Treat Occupational Therapy: Eval and Treat Problem/Diagnosis (1) Other acute osteomyelitis, left ankle and foot: Status: Acute Code(s): M86.172 - Other acute osteomyelitis, left ankle and foot (2) Non-pressure chronic ulcer of other part of left foot with necrosis of bone: Status: Chronic Code(s): L97.524 - Non-pressure chronic ulcer of other part of left foot with necrosis of bone (3) Type 2 diabetes mellitus with foot ulcer: Status: Acute Code(s): E11.621 - Type 2 diabetes mellitus with foot ulcer; L97.509 - Non-pressure chronic ulcer of other part of unspecified foot with unspecified severity Plan 68 year old male with below past medical history hospitalized for cellulitis left lower extremity, left heel arterial ulcer, underwent left lower extremity revascularization 09/18/[address] Mg, admitted to TCU with debility, here for rehabilitation, strengthening, prior to discharge home alone. * Debility - PT/OT. * Pain - Tylenol 1000mg q6 prn pain (1-3), Tramadol 50mg q6 prn pain (4-5), Oxycodone 5mg q4 prn pain (6-10). * Bowel - senna/colace 2 tablets bid, Magnesium citrate 300ml daily prn. * Adult immunization - Administer pneumonia vaccine, covid vaccine, flu vaccine as appropriate. * DVT prophylaxis - on Xarelto. * PVD s/p LLE revascularization - Xarelto 20mg daily, Aspirin 81mg daily. * Hyperlipidemia - Atorvastatin 40mg qhs. * Hypertension - Coreg 3.125mg bidcm. Lisinopril 2.5mg daily. 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 * Diabetic polyneuropathy/left sciatica - Gabapentin 100mg tidcm. * Skin irritation - Calmoseptine topical bid, Eucerin topical bidcm. * Diabetes Mellitus II - Metformin 500mg daily. * BPH - Tamsulosin 0.8mg daily. Allergies/Procedures Done in Hospital Allergies Penicillins Allergy (Verified 09/28/23 10:46) Unknown Procedures: None Type of Care/Length of Stay Estimated LOS: Convalescent Care Less Than 30 days Type of Care Needed: Skilled Rehab Potential: Good Prognosis: Fair Additional Orders/Day of Discharge Day of Discharge: 10/10/23 Dietary and Speech Recommendations Dietitian Recommendations/Changes: Continue 2000 cinda Consistent CHO / RYAN Continue glucerna shake tid w/ meals as ordered Continue Vladimir bid w/ medpass to help w/ skin healing Follow Up Care Please Follow Up With: Acosta Mg MD Discharge Plan Admission Admit Date/Time: 09/21/23 15:19 Primary Reason for Your Visit: Debility. Attending Provider: Roney Kaur Chi Primary Care Provider: Care Physician,No Primary Instructions Additional Instructions / Restrictions: Discharge to [facility] 10/10/2023, Skilled. Discharge Orders/Prescriptions Prescriptions: New sennosides-docusate sodium [Stool Softener-Stimulant Laxat] 8.6-50 mg Tablet 2 tab PO BID Qty: 0 0RF ciprofloxacin HCl 500 mg Tablet 500 mg PO BID Qty: 0 0RF tramadol 50 mg Tablet 50 mg PO Q6H PRN PRN (Reason: Pain 4-5 q6h or Pre PT/OT) 3 Days Qty: 12 0RF acetaminophen 500 mg Tablet 1,000 mg PO Q6H PRN PRN (Reason: Pain Score 1-3) Qty: 0 0RF doxycycline monohydrate 100 mg Capsule 100 mg PO BID Qty: 0 0RF gabapentin 300 mg Capsule 300 mg PO TIDCM Qty: 0 0RF nystatin [Nyamyc] 100,000 unit/gram Powder 1 applic topical BID Qty: 0 0RF Protocol: *Topical Application Instructions APPLICATION INSTRUCTIONS: groin and scrotum oxycodone 5 mg Tablet 5 mg PO Q4H PRN PRN (Reason: Pain 6-10 q4hrs or Pre PT/OT) 3 Days Qty: 18 0RF menthol-zinc oxide [Calmoseptine] 0.44-20.6 % Ointment 1 applic topical BID Qty: 0 0RF Protocol: *Topical Application Instructions APPLICATION INSTRUCTIONS: bilateral buttocks Vladimir (with collagen) 7-7-1.5 gram Powder In Packet 1 packet PO BIDCM Qty: 0 0RF Petrolatum 33% [Eucerin Eqivalent] 1 applic topical BID PRN PRNQty: 0 0RF Continued atorvastatin 40 mg Tablet 40 mg PO QHS Qty: 0 0RF carvedilol 3.125 mg Tablet 3.125 mg PO BIDCM Qty: 0 0RF tamsulosin 0.4 mg Capsule 0.8 mg PO DAILY@1730 Qty: 0 0RF aspirin 81 mg Tablet,Chewable 81 mg PO BREAKFAST Qty: 0 0RF lisinopril 2.5 mg Tablet 2.5 mg PO DAILY Qty: 0 0RF Xarelto 20 mg Tablet 20 mg PO DINNER Qty: 0 0RF metformin 500 mg tablet 500 mg PO DAILY Discontinued diazepam 5 MG tablet 5 mg PO DAILY PRN PRN (Reason: Anxiety) Patient Comments: has not taken for a few weeks gabapentin 100 mg Capsule 100 mg PO TIDCM Qty: 0 0RF oxycodone 5 mg Tablet 5 mg PO Q4H PRN PRN (Reason: Pain Score 4-10) Qty: 0 0RF Referrals / Follow Up: Care Physician,No Primary [Primary Care Provider] - Disposition Disposition (needs filled in before D/C Order can be placed): [facility] (3) Type 2 diabetes mellitus with foot ulcer Qualifiers: Diabetes mellitus intermediate designer insulin use: with intermediate designer use Qualified Code(s): E11.621 - Type 2 diabetes mellitus with foot ulcer; L97.509 - Non- pressure chronic ulcer of other part of unspecified foot with unspecified severity; Z79.4 - terminal operations supervisor (current) use of insulin
[2023-10-04] MEDS: Atorvastatin Calcium 40 MG Tablet PO (22:30)
[2023-10-05] MEDS: Gabapentin 300 MG Capsule PO ×3 (09:06→17:35)
[2023-10-05] MEDS: Aspirin 81 MG TAB.CHEW PO (09:07)
[2023-10-05] MEDS: Juven (unflavored) Packet 1 PACKET PO ×2 (09:07→17:30)
[2023-10-05] MEDS: Ciprofloxacin 500 MG Tablet PO ×2 (09:08→20:10)
[2023-10-05] MEDS: Menthol/Lanolin/Calamine/Znox 113 GM Tube 1 APPLIC TOPICAL ×2 (09:08→20:08)
[2023-10-05] MEDS: metFORMIN HCl 500 MG Tablet PO (09:08)
[2023-10-05] MEDS: Senna/Docusate Sodium 1 Tablet 2 TABLET PO ×2 (09:09→20:11)
[2023-10-05] MEDS: Nystatin Powder 15gm Bottle 1 APPLIC TOPICAL ×2 (09:09→20:11)
[2023-10-05] MEDS: Doxycycline 100 MG CAPSULE PO ×2 (09:09→20:10)
[2023-10-05] MEDS: oxyCODONE 5 MG Tablet PO ×2 (09:14→15:10)
[2023-10-05] MEDS: Carvedilol 3.125 MG TABLET PO ×2 (09:16→17:31)
[2023-10-05] MEDS: Lisinopril 2.5 MG Tablet PO (09:16)
[2023-10-05 09:19] VITALS: BP 110/74; PULSE 102
[2023-10-05 10:15] VITALS: PULSE 100; RESP 18; O2SAT 98
--- NOTE | 2023-10-05 12:01 | PN_ITS ---
Subjective Subjective Patient 1 week postop from left foot partial hallux and fifth toe amputation with heel wound debridement and graft application. Patient denies any fever chills nausea vomiting chest pain calf pain shortness of breath. Patient has some thigh pain but otherwise pain to foot is controlled. No other complaints at this time. Objective Data Objective Data Vital Signs: Vital Signs Temp Pulse Resp BP Pulse Ox O2 Del Method 98.3 F 100 18 110/74 98 Room Air 10/04/23 08:46 10/05/23 10:15 10/05/23 10:15 10/05/23 09:19 10/05/23 10:15 10/05/23 10:15 Oxygen Delivery Method Room Air Weight: 67.721 kg Body Mass Index (BMI) 22.6 Intake & Output: Intake and Output for Last 24 Hours 10/03/23 10/04/23 10/05/23 23:59 23:59 23:59 Intake Total 840 / 840 480 / 480 240 / 240 Output Total 350 / 350 Balance 840 / 840 130 / 130 240 / 240 Lab / Micro Data 09/29/23 05:24 09/29/23 05:24 Micro: Microbiology 09/29/23 07:00 Nasal Secretion SARS-CoV-2 Antigen (Rapid) - Final 09/22/23 10:05 Nasal Secretion SARS-CoV-2 Antigen (Rapid) - Final Physical Exam Narrative Unchanged neurovascular status to bilateral lower extremity. Well-healing left hallux partial amputation left fifth toe amputation. Intact sutures and incisions noted. Left heel wound is noted to be stable granular in appearance with some moderate serosanguineous drainage. No evidence DVT bilaterally. 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 doxycycline and ciprofloxacin Patient can heel weight-bear protected weightbearing in surgical shoe for transfer purposes under supervision assisted by walker. Dressings changed every other day Betadine Adaptic to incisional sites amputations of the hallux and fifth toe as well as silver alginate to the heel wound and a dry sterile dressing with light compression Patient follow-up with me on Monday of next week in the wound care center. (2) Essential (primary) hypertension: (3) Anxiety: (4) Type 2 diabetes mellitus with hyperglycemia: (5) Other acute osteomyelitis, left ankle and foot:
--- NOTE | 2023-10-05 13:00 | NURSING ---
LEIRN/WOUND NURSE AND IN TO CHANGE PT DRESSING TO LT FOOT.
[2023-10-05 13:23] VITALS: BP 99/64; PULSE 97; RESP 16; TEMP 36.8; O2SAT 100
[2023-10-05] MEDS: Tamsulosin HCl 0.4 MG Capsule 0.8 MG PO (17:31)
[2023-10-05] MEDS: Rivaroxaban 20 MG Tablet PO (17:31)
[2023-10-05 17:37] VITALS: BP 120/78
[2023-10-05] MEDS: Atorvastatin Calcium 40 MG Tablet PO (20:11)
[2023-10-06 06:06] LABS: Absolute Lymphocyte Count 1.29 X10^3/uL (0.83-4.51); Absolute Neutrophil Count 6.7 X10^3/uL (2.0-7.7); Basophil# 0.06 X10^3/uL; Basophil% 0.6 % (0-1); Eosinophil# 0.64 X10^3/uL; Eosinophils% 6.7 % (0-5); Hematocrit 30.2 % (40-54); Hemoglobin 9.3 g/dL (13.0-16.5); Lymphocyte # 1.29 X10^3/ul (0.83-4.51); Lymphocyte % 13.6 % (19-41); Mean Corp Hgb Conc 30.8 g/dL (32-36); Mean Corpuscular Hgb 27.7 pg (27.0-32.0); Mean Corpuscular Volume 89.9 fL (80-94); Mean Platelet Vol. 8.6 fl (6.2-12.0); Monocyte# 0.76 X10^3/uL; NRBC Flagged by Analyzer 0 % (0-5); Neutrophil # 6.68 X10^3/uL (2.7-7.7); Neutrophil % 70.2 % (47-70); Platelet Count 410 K/mm3 (150-450); RBC Distribution Width CV 14.6 % (11.6-14.6); RBC Distribution Width SD 47.8 fl (35.1-43.9); Red Blood Count 3.36 M/mm3 (4.6-6.2); White Blood Count 9.5 K/mm3 (4.4-11.0)
[2023-10-06 06:18] LABS: Anion Gap 3 (5-15); BUN 22 mg/dL (7-18); BUN/Creat Ratio 28.7 RATIO (10-20); Calcium,Total 8.7 mg/dL (8.5-10.1); Chloride 102 mmol/L (98-107); Creatinine, Serum 0.77 mg/dL (0.70-1.30); EST Glomerular Filtration Rate 107 mL/min (>60); Est Glom Filt Rate - Afr Amer 130 mL/min (>60); Estimated Creatinine Clearance 84.65 ml/min; Glucose 150 mg/dL (74-106); Potassium 4.4 mmol/L (3.5-5.1); Sodium Level 132 mmol/L (136-145)
[2023-10-06] MEDS: Nystatin Powder 15gm Bottle 1 APPLIC TOPICAL ×2 (08:33→22:46)
[2023-10-06] MEDS: Senna/Docusate Sodium 1 Tablet 2 TABLET PO ×2 (08:34→22:46)
[2023-10-06] MEDS: Aspirin 81 MG TAB.CHEW PO (08:34)
[2023-10-06] MEDS: Lisinopril 2.5 MG Tablet PO (08:34)
[2023-10-06] MEDS: Menthol/Lanolin/Calamine/Znox 113 GM Tube 1 APPLIC TOPICAL ×2 (08:34→22:45)
[2023-10-06] MEDS: Ciprofloxacin 500 MG Tablet PO ×2 (08:34→22:47)
[2023-10-06] MEDS: Carvedilol 3.125 MG TABLET PO ×2 (08:34→17:20)
[2023-10-06] MEDS: Juven (unflavored) Packet 1 PACKET PO ×2 (08:34→17:20)
[2023-10-06] MEDS: Doxycycline 100 MG CAPSULE PO ×2 (08:34→22:47)
[2023-10-06] MEDS: metFORMIN HCl 500 MG Tablet PO (08:34)
[2023-10-06] MEDS: Gabapentin 300 MG Capsule PO ×3 (08:39→17:24)
[2023-10-06] MEDS: oxyCODONE 5 MG Tablet PO ×2 (08:39→22:48)
[2023-10-06 09:57] VITALS: BP 120/77; PULSE 99; RESP 18; TEMP 36.5; O2SAT 99
[2023-10-06] MEDS: Tamsulosin HCl 0.4 MG Capsule 0.8 MG PO (17:20)
[2023-10-06] MEDS: Rivaroxaban 20 MG Tablet PO (17:20)
[2023-10-06] MEDS: Atorvastatin Calcium 40 MG Tablet PO (22:48)
[2023-10-06] MEDS: Acetaminophen 500 MG Tablet 1000 MG PO (22:49)
[2023-10-07] MEDS: diazePAM 5 MG Tablet PO (00:36)
[2023-10-07] MEDS: Nystatin Powder 15gm Bottle 1 APPLIC TOPICAL ×2 (09:00→21:12)
[2023-10-07] MEDS: metFORMIN HCl 500 MG Tablet PO (09:00)
[2023-10-07] MEDS: Doxycycline 100 MG CAPSULE PO ×2 (09:01→21:11)
[2023-10-07] MEDS: Aspirin 81 MG TAB.CHEW PO (09:01)
[2023-10-07] MEDS: Carvedilol 3.125 MG TABLET PO ×2 (09:01→17:02)
[2023-10-07] MEDS: Menthol/Lanolin/Calamine/Znox 113 GM Tube 1 APPLIC TOPICAL ×2 (09:01→21:10)
[2023-10-07] MEDS: Ciprofloxacin 500 MG Tablet PO ×2 (09:01→21:12)
[2023-10-07] MEDS: Juven (unflavored) Packet 1 PACKET PO ×2 (09:01→17:03)
[2023-10-07] MEDS: Senna/Docusate Sodium 1 Tablet 2 TABLET PO ×2 (09:02→21:12)
[2023-10-07] MEDS: Lisinopril 2.5 MG Tablet PO (09:02)
[2023-10-07] MEDS: Gabapentin 300 MG Capsule PO ×3 (09:05→17:02)
[2023-10-07 10:25] VITALS: BP 105/69; PULSE 116; RESP 16; TEMP 36.3; O2SAT 98
[2023-10-07] MEDS: Rivaroxaban 20 MG Tablet PO (17:02)
[2023-10-07] MEDS: Tamsulosin HCl 0.4 MG Capsule 0.8 MG PO (17:03)
[2023-10-07] MEDS: oxyCODONE 5 MG Tablet PO (17:08)
[2023-10-07] MEDS: Atorvastatin Calcium 40 MG Tablet PO (21:12)
--- NOTE | 2023-10-07 21:33 | NURSING ---
Patient accepted prune juice with butter for bowel protocol, declined all other interventions at time.
[2023-10-08 08:34] VITALS: BP 93/67; PULSE 105; RESP 17; TEMP 37.1; O2SAT 100
[2023-10-08 08:36] VITALS: BP 92/70
[2023-10-08] MEDS: Gabapentin 300 MG Capsule PO ×3 (08:40→17:09)
[2023-10-08] MEDS: Aspirin 81 MG TAB.CHEW PO (08:40)
[2023-10-08] MEDS: metFORMIN HCl 500 MG Tablet PO (08:40)
[2023-10-08] MEDS: Juven (unflavored) Packet 1 PACKET PO ×2 (08:40→17:09)
[2023-10-08] MEDS: Menthol/Lanolin/Calamine/Znox 113 GM Tube 1 APPLIC TOPICAL ×2 (08:40→21:43)
[2023-10-08] MEDS: oxyCODONE 5 MG Tablet PO ×3 (08:40→21:40)
[2023-10-08] MEDS: Doxycycline 100 MG CAPSULE PO ×2 (08:41→21:45)
[2023-10-08] MEDS: Ciprofloxacin 500 MG Tablet PO ×2 (08:41→21:45)
[2023-10-08] MEDS: Nystatin Powder 15gm Bottle 1 APPLIC TOPICAL ×2 (08:41→21:43)
[2023-10-08] MEDS: Senna/Docusate Sodium 1 Tablet 2 TABLET PO ×2 (08:42→21:44)
[2023-10-08 10:01] VITALS: BP 119/76; PULSE 99
[2023-10-08] MEDS: Carvedilol 3.125 MG TABLET PO ×2 (10:03→17:09)
[2023-10-08] MEDS: Lisinopril 2.5 MG Tablet PO (10:03)
[2023-10-08 17:04] VITALS: BP 119/75; PULSE 99
[2023-10-08] MEDS: Rivaroxaban 20 MG Tablet PO (17:09)
[2023-10-08] MEDS: Tamsulosin HCl 0.4 MG Capsule 0.8 MG PO (17:09)
[2023-10-08] MEDS: diazePAM 5 MG Tablet PO (19:59)
[2023-10-08 20:00] VITALS: PULSE 78; O2SAT 93
[2023-10-08] MEDS: Atorvastatin Calcium 40 MG Tablet PO (21:44)
[2023-10-09 04:59] VITALS: PULSE 96; O2SAT 96
[2023-10-09] MEDS: Gabapentin 300 MG Capsule PO ×3 (08:37→16:52)
[2023-10-09] MEDS: Nystatin Powder 15gm Bottle 1 APPLIC TOPICAL ×2 (08:38→21:25)
[2023-10-09] MEDS: Senna/Docusate Sodium 1 Tablet 2 TABLET PO ×2 (08:38→21:26)
[2023-10-09] MEDS: Ciprofloxacin 500 MG Tablet PO ×2 (08:38→21:26)
[2023-10-09] MEDS: Doxycycline 100 MG CAPSULE PO ×2 (08:38→21:26)
[2023-10-09] MEDS: Menthol/Lanolin/Calamine/Znox 113 GM Tube 1 APPLIC TOPICAL ×2 (08:38→21:25)
[2023-10-09] MEDS: Aspirin 81 MG TAB.CHEW PO (08:38)
[2023-10-09] MEDS: metFORMIN HCl 500 MG Tablet PO (08:38)
[2023-10-09] MEDS: Lisinopril 2.5 MG Tablet PO (08:38)
[2023-10-09] MEDS: Carvedilol 3.125 MG TABLET PO ×2 (08:38→16:52)
[2023-10-09] MEDS: Juven (unflavored) Packet 1 PACKET PO ×2 (08:38→16:52)
[2023-10-09] MEDS: oxyCODONE 5 MG Tablet PO ×3 (08:40→21:29)
[2023-10-09 08:45] LABS: Bedside Glucose 129 mg/dL (74-106)
[2023-10-09 09:29] VITALS: BP 126/76; PULSE 95; RESP 18; TEMP 36.4; O2SAT 95
--- NOTE | 2023-10-09 10:06 | CASEMGMT ---
Social Work SW spoke with pt and sister who confirm plan to discharge to [facility] tomorrow 10/09. PASRR completed and sent along with discharge orders to [place] via [facility]. 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 Sister notified that she much call [employer] to arrange payment and she is agreeable. [place], nursing pt and sister updated on discharge time. BIMS () and PHQ9() interviews completed on this date for MDS assessment. DC Date: 10/09 DC Disposition: [facility], skilled level of care [facility] [place]
--- NOTE | 2023-10-09 12:43 | WOUNDNOTE ---
Dressing was changed yesterday so will leave dressing in place today.
[2023-10-09] MEDS: Tamsulosin HCl 0.4 MG Capsule 0.8 MG PO (16:51)
[2023-10-09] MEDS: Rivaroxaban 20 MG Tablet PO (16:52)
[2023-10-09 20:50] VITALS: BP 103/66; PULSE 116; RESP 18; TEMP 36.1; O2SAT 98
[2023-10-09] MEDS: Atorvastatin Calcium 40 MG Tablet PO (21:26)
[2023-10-10 07:11] LABS: Bedside Glucose 126 mg/dL (74-106)
[2023-10-10 07:20] VITALS: PULSE 102; O2SAT 92
[2023-10-10] MEDS: Senna/Docusate Sodium 1 Tablet 2 TABLET PO (08:17)
[2023-10-10] MEDS: Juven (unflavored) Packet 1 PACKET PO (08:17)
[2023-10-10] MEDS: Aspirin 81 MG TAB.CHEW PO (08:17)
[2023-10-10] MEDS: Carvedilol 3.125 MG TABLET PO (08:17)
[2023-10-10] MEDS: metFORMIN HCl 500 MG Tablet PO (08:17)
[2023-10-10] MEDS: Doxycycline 100 MG CAPSULE PO (08:17)
[2023-10-10] MEDS: Lisinopril 2.5 MG Tablet PO (08:17)
[2023-10-10] MEDS: Menthol/Lanolin/Calamine/Znox 113 GM Tube 1 APPLIC TOPICAL (08:17)
[2023-10-10] MEDS: Ciprofloxacin 500 MG Tablet PO (08:17)
[2023-10-10] MEDS: Nystatin Powder 15gm Bottle 1 APPLIC TOPICAL (08:17)
[2023-10-10] MEDS: Gabapentin 300 MG Capsule PO (08:19)
[2023-10-10] MEDS: oxyCODONE 5 MG Tablet PO (08:19)
--- NOTE | 2023-10-10 10:26 | NURSING ---
This nurse called [facility] and gave report to Marcos.
[2023-10-10] MEDS: Acetaminophen 500 MG Tablet 1000 MG PO (10:43)
[2023-10-10] MEDS: traMADol 50 MG Tablet PO (10:44)
--- NOTE | 2023-10-10 11:29 | CASEMGMT ---
Social Work SW [facility] informing MAURICE that the patient has received a denial for Medicaid at this time. Danna contacted patient and family to notify of denial. Patient discharged 10/10/2023 to [facility] for continued rehabilitation. STACIA Dalal
== END 2023-10-10 11:00 | disposition skilled nursing facility (03) | DRG 949 ==
PROVIDERS: Admitting Provider Family Medicine Geriatric Medicine; Visit Provider Family Medicine Geriatric Medicine
DX: Z48.812 Encounter for surgical aftercare following surgery on the circulatory system (principal); E11.52 Type 2 diabetes mellitus with diabetic peripheral angiopathy with gangrene; I70.262 Atherosclerosis of native arteries of extremities with gangrene, left leg; M86.172 Other acute osteomyelitis, left ankle and foot; E44.1 Mild protein-calorie malnutrition; L03.116 Cellulitis of left lower limb; L97.424 Non-pressure chronic ulcer of left heel and midfoot with necrosis of bone; L97.428 Non-pressure chronic ulcer of left heel and midfoot with other specified severity; E11.42 Type 2 diabetes mellitus with diabetic polyneuropathy; B96.5 Pseudomonas (aeruginosa) (mallei) (pseudomallei) as the cause of diseases classified elsewhere; I11.0 Hypertensive heart disease with heart failure; I70.244 Atherosclerosis of native arteries of left leg with ulceration of heel and midfoot; E11.621 Type 2 diabetes mellitus with foot ulcer; E11.65 Type 2 diabetes mellitus with hyperglycemia; I50.9 Heart failure, unspecified; Z79.4 Long term (current) use of insulin; F41.9 Anxiety disorder, unspecified; E78.5 Hyperlipidemia, unspecified; M54.32 Sciatica, left side; Z89.422 Acquired absence of other left toe(s); Z89.412 Acquired absence of left great toe; Z79.82 Long term (current) use of aspirin; Z79.01 Long term (current) use of anticoagulants; Z87.891 Personal history of nicotine dependence; Z79.84 Long term (current) use of oral hypoglycemic drugs; Z79.899 Other long term (current) drug therapy; N40.0 Benign prostatic hyperplasia without lower urinary tract symptoms; Z68.25 Body mass index [BMI] 25.0-25.9, adult
CPT/HCPCS: 36415; 80048; 82962; 85025; 87811; 97110; 97116; 97162; 97166; 97530; 97535; 97542; 97802; J7040; A4216; J2405

== ENCOUNTER → 2023-09-27 | Outpatient (CLI) | payer MEDICARE, SELFPAY ==
--- NOTE | 2023-09-27 09:30 | VDLE_ITS ---
Reason For Study: BLE Pain RIGHT LEFT GSV visualized from SFJ to Mid Thigh. HX BPG. GSV not visualized. 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 competent and demonstrates normal Sutures noted throughout LLE. augmentation. Did not acquire compression at CFV due to FV is compressible, spontaneous, phasic, multiple sutures. Flow visualized in pulsed competent and demonstrates normal wave and color doppler. augmentation. Hematoma visualized at Groin / Area of prox POP V is compressible, spontaneous, phasic, anastomosis for BPG. competent and demonstrates normal FV is compressible, spontaneous, phasic, augmentation. competent and demonstrates normal T/P Trunk is compressible. augmentation. PTV is compressible. POP V is compressible, spontaneous, phasic, RT PerV is compressible. competent and demonstrates normal Procedure augmentation. This is a venous duplex using B-mode, color T/P Trunk is compressible. flow and spectral Doppler. PTV is compressible. Exam performed portable in patient room. LT PerV is compressible. The exam was diagnostic. A preliminary report was called and/or faxed to TCU RN. VL/Venous Duplex US - José Extrem Interpretation Summary Deep veins of the bilateral lower extremities are patent and compressible segme ntally. There is no evidence of bilateral lower extremity deep vein thrombosis. Limited study due to recent surgery Ordering Physician: aDne Sanchez Referring Physician: N/A Performed By: Prabhu Danielle RVT and Student
== END | disposition home or self-care (01) ==
PROVIDERS: Referring Provider Podiatrist; Visit Provider Podiatrist
DX: M79.605 Pain in left leg (principal)
CPT/HCPCS: 93970

== ENCOUNTER 2023-09-28 10:40 | Day surgery (SDC) | payer MEDICARE, SELFPAY ==
[2023-09-28] VITALS (7 sets, daily range): BP systolic 91–112; BP diastolic 65–78; PULSE 91–106; RESP 16–18; TEMP 36.2–37.1; O2SAT 94–99; BMI 22.9
[2023-09-28] MEDS: Lactated Ringers 1,000 ML 15 ML IV (10:59)
--- NOTE | 2023-09-28 11:06 | PRE.ANES_ITS ---
ASA Classification* ASA Classification ASA Classification: 3 Assessment & Plan Anesthesia* Anesthesia Assessment Anesthesia Assessment: Discussed sedation and/or anesthesia options, risks, benefits, and alternatives with patient/parents/legal guardian/POA. Questions invited. The patient/parents/legal guardian/POA seems to understand and agrees to proceed with anesthesia plan. Reviewed the physical assessment, medical history, allergy history and patient home medications list prior to surgery/procedure/anesthetic and documented any changes. Performed airway and anesthesia risk assessments. 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 When Was Last Pacemaker Check QUESTION #4 FULL TEXT: You/Your Family Experience fever (hyperthermia) with Anesthesia Last Oral Intake Last Oral intake: Last Oral Intake NPO since 18:00 09/28/23 10:52 Meds taken in AM with sips of Yes 09/28/23 10:52 water? Meds patient instructed to take am of surgery PONV PONV - liturgical music director: PONV - liturgical music director Female No 09/27/23 12:24 HX of Motion Sickness No 09/27/23 12:24 HX of N/V After Surgery No 09/27/23 12:24 Non-Smoker No 09/27/23 12:24 Duration of Surgery greater Yes 09/27/23 12:24 than 60 minutes Number of Risk Factors 1 09/27/23 12:24 PONV Score Low Risk 09/27/23 12:24 Height & Weight Height & Weight: Anesthesia: Height & Weight Height 5 ft 8 in 09/28/23 10:52 Weight: 68.492 kg 09/28/23 10:52 Body Mass Index (BMI) 22.9 09/28/23 10:52 Respiratory Assessment Respiratory Assessment - liturgical music director: Respiratory Tract Infection Hx - liturgical music director Hx Respiratory Tract Infection No 09/27/23 12:24 STOP Sleep Apnea STOP Sleep Apnea - liturgical music director: STOP Sleep Apnea - liturgical music director Hx Hypertension Yes: CONTROLLED WITH MED 09/27/23 12:24 Hx Sleep Apnea No 09/27/23 12:24 CPAP No 09/18/23 16:50 BIPAP No 09/07/23 19:43 Do you snore loudly (louder No 09/27/23 12:24 than talking or can be heard Do you often feel tired/ No 09/27/23 12:24 fatigued/ sleepy during daytime? Has anyone observed you stop No 09/27/23 12:24 breathing during sleep? STOP Results Negative 09/27/23 12:24 QUESTION #5 FULL TEXT : Do you snore loudly (louder than talking or can be heard through closed doors)? Tobacco Use History Tobacco Use History - liturgical music director: Tobacco Use History - liturgical music director Tobacco Use Smoking Status Former smoker 09/27/23 12:24 Hx Tobacco Use Yes 09/27/23 12:24 Years Smoking Packs Smoked per Day Smoking Cessation Date was Yes - quit smoking within 15 09/27/23 12:24 within the last 15 years years Hx Smoking Cessation Date 05/18/23 09/27/23 12:24 Hx Smoking Cessation Counseling Hematologic Medial History Hematologic Hx - liturgical music director: Hematologic Medical Hx - softball core molder Hx of Blood Transfusion No 09/27/23 12:24 Hx of Transfusion in last 3 No 09/27/23 12:24 Months Date of Last Transfusion (if within last 3 months) Ever experience any problems No 09/27/23 12:24 with transfusion(s)? Specify any problems Hx of Preganancy in last 3 N/A 09/27/23 12:24 Months Nurse Filling Out Transfusion DSCHRIBER 09/27/23 12:24 & Questions: Date: 09/27/23 09/27/23 12:24 Time: 12:26 09/27/23 12:24 Patient unable to answer at this time (ie. confused, unrespo /Reproduction History /Reproductive History - liturgical music director: /Reproductive Hx- liturgical music director Hx Now No 09/27/23 12:24 Gestational Age (in weeks): EDC: Hx Hx Para Hx Section SAB No 09/27/23 12:24 Active Medications Active Medications: Current Medications Generic Name Dose Route Start Last Admin Trade Name Freq PRN Reason Stop Dose Admin Lactated Ringer's 1,000 mls @ 15 mls/hr 09/28/23 10:45 09/28/23 10:59 IV 15 mls/hr .Q48H DEVAN Administration Clindamycin Phosphate 900 mg in 50 mls @ 75 mls/hr 09/28/23 10:53 Cleocin IV 09/28/23 11:32 X1 ONE Anesthesia Focused Assessment* Temperature: 97.1 F Pulse Rate: 91 Blood Pressure: 112/77 Respiratory Rate: 18 Pulse Ox: 99 Airway Assessment Mouth opens: >3 cm Mallampati Score: II Focused Labs Anesthesia Preop lab: CBC WBC 8.2 K/mm3 (4.4-11.0) 09/22/23 05:23 RBC 3.07 M/mm3 (4.6-6.2) L 09/22/23 05:23 Hgb 8.8 g/dL (13.0-16.5) L 09/22/23 05:23 Hct 27.3 % (40-54) L 09/22/23 05:23 Plt Count 302 K/mm3 (150-450) 09/22/23 05:23 CHEMISTRY Potassium 3.6 mmol/L (3.5-5.1) 09/22/23 05:23 Sodium 137 mmol/L (136-145) 09/22/23 05:23 Magnesium 1.9 mg/dL (1.6-2.6) 09/11/23 03:05 Phosphorus 2.7 mg/dL (2.5-4.9) 09/09/23 03:50 BUN 15 mg/dL (7-18) 09/22/23 05:23 Creatinine 0.56 mg/dL (0.70-1.30) L 09/22/23 05:23 Glucose 145 mg/dL (74-106) H 09/22/23 05:23 TSH 2.42 uIU/mL (0.358-3.74) 09/07/23 15:15 COAG PT 15.0 SECONDS (11.7-14.9) H 09/20/23 03:15 Review of Systems (Anesthesia) ROS Narrative System reviewed and no additional complaints, except as documented. [facility] Medical History Diabetes Lives in prison Alcohol use Open wound Arthritis Walker as ambulation aid Back pain Injury of head and neck Syncope Shortness of breath on exertion History of pain when walking History of edema Myocardial infarct Congestive heart failure (CHF) Hypertension DVT (deep venous thrombosis) Home Medications ?Medication ?Instructions ?Recorded ?Last Taken ?Type diazepam 5 mg tablet 5 mg PO DAILY PRN PRN Anxiety 11/30/15 09/15/23 History aspirin 81 mg chewable tablet 81 mg PO BREAKFAST Heart #0 tabs 09/21/23 09/21/23 08:00 Rx atorvastatin 40 mg tablet 40 mg PO QHS Cholesterol #0 tabs 09/21/23 09/27/23 Rx carvedilol 3.125 mg tablet 3.125 mg PO BIDCM BP #0 tabs 09/21/23 09/28/23 Rx gabapentin 100 mg capsule 100 mg PO TIDCM Nerve Pain #0 caps 09/21/23 09/28/23 Rx lisinopril 2.5 mg tablet 2.5 mg PO DAILY BP #0 tabs 09/21/23 09/28/23 Rx metformin 500 mg tablet 500 mg PO DAILY Diabetes 09/21/23 09/27/23 History oxycodone 5 mg tablet 5 mg PO Q4H PRN PRN Pain Score 09/21/23 09/21/23 08:00 Rx 4-10 #0 tabs rivaroxaban 20 mg tablet (Xarelto) 20 mg PO DINNER Blood Thinner #0 09/21/23 09/27/23 Rx tabs tamsulosin 0.4 mg capsule 0.8 mg (2 x 0.4 mg) PO DAILY@1730 09/21/23 09/27/23 Rx Urinary Retention #0 caps Allergy/AdvReac Type Severity Reaction Status Date / Time Penicillins Allergy Unknown Verified 09/28/23 10:46 Surgical History History of femoropopliteal bypass H/O right knee surgery Social History household members: none Smoking Status: Former smoker alcohol intake: never substance use type: does not use
[2023-09-28 11:09] LABS: Bedside Glucose 146 mg/dL (74-106)
--- NOTE | 2023-09-28 12:00 | AMP_PTH ---
PATIENT: ETHAN CROSS LOC: [facility] – [place] U#:[id number] AGE/SX: 68/M ROOM: RE09/28/[address]: Dr. Dane Sanchez DPM : 1955 BED: DIS: 09/28/2023 SPEC #: [id number] RECD: 09/28/23 13:28 STATUS: PRIYANKA EDWIN #: [id number] NAYELI: 09/28/23 12:[address]: Dane Sanchez DEPT: SURGICAL PATHOLOGY RECD BY: Josiah Peralta ENTERED: 09/28/23 13:51 SP TYPE: Amputation OTHR DR: No Primary Care Phys Tissues: A - Toe, NOS B - Toe, NOS C - TISSUE SURGICALLY REMOVED D - Bone of foot, NOS Procedures: Decalcification bone/plaque Surgery Specimen Level III Surgery Specimen Level IV HEADER OPERATION: Left foot hallux, 5th toe partial amputation, heel wound debris PRE-OP DIAGNOSIS: Osteosclerosis left lower extremity TISSUE SUBMITTED: A- Left foot first toe, B- Left foot fifth toe, C- Gangrene left heel wound, D- Left calcaneus bone MICROSCOPIC DIAGNOSIS A. Left foot first toe, amputation: Gangrenous necrosis of skin and soft tissue. Bone with changes of acute osteomyelitis. B. Left foot fifth toe, amputation: Skin and soft tissue with gangrenous necrosis. Bone with reparative and reactive change. C. Skin and soft tissue of left heel bone, excision: Gangrenous necrosis of skin and soft tissue. Fat necrosis. D. Left calcaneus bone, biopsy: Fragments of bone and cartilage with reparative and reactive change. / 10/04/2023 MICROSCOPIC DESCRIPTION Slides are reviewed. GROSS DESCRIPTION A. Received in fixative is one container labeled with the patient's name and designated Left foot first toe. The specimen consists of a portion of toe measuring 3.0 x 3.5 x 3.0cm. The skin surface of the plantar surface shows congestion and hemorrhagic. Underneath tissue underneath the nail also shows blueish discoloration. Also present in the container is a detached piece of bone measuring 2.0 x 1.0 x 0.6cm. Child Care Worker sections are submitted in three cassettes as follows: 1- skin with underlying congested and hemorrhagic area, 2- detached piece of bone after decalcification, 3- a section of bone from the toe after decalcification. B. Received in fixative is one container labeled with the patient's name and designated Left foot fifth toe. The specimen consists of a portion of toe measuring 1.5 x 1.5 x 1.0cm. The skin surface shows a focal area of ulceration. Also present in the container is a piece of bone measuring 1.0 x 0.6 x 0.5cm. The entire specimen is submitted in two cassettes after decalcification. C. Received in fixative is one container labeled with the patient's name and designated gangrene left heel wound. The specimen consists of a piece of brownish-blackish skin consistent with gangrene gangranous skin measuring 7.0 x 5.0 x 0.5cm. Also present in the container are three detached pieces of soft tissue measuring in aggregate 2.0 x 1.5 x 0.4cm. Child Care Worker sections are submitted in two cassettes. D. Received in fixative is one container labeled with the patient's name and designated Left calcaneus bone. The specimen consists of two pieces of bone measuring in aggregate 0.8 x 0.4 x 0.2cm. The entire specimen is submitted in one cassette after decalcification. Tiana 09/28/2023 TC:2 CPT:83612w8
[2023-09-28] MEDS: Clindamycin 900 MG/50 ML BAG 75 MG IV (12:01)
--- NOTE | 2023-09-28 13:05 | PCM.OPRPT ---
Problems Associated Problem List Diagnoses (1) Other acute osteomyelitis, left ankle and foot: (2) Non-pressure chronic ulcer of other part of left foot with necrosis of bone: (3) Type 2 diabetes mellitus with foot ulcer: Report of Operation Date of Procedure: 09/28/23 Pre-Operative Diagnosis: 1) Dry gangrene and osteomyelitis left 1st and 5th toe 2) Full thickness wound down to level of bone left calcaneus 3) Diabetic neuropathy Post-Operative Diagnosis: same Surgery/Procedure Performed:: 1 left hallux amputation 2 left fifth toe partial amputation 3 left heel wound debridement down to including level of bone 4 application of skin substitute graft left foot wound Description of Surgical Findings:: Patient underwent FEM femoropopliteal bypass per Dr. Mg last week. Patient had demarcated dry necrosis of the distal tuft of the hallux and fifth digit with a dry stable eschar to the lateral left heel. Plan will be for partial amputation of the left fifth digit as well as hallux and debridement of the left calcaneal wound down to including level of bone with bone biopsy and application of a skin substitute graft. Surgeon: Dane Sanchez physical therapy aide: None (brendon arora) Type of Anesthesia: General Special Medications: popliteal block pre op Specimen's removed: Left hallux left fifth digit and left calcaneal wound eschar. Bone biopsy and culture from left calcaneus Drains: None Estimated Blood Loss (mL): 50 cc Description of Procedure: Patient brought back the operating placed comfortably in supine position on operating room table.. Patient induced under general anesthesia. Preoperatively patient received popliteal block. Left lower extremity was positioned on blankets knock on external rotation. A well-padded left ankle tourniquet was applied but this was not used throughout the case. Left lower extremity scrubbed prepped and draped using typical aseptic fashion. Procedures #1 and #2 amputation of the left hallux and fifth toe partially: A fishmouth incision was drawn on healthy skin in the made just distal to the interphalangeal joint full-thickness down to level of bone the left left hallux was disarticulated at the level of the IPJ additional bone resection was performed using bone cutting forceps this was packed to the back table and sent to pathology for further examination. There is noted to be healthy bleeding to site with no residual necrotic tissue noted. Site was flushed with copious amounts of normal sterile saline. Site was closed primarily with simple interrupted 4-0 nylon stitches. This process was repeated for the left fifth digit. Procedure #3 and #4 excisional debridement of left heel wound down to including level of bone with application of skin substitute: Pre-Op predebridement the wound was measured to be 6.2 x 6.2 x 1.0 cm. The wound was excisionally debrided down to including level of bone using combination of 15 blade pickups and bone rongeurs. Some bone was cultured and sent to the back table to be sent for pathology and bone culture. Site was flushed with copious amounts normal sterile saline. Postdebridement measurement 6.4 x 6.4 x 1.2 cm in depth. Eschar was packed passed the back table and sent for pathologic examination as well. A 4 x 4 centimeter BioSkin graft was applied to the site. Left hallux fifth digit were dressed with Betadine Adaptic left wound site was dressed with Adaptic Steri-Strips and a bolster dressing additional dressing was composed of 4 x 4's ABD pads Kerlix and a lightly wrapped Bartolo bandage. Tourniquet was not used No complications Adequate bleeding noted to the left hallux fifth digit amputation site as well as the left heel wound debridement site. Grafts/Implants Used: 4 x 4 centimeter BioSkin graft
--- NOTE | 2023-09-28 13:06 | PCM.POST.ANE ---
Anesthesia: Postop Eval I Current Vital Signs Temperature: 98.6 F Pulse Rate: 102 Blood Pressure: 91/65 Respiratory Rate: 16 Pulse Ox: 98 Oxygen Delivery Method: Room Air Assessment Airway patent: Yes Spontaneous unlabored respirations: Yes Mental status: Awake and Calm nausea: No Vomiting: No Anesthesia Complication: No Fluid Hydration Crystalloid volume administer (ml): 800 Total IV fluid infused: 800 Progress Note Anesthesia document: Postop Eval 1 completed: Yes
--- NOTE | 2023-09-28 13:39 | POSTOPAN2_ITS ---
Anesthesia Postop Eval I Sum Postop Eval Completion status Anesthesia document: Postop Eval 1 completed: Yes Anesthesia Postop Eval I Summary Anesthesia Postop Eval I Summary: Anesthesia Postop Eval I: Assessment Summary Airway patent Yes 09/28/23 13:12 CLIENT SUPPORT [email or web address] Spontaneous unlabored Yes 09/28/23 13:12 CLIENT SUPPORT [email or web address] respirations Mental status Awake,Calm 09/28/23 13:12 CLIENT SUPPORT [email or web address] nausea No 09/28/23 13:12 CLIENT SUPPORT [email or web address] Vomiting No 09/28/23 13:12 CLIENT SUPPORT [email or web address] Anesthesia Postop Eval I: Fluid Summary Crystalloid volume administer 800 09/28/23 13:12 CLIENT SUPPORT [email or web address] (ml) Colloids volume administered ( ml) Blood Product volume administered (ml) Total IV fluid infused 800 09/28/23 13:12 CLIENT SUPPORT [email or web address] Anesthesia Postop Eval I: Summary Notes Anesthesia Complication No 09/28/23 13:12 CLIENT SUPPORT [email or web address] Anesthesia Complication Comment: Post-operative progress note Anesthesia: Postop Eval II Evaluation Mental status: Awake Pain Level: 0 nausea: No Vomiting: No Complications Anesthesia Complication: No
--- NOTE | 2023-09-28 13:39 | PCM.POSTANE2 ---
Anesthesia Postop Eval I Sum Postop Eval Completion status Anesthesia document: Postop Eval 1 completed: Yes Anesthesia Postop Eval I Summary Anesthesia Postop Eval I Summary: Anesthesia Postop Eval I: Assessment Summary Airway patent Yes 09/28/23 13:12 EVS [email or web address] Spontaneous unlabored Yes 09/28/23 13:12 EVS [email or web address].[email or web address] respirations Mental status Awake,Calm 09/28/23 13:12 EVS [email or web address].[email or web address] nausea No 09/28/23 13:12 EVS [email or web address].[email or web address] Vomiting No 09/28/23 13:12 EVS [email or web address].[email or web address] Anesthesia Postop Eval I: Fluid Summary Crystalloid volume administer 800 09/28/23 13:12 EVS [email or web address].[email or web address] (ml) Colloids volume administered ( ml) Blood Product volume administered (ml) Total IV fluid infused 800 09/28/23 13:12 EVS [email or web address].[email or web address] Anesthesia Postop Eval I: Summary Notes Anesthesia Complication No 09/28/23 13:12 EVS ATTENDANT.[email or web address] Anesthesia Complication Comment: Post-operative progress note Anesthesia: Postop Eval II Evaluation Mental status: Awake Pain Level: 0 nausea: No Vomiting: No Complications Anesthesia Complication: No
== END 2023-09-28 13:34 | disposition home or self-care (01) ==
LOC: SDC 10:41 → AC 10:41
PROVIDERS: Referring Provider Podiatrist; Visit Provider Podiatrist
PROC: (CPT 28124; principal; 2023-09-28 11:45)
DX: E11.621 Type 2 diabetes mellitus with foot ulcer (principal); I70.262 Atherosclerosis of native arteries of extremities with gangrene, left leg; L97.524 Non-pressure chronic ulcer of other part of left foot with necrosis of bone; M86.172 Other acute osteomyelitis, left ankle and foot; E11.40 Type 2 diabetes mellitus with diabetic neuropathy, unspecified; E11.69 Type 2 diabetes mellitus with other specified complication; I25.2 Old myocardial infarction; Z79.82 Long term (current) use of aspirin; Z79.899 Other long term (current) drug therapy; Z79.84 Long term (current) use of oral hypoglycemic drugs; Z79.01 Long term (current) use of anticoagulants; Z86.718 Personal history of other venous thrombosis and embolism; Z87.891 Personal history of nicotine dependence
CPT/HCPCS: 28124; 11044; 64445; 01480; 82962; 87070; 87075; 87077; 87102; 87176; 87184; 87186; 87205; 87206; 88304; 88305; 88311; J7120

== ENCOUNTER → 2023-11-10 | Outpatient (CLI) | payer MEDICARE, SELFPAY ==
--- NOTE | 2023-11-10 13:04 | ADUL_ITS ---
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 Post Tibial Artery, mid = 60.1 cm./sec. Post Tibial Artery, dist. = 72.9 cm./sec. Peroneal Artery, prox = 46.2 cm./sec. Peroneal Artery, mid = 59.2 cm./sec. Peroneal Artery,dist. = 66.9 cm./sec. Ant.Tibial Artery, prox = 62.5 cm./sec. Ant Tibial Artery, mid = 63.6 cm./sec. Ant. Tibial Artery, distal = 61.3 cm./sec. Procedure Exam performed in department. VL/US Art Duplex Unilat Lower Ext Interpretation Summary Patent left femoral-posterior tibial bypass with focal diminished velocity at d istal graft. No stenosis identified. Ordering Physician: Carolina Del Rio Referring Physician: Jen Guzman Performed By: Daina Sanchez RVT and Student
--- NOTE | 2023-11-10 13:04 | ART_ITS ---
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 Left Segmental Pressures Left brachial= 113mmHg. Left posterior tibial artery = 118mmHg. Left dorsalis pedis artery = 123mmHg. The left dorsalis pedis waveforms are triphasic. The left posterior tibial artery waveforms are triphasic. Right Segmental Pressures Right brachial= 106mmHg. Right posterior tibial artery = 57mmHg. Right dorsalis pedis artery = 60mmHg. The right dorsalis pedis waveforms are monophasic. The right posterior tibial artery waveforms are monophasic. Indices The right ankle brachial index by the dorsalis pedis is 0.53. The right ankle brachial index by the posterior tibial artery is 0.50. The left ankle brachial index by the dorsalis pedis is 1.09. The left ankle brachial index by the posterior tibial artery is 1.04. VL/Ankle Brachial Index Interpretation Summary Right GERHARD 0.53, moderate arterial insufficiency. Doppler/PVR waveforms of the r ight ankle moderately diminished at rest. Left GERHARD 1.09, normal. Doppler/PVR waveforms of the left ankle normal at rest. Ordering Physician: Carolina Del Rio Referring Physician: Jen Guzman Performed By: Daina Sanchez RVT and Student
== END | disposition home or self-care (01) ==
PROVIDERS: PCP Internal Medicine; Referring Provider Physician Assistant; Visit Provider Physician Assistant
DX: I73.9 Peripheral vascular disease, unspecified (principal); Z95.828 Presence of other vascular implants and grafts; Z48.812 Encounter for surgical aftercare following surgery on the circulatory system
CPT/HCPCS: 93922; 93926

== ENCOUNTER 2023-11-14 08:45 | Outpatient (RCR) | payer MEDICARE, SELFPAY ==
[2023-10-31 08:58] VITALS: BP 108/66; PULSE 103; RESP 18; TEMP 36.4; BMI 23.6
--- NOTE | 2023-10-31 10:21 | PCM.WC.HP ---
History of Present Illness Date of Service: 10/31/23 Progress of Wound: Patient presents follow-up left first and fifth toe amputation as well as wound debridement bone biopsy left calcaneus. Patient denies any fever chills nausea vomiting chest pain calf pain shortness of breath. Patient has been nonweightbearing to left lower extremity in half-way facility. Patient does have some pain today but this is baseline this patient has chronic pain is seen pain management in the past. Patient is recovering from left femoral popliteal bypass and is following up with vascular surgery on the . No other complaints. [facility] Medical History Diabetes Lives in long term Alcohol use Open wound Arthritis Walker as ambulation aid Back pain Injury of head and neck Syncope Shortness of breath on exertion History of pain when walking History of edema Myocardial infarct Congestive heart failure (CHF) Hypertension DVT (deep venous thrombosis) Home Medications ?Medication ?Instructions ?Recorded ?Last Taken ?Type aspirin 81 mg chewable tablet 81 mg PO BREAKFAST Heart #0 tabs 09/21/23 09/21/23 08:00 Rx atorvastatin 40 mg tablet 40 mg PO QHS Cholesterol #0 tabs 09/21/23 09/27/23 Rx carvedilol 3.125 mg tablet 3.125 mg PO BIDCM BP #0 tabs 09/21/23 09/28/23 Rx lisinopril 2.5 mg tablet 2.5 mg PO DAILY BP #0 tabs 09/21/23 09/28/23 Rx metformin 500 mg tablet 500 mg PO DAILY Diabetes 09/21/23 09/27/23 History rivaroxaban 20 mg tablet (Xarelto) 20 mg PO DINNER Blood Thinner #0 09/21/23 09/27/23 Rx tabs tamsulosin 0.4 mg capsule 0.8 mg (2 x 0.4 mg) PO DAILY@1730 09/21/23 09/27/23 Rx Urinary Retention #0 caps Petrolatum 33% [Eucerin Eqivalent] 1 applic topical BID PRN PRN ##0 10/04/23 Unknown Rx acetaminophen 500 mg tablet 1,000 mg (2 x 500 mg) PO Q6H PRN 10/04/23 Unknown Rx PRN Pain Score 1-3 #0 tabs arginine 7 gram-glutam 7 1 packet PO BIDCM #0 ea 10/04/23 Unknown Rx gram-CaHMB 1.5 [id number] oral pwd pkt (Vladimir (with collagen)) ciprofloxacin HCl 500 mg tablet 500 mg PO BID #0 tabs 10/04/23 Unknown Rx doxycycline monohydrate 100 mg 100 mg PO BID #0 caps 10/04/23 Unknown Rx capsule gabapentin 300 mg capsule 300 mg PO TIDCM #0 caps 10/04/23 Unknown Rx menthol 0.44 %-zinc oxide 20.6 % 1 applic topical BID #0 grams 10/04/23 Unknown Rx topical ointment (Calmoseptine) nystatin 100,000 unit/gram topical 1 applic topical BID #0 grams 10/04/23 Unknown Rx powder (Nyamyc) oxycodone 5 mg tablet 5 mg PO Q4H PRN PRN Pain 6-10 10/04/23 Unknown Rx q4hrs or Pre PT/OT 3 days #18 tabs sennosides 8.6 mg-docusate sodium 2 tab PO BID #0 tabs 10/04/23 Unknown Rx 50 mg tablet (Stool Softener-Stimulant Laxative) tramadol 50 mg tablet 50 mg PO Q6H PRN PRN Pain 4-5 q6h 10/04/23 Unknown Rx or Pre PT/OT 3 days #12 tabs Allergy/AdvReac Type Severity Reaction Status Date / Time Penicillins Allergy Unknown Verified 10/31/23 09:29 Surgical History History of femoropopliteal bypass H/O right knee surgery Social History household members: none Smoking Status: Former smoker alcohol intake: never substance use type: does not use Vital Signs Vital Signs Vital Signs: 10/31/23 08:58 Temperature 97.5 F L Temperature Source Temporal Pulse Rate 103 H Respiratory Rate 18 Blood Pressure 108/66 Blood Pressure Mean 80 Blood Pressure Source Monitor Weight Weight: 70.632 kg Body Mass Index (BMI) 23.6 Physical Exam Narrative Intact pulses left lower extremity. 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 Full-thickness wound to the left lateral calcaneus. This demonstrates 100% granular base with clean skin edges no acute signs of infection deep probing or undermining. Pre and postdebridement measurements documented nursing notes. No wounds to right lower extremity. Muscular strength full to bilateral lower extremity compartments. No gross wound forming deformities noted. Debridement Note Debridement Note Post-Debridement Measurements and Additional Note: Post-Debridement Measurements/Treatment WC - Nurse 1 - General Ulcer Assessment Start: 10/31/23 08:58 Freq: Status: Active Protocol: WC.LOWEXT Activity Type Activity Date Activity User E-sign Co-sign Detail Recorded Client Recorded Date Recorded By Document 10/31/23 08:58 DL [email or web address] 10/31/23 09:13 DL 10/31/23 08:58 WC - Today's Visit Information Type of service Initial Visit Arrival Mode Wheelchair Transfer Assistance None Patient Identification Verified (Name & Yes ) Patient Requires Transmission-Based No Precautions Height and Weight Height 5 ft 8 in Weight 70.632 kg Weight in Pounds 155.7 lbs Body Mass Index (BMI) 23.6 BMI Classification Normal BSA - Elias 1.84 Vital Signs Temperature (97.8 F-99.1 F) 97.5 F L Temperature Source Temporal Pulse Rate (60-100) 103 H Pulse Location Monitor Respiratory Rate (12-18) 18 Respiratory rate source Observation Blood Pressure (90/60-120/80) 108/66 Blood Pressure Mean 80 Source Monitor History Since Last Visit- (Skip if this is Patient's initial visit) Left Footwear Surgical Shoe with pressure relief insole Right Footwear Surgical Shoe with pressure relief insole Pain Scale: 0-10 Numeric Is Patient Pain Free? No L Foot -Description Dull,Throbbing -Pain Behavior Guarding, Withdrawal from Touch -Pain Aggravating Factors ADL's -Alleviating Factors/Interventions Medication Neuropathy Assessment Feet - Top Side and Bottom <Entered> (a) (a) 1 - _ 2 - _ WC - Nurse 1 - General Ulcer Measurement Start: 10/31/23 08:58 Freq: Status: Active Protocol: Activity Type Activity Date Activity User E-sign Co-sign Detail Recorded Client Recorded Date Recorded By Document 10/31/23 09:34 KW [id number] 10/31/23 09:37 KW Edit Result 10/31/23 09:34 KW (1) [id number] 10/31/23 09:38 KW (1) #3 L Heel - Exudate Type => Serosanguineous - Wound Margin => Distinct, Outline => Attached - Granulation Amt => Large (67-100%) - Granulation Quality => Hyper-granulation, => Red - Necrosis Amt => None Present (0%) - Structure Exposed => N/A - Texture (Dayana-wound Skin Appearance) => Scarring - Moisture (Dayana-wound Skin Appearance) => Dry/Scaly - Color (Dayana-wound Skin Appearance) => No Abnormality - Temperature (Dayana-wound Skin => No Abnormality (Pt Appearance) => Warm) - Tenderness on Palpation (Dayana-wound => Yes Skin Appearance) - Ulcer Cleansing => Soap and Water - Foul Odor after Cleansing => No - Anesthetic Used => 5% Lidocaine Gel 10/31/23 09:34 Wound Center Nurse 1 #3 L Heel -Current Size (cm) - Length 5 -Current Size (cm) - Width 5.6 -Current Size (cm) - Depth 0.1 -Total Square Cm 28.0 -Photo Taken Yes -Exudate Amt Medium -Exudate Type Serosanguineous -Wound Margin Distinct, Outline Attached -Granulation Amt Large (67-100%) -Granulation Quality Hyper- granulation,Red -Necrosis Amt None Present (0 %) -Structure Exposed N/A -Texture (Dayana-wound Skin Appearance) Scarring -Moisture (Dayana-wound Skin Appearance) Dry/Scaly -Color (Dayana-wound Skin Appearance) No Abnormality -Temperature (Dayana-wound Skin No Abnormality Appearance) (Pt Warm) -Tenderness on Palpation (Dayana-wound Yes Skin Appearance) -Ulcer Cleansing Soap and Water -Foul Odor after Cleansing No -Anesthetic Used 5% Lidocaine Gel #2 L 4th toe -Current Size (cm) - Length 0.1 -Current Size (cm) - Width 0.1 -Current Size (cm) - Depth 0.1 -Total Square Cm 0.01 -Photo Taken Yes -Exudate Amt None Present -Wound Margin Distinct, Outline Attached -Granulation Amt None Present (0 %) -Necrosis Amt None Present (0 %) -Structure Exposed N/A -Texture (Dayana-wound Skin Appearance) Localized Edema ,Scarring -Moisture (Dayana-wound Skin Appearance) Dry/Scaly -Color (Dayana-wound Skin Appearance) Erythema -Temperature (Dayana-wound Skin No Abnormality Appearance) (Pt Warm) -Ulcer Cleansing Soap and Water -Foul Odor after Cleansing No #1 L Grt Toe -Current Size (cm) - Length 0.1 -Current Size (cm) - Width 0.1 -Current Size (cm) - Depth 0.1 -Total Square Cm 0.01 -Photo Taken Yes -Exudate Amt None Present -Wound Margin Distinct, Outline Attached -Granulation Amt None Present (0 %) -Necrosis Amt None Present (0 %) -Structure Exposed N/A -Texture (Dayana-wound Skin Appearance) Localized Edema ,Scarring -Moisture (Dayana-wound Skin Appearance) Dry/Scaly -Color (Dayana-wound Skin Appearance) Erythema -Temperature (Dayana-wound Skin No Abnormality Appearance) (Pt Warm) -Tenderness on Palpation (Dayana-wound No Skin Appearance) -Ulcer Cleansing Soap and Water -Foul Odor after Cleansing No WC - Nurse 2 - General Ulcer CM Notes Start: 10/31/23 08:58 Freq: Status: Active Protocol: Activity Type Activity Date Activity User E-sign Co-sign Detail Recorded Client Recorded Date Recorded By Document 10/31/23 09:37 [facility] [email or web address] 10/31/23 09:52 BMF 10/31/23 09:37 Wound Center Nurse 2 #3 L Heel -Time 09:44 -Correct Patient Yes -Correct Side, Site, Position Yes -Correct Procedure Yes -Procedure Performed Yes -Type of Procedure Debridement -Clinical Debridement Subcutaneous -Tissue Removed Subcutaneous -Post Debridement (cm) - Length 3.5 -Post Debridement (cm) - Width 4.4 -Post Debridement (cm) - Depth 0.3 -Total Square (Post) (cm) 15.40 -Area of Debridement (cm) - Length 3.5 -Area of Debridement (cm) - Width 4.4 -Total Square (Area) (cm) 15.40 -Tunneling No -Undermining/Tunneling No -Circular Undermining No -Wound/Ulcer Outcome Not Healed -Ulcer Cleansing Rinsed/ Irrigated with Saline -Foul Odor after Cleansing No -Bioengineered Tissue No -Bleeding Controlled with Pressure -Treatment Response Procedure Tolerated Well -Offloading Yes -Type of Offloading Other -Other Type of Offloading heel protector -Debridement - Subq, 1st 20sq cm Yes #2 L 4th toe -Time 09:38 -Post Debridement (cm) - Length 0 -Post Debridement (cm) - Width 0 -Post Debridement (cm) - Depth 0 -Total Square (Post) (cm) 0 -Area of Debridement (cm) - Length 0 -Area of Debridement (cm) - Width 0 -Total Square (Area) (cm) 0 -Wound/Ulcer Outcome Healed- Epithelialized -Wound Comment(s) suture removal in clinic #1 L Grt Toe -Time 09:40 -Post Debridement (cm) - Length 0 -Post Debridement (cm) - Width 0 -Post Debridement (cm) - Depth 0 -Total Square (Post) (cm) 0 -Area of Debridement (cm) - Length 0 -Area of Debridement (cm) - Width 0 -Total Square (Area) (cm) 0 -Wound/Ulcer Outcome Healed- Epithelialized -Wound Comment(s) sutures removed in clinic today Pain Scale: 0-10 Numeric Is Patient Pain Free? Yes - Nurse 3 - General Ulcer D/C NN Start: 10/31/23 08:58 Freq: Status: Active Protocol: Activity Type Activity Date Activity User E-sign Co-sign Detail Recorded Client Recorded Date Recorded By Document 10/31/23 09:58 KW ; 10/31/23 09:59 KW 10/31/23 09:58 Wound Care Center Nurse 3 #3 L Heel -Primary Dressing Applied Aquacel AG 4x4 -Primary Dressing Covered/Secured with Dry Gauze & Roll Gauze, Secured with Tape -Aquacel AG 4x4 1 #2 L 4th toe -Other Dressing BETADINE -Primary Dressing Covered/Secured with Dry Gauze #1 L Grt Toe -Other Dressing BETADINE -Primary Dressing Covered/Secured with Dry Gauze Pain Scale: 0-10 Numeric Is Patient Pain Free? Yes WC - Visit Discharge Discharge Condition Stable Ambulatory Status Wheelchair Medication Reconcilliation completed & No provided to patient/care provider Clinical Summary of Care Provided Yes Assessment/Plan Assessment/Plan (1) Other specified peripheral vascular diseases: CODE(S): I73.89 - Other specified peripheral vascular diseases PLAN: Exam performed Sutures aseptically removed from hallux and fifth toe amputation site Left heel wound excisionally debrided down to including level subcutaneous tissue of all nonviable tissue using 5 mm dermal curette. Patient tolerated procedure anesthesia well apparent satisfactory condition. Topical anesthesia used. Hemostasis obtained for compression. Pre and postdebridement measurements documented nursing notes. Will plan for daily silver alginate dry sterile dressing and compression via Bartolo bandage. I have recommended some Betadine application to toes 1 through 5 due to some slight maceration on the left lower extremity. Patient continue nonweightbearing left lower extremity can transfer on right foot full weightbearing to tolerance. No additional antibiotics recommended in my opinion at this time. Follow-up in 1 week. (2) Non-pressure chronic ulcer of other part of left foot with fat layer exposed: CODE(S): L97.522 - Non-pressure chronic ulcer of other part of left foot with fat layer exposed
--- NOTE | 2023-11-01 09:40 | WC ---
PHOTO 10/31/23 LEFT HEEL
--- NOTE | 2023-11-01 09:42 | WC ---
PHOTO 10/31/23 LEFT 4TH TOE AMP SITE
--- NOTE | 2023-11-01 09:46 | WC ---
PHOTO 10/31/23 (I) LEFT GREAT TOE AMP SITE
[2023-11-07 09:07] VITALS: BP 103/77; PULSE 109; RESP 18; TEMP 36.2; BMI 23.6
--- NOTE | 2023-11-07 10:21 | PN.PCM_ITS ---
History of Present Illness Date of Service: 11/07/23 Progress of Wound: Patient presents follow-up left first and fifth toe amputation as well as wound debridement bone biopsy left calcaneus. Patient denies any fever chills nausea vomiting chest pain calf pain shortness of breath. Patient has been nonweightbearing to left lower extremity in intermediate facility. Patient does have some pain today but this is baseline this patient has chronic pain is seen pain management in the past. Patient is recovering from left femoral popliteal bypass and is following up with vascular surgery on the . No other complaints. Objective Data Objective Data Vital Signs: Vital Signs Temp Pulse Resp BP O2 Del Method 97.2 F L 109 H 18 103/77 Room Air 11/07/23 09:07 11/07/23 09:07 11/07/23 09:07 11/07/23 09:07 11/07/23 09:07 Oxygen Delivery Method Room Air Weight: 70.632 kg Body Mass Index (BMI) 23.6 Physical Exam Narrative Intact pulses left lower extremity. 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 Full-thickness wound to the left lateral calcaneus. This demonstrates 100% granular base with clean skin edges no acute signs of infection deep probing or undermining. Pre and postdebridement measurements documented nursing notes. No wounds to right lower extremity. Muscular strength full to bilateral lower extremity compartments. No gross wound forming deformities noted. Debridement Note Debridement Note Post-Debridement Measurements and Additional Note: Post-Debridement Measurements/Treatment - Nurse 1 - General Ulcer Assessment Start: 10/31/23 08:58 Freq: Status: Active Protocol: SARAH Activity Type Activity Date Activity User E-sign Co-sign Detail Recorded Client Recorded Date Recorded By Document 10/31/23 08:58 DL [email or web address] 10/31/23 09:13 DL Document 11/07/23 09:07 KW l 11/07/23 09:31 KW 10/31/23 11/07/23 08:58 09:07 - Today's Visit Information Type of service Initial Visit Follow-up Visit (Physician/[facility] ) Arrival Mode Wheelchair Wheelchair Transfer Assistance None Accompanied by sister Patient Identification Verified (Name & Yes Yes ) Patient Requires Transmission-Based No Precautions Height and Weight Height 5 ft 8 in Weight 70.632 kg Weight in Pounds 155.7 lbs Body Mass Index (BMI) 23.6 23.6 BMI Classification Normal Normal BSA - Elias 1.84 Vital Signs Temperature (97.8 F-99.1 F) 97.5 F L 97.2 F L Temperature Source Temporal Temporal Pulse Rate (60-100) 103 H 109 H Pulse Location Monitor Monitor Respiratory Rate (12-18) 18 18 Respiratory rate source Observation Observation Oxygen Delivery Method Room Air Blood Pressure (90/60-120/80) 108/66 103/77 Blood Pressure Mean (mm Hg) 80 85 Source Monitor Monitor Position Semi-Fowlers Blood Pressure Location Left Arm History Since Last Visit- (Skip if this is Patient's initial visit) Have you changed medications since your No last visit? Any new allergies or adverse reactions No Had a fall/change in ADL's that may No increase risk of falls Signs or symptoms of abuse and/or No neglect since last visit Have you been in the hospital since your No last visit? Has dressing in place as prescribed Yes Has compression in place as prescribed Yes Has offloadiing in place as prescribed N/A Experienced any changes in pain level or No management Left Footwear Surgical Shoe No Footwear with pressure relief insole Right Footwear Surgical Shoe Regular Shoe with pressure relief insole Pain Scale: 0-10 Numeric Is Patient Pain Free? No Yes L Foot -Description Dull,Throbbing -Pain Behavior Guarding, Withdrawal from Touch -Pain Aggravating Factors ADL's -Alleviating Factors/Interventions Medication Neuropathy Assessment Feet - Top Side and Bottom <Entered> (a) (a) 1 - _ 2 - _ WC - Nurse 1 - General Ulcer Measurement Start: 10/31/23 08:58 Freq: Status: Active Protocol: Activity Type Activity Date Activity User E-sign Co-sign Detail Recorded Client Recorded Date Recorded By Document 10/31/23 09:34 KW [id number] 10/31/23 09:37 KW Edit Result 10/31/23 09:34 KW (1) [id number] 10/31/23 09:38 KW Document 11/07/23 09:07 KW l 11/07/23 09:31 KW (1) #3 L Heel - Exudate Type => Serosanguineous - Wound Margin => Distinct, Outline => Attached - Granulation Amt => Large (67-100%) - Granulation Quality => Hyper-granulation, => Red - Necrosis Amt => None Present (0%) - Structure Exposed => N/A - Texture (Dayana-wound Skin Appearance) => Scarring - Moisture (Dayana-wound Skin Appearance) => Dry/Scaly - Color (Dayana-wound Skin Appearance) => No Abnormality - Temperature (Dayana-wound Skin => No Abnormality (Pt Appearance) => Warm) - Tenderness on Palpation (Dayana-wound => Yes Skin Appearance) - Ulcer Cleansing => Soap and Water - Foul Odor after Cleansing => No - Anesthetic Used => 5% Lidocaine Gel 10/31/23 11/07/23 09:34 09:07 Wound Center Nurse 1 #3 L Heel -Current Size (cm) - Length 5 4.5 -Current Size (cm) - Width 5.6 4.1 -Current Size (cm) - Depth 0.1 0 -Total Square Cm 28.0 18.45 -Date of Last Picture (Recall this 11/07/23 field) -Photo Taken Yes -Exudate Amt Medium Medium -Exudate Type Serosanguineous Serosanguineous -Wound Margin Distinct, Distinct, Outline Outline Attached Attached -Granulation Amt Large (67-100%) Large (67-100%) -Granulation Quality Hyper- Hyper- granulation,Red granulation,Red -Necrosis Amt None Present (0 Small (1-33%) %) -Necrotic Tissue Type Adherent Slough -Structure Exposed N/A -Texture (Dayana-wound Skin Appearance) Scarring Assessed -Moisture (Dayana-wound Skin Appearance) Dry/Scaly Assessed,Dry/ Scaly -Color (Dayana-wound Skin Appearance) No Abnormality Assessed -Temperature (Dayana-wound Skin No Abnormality No Abnormality Appearance) (Pt Warm) (Pt Warm) -Tenderness on Palpation (Dayana-wound Yes No Skin Appearance) -Ulcer Cleansing Soap and Water Soap and Water -Foul Odor after Cleansing No No -Anesthetic Used 5% Lidocaine 5% Lidocaine Gel Gel #2 L 4th toe -Current Size (cm) - Length 0.1 0.6 -Current Size (cm) - Width 0.1 0.4 -Current Size (cm) - Depth 0.1 0.1 -Total Square Cm 0.01 0.24 -Date of Last Picture (Recall this 11/07/23 field) -Photo Taken Yes -Exudate Amt None Present Small -Exudate Type Serosanguineous -Wound Margin Distinct, Distinct, Outline Outline Attached Attached -Granulation Amt None Present (0 Large (67-100%) %) -Granulation Quality Red -Necrosis Amt None Present (0 %) -Structure Exposed N/A -Texture (Dayana-wound Skin Appearance) Localized Edema Assessed ,Scarring -Moisture (Dayana-wound Skin Appearance) Dry/Scaly Assessed -Color (Dayana-wound Skin Appearance) Erythema Assessed -Temperature (Dayana-wound Skin No Abnormality No Abnormality Appearance) (Pt Warm) (Pt Warm) -Tenderness on Palpation (Dayana-wound No Skin Appearance) -Ulcer Cleansing Soap and Water Soap and Water -Foul Odor after Cleansing No No -Anesthetic Used 5% Lidocaine Gel #1 L Grt Toe -Current Size (cm) - Length 0.1 0.1 -Current Size (cm) - Width 0.1 0.1 -Current Size (cm) - Depth 0.1 0.1 -Total Square Cm 0.01 0.01 -Date of Last Picture (Recall this 11/07/23 field) -Photo Taken Yes -Exudate Amt None Present None Present -Wound Margin Distinct, Distinct, Outline Outline Attached Attached -Granulation Amt None Present (0 %) -Necrosis Amt None Present (0 %) -Structure Exposed N/A -Texture (Dayana-wound Skin Appearance) Localized Edema Assessed ,Scarring -Moisture (Dayana-wound Skin Appearance) Dry/Scaly Assessed -Color (Dayana-wound Skin Appearance) Erythema Assessed -Temperature (Dayana-wound Skin No Abnormality No Abnormality Appearance) (Pt Warm) (Pt Warm) -Tenderness on Palpation (Dayana-wound No No Skin Appearance) -Ulcer Cleansing Soap and Water Soap and Water -Foul Odor after Cleansing No WC - Nurse 2 - General Ulcer CM Notes Start: 10/31/23 08:58 Freq: Status: Active Protocol: Activity Type Activity Date Activity User E-sign Co-sign Detail Recorded Client Recorded Date Recorded By Document 10/31/23 09:37 [facility] [email or web address] 10/31/23 09:52 BM Document 11/07/23 10:04 JF 0000 11/07/23 10:07 JF 10/31/23 11/07/23 09:37 10:04 Wound Center Nurse 2 #3 L Heel -Time 09:44 10:05 -Correct Patient Yes Yes -Correct Side, Site, Position Yes Yes -Correct Procedure Yes Yes -Procedure Performed Yes Yes -Type of Procedure Debridement Debridement -Clinical Debridement Subcutaneous Subcutaneous -Tissue Removed Subcutaneous Subcutaneous -Post Debridement (cm) - Length 3.5 4.4 -Post Debridement (cm) - Width 4.4 3.5 -Post Debridement (cm) - Depth 0.3 0.1 -Total Square (Post) (cm) 15.40 15.40 -Area of Debridement (cm) - Length 3.5 4.4 -Area of Debridement (cm) - Width 4.4 3.5 -Total Square (Area) (cm) 15.40 15.40 -Tunneling No No -Undermining/Tunneling No No -Circular Undermining No No -Wound/Ulcer Outcome Not Healed Not Healed -Ulcer Cleansing Rinsed/ Rinsed/ Irrigated with Irrigated with Saline Saline -Foul Odor after Cleansing No No -Bioengineered Tissue No No -Bleeding Controlled with Pressure Pressure -Treatment Response Procedure Procedure Tolerated Well Tolerated Well -Offloading Yes Yes -Type of Offloading Other Surgical Shoe -Other Type of Offloading heel protector -Debridement - Subq, 1st 20sq cm Yes Yes #2 L 4th toe -Time 09:38 -Correct Patient No -Correct Side, Site, Position No -Correct Procedure No -Procedure Performed No -Post Debridement (cm) - Length 0 -Post Debridement (cm) - Width 0 -Post Debridement (cm) - Depth 0 -Total Square (Post) (cm) 0 -Area of Debridement (cm) - Length 0 -Area of Debridement (cm) - Width 0 -Total Square (Area) (cm) 0 -Wound/Ulcer Outcome Healed- Not Healed Epithelialized -Wound Comment(s) suture removal in clinic #1 L Grt Toe -Time 09:40 -Correct Patient No -Correct Side, Site, Position No -Correct Procedure No -Procedure Performed No -Post Debridement (cm) - Length 0 -Post Debridement (cm) - Width 0 -Post Debridement (cm) - Depth 0 -Total Square (Post) (cm) 0 -Area of Debridement (cm) - Length 0 -Area of Debridement (cm) - Width 0 -Total Square (Area) (cm) 0 -Wound/Ulcer Outcome Healed- Not Healed Epithelialized -Wound Comment(s) sutures removed in clinic today Pain Scale: 0-10 Numeric Is Patient Pain Free? Yes Yes - Nurse 3 - General Ulcer D/C NN Start: 10/31/23 08:58 Freq: Status: Active Protocol: Activity Type Activity Date Activity User E-sign Co-sign Detail Recorded Client Recorded Date Recorded By Document 10/31/23 09:58 KW ; 10/31/23 09:59 KW 10/31/23 09:58 Wound Care Center Nurse 3 #3 L Heel -Primary Dressing Applied Aquacel AG 4x4 -Primary Dressing Covered/Secured with Dry Gauze & Roll Gauze, Secured with Tape -Aquacel AG 4x4 1 #2 L 4th toe -Other Dressing BETADINE -Primary Dressing Covered/Secured with Dry Gauze #1 L Grt Toe -Other Dressing BETADINE -Primary Dressing Covered/Secured with Dry Gauze Pain Scale: 0-10 Numeric Is Patient Pain Free? Yes WC - Visit Discharge Discharge Condition Stable Ambulatory Status Wheelchair Medication Reconcilliation completed & No provided to patient/care provider Clinical Summary of Care Provided Yes Assessment/Plan Assessment/Plan (1) Other specified peripheral vascular diseases: CODE(S): I73.89 - Other specified peripheral vascular diseases PLAN: Exam performed Hallux and fifth toe amputation sites healed. Left heel wound excisionally debrided down to including level subcutaneous tissue of all nonviable tissue using 5 mm dermal curette. Patient tolerated procedure anesthesia well apparent satisfactory condition. Topical anesthesia used. Hemostasis obtained for compression. Pre and postdebridement measurements documented nursing notes. Will plan for daily silver alginate dry sterile dressing and compression via Bartolo bandage. I have recommended some Betadine application to toes 1 through 5 due to some slight maceration on the left lower extremity. Patient continue nonweightbearing left lower extremity can transfer on right foot full weightbearing to tolerance. No additional antibiotics recommended in my opinion at this time. Follow-up in 1 week. (2) Non-pressure chronic ulcer of other part of left foot with fat layer exposed: CODE(S): L97.522 - Non-pressure chronic ulcer of other part of left foot with fat layer exposed
[2023-11-14 08:40] VITALS: BP 91/59; PULSE 92; RESP 18; TEMP 36.2; BMI 23.6
--- NOTE | 2023-11-14 09:12 | PCM.WC.PN ---
History of Present Illness Date of Service: 11/14/23 Progress of Wound: Patient presents follow-up left first and fifth toe amputation as well as wound debridement bone biopsy left calcaneus. Patient denies any fever chills nausea vomiting chest pain calf pain shortness of breath. Patient has been nonweightbearing to left lower extremity in senior care facility. Patient does have some pain today but this is baseline this patient has chronic pain is seen pain management in the past. Patient is recovering from left femoral popliteal bypass and is following up with vascular surgery on the . No other complaints. Objective Data Objective Data Vital Signs: Vital Signs Temp Pulse Resp BP O2 Del Method 97.1 F L 92 18 91/59 L Room Air 11/14/23 08:40 11/14/23 08:40 11/14/23 08:40 11/14/23 08:40 11/07/23 09:07 Oxygen Delivery Method Room Air Weight: 70.632 kg Body Mass Index (BMI) 23.6 Physical Exam Narrative Intact pulses left lower extremity. 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 Full-thickness wound to the left lateral calcaneus. This demonstrates 100% granular base with clean skin edges no acute signs of infection deep probing or undermining. Pre and postdebridement measurements documented nursing notes. No wounds to right lower extremity. Muscular strength full to bilateral lower extremity compartments. No gross wound forming deformities noted. Debridement Note Debridement Note Post-Debridement Measurements and Additional Note: Post-Debridement Measurements/Treatment - Nurse 1 - General Ulcer Assessment Start: 10/31/23 08:58 Freq: Status: Active Protocol: SARAH Activity Type Activity Date Activity User E-sign Co-sign Detail Recorded Client Recorded Date Recorded By Document 10/31/23 08:58 DL [email or web address] 10/31/23 09:13 DL Document 11/07/23 09:07 KW l 11/07/23 09:31 KW Document 11/14/23 08:40 DL [email or web address] 11/14/23 08:50 DL 10/31/23 11/07/23 11/14/23 08:58 09:07 08:40 - Today's Visit Information Type of service Initial Visit Follow-up Visit Follow-up Visit (Physician/INVASIVE CARDIOVASCULAR TECHNOLOGIST (Physician/INVASIVE CARDIOVASCULAR TECHNOLOGIST ) ) Arrival Mode Wheelchair Wheelchair Wheelchair Transfer Assistance None None Accompanied by sister Patient Identification Verified (Name & Yes Yes Yes ) Patient Requires Transmission-Based No No Precautions Height and Weight Height 5 ft 8 in Weight 70.632 kg Weight in Pounds 155.7 lbs Body Mass Index (BMI) 23.6 23.6 23.6 BMI Classification Normal Normal Normal BSA - Elias 1.84 Vital Signs Temperature (97.8 F-99.1 F) 97.5 F L 97.2 F L 97.1 F L Temperature Source Temporal Temporal Temporal Pulse Rate (60-100) 103 H 109 H 92 Pulse Location Monitor Monitor Monitor Respiratory Rate (12-18) 18 18 18 Respiratory rate source Observation Observation Observation Oxygen Delivery Method Room Air Blood Pressure (90/60-120/80) 108/66 103/77 91/59 L Blood Pressure Mean (mm Hg) 80 85 69 Source Monitor Monitor Monitor Position Semi-Fowlers Blood Pressure Location Left Arm History Since Last Visit- (Skip if this is Patient's initial visit) Have you changed medications since your No No last visit? Any new allergies or adverse reactions No No Had a fall/change in ADL's that may No No increase risk of falls Signs or symptoms of abuse and/or No No neglect since last visit Have you been in the hospital since your No No last visit? Has dressing in place as prescribed Yes Yes Has compression in place as prescribed Yes Yes Has offloadiing in place as prescribed N/A Yes Experienced any changes in pain level or No No management Left Footwear Surgical Shoe No Footwear No Footwear with pressure relief insole Right Footwear Surgical Shoe Regular Shoe Regular Shoe with pressure relief insole Pain Scale: 0-10 Numeric Is Patient Pain Free? No Yes Yes L Foot -Description Dull,Throbbing -Pain Behavior Guarding, Withdrawal from Touch -Pain Aggravating Factors ADL's -Alleviating Factors/Interventions Medication Neuropathy Assessment Feet - Top Side and Bottom <Entered> (a) (a) 1 - _ 2 - _ WC - Nurse 1 - General Ulcer Measurement Start: 10/31/23 08:58 Freq: Status: Active Protocol: Activity Type Activity Date Activity User E-sign Co-sign Detail Recorded Client Recorded Date Recorded By Document 10/31/23 09:34 KW [id number] 10/31/23 09:37 KW Edit Result 10/31/23 09:34 KW (1) [id number] 10/31/23 09:38 KW Document 11/07/23 09:07 KW l 11/07/23 09:31 KW Document 11/14/23 08:40 DL [email or web address] 11/14/23 08:50 DL (1) #3 L Heel - Exudate Type => Serosanguineous - Wound Margin => Distinct, Outline => Attached - Granulation Amt => Large (67-100%) - Granulation Quality => Hyper-granulation, => Red - Necrosis Amt => None Present (0%) - Structure Exposed => N/A - Texture (Dayana-wound Skin Appearance) => Scarring - Moisture (Dayana-wound Skin Appearance) => Dry/Scaly - Color (Dayana-wound Skin Appearance) => No Abnormality - Temperature (Dayana-wound Skin => No Abnormality (Pt Appearance) => Warm) - Tenderness on Palpation (Dayana-wound => Yes Skin Appearance) - Ulcer Cleansing => Soap and Water - Foul Odor after Cleansing => No - Anesthetic Used => 5% Lidocaine Gel 10/31/23 11/07/23 11/14/23 09:34 09:07 08:40 Wound Center Nurse 1 #3 L Heel -Current Size (cm) - Length 5 4.5 4.3 -Current Size (cm) - Width 5.6 4.1 4.8 -Current Size (cm) - Depth 0.1 0 0.1 -Total Square Cm 28.0 18.45 20.64 -Date of Last Picture (Recall this 11/07/23 field) -Photo Taken Yes Yes -Exudate Amt Medium Medium Medium -Exudate Type Serosanguineous Serosanguineous Serosanguineous -Wound Margin Distinct, Distinct, Distinct, Outline Outline Outline Attached Attached Attached -Granulation Amt Large (67-100%) Large (67-100%) Large (67-100%) -Granulation Quality Hyper- Hyper- Hyper- granulation,Red granulation,Red granulation,Red -Necrosis Amt None Present (0 Small (1-33%) Small (1-33%) %) -Necrotic Tissue Type Adherent Slough Adherent Slough -Structure Exposed N/A N/A -Texture (Dayana-wound Skin Appearance) Scarring Assessed Scarring -Moisture (Dayana-wound Skin Appearance) Dry/Scaly Assessed,Dry/ Dry/Scaly Scaly -Color (Dayana-wound Skin Appearance) No Abnormality Assessed Hemosiderin Staining -Temperature (Dayana-wound Skin No Abnormality No Abnormality No Abnormality Appearance) (Pt Warm) (Pt Warm) (Pt Warm) -Tenderness on Palpation (Dayana-wound Yes No No Skin Appearance) -Ulcer Cleansing Soap and Water Soap and Water Soap and Water -Foul Odor after Cleansing No No No -Anesthetic Used 5% Lidocaine 5% Lidocaine 4% Lidocaine Gel Gel Solution #2 L 4th toe -Current Size (cm) - Length 0.1 0.6 0.4 -Current Size (cm) - Width 0.1 0.4 0.6 -Current Size (cm) - Depth 0.1 0.1 0.1 -Total Square Cm 0.01 0.24 0.24 -Date of Last Picture (Recall this 11/07/23 field) -Photo Taken Yes Yes -Exudate Amt None Present Small Small -Exudate Type Serosanguineous Serous -Wound Margin Distinct, Distinct, Distinct, Outline Outline Outline Attached Attached Attached -Granulation Amt None Present (0 Large (67-100%) Small (1-33%) %) -Granulation Quality Red Yale,Red -Necrosis Amt None Present (0 Small (1-33%) %) -Structure Exposed N/A N/A -Texture (Dayana-wound Skin Appearance) Localized Edema Assessed Scarring ,Scarring -Moisture (Dayana-wound Skin Appearance) Dry/Scaly Assessed Dry/Scaly -Color (Dayana-wound Skin Appearance) Erythema Assessed Hemosiderin Staining -Temperature (Dayana-wound Skin No Abnormality No Abnormality No Abnormality Appearance) (Pt Warm) (Pt Warm) (Pt Warm) -Tenderness on Palpation (Dayana-wound No No Skin Appearance) -Ulcer Cleansing Soap and Water Soap and Water Soap and Water -Foul Odor after Cleansing No No No -Anesthetic Used 5% Lidocaine 5% Lidocaine Gel Gel #1 L Grt Toe -Current Size (cm) - Length 0.1 0.1 0 -Current Size (cm) - Width 0.1 0.1 0 -Current Size (cm) - Depth 0.1 0.1 -Total Square Cm 0.01 0.01 0 -Date of Last Picture (Recall this 07/23/24 field) -Photo Taken Yes Yes -Exudate Amt None Present None Present None Present -Wound Margin Distinct, Distinct, Flat & Intact Outline Outline Attached Attached -Granulation Amt None Present (0 Large (67-100%) %) -Granulation Quality Yale -Necrosis Amt None Present (0 None Present (0 %) %) -Structure Exposed N/A N/A -Texture (Dayana-wound Skin Appearance) Localized Edema Assessed No Abnormality ,Scarring -Moisture (Dayana-wound Skin Appearance) Dry/Scaly Assessed No Abnormality -Color (Dayana-wound Skin Appearance) Erythema Assessed No Abnormality -Temperature (Dayana-wound Skin No Abnormality No Abnormality No Abnormality Appearance) (Pt Warm) (Pt Warm) (Pt Warm) -Tenderness on Palpation (Dayana-wound No No No Skin Appearance) -Ulcer Cleansing Soap and Water Soap and Water Soap and Water -Foul Odor after Cleansing No No WC - Nurse 2 - General Ulcer CM Notes Start: 10/31/23 08:58 Freq: Status: Active Protocol: Activity Type Activity Date Activity User E-sign Co-sign Detail Recorded Client Recorded Date Recorded By Document 10/31/23 09:37 [facility] 10.10.25.7 10/31/23 09:52 [facility] Document 11/07/23 10:04 0000 11/07/23 10:07 Document 11/14/23 09:03 0000 11/14/23 09:11 10/31/23 11/07/23 11/14/23 09:37 10:04 09:03 Wound Center Nurse 2 #3 L Heel -Time 09:44 10:05 09:03 -Correct Patient Yes Yes Yes -Correct Side, Site, Position Yes Yes Yes -Correct Procedure Yes Yes Yes -Procedure Performed Yes Yes Yes -Type of Procedure Debridement Debridement Debridement -Clinical Debridement Subcutaneous Subcutaneous Subcutaneous -Tissue Removed Subcutaneous Subcutaneous Subcutaneous -Post Debridement (cm) - Length 3.5 4.4 4.4 -Post Debridement (cm) - Width 4.4 3.5 3.7 -Post Debridement (cm) - Depth 0.3 0.1 0.1 -Total Square (Post) (cm) 15.40 15.40 16.28 -Area of Debridement (cm) - Length 3.5 4.4 4.4 -Area of Debridement (cm) - Width 4.4 3.5 3.7 -Total Square (Area) (cm) 15.40 15.40 16.28 -Tunneling No No No -Undermining/Tunneling No No No -Circular Undermining No No No -Wound/Ulcer Outcome Not Healed Not Healed Not Healed -Ulcer Cleansing Rinsed/ Rinsed/ Rinsed/ Irrigated with Irrigated with Irrigated with Saline Saline Saline -Foul Odor after Cleansing No No No -Bioengineered Tissue No No Yes -Type of Bioengineered Tissue Epifix Mesh -Expiration Date 04/17/28 -Product Lot Number [id number] -Percent Used 100 -Lot number of Saline Used [id number] -Bleeding Controlled with Pressure Pressure Pressure -Treatment Response Procedure Procedure Procedure Tolerated Well Tolerated Well Tolerated Well -Offloading Yes Yes No -Type of Offloading Other Surgical Shoe -Other Type of Offloading heel protector -Debridement - Subq, 1st 20sq cm Yes Yes No -Apply Skin Sub - 1st 25 sq cm - Feet 1 -Epifix Mesh (per sq cm) 11 #2 L 4th toe -Time 09:38 -Correct Patient No No -Correct Side, Site, Position No No -Correct Procedure No No -Procedure Performed No No -Post Debridement (cm) - Length 0 -Post Debridement (cm) - Width 0 -Post Debridement (cm) - Depth 0 -Total Square (Post) (cm) 0 -Area of Debridement (cm) - Length 0 -Area of Debridement (cm) - Width 0 -Total Square (Area) (cm) 0 -Wound/Ulcer Outcome Healed- Not Healed Not Healed Epithelialized -Wound Comment(s) suture removal in clinic #1 L Grt Toe -Time 09:40 -Correct Patient No No -Correct Side, Site, Position No No -Correct Procedure No No -Procedure Performed No No -Post Debridement (cm) - Length 0 -Post Debridement (cm) - Width 0 -Post Debridement (cm) - Depth 0 -Total Square (Post) (cm) 0 -Area of Debridement (cm) - Length 0 -Area of Debridement (cm) - Width 0 -Total Square (Area) (cm) 0 -Wound/Ulcer Outcome Healed- Not Healed Not Healed Epithelialized -Wound Comment(s) sutures removed in clinic today Pain Scale: 0-10 Numeric Is Patient Pain Free? Yes Yes Yes WC - Nurse 3 - General Ulcer D/C NN Start: 10/31/23 08:58 Freq: Status: Active Protocol: Activity Type Activity Date Activity User E-sign Co-sign Detail Recorded Client Recorded Date Recorded By Document 10/31/23 09:58 KW ; 10/31/23 09:59 KW Document 11/07/23 10:34 RB wound 11/07/23 10:36 RB 10/31/23 11/07/23 09:58 10:34 Wound Care Center Nurse 3 #3 L Heel -Primary Dressing Applied Aquacel AG 4x4 Aquacel AG 4x4 -Other Dressing nurses hat -Primary Dressing Covered/Secured with Dry Gauze & Dry Gauze,Dry Roll Gauze, Gauze & Roll Secured with Gauze,Secured Tape with Tape -Aquacel AG 4x4 1 1 #2 L 4th toe -Ulcer Cleansing betadine -Primary Dressing Applied NonAdherent Contact Layer -Other Dressing BETADINE -Primary Dressing Covered/Secured with Dry Gauze Dry Gauze,Dry Gauze & Roll Gauze,Secured with Tape #1 L Grt Toe -Ulcer Cleansing betadine -Primary Dressing Applied NonAdherent Contact Layer -Other Dressing BETADINE -Primary Dressing Covered/Secured with Dry Gauze Dry Gauze,Dry Gauze & Roll Gauze,Secured with Tape -Wound Comment(s) dominga LLE Treatment Response Procedure Tolerated Well Pain Scale: 0-10 Numeric Is Patient Pain Free? Yes Yes WC - Visit Discharge Discharge Condition Stable Stable Ambulatory Status Wheelchair Wheelchair Transportation Private Auto Medication Reconcilliation completed & No No provided to patient/care provider Clinical Summary of Care Provided Yes Yes Assessment/Plan Assessment/Plan (1) Other specified peripheral vascular diseases: CODE(S): I73.89 - Other specified peripheral vascular diseases PLAN: Exam performed X-rays left foot ordered Hallux and fifth toe amputation sites healed. Left heel wound excisionally debrided down to including level subcutaneous tissue of all nonviable tissue using 5 mm dermal curette. Patient tolerated procedure anesthesia well apparent satisfactory condition. Topical anesthesia used. Hemostasis obtained for compression. Pre and postdebridement measurements documented nursing notes. Today 4 x 4.5 cm EpiFix graft, 11 billing units applied to left foot wound. Entire graft used, no waste. Stabilized with overlying wound veil and Steri-Strips. Applied overlying dry sterile dressing with light compression. I have recommended some Betadine application to toes 1 through 5 due to some slight maceration on the left lower extremity. Patient continue nonweightbearing left lower extremity can transfer on right foot full weightbearing to tolerance. No additional antibiotics recommended in my opinion at this time. Follow-up in 1 week. (2) Non-pressure chronic ulcer of other part of left foot with fat layer exposed: CODE(S): L97.522 - Non-pressure chronic ulcer of other part of left foot with fat layer exposed
--- NOTE | 2023-11-14 10:10 | RAD_ITS ---
STUDY: X-RAY - LEFT FOOT CLINICAL: Male, 68 years old. Other acute osteomyelitis, left ankle and foot. TECHNIQUE: 3 view(s) of the foot. COMPARISON: 09/07/2023 FINDINGS: Normal talus, calcaneus, and tarsal bones. Normal visualized subtalar, talonavicular, calcaneocuboid, tarsal and tarsometatarsal articulations. Normal metatarsi. Normal metatarsophalangeal joint of the great toe. Normal tibial and fibular sesamoid bones. Normal interphalangeal joint of the great toe. Interval partial limitation of the first digit through the neck of the first proximal phalanx. Normal second through fifth metatarsophalangeal joints. Interval partial amputation of the fifth digit through the middle phalanx. The soft tissue structures are unremarkable. No bony destruction to suggest osteomyelitis. RAD/Foot min 3 Views IMPRESSION: No radiographic evidence of osteomyelitis. Electronically Signed: Clif Salas MD at 8:39 EDT ,
--- NOTE | 2023-11-15 11:49 | WC ---
PHOTO 11/14/23 LEFT HEEL
--- NOTE | 2023-11-15 11:49 | WC ---
PHOTO 11/14/2023 LEFT 4TH TOE
--- NOTE | 2023-11-16 11:23 | WC ---
PHOTO 11/07/23 LEFT 4TH TOE
--- NOTE | 2023-11-16 11:23 | WC ---
PHOTO 11/07/23 LEFT GREAT TOE
--- NOTE | 2023-11-16 11:24 | WC ---
PHOTO 11/07/23 LEFT HEEL
== END 2023-11-15 23:59 | disposition home or self-care (01) ==
LOC: WC 08:45
PROVIDERS: PCP Internal Medicine; Referring Provider Podiatrist; Visit Provider Podiatrist
DX: E11.621 Type 2 diabetes mellitus with foot ulcer (principal); L97.422 Non-pressure chronic ulcer of left heel and midfoot with fat layer exposed; I11.0 Hypertensive heart disease with heart failure; I50.9 Heart failure, unspecified; E11.51 Type 2 diabetes mellitus with diabetic peripheral angiopathy without gangrene; G89.29 Other chronic pain; Z79.82 Long term (current) use of aspirin; Z79.84 Long term (current) use of oral hypoglycemic drugs; Z79.01 Long term (current) use of anticoagulants; Z87.891 Personal history of nicotine dependence; Z89.422 Acquired absence of other left toe(s); Z89.412 Acquired absence of left great toe; Z95.820 Peripheral vascular angioplasty status with implants and grafts
CPT/HCPCS: 11042; 15275; 73630; 99214; Q4186; G0463

== ENCOUNTER 2023-12-12 08:45 | Outpatient (RCR) | payer MEDICARE, SELFPAY ==
[2023-11-16 00:32] VITALS: BP 91/59; PULSE 92; RESP 18; TEMP 36.2; BMI 23.6
[2023-11-21 08:43] VITALS: BP 100/68; PULSE 82; RESP 18; TEMP 36.1; BMI 23.6
--- NOTE | 2023-11-21 11:21 | PCM.WC.PN ---
History of Present Illness Date of Service: 11/21/23 Chief Complaint: Left lateral heel ulcer and left fourth toe ulcer Subjective Subjective Courtesy visit for Dr. Sanchez. Patient had surgery 09/28/23 on left first and fifth toe amputation as well as wound debridement bone biopsy left calcaneus performed by Dr. Sanchez. Patient has been nonweightbearing to left lower extremity in care home facility. Patient is recovering from left femoral popliteal bypass on 09/18/[address] Mg, vascular surgery. Patient denies any fever chills nausea vomiting chest pain calf pain shortness of breath. He had Epifix #1 placed last week on his left lateral heel. He has been tolerating this well. This ulcer is a nice beefy pink color. It is slightly smaller in size. His left 4th toe ulcer is dry, he has been placing betadine onto this area. Objective Data Objective Data Vital Signs: Vital Signs Temp Pulse Resp BP O2 Del Method 97.0 F L 82 18 100/68 Room Air 11/21/23 08:43 11/21/23 08:43 11/21/23 08:43 11/21/23 08:43 11/21/23 08:43 Oxygen Delivery Method Room Air Weight: 155 lb 11.464 oz Body Mass Index (BMI) 23.6 Charges/Coding Procedures Integumentary 150xxx-152xx: 50839 Skin sub graft face/nk/hf/g (left lateral heel) Multi Select Codes Integumentary Integumentary CPT Codes: 70187 Cher subq tissue 20 sq cm/< (left 4th toe) Debridement Note Debridement Note Wound debrided: #3 lateral heel ulcer Laterality: Left Anesthesia Used: 5% Lidocaine Gel Depth: Down to and including healthy tissue and in the subcutaneous layer Percentage of wound debrided: 100 Instrument Used: 5mm curette Tissue Removed: Nonviable tissue and slough Severity: Fat Layer Exposed Amount of bleeding with debridement: Mild Bleeding Controlled with: Compression and gauze Patient tolerated procedure: Patient tolerated procedure well Post-Debridement Measurements and Additional Note: Post-Debridement Measurements/Treatment WC - Nurse 1 - General Ulcer Assessment Start: 11/21/23 08:43 Freq: Status: Active Protocol: SARAH Activity Type Activity Date Activity User E-sign Co-sign Detail Recorded Client Recorded Date Recorded By Document 11/21/23 08:43 KW 11/21/23 09:05 11/21/23 08:43 - Today's Visit Information Type of service Follow-up Visit (Physician/DISTANCE LEARNING TECHNICIAN ) Arrival Mode Wheelchair Accompanied by BROTHER Patient Identification Verified (Name & Yes ) Height and Weight Body Mass Index (BMI) 23.6 BMI Classification Normal Vital Signs Temperature (97.8 F-99.1 F) 97.0 F L Temperature Source Temporal Pulse Rate (60-100) 82 Pulse Location Monitor Respiratory Rate (12-18) 18 Respiratory rate source Observation Oxygen Delivery Method Room Air Blood Pressure (90/60-120/80) 100/68 Blood Pressure Mean (mm Hg) 78 Source Monitor Position Sitting Blood Pressure Location Right Arm History Since Last Visit- (Skip if this is Patient's initial visit) Have you changed medications since your No last visit? Any new allergies or adverse reactions No Had a fall/change in ADL's that may No increase risk of falls Signs or symptoms of abuse and/or No neglect since last visit Have you been in the hospital since your No last visit? Has dressing in place as prescribed Yes Has compression in place as prescribed Yes Has offloadiing in place as prescribed N/A Experienced any changes in pain level or No management Left Footwear No Footwear Right Footwear Regular Shoe Pain Scale: 0-10 Numeric Is Patient Pain Free? Yes - Nurse 1 - General Ulcer Measurement Start: 11/21/23 08:43 Freq: Status: Active Protocol: Activity Type Activity Date Activity User E-sign Co-sign Detail Recorded Client Recorded Date Recorded By Document 11/21/23 08:43 DEEPTHI shepherd 11/21/23 09:05 11/21/23 08:43 Wound Center Nurse 1 #3 L Heel -Current Size (cm) - Length 4.6 -Current Size (cm) - Width 4.6 -Current Size (cm) - Depth 0.1 -Total Square Cm 21.16 -Date of Last Picture (Recall this 11/21/23 field) -Epithelialization Small 1-33% -Exudate Amt Medium -Exudate Type Serosanguineous -Wound Margin Distinct, Outline Attached -Granulation Amt Large (67-100%) -Granulation Quality Red -Texture (Dayana-wound Skin Appearance) Assessed -Moisture (Dayana-wound Skin Appearance) Assessed,Dry/ Scaly -Color (Dayana-wound Skin Appearance) Assessed -Temperature (Dayana-wound Skin No Abnormality Appearance) (Pt Warm) -Tenderness on Palpation (Dayana-wound No Skin Appearance) -Ulcer Cleansing Soap and Water -Foul Odor after Cleansing No -Anesthetic Used 5% Lidocaine Gel #2 L 4th toe -Current Size (cm) - Length 0.3 -Current Size (cm) - Width 0.5 -Current Size (cm) - Depth 0.1 -Total Square Cm 0.15 -Date of Last Picture (Recall this 11/21/23 field) -Exudate Amt Small -Exudate Type Serosanguineous -Wound Margin Distinct, Outline Attached -Granulation Amt Large (67-100%) -Granulation Quality Red -Necrosis Amt Small (1-33%) -Necrotic Tissue Type Adherent Slough -Texture (Dayana-wound Skin Appearance) Assessed -Moisture (Dayana-wound Skin Appearance) Assessed -Color (Dayana-wound Skin Appearance) Assessed -Temperature (Dayana-wound Skin No Abnormality Appearance) (Pt Warm) -Tenderness on Palpation (Dayana-wound No Skin Appearance) -Ulcer Cleansing Soap and Water -Foul Odor after Cleansing No -Anesthetic Used 5% Lidocaine Gel WC - Nurse 2 - General Ulcer CM Notes Start: 11/21/23 08:43 Freq: Status: Active Protocol: Activity Type Activity Date Activity User E-sign Co-sign Detail Recorded Client Recorded Date Recorded By Document 11/21/23 09:32 JF 0000 11/21/23 09:38 JF 11/21/23 09:32 Wound Center Nurse 2 #1 L Grt Toe -Correct Patient No -Correct Side, Site, Position No -Correct Procedure No -Procedure Performed No -Post Debridement (cm) - Length 0 -Post Debridement (cm) - Width 0 -Post Debridement (cm) - Depth 0 -Total Square (Post) (cm) 0 -Area of Debridement (cm) - Length 0 -Area of Debridement (cm) - Width 0 -Total Square (Area) (cm) 0 -Wound/Ulcer Outcome Healed- Epithelialized #3 L Heel -Time 09:36 -Correct Patient Yes -Correct Side, Site, Position Yes -Correct Procedure Yes -Procedure Performed Yes -Type of Procedure Debridement -Clinical Debridement Subcutaneous -Tissue Removed Subcutaneous -Post Debridement (cm) - Length 4.0 -Post Debridement (cm) - Width 3.5 -Post Debridement (cm) - Depth 0.1 -Total Square (Post) (cm) 14.00 -Area of Debridement (cm) - Length 4.0 -Area of Debridement (cm) - Width 3.5 -Total Square (Area) (cm) 14.00 -Tunneling No -Undermining/Tunneling No -Circular Undermining No -Wound/Ulcer Outcome Not Healed -Ulcer Cleansing Rinsed/ Irrigated with Saline -Foul Odor after Cleansing No -Bioengineered Tissue Yes -Type of Bioengineered Tissue Epifix Mesh -Expiration Date 05/18/28 -Product Lot Number [id number] -Percent Used 100 -Lot number of Saline Used [id number] -Bleeding Controlled with Silver Nitrate -Treatment Response Procedure Tolerated Well -Offloading No -Assistive Device(s) Wheelchair -Debridement - Subq, 1st 20sq cm No -Apply Skin Sub - 1st 25 sq cm - Feet 1 -Epifix Mesh (per sq cm) 11 #2 L 4th toe -Time 09:37 -Correct Patient Yes -Correct Side, Site, Position Yes -Correct Procedure Yes -Procedure Performed Yes -Type of Procedure Debridement -Clinical Debridement Subcutaneous -Tissue Removed Subcutaneous -Post Debridement (cm) - Length 1.0 -Post Debridement (cm) - Width 1.5 -Post Debridement (cm) - Depth 0.1 -Total Square (Post) (cm) 1.50 -Area of Debridement (cm) - Length 1.0 -Area of Debridement (cm) - Width 1.5 -Total Square (Area) (cm) 1.50 -Tunneling No -Undermining/Tunneling No -Circular Undermining No -Wound/Ulcer Outcome Not Healed -Ulcer Cleansing Rinsed/ Irrigated with Saline -Foul Odor after Cleansing No -Bioengineered Tissue No -Bleeding Controlled with Pressure -Treatment Response Procedure Tolerated Well -Offloading No -Assistive Device(s) Wheelchair -Debridement - Subq, 1st 20sq cm Yes Pain Scale: 0-10 Numeric Is Patient Pain Free? Yes WC - Nurse 3 - General Ulcer D/C NN Start: 11/21/23 08:43 Freq: Status: Active Protocol: Activity Type Activity Date Activity User E-sign Co-sign Detail Recorded Client Recorded Date Recorded By Document 11/21/23 10:07 KW kl 11/21/23 10:07 KW 11/21/23 10:07 Wound Care Center Nurse 3 #3 L Heel -Primary Dressing Covered/Secured with Dry Gauze & Roll Gauze, Secured with Tape #2 L 4th toe -Primary Dressing Applied C Hydrogel ($) -Primary Dressing Covered/Secured with Dry Gauze Left -Compression Wrap Bartolo Wrap Pain Scale: 0-10 Numeric Is Patient Pain Free? Yes WC - Visit Discharge Discharge Condition Stable Ambulatory Status Wheelchair Medication Reconcilliation completed & No provided to patient/care provider Clinical Summary of Care Provided Yes Additional Wound Wound debrided: #4 left 4th toe Laterality: Left Type of Debridement: Excisional debridement Anesthesia Used: 5% Lidocaine Gel Depth: Down to and including healthy tissue and in the subcutaneous layer Percentage of wound debrided: 100 Instrument Used: 3mm curette Tissue Removed: Nonviable tissue and slough Severity: Fat Layer Exposed Amount of bleeding with debridement: Mild Bleeding Controlled with: Pressure and Compression and gauze Patient tolerated procedure: Patient tolerated procedure well Assessment/Plan Assessment/Plan (1) Non-pressure chronic ulcer of other part of left foot with fat layer exposed: CODE(S): L97.522 - Non-pressure chronic ulcer of other part of left foot with fat layer exposed (2) Other specified peripheral vascular diseases: CODE(S): I73.89 - Other specified peripheral vascular diseases PLAN: Plan Courtesy visit for Dr. Sanchez. X-rays left foot performed 10/18/23 showed no radiographic evidence of osteomyelitis. This was reviewed with patient. Hallux and fifth toe amputation sites remain healed. Left lateral heel wound applied Epifix 4 x 4.5 cm. Second application. 100% of product used. Covered with wound veil that was secured with steri strips and covered with ABD. Today 4 x 4.5 cm EpiFix graft, 11 billing units applied to left foot wound. Entire graft used, no waste. Stabilized with overlying wound veil and Steri-Strips. Left 4th toe start hydrogel covered with gauze daily. This ulcer is very dry today. Compression with light BARTOLO wrap. Patient continue nonweightbearing left lower extremity can transfer on right foot full weightbearing to tolerance. Follow-up in [address] Sanchez.
--- NOTE | 2023-11-22 08:39 | WC ---
PHOTO LEFT GREAT TOE(H) 11/21/23
--- NOTE | 2023-11-22 08:40 | WC ---
PHOTO LEFT 4TH TOE 11/21/23
--- NOTE | 2023-11-22 08:41 | WC ---
PHOTO LEFT 4TH TOE 11/21/23
--- NOTE | 2023-11-22 08:41 | WC ---
PHOTO LEFT HEEL 11/21/23
[2023-11-28 08:42] VITALS: BP 104/69; PULSE 90; RESP 18; TEMP 36.4; BMI 23.6
--- NOTE | 2023-11-28 09:12 | PN.PCM_ITS ---
History of Present Illness Date of Service: 11/28/23 Chief Complaint: Left lateral heel ulcer and left fourth toe ulcer Progress of Wound: Denies constitutional symptoms. Patient follow-up left heel wound. No pain today. No other complaints. Pain significantly improved at this time. Objective Data Objective Data Vital Signs: Vital Signs Temp Pulse Resp BP O2 Del Method 97.5 F L 90 18 104/69 Room Air 11/28/23 08:42 11/28/23 08:42 11/28/23 08:42 11/28/23 08:42 11/28/23 08:42 Oxygen Delivery Method Room Air Weight: 70.632 kg Body Mass Index (BMI) 23.6 Physical Exam Narrative Intact pulses left lower extremity. 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 Full-thickness wound to the left lateral calcaneus. This demonstrates 100% granular base with clean skin edges no acute signs of infection deep probing or undermining. Pre and postdebridement measurements documented nursing notes. No wounds to right lower extremity. Muscular strength full to bilateral lower extremity compartments. No gross wound forming deformities noted. Debridement Note Debridement Note Post-Debridement Measurements and Additional Note: Post-Debridement Measurements/Treatment - Nurse 1 - General Ulcer Assessment Start: 11/21/23 08:43 Freq: Status: Active Protocol: LARA.CHETAN Activity Type Activity Date Activity User E-sign Co-sign Detail Recorded Client Recorded Date Recorded By Document 11/21/23 08:43 KW kl 11/21/23 09:05 KW Document 11/28/23 08:42 MT [id number] 11/28/23 08:51 MT 11/21/23 11/28/23 08:43 08:42 - Today's Visit Information Type of service Follow-up Visit Follow-up Visit (Physician/ACTIVITIES DIRECTOR (Physician/ACTIVITIES DIRECTOR ) ) Arrival Mode Wheelchair Wheelchair Accompanied by BROTHER brother Patient Identification Verified (Name & Yes Yes ) Height and Weight Body Mass Index (BMI) 23.6 23.6 BMI Classification Normal Normal Vital Signs Temperature (97.8 F-99.1 F) 97.0 F L 97.5 F L Temperature Source Temporal Temporal Pulse Rate (60-100) 82 90 Pulse Location Monitor Monitor Respiratory Rate (12-18) 18 18 Respiratory rate source Observation Observation Oxygen Delivery Method Room Air Room Air Blood Pressure (90/60-120/80) 100/68 104/69 Blood Pressure Mean (mm Hg) 78 80 Source Monitor Monitor Position Sitting Semi-Fowlers Blood Pressure Location Right Arm Left Arm History Since Last Visit- (Skip if this is Patient's initial visit) Have you changed medications since your No No last visit? Any new allergies or adverse reactions No No Had a fall/change in ADL's that may No No increase risk of falls Signs or symptoms of abuse and/or No No neglect since last visit Have you been in the hospital since your No No last visit? Has dressing in place as prescribed Yes Yes Has compression in place as prescribed Yes Yes Has offloadiing in place as prescribed N/A N/A Experienced any changes in pain level or No No management Left Footwear No Footwear Surgical Shoe with pressure relief insole Right Footwear Regular Shoe Regular Shoe Pain Scale: 0-10 Numeric Is Patient Pain Free? Yes Yes WC - Nurse 1 - General Ulcer Measurement Start: 11/21/23 08:43 Freq: Status: Active Protocol: Activity Type Activity Date Activity User E-sign Co-sign Detail Recorded Client Recorded Date Recorded By Document 11/21/23 08:43 KW kl 11/21/23 09:05 KW Document 11/28/23 08:42 MT [id number] 11/28/23 08:51 MT 11/21/23 11/28/23 08:43 08:42 Wound Center Nurse 1 #3 L Heel -Current Size (cm) - Length 4.6 3.6 -Current Size (cm) - Width 4.6 3.5 -Current Size (cm) - Depth 0.1 0.3 -Total Square Cm 21.16 12.60 -Date of Last Picture (Recall this 11/21/23 11/28/23 field) -Epithelialization Small 1-33% -Exudate Amt Medium Medium -Exudate Type Serosanguineous Serosanguineous -Wound Margin Distinct, Distinct, Outline Outline Attached Attached -Granulation Amt Large (67-100%) Medium (34-66%) -Granulation Quality Red [place] -Necrosis Amt Large (67-100%) -Necrotic Tissue Type Adherent Slough -Texture (Dayana-wound Skin Appearance) Assessed Assessed -Moisture (Dayana-wound Skin Appearance) Assessed,Dry/ Assessed Scaly -Color (Dayana-wound Skin Appearance) Assessed Assessed -Temperature (Dayana-wound Skin No Abnormality No Abnormality Appearance) (Pt Warm) (Pt Warm) -Tenderness on Palpation (Dayana-wound No No Skin Appearance) -Ulcer Cleansing Soap and Water Soap and Water -Foul Odor after Cleansing No No -Anesthetic Used 5% Lidocaine 5% Lidocaine Gel Gel #2 L 4th toe -Current Size (cm) - Length 0.3 0.1 -Current Size (cm) - Width 0.5 0.1 -Current Size (cm) - Depth 0.1 0.1 -Total Square Cm 0.15 0.01 -Date of Last Picture (Recall this 11/21/23 11/28/23 field) -Exudate Amt Small None Present -Exudate Type Serosanguineous -Wound Margin Distinct, Distinct, Outline Outline Attached Attached -Granulation Amt Large (67-100%) -Granulation Quality Red -Necrosis Amt Small (1-33%) -Necrotic Tissue Type Adherent Slough -Texture (Dayana-wound Skin Appearance) Assessed Assessed -Moisture (Dayana-wound Skin Appearance) Assessed Assessed -Color (Dayana-wound Skin Appearance) Assessed Assessed -Temperature (Dayana-wound Skin No Abnormality No Abnormality Appearance) (Pt Warm) (Pt Warm) -Tenderness on Palpation (Dayana-wound No No Skin Appearance) -Ulcer Cleansing Soap and Water Soap and Water -Foul Odor after Cleansing No No -Anesthetic Used 5% Lidocaine Gel WC - Nurse 2 - General Ulcer CM Notes Start: 11/21/23 08:43 Freq: Status: Active Protocol: Activity Type Activity Date Activity User E-sign Co-sign Detail Recorded Client Recorded Date Recorded By Document 11/21/23 09:32 0000 11/21/23 09:38 Document 11/28/23 08:54 0000 11/28/23 08:58 JF 11/21/23 11/28/23 09:32 08:54 Wound Center Nurse 2 #1 L Grt Toe -Correct Patient No -Correct Side, Site, Position No -Correct Procedure No -Procedure Performed No -Post Debridement (cm) - Length 0 -Post Debridement (cm) - Width 0 -Post Debridement (cm) - Depth 0 -Total Square (Post) (cm) 0 -Area of Debridement (cm) - Length 0 -Area of Debridement (cm) - Width 0 -Total Square (Area) (cm) 0 -Wound/Ulcer Outcome Healed- Epithelialized #3 L Heel -Time 09:36 08:54 -Correct Patient Yes Yes -Correct Side, Site, Position Yes Yes -Correct Procedure Yes Yes -Procedure Performed Yes Yes -Type of Procedure Debridement Debridement -Clinical Debridement Subcutaneous Subcutaneous -Tissue Removed Subcutaneous Subcutaneous -Post Debridement (cm) - Length 4.0 -Post Debridement (cm) - Width 3.5 -Post Debridement (cm) - Depth 0.1 -Total Square (Post) (cm) 14.00 -Area of Debridement (cm) - Length 4.0 -Area of Debridement (cm) - Width 3.5 -Total Square (Area) (cm) 14.00 -Tunneling No No -Undermining/Tunneling No No -Circular Undermining No No -Wound/Ulcer Outcome Not Healed Not Healed -Ulcer Cleansing Rinsed/ Rinsed/ Irrigated with Irrigated with Saline Saline -Foul Odor after Cleansing No No -Bioengineered Tissue Yes Yes -Type of Bioengineered Tissue Epifix Mesh Epifix Mesh -Expiration Date 05/18/28 05/18/28 -Product Lot Number [id number] -Percent Used 100 100 -Lot number of Saline Used [id number] -Bleeding Controlled with Silver Nitrate Pressure -Treatment Response Procedure Procedure Tolerated Well Tolerated Well -Offloading No -Type of Offloading Surgical Shoe -Assistive Device(s) Wheelchair -Debridement - Subq, 1st 20sq cm No No -Apply Skin Sub - 1st 25 sq cm - Feet 1 1 -Epifix Mesh (per sq cm) 11 11 #2 L 4th toe -Time 09:37 -Correct Patient Yes No -Correct Side, Site, Position Yes No -Correct Procedure Yes No -Procedure Performed Yes No -Type of Procedure Debridement -Clinical Debridement Subcutaneous -Tissue Removed Subcutaneous -Post Debridement (cm) - Length 1.0 -Post Debridement (cm) - Width 1.5 -Post Debridement (cm) - Depth 0.1 -Total Square (Post) (cm) 1.50 -Area of Debridement (cm) - Length 1.0 -Area of Debridement (cm) - Width 1.5 -Total Square (Area) (cm) 1.50 -Tunneling No -Undermining/Tunneling No -Circular Undermining No -Wound/Ulcer Outcome Not Healed Not Healed -Ulcer Cleansing Rinsed/ Irrigated with Saline -Foul Odor after Cleansing No -Bioengineered Tissue No -Bleeding Controlled with Pressure -Treatment Response Procedure Tolerated Well -Offloading No -Assistive Device(s) Wheelchair -Debridement - Subq, 1st 20sq cm Yes Pain Scale: 0-10 Numeric Is Patient Pain Free? Yes Yes - Nurse 3 - General Ulcer D/C NN Start: 11/21/23 08:43 Freq: Status: Active Protocol: Activity Type Activity Date Activity User E-sign Co-sign Detail Recorded Client Recorded Date Recorded By Document 11/21/23 10:07 KW kl 11/21/23 10:07 KW 11/21/23 10:07 Wound Care Center Nurse 3 #3 L Heel -Primary Dressing Covered/Secured with Dry Gauze & Roll Gauze, Secured with Tape #2 L 4th toe -Primary Dressing Applied C Hydrogel ($) -Primary Dressing Covered/Secured with Dry Gauze Left -Compression Wrap Bartolo Wrap Pain Scale: 0-10 Numeric Is Patient Pain Free? Yes - Visit Discharge Discharge Condition Stable Ambulatory Status Wheelchair Medication Reconcilliation completed & No provided to patient/care provider Clinical Summary of Care Provided Yes Assessment/Plan Assessment/Plan (1) Other specified peripheral vascular diseases: CODE(S): I73.89 - Other specified peripheral vascular diseases PLAN: Exam performed Hallux and fifth toe amputation sites healed. Left heel wound excisionally debrided down to including level subcutaneous tissue of all nonviable tissue using 5 mm dermal curette. Patient tolerated procedure anesthesia well apparent satisfactory condition. Topical anesthesia used. Hemostasis obtained for compression. Pre and postdebridement measurements documented nursing notes. Today 4 x 4.5 cm EpiFix graft, 11 billing units applied to left foot wound. Entire graft used, no waste. Stabilized with overlying wound veil and Steri- Strips. Applied overlying dry sterile dressing with light compression. I have recommended some Betadine application to toes 1 through 5 due to some slight maceration on the left lower extremity. Patient continue nonweightbearing left lower extremity can transfer on right foot full weightbearing to tolerance. No additional antibiotics recommended in my opinion at this time. Follow-up in 1 week. (2) Non-pressure chronic ulcer of other part of left foot with fat layer exposed: CODE(S): L97.522 - Non-pressure chronic ulcer of other part of left foot with fat layer exposed
[2023-12-05 08:37] VITALS: BP 103/74; PULSE 98; RESP 18; TEMP 36.4; BMI 23.6
--- NOTE | 2023-12-05 09:20 | PN.PCM_ITS ---
History of Present Illness Date of Service: 12/05/23 Chief Complaint: Left lateral heel ulcer and left fourth toe ulcer Progress of Wound: Denies constitutional symptoms. Patient follow-up left heel wound. No pain today. No other complaints. Pain significantly improved at this time. Objective Data Objective Data Vital Signs: Vital Signs Temp Pulse Resp BP O2 Del Method 97.5 F L 98 18 103/74 Room Air 12/05/23 08:37 12/05/23 08:37 12/05/23 08:37 12/05/23 08:37 12/05/23 08:37 Oxygen Delivery Method Room Air Weight: 70.632 kg Body Mass Index (BMI) 23.6 Physical Exam Narrative Intact pulses left lower extremity. 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 Full-thickness wound to the left lateral calcaneus. This demonstrates 100% granular base with clean skin edges no acute signs of infection deep probing or undermining. Pre and postdebridement measurements documented nursing notes. No wounds to right lower extremity. Muscular strength full to bilateral lower extremity compartments. No gross wound forming deformities noted. Debridement Note Debridement Note Post-Debridement Measurements and Additional Note: Post-Debridement Measurements/Treatment - Nurse 1 - General Ulcer Assessment Start: 11/21/23 08:43 Freq: Status: Active Protocol: SARAH Activity Type Activity Date Activity User E-sign Co-sign Detail Recorded Client Recorded Date Recorded By Document 11/21/23 08:43 KW kl 11/21/23 09:05 KW Document 11/28/23 08:42 MT [id number] 11/28/23 08:51 MT Document 12/05/23 08:37 KW [id number] 12/05/23 09:03 KW 11/21/23 11/28/23 12/05/23 08:43 08:42 08:37 - Today's Visit Information Type of service Follow-up Visit Follow-up Visit Follow-up Visit (Physician/CUT AND PRINT MACHINE OPERATOR (Physician/CUT AND PRINT MACHINE OPERATOR (Physician/CUT AND PRINT MACHINE OPERATOR ) ) ) Arrival Mode Wheelchair Wheelchair Wheelchair Accompanied by BROTHER brother Patient Identification Verified (Name & Yes Yes Yes ) Height and Weight Body Mass Index (BMI) 23.6 23.6 23.6 BMI Classification Normal Normal Normal Vital Signs Temperature (97.8 F-99.1 F) 97.0 F L 97.5 F L 97.5 F L Temperature Source Temporal Temporal Temporal Pulse Rate (60-100) 82 90 98 Pulse Location Monitor Monitor Monitor Respiratory Rate (12-18) 18 18 18 Respiratory rate source Observation Observation Observation Oxygen Delivery Method Room Air Room Air Room Air Blood Pressure (90/60-120/80) 100/68 104/69 103/74 Blood Pressure Mean (mm Hg) 78 80 83 Source Monitor Monitor Monitor Position Sitting Semi-Fowlers Sitting Blood Pressure Location Right Arm Left Arm Left Arm History Since Last Visit- (Skip if this is Patient's initial visit) Have you changed medications since your No No No last visit? Any new allergies or adverse reactions No No No Had a fall/change in ADL's that may No No No increase risk of falls Signs or symptoms of abuse and/or No No No neglect since last visit Have you been in the hospital since your No No No last visit? Has dressing in place as prescribed Yes Yes Yes Has compression in place as prescribed Yes Yes Yes Has offloadiing in place as prescribed N/A N/A Yes Experienced any changes in pain level or No No No management Left Footwear No Footwear Surgical Shoe Surgical Shoe with pressure with pressure relief insole relief insole Right Footwear Regular Shoe Regular Shoe Regular Shoe Pain Scale: 0-10 Numeric Is Patient Pain Free? Yes Yes No LT FOOT -Description Throbbing, Burning,Aching -Intensity 6 -Alleviating Factors/Interventions Medication, Turning/ Repositioning WC - Nurse 1 - General Ulcer Measurement Start: 11/21/23 08:43 Freq: Status: Active Protocol: Activity Type Activity Date Activity User E-sign Co-sign Detail Recorded Client Recorded Date Recorded By Document 11/21/23 08:43 KW kl 11/21/23 09:05 KW Document 11/28/23 08:42 MT [id number] 11/28/23 08:51 MT Document 12/05/23 08:37 KW [id number] 12/05/23 09:03 KW 11/21/23 11/28/23 12/05/23 08:43 08:42 08:37 Wound Center Nurse 1 #2 L 4th toe -Current Size (cm) - Length 0.3 0.1 -Current Size (cm) - Width 0.5 0.1 -Current Size (cm) - Depth 0.1 0.1 -Total Square Cm 0.15 0.01 -Date of Last Picture (Recall this 11/21/23 11/28/23 field) -Exudate Amt Small None Present -Exudate Type Serosanguineous -Wound Margin Distinct, Distinct, Outline Outline Attached Attached -Granulation Amt Large (67-100%) -Granulation Quality Red -Necrosis Amt Small (1-33%) -Necrotic Tissue Type Adherent Slough -Texture ([place]-wound Skin Appearance) Assessed Assessed Assessed -Moisture ([place]-wound Skin Appearance) Assessed Assessed Assessed -Color ([place]-wound Skin Appearance) Assessed Assessed Assessed -Temperature ([place]-wound Skin No Abnormality No Abnormality Appearance) (Pt Warm) (Pt Warm) -Tenderness on Palpation ([place]-wound No No Skin Appearance) -Ulcer Cleansing Soap and Water Soap and Water -Foul Odor after Cleansing No No -Anesthetic Used 5% Lidocaine Gel -Wound Comment(s) APPEARS TO BE HEALED #3 L Heel -Current Size (cm) - Length 4.6 3.6 2.6 -Current Size (cm) - Width 4.6 3.5 2.7 -Current Size (cm) - Depth 0.1 0.3 0.1 -Total Square Cm 21.16 12.60 7.02 -Date of Last Picture (Recall this 11/21/23 11/28/23 12/05/23 field) -Epithelialization Small 1-33% Large 67-100% -Exudate Amt Medium Medium -Exudate Type Serosanguineous Serosanguineous Serosanguineous -Wound Margin Distinct, Distinct, Distinct, Outline Outline Outline Attached Attached Attached -Granulation Amt Large (67-100%) Medium (34-66%) Large (67-100%) -Granulation Quality Red [place] Hyper- granulation,Red -Necrosis Amt Large (67-100%) Small (1-33%) -Necrotic Tissue Type Adherent Slough Adherent Slough -Texture ([place]-wound Skin Appearance) Assessed Assessed Assessed -Moisture ([place]-wound Skin Appearance) Assessed,Dry/ Assessed Assessed Scaly -Color ([place]-wound Skin Appearance) Assessed Assessed Assessed -Temperature ([place]-wound Skin No Abnormality No Abnormality Appearance) (Pt Warm) (Pt Warm) -Tenderness on Palpation ([place]-wound No No Skin Appearance) -Ulcer Cleansing Soap and Water Soap and Water Soap and Water -Foul Odor after Cleansing No No -Anesthetic Used 5% Lidocaine 5% Lidocaine 4% Lidocaine Gel Gel Solution WC - Nurse 2 - General Ulcer CM Notes Start: 11/21/23 08:43 Freq: Status: Active Protocol: Activity Type Activity Date Activity User E-sign Co-sign Detail Recorded Client Recorded Date Recorded By Document 11/21/23 09:32 JF 0000 11/21/23 09:38 Document 11/28/23 08:54 JF 0000 11/28/23 08:58 Document 12/05/23 09:13 [id number] 12/05/23 09:16 11/21/23 11/28/23 12/05/23 09:32 08:54 09:13 Wound Center Nurse 2 #2 L 4th toe -Time 09:37 -Correct Patient Yes No No -Correct Side, Site, Position Yes No No -Correct Procedure Yes No No -Procedure Performed Yes No No -Type of Procedure Debridement -Clinical Debridement Subcutaneous -Tissue Removed Subcutaneous -Post Debridement (cm) - Length 1.0 0 -Post Debridement (cm) - Width 1.5 0 -Post Debridement (cm) - Depth 0.1 0 -Total Square (Post) (cm) 1.50 0 -Area of Debridement (cm) - Length 1.0 0 -Area of Debridement (cm) - Width 1.5 0 -Total Square (Area) (cm) 1.50 0 -Tunneling No -Undermining/Tunneling No -Circular Undermining No -Wound/Ulcer Outcome Not Healed Not Healed Healed- Epithelialized -Ulcer Cleansing Rinsed/ Irrigated with Saline -Foul Odor after Cleansing No -Bioengineered Tissue No -Bleeding Controlled with Pressure -Treatment Response Procedure Tolerated Well -Offloading No -Assistive Device(s) Wheelchair -Debridement - Subq, 1st 20sq cm Yes #1 L Grt Toe -Correct Patient No -Correct Side, Site, Position No -Correct Procedure No -Procedure Performed No -Post Debridement (cm) - Length 0 -Post Debridement (cm) - Width 0 -Post Debridement (cm) - Depth 0 -Total Square (Post) (cm) 0 -Area of Debridement (cm) - Length 0 -Area of Debridement (cm) - Width 0 -Total Square (Area) (cm) 0 -Wound/Ulcer Outcome Healed- Epithelialized #3 L Heel -Time 09:36 08:54 09:13 -Correct Patient Yes Yes Yes -Correct Side, Site, Position Yes Yes Yes -Correct Procedure Yes Yes Yes -Procedure Performed Yes Yes Yes -Type of Procedure Debridement Debridement Debridement -Clinical Debridement Subcutaneous Subcutaneous Subcutaneous -Tissue Removed Subcutaneous Subcutaneous Subcutaneous -Post Debridement (cm) - Length 4.0 2.5 -Post Debridement (cm) - Width 3.5 2.5 -Post Debridement (cm) - Depth 0.1 0.1 -Total Square (Post) (cm) 14.00 6.25 -Area of Debridement (cm) - Length 4.0 2.5 -Area of Debridement (cm) - Width 3.5 2.5 -Total Square (Area) (cm) 14.00 6.25 -Tunneling No No No -Undermining/Tunneling No No No -Circular Undermining No No No -Wound/Ulcer Outcome Not Healed Not Healed Not Healed -Ulcer Cleansing Rinsed/ Rinsed/ Rinsed/ Irrigated with Irrigated with Irrigated with Saline Saline Saline -Foul Odor after Cleansing No No No -Bioengineered Tissue Yes Yes Yes -Type of Bioengineered Tissue Epifix Mesh Epifix Mesh Epifix Mesh -Expiration Date 05/18/28 05/18/28 06/15/28 -Product Lot Number [id number] -Percent Used 100 100 100 -Lot number of Saline Used [id number] -Bleeding Controlled with Silver Nitrate Pressure Pressure -Treatment Response Procedure Procedure Procedure Tolerated Well Tolerated Well Tolerated Well -Offloading No Yes -Type of Offloading Surgical Shoe Surgical Shoe -Assistive Device(s) Wheelchair -Debridement - Subq, 1st 20sq cm No No No -Apply Skin Sub - 1st 25 sq cm - Feet 1 1 1 -Epifix Mesh (per sq cm) 11 11 11 Pain Scale: 0-10 Numeric Is Patient Pain Free? Yes Yes Yes WC - Nurse 3 - General Ulcer D/C NN Start: 11/21/23 08:43 Freq: Status: Active Protocol: Activity Type Activity Date Activity User E-sign Co-sign Detail Recorded Client Recorded Date Recorded By Document 11/21/23 10:07 KW kl 11/21/23 10:07 KW Document 11/28/23 09:22 KW deng 11/28/23 09:22 KW 11/21/23 11/28/23 10:07 09:22 Wound Care Center Nurse 3 #2 L 4th toe -Primary Dressing Applied C Hydrogel ($) -Other Dressing hydrogel -Primary Dressing Covered/Secured with Dry Gauze Dry Gauze #3 L Heel -Primary Dressing Covered/Secured with Dry Gauze & Dry Gauze & Roll Gauze, Roll Gauze, Secured with Secured with Tape Tape Left -Compression Wrap Bartolo Wrap Bartolo Wrap Pain Scale: 0-10 Numeric Is Patient Pain Free? Yes Yes WC - Visit Discharge Discharge Condition Stable Ambulatory Status Wheelchair Medication Reconcilliation completed & No provided to patient/care provider Clinical Summary of Care Provided Yes Assessment/Plan Assessment/Plan (1) Other specified peripheral vascular diseases: CODE(S): I73.89 - Other specified peripheral vascular diseases PLAN: Exam performed Hallux and fifth toe amputation sites healed. Left heel wound excisionally debrided down to including level subcutaneous tissue of all nonviable tissue using 5 mm dermal curette. Patient tolerated procedure anesthesia well apparent satisfactory condition. Topical anesthesia used. Hemostasis obtained for compression. Pre and postdebridement measurements documented nursing notes. Today 4 x 4.5 cm EpiFix graft, 11 billing units applied to left foot wound. Entire graft used, no waste. Stabilized with overlying wound veil and Steri- Strips. Applied overlying dry sterile dressing with light compression. I have recommended some Betadine application to toes 1 through 5 due to some slight maceration on the left lower extremity. Patient continue nonweightbearing left lower extremity can transfer on right foot full weightbearing to tolerance. No additional antibiotics recommended in my opinion at this time. Follow-up in 1 week. (2) Non-pressure chronic ulcer of other part of left foot with fat layer exposed: CODE(S): L97.522 - Non-pressure chronic ulcer of other part of left foot with fat layer exposed
--- NOTE | 2023-12-07 09:30 | WC ---
PHOTO LEFT 4TH TOE 12/05/23 (H)
--- NOTE | 2023-12-07 09:35 | WC ---
PHOTO 12/05/23 LEFT HEEL
--- NOTE | 2023-12-07 10:12 | WC ---
PHOTO 11/28/23 LEFT HEEL
[2023-12-12 08:32] VITALS: RESP 16; TEMP 36.2; BMI 23.6
--- NOTE | 2023-12-12 09:20 | PN.PCM_ITS ---
History of Present Illness Date of Service: 12/12/23 Chief Complaint: Left lateral heel ulcer and left fourth toe ulcer Progress of Wound: Denies constitutional symptoms. Patient follow-up left heel wound. No pain today. No other complaints. Pain significantly improved at this time. Objective Data Objective Data Vital Signs: Vital Signs Temp Pulse Resp BP O2 Del Method 97.1 F L 98 16 103/74 Room Air 12/12/23 08:32 12/05/23 08:37 12/12/23 08:32 12/05/23 08:37 12/12/23 08:32 Oxygen Delivery Method Room Air Weight: 70.632 kg Body Mass Index (BMI) 23.6 Physical Exam Narrative Intact pulses left lower extremity. 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 Full-thickness wound to the left lateral calcaneus. This demonstrates 100% granular base with clean skin edges no acute signs of infection deep probing or undermining. Pre and postdebridement measurements documented nursing notes. No wounds to right lower extremity. Muscular strength full to bilateral lower extremity compartments. No gross wound forming deformities noted. Debridement Note Debridement Note Post-Debridement Measurements and Additional Note: Post-Debridement Measurements/Treatment - Nurse 1 - General Ulcer Assessment Start: 11/21/23 08:43 Freq: Status: Active Protocol: SARAH Activity Type Activity Date Activity User E-sign Co-sign Detail Recorded Client Recorded Date Recorded By Document 11/21/23 08:43 KW 11/21/23 09:05 Document 11/28/23 08:42 MT [id number] 11/28/23 08:51 MT Document 12/05/23 08:37 KW [id number] 12/05/23 09:03 KW Document 12/12/23 08:32 KW [id number] 12/12/23 08:47 KW 11/21/23 11/28/23 12/05/23 08:43 08:42 08:37 - Today's Visit Information Type of service Follow-up Visit Follow-up Visit Follow-up Visit (Physician/[facility] [employer] (Physician/[facility] [employer] (Physician/[facility] ) ) ) Arrival Mode Wheelchair Wheelchair Wheelchair Accompanied by BROTHER brother Patient Identification Verified (Name & Yes Yes Yes ) Height and Weight Body Mass Index (BMI) 23.6 23.6 23.6 BMI Classification Normal Normal Normal Vital Signs Temperature (97.8 F-99.1 F) 97.0 F L 97.5 F L 97.5 F L Temperature Source Temporal Temporal Temporal Pulse Rate (60-100) 82 90 98 Pulse Location Monitor Monitor Monitor Respiratory Rate (12-18) 18 18 18 Respiratory rate source Observation Observation Observation Oxygen Delivery Method Room Air Room Air Room Air Blood Pressure (90/60-120/80) 100/68 104/69 103/74 Blood Pressure Mean (mm Hg) 78 80 83 Source Monitor Monitor Monitor Position Sitting Semi-Fowlers Sitting Blood Pressure Location Right Arm Left Arm Left Arm History Since Last Visit- (Skip if this is Patient's initial visit) Have you changed medications since your No No No last visit? Any new allergies or adverse reactions No No No Had a fall/change in ADL's that may No No No increase risk of falls Signs or symptoms of abuse and/or No No No neglect since last visit Have you been in the hospital since your No No No last visit? Has dressing in place as prescribed Yes Yes Yes Has compression in place as prescribed Yes Yes Yes Has offloadiing in place as prescribed N/A N/A Yes Experienced any changes in pain level or No No No management Left Footwear No Footwear Surgical Shoe Surgical Shoe with pressure with pressure relief insole relief insole Right Footwear Regular Shoe Regular Shoe Regular Shoe Pain Scale: 0-10 Numeric Is Patient Pain Free? Yes Yes No LT FOOT -Description Throbbing, Burning,Aching -Intensity 6 -Alleviating Factors/Interventions Medication, Turning/ Repositioning 12/12/23 08:32 WC - Today's Visit Information Type of service Follow-up Visit (Physician/[facility] ) Arrival Mode Wheelchair Accompanied by sister Patient Identification Verified (Name & Yes ) Height and Weight Body Mass Index (BMI) 23.6 BMI Classification Normal Vital Signs Temperature (97.8 F-99.1 F) 97.1 F L Temperature Source Temporal Pulse Rate (60-100) Pulse Location Monitor Respiratory Rate (12-18) 16 Respiratory rate source Observation Oxygen Delivery Method Room Air Blood Pressure (90/60-120/80) Blood Pressure Mean (mm Hg) Source Monitor Position Sitting Blood Pressure Location Left Arm History Since Last Visit- (Skip if this is Patient's initial visit) Have you changed medications since your No last visit? Any new allergies or adverse reactions No Had a fall/change in ADL's that may No increase risk of falls Signs or symptoms of abuse and/or No neglect since last visit Have you been in the hospital since your No last visit? Has dressing in place as prescribed Yes Has compression in place as prescribed Yes Has offloadiing in place as prescribed N/A Experienced any changes in pain level or No management Left Footwear No Footwear Right Footwear Regular Shoe Pain Scale: 0-10 Numeric Is Patient Pain Free? No LT FOOT -Description Sharp,Burning -Intensity -Alleviating Factors/Interventions Medication WC - Nurse 1 - General Ulcer Measurement Start: 11/21/23 08:43 Freq: Status: Active Protocol: Activity Type Activity Date Activity User E-sign Co-sign Detail Recorded Client Recorded Date Recorded By Document 11/21/23 08:43 KW kl 11/21/23 09:05 KW Document 11/28/23 08:42 MT [id number] 11/28/23 08:51 MT Document 12/05/23 08:37 KW [id number] 12/05/23 09:03 KW Document 12/12/23 08:32 KW [id number] 12/12/23 08:47 KW 11/21/23 11/28/23 12/05/23 08:43 08:42 08:37 Wound Center Nurse 1 #4 R HEEL -Current Size (cm) - Length -Current Size (cm) - Width -Current Size (cm) - Depth -Total Square Cm -Date of Last Picture (Recall this field) -Exudate Amt -Texture (Dayana-wound Skin Appearance) -Moisture (Dayana-wound Skin Appearance) -Color (Dayana-wound Skin Appearance) -Temperature (Dayana-wound Skin Appearance) -Tenderness on Palpation (Dayana-wound Skin Appearance) #2 L 4th toe -Current Size (cm) - Length 0.3 0.1 -Current Size (cm) - Width 0.5 0.1 -Current Size (cm) - Depth 0.1 0.1 -Total Square Cm 0.15 0.01 -Date of Last Picture (Recall this 11/21/23 11/28/23 field) -Exudate Amt Small None Present -Exudate Type Serosanguineous -Wound Margin Distinct, Distinct, Outline Outline Attached Attached -Granulation Amt Large (67-100%) -Granulation Quality Red -Necrosis Amt Small (1-33%) -Necrotic Tissue Type Adherent Slough -Texture (Dayana-wound Skin Appearance) Assessed Assessed Assessed -Moisture (Dayana-wound Skin Appearance) Assessed Assessed Assessed -Color (Dayana-wound Skin Appearance) Assessed Assessed Assessed -Temperature (Dayana-wound Skin No Abnormality No Abnormality Appearance) (Pt Warm) (Pt Warm) -Tenderness on Palpation (Dayana-wound No No Skin Appearance) -Ulcer Cleansing Soap and Water Soap and Water -Foul Odor after Cleansing No No -Anesthetic Used 5% Lidocaine Gel -Wound Comment(s) APPEARS TO BE HEALED #3 L Heel -Current Size (cm) - Length 4.6 3.6 2.6 -Current Size (cm) - Width 4.6 3.5 2.7 -Current Size (cm) - Depth 0.1 0.3 0.1 -Total Square Cm 21.16 12.60 7.02 -Date of Last Picture (Recall this 11/21/23 11/28/23 12/05/23 field) -Epithelialization Small 1-33% Large 67-100% -Exudate Amt Medium Medium -Exudate Type Serosanguineous Serosanguineous Serosanguineous -Wound Margin Distinct, Distinct, Distinct, Outline Outline Outline Attached Attached Attached -Granulation Amt Large (67-100%) Medium (34-66%) Large (67-100%) -Granulation Quality Red Braggs Hyper- granulation,Red -Necrosis Amt Large (67-100%) Small (1-33%) -Necrotic Tissue Type Adherent Slough Adherent Slough -Texture (Dayana-wound Skin Appearance) Assessed Assessed Assessed -Moisture (Dayana-wound Skin Appearance) Assessed,Dry/ Assessed Assessed Scaly -Color (Dayana-wound Skin Appearance) Assessed Assessed Assessed -Temperature (Dayana-wound Skin No Abnormality No Abnormality Appearance) (Pt Warm) (Pt Warm) -Tenderness on Palpation (Dayana-wound No No Skin Appearance) -Ulcer Cleansing Soap and Water Soap and Water Soap and Water -Foul Odor after Cleansing No No -Anesthetic Used 5% Lidocaine 5% Lidocaine 4% Lidocaine Gel Gel Solution 12/12/23 08:32 Wound Center Nurse 1 #4 R HEEL -Current Size (cm) - Length 0.1 -Current Size (cm) - Width 0.1 -Current Size (cm) - Depth 0.1 -Total Square Cm 0.01 -Date of Last Picture (Recall this 12/12/23 field) -Exudate Amt None Present -Texture (Dayana-wound Skin Appearance) Assessed -Moisture (Dayana-wound Skin Appearance) Assessed -Color (Dayana-wound Skin Appearance) Assessed -Temperature (Dayana-wound Skin No Abnormality Appearance) (Pt Warm) -Tenderness on Palpation (Dayana-wound No Skin Appearance) #2 L 4th toe -Current Size (cm) - Length -Current Size (cm) - Width -Current Size (cm) - Depth -Total Square Cm -Date of Last Picture (Recall this field) -Exudate Amt -Exudate Type -Wound Margin -Granulation Amt -Granulation Quality -Necrosis Amt -Necrotic Tissue Type -Texture (Dayana-wound Skin Appearance) -Moisture (Dayana-wound Skin Appearance) -Color (Dayana-wound Skin Appearance) -Temperature (Dayana-wound Skin Appearance) -Tenderness on Palpation (Dayana-wound Skin Appearance) -Ulcer Cleansing -Foul Odor after Cleansing -Anesthetic Used -Wound Comment(s) #3 L Heel -Current Size (cm) - Length 2 -Current Size (cm) - Width 2.3 -Current Size (cm) - Depth 0.1 -Total Square Cm 4.6 -Date of Last Picture (Recall this 12/12/23 field) -Epithelialization -Exudate Amt Small -Exudate Type Serosanguineous -Wound Margin Distinct, Outline Attached -Granulation Amt Large (67-100%) -Granulation Quality Braggs -Necrosis Amt Medium (34-66%) -Necrotic Tissue Type Adherent Slough -Texture (Dayana-wound Skin Appearance) Assessed,Callus -Moisture (Dayana-wound Skin Appearance) Assessed, Maceration -Color (Dayana-wound Skin Appearance) Assessed -Temperature (Dayana-wound Skin No Abnormality Appearance) (Pt Warm) -Tenderness on Palpation (Dayana-wound No Skin Appearance) -Ulcer Cleansing Soap and Water -Foul Odor after Cleansing No -Anesthetic Used 5% Lidocaine Gel WC - Nurse 2 - General Ulcer CM Notes Start: 11/21/23 08:43 Freq: Status: Active Protocol: Activity Type Activity Date Activity User E-sign Co-sign Detail Recorded Client Recorded Date Recorded By Document 11/21/23 09:32 JF 0000 11/21/23 09:38 JF Document 11/28/23 08:54 JF 0000 08/13/24 08:58 Document 12/05/23 09:13 JF [id number] 12/05/23 09:16 Document 12/12/23 09:07 [id number] 12/12/23 09:10 JF 11/21/23 11/28/23 12/05/23 09:32 08:54 09:13 Wound Center Nurse 2 #2 L 4th toe -Time 09:37 -Correct Patient Yes No No -Correct Side, Site, Position Yes No No -Correct Procedure Yes No No -Procedure Performed Yes No No -Type of Procedure Debridement -Clinical Debridement Subcutaneous -Tissue Removed Subcutaneous -Post Debridement (cm) - Length 1.0 0 -Post Debridement (cm) - Width 1.5 0 -Post Debridement (cm) - Depth 0.1 0 -Total Square (Post) (cm) 1.50 0 -Area of Debridement (cm) - Length 1.0 0 -Area of Debridement (cm) - Width 1.5 0 -Total Square (Area) (cm) 1.50 0 -Tunneling No -Undermining/Tunneling No -Circular Undermining No -Wound/Ulcer Outcome Not Healed Not Healed Healed- Epithelialized -Ulcer Cleansing Rinsed/ Irrigated with Saline -Foul Odor after Cleansing No -Bioengineered Tissue No -Bleeding Controlled with Pressure -Treatment Response Procedure Tolerated Well -Offloading No -Assistive Device(s) Wheelchair -Debridement - Subq, 1st 20sq cm Yes #1 L Grt Toe -Correct Patient No -Correct Side, Site, Position No -Correct Procedure No -Procedure Performed No -Post Debridement (cm) - Length 0 -Post Debridement (cm) - Width 0 -Post Debridement (cm) - Depth 0 -Total Square (Post) (cm) 0 -Area of Debridement (cm) - Length 0 -Area of Debridement (cm) - Width 0 -Total Square (Area) (cm) 0 -Wound/Ulcer Outcome Healed- Epithelialized #3 L Heel -Time 09:36 08:54 09:13 -Correct Patient Yes Yes Yes -Correct Side, Site, Position Yes Yes Yes -Correct Procedure Yes Yes Yes -Procedure Performed Yes Yes Yes -Type of Procedure Debridement Debridement Debridement -Clinical Debridement Subcutaneous Subcutaneous Subcutaneous -Tissue Removed Subcutaneous Subcutaneous Subcutaneous -Post Debridement (cm) - Length 4.0 2.5 -Post Debridement (cm) - Width 3.5 2.5 -Post Debridement (cm) - Depth 0.1 0.1 -Total Square (Post) (cm) 14.00 6.25 -Area of Debridement (cm) - Length 4.0 2.5 -Area of Debridement (cm) - Width 3.5 2.5 -Total Square (Area) (cm) 14.00 6.25 -Tunneling No No No -Undermining/Tunneling No No No -Circular Undermining No No No -Wound/Ulcer Outcome Not Healed Not Healed Not Healed -Ulcer Cleansing Rinsed/ Rinsed/ Rinsed/ Irrigated with Irrigated with Irrigated with Saline Saline Saline -Foul Odor after Cleansing No No No -Bioengineered Tissue Yes Yes Yes -Type of Bioengineered Tissue Epifix Mesh Epifix Mesh Epifix Mesh -Expiration Date 05/18/28 05/18/28 06/15/28 -Product Lot Number [id number] -Percent Used 100 100 100 -Lot number of Saline Used [id number] -Bleeding Controlled with Silver Nitrate Pressure Pressure -Treatment Response Procedure Procedure Procedure Tolerated Well Tolerated Well Tolerated Well -Offloading No Yes -Type of Offloading Surgical Shoe Surgical Shoe -Assistive Device(s) Wheelchair -Debridement - Subq, 1st 20sq cm No No No -Apply Skin Sub - 1st 25 sq cm - Feet 1 1 1 -Epifix Mesh (per sq cm) 11 11 11 Pain Scale: 0-10 Numeric Is Patient Pain Free? Yes Yes Yes 12/12/23 09:07 Wound Center Nurse 2 #2 L 4th toe -Time -Correct Patient -Correct Side, Site, Position -Correct Procedure -Procedure Performed -Type of Procedure -Clinical Debridement -Tissue Removed -Post Debridement (cm) - Length -Post Debridement (cm) - Width -Post Debridement (cm) - Depth -Total Square (Post) (cm) -Area of Debridement (cm) - Length -Area of Debridement (cm) - Width -Total Square (Area) (cm) -Tunneling -Undermining/Tunneling -Circular Undermining -Wound/Ulcer Outcome -Ulcer Cleansing -Foul Odor after Cleansing -Bioengineered Tissue -Bleeding Controlled with -Treatment Response -Offloading -Assistive Device(s) -Debridement - Subq, 1st 20sq cm #1 L Grt Toe -Correct Patient -Correct Side, Site, Position -Correct Procedure -Procedure Performed -Post Debridement (cm) - Length -Post Debridement (cm) - Width -Post Debridement (cm) - Depth -Total Square (Post) (cm) -Area of Debridement (cm) - Length -Area of Debridement (cm) - Width -Total Square (Area) (cm) -Wound/Ulcer Outcome #3 L Heel -Time 09:08 -Correct Patient Yes -Correct Side, Site, Position Yes -Correct Procedure Yes -Procedure Performed Yes -Type of Procedure Debridement -Clinical Debridement Subcutaneous -Tissue Removed Subcutaneous -Post Debridement (cm) - Length 3.2 -Post Debridement (cm) - Width 2.4 -Post Debridement (cm) - Depth 0.1 -Total Square (Post) (cm) 7.68 -Area of Debridement (cm) - Length 3.2 -Area of Debridement (cm) - Width 2.4 -Total Square (Area) (cm) 7.68 -Tunneling No -Undermining/Tunneling No -Circular Undermining No -Wound/Ulcer Outcome Not Healed -Ulcer Cleansing Rinsed/ Irrigated with Saline -Foul Odor after Cleansing No -Bioengineered Tissue Yes -Type of Bioengineered Tissue Epifix Mesh -Expiration Date 06/15/28 -Product Lot Number [id number] -Percent Used 100 -Lot number of Saline Used [id number] -Bleeding Controlled with Pressure -Treatment Response Procedure Tolerated Well -Offloading No -Type of Offloading -Assistive Device(s) -Debridement - Subq, 1st 20sq cm No -Apply Skin Sub - 1st 25 sq cm - Feet 1 -Epifix Mesh (per sq cm) 11 Pain Scale: 0-10 Numeric Is Patient Pain Free? Yes WC - Nurse 3 - General Ulcer D/C NN Start: 11/21/23 08:43 Freq: Status: Active Protocol: Activity Type Activity Date Activity User E-sign Co-sign Detail Recorded Client Recorded Date Recorded By Document 11/21/23 10:07 KW kl 11/21/23 10:07 KW Document 11/28/23 09:22 KW gfj 11/28/23 09:22 KW Document 12/05/23 09:32 RB [id number] 12/05/23 09:33 RB 11/21/23 11/28/23 12/05/23 10:07 09:22 09:32 Wound Care Center Nurse 3 #2 L 4th toe -Primary Dressing Applied C Hydrogel ($) -Other Dressing hydrogel -Primary Dressing Covered/Secured with Dry Gauze Dry Gauze #3 L Heel -Other Dressing ABD NURSES HAT -Primary Dressing Covered/Secured with Dry Gauze & Dry Gauze & Dry Gauze,Dry Roll Gauze, Roll Gauze, Gauze & Roll Secured with Secured with Gauze,Secured Tape Tape with Tape Left -Compression Wrap Bartolo Wrap Bartolo Wrap -Other BARTOLO Treatment Response Procedure Tolerated Well Pain Scale: 0-10 Numeric Is Patient Pain Free? Yes Yes Yes WC - Visit Discharge Discharge Condition Stable Stable Ambulatory Status Wheelchair Wheelchair Transportation Private Auto Medication Reconcilliation completed & No No provided to patient/care provider Clinical Summary of Care Provided Yes Yes Assessment/Plan Assessment/Plan (1) Other specified peripheral vascular diseases: CODE(S): I73.89 - Other specified peripheral vascular diseases PLAN: Exam performed Hallux and fifth toe amputation sites healed. Left heel wound excisionally debrided down to including level subcutaneous tissue of all nonviable tissue using 5 mm dermal curette. Patient tolerated procedure anesthesia well apparent satisfactory condition. Topical anesthesia used. Hemostasis obtained for compression. Pre and postdebridement measurements documented nursing notes. Today 4 x 4.5 cm EpiFix graft, 11 billing units applied to left foot wound. Entire graft used, no waste. Stabilized with overlying wound veil and Steri- Strips. Applied overlying dry sterile dressing with light compression. I have recommended some Betadine application to toes 1 through 5 due to some slight maceration on the left lower extremity. Patient continue nonweightbearing left lower extremity can transfer on right foot full weightbearing to tolerance. No additional antibiotics recommended in my opinion at this time. Follow-up in 1 week. (2) Non-pressure chronic ulcer of other part of left foot with fat layer exposed: CODE(S): L97.522 - Non-pressure chronic ulcer of other part of left foot with fat layer exposed
--- NOTE | 2023-12-14 08:57 | WC ---
PHOTO 12/12/23 LEFT HEEL
--- NOTE | 2023-12-14 09:00 | WC ---
PHOTO 12/12/23 RIGHT HEEL
== END 2023-12-16 23:59 | disposition home or self-care (01) ==
LOC: WC 08:45
PROVIDERS: PCP Internal Medicine; Referring Provider Podiatrist; Visit Provider Podiatrist
DX: L97.422 Non-pressure chronic ulcer of left heel and midfoot with fat layer exposed (principal); L97.522 Non-pressure chronic ulcer of other part of left foot with fat layer exposed; I73.89 Other specified peripheral vascular diseases; Z79.82 Long term (current) use of aspirin; Z79.84 Long term (current) use of oral hypoglycemic drugs; Z79.01 Long term (current) use of anticoagulants; Z79.899 Other long term (current) drug therapy; Z89.412 Acquired absence of left great toe; Z89.422 Acquired absence of other left toe(s); Z95.820 Peripheral vascular angioplasty status with implants and grafts
CPT/HCPCS: 11042; 15275; Q4186

== ENCOUNTER 2024-01-10 15:00 | Outpatient (RCR) | payer MEDICARE, SELFPAY ==
[2023-12-17 00:44] VITALS: BP 91/59; PULSE 92; RESP 18; TEMP 36.2; BMI 23.6
[2023-12-19 08:51] VITALS: BP 130/62; PULSE 94; RESP 18; TEMP 36.1; BMI 23.6
--- NOTE | 2023-12-19 09:52 | PCM.WC.PN ---
History of Present Illness Date of Service: 12/19/23 Chief Complaint: Left lateral heel ulcer and left fourth toe ulcer Progress of Wound: Some concern for right-sided ischial pain and wound formation due to prolonged sitting. Left heel wound significantly improved. No constitutional's. Pain when only manipulating the wound. Objective Data Objective Data Vital Signs: Vital Signs Temp Pulse Resp BP O2 Del Method 96.9 F L 94 18 130/62 H Room Air 12/19/23 08:51 12/19/23 08:51 12/19/23 08:51 12/19/23 08:51 12/19/23 08:51 Oxygen Delivery Method Room Air Weight: 70.632 kg Body Mass Index (BMI) 23.6 Physical Exam Narrative Intact pulses left lower extremity. 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 Full-thickness wound to the left lateral calcaneus. This demonstrates 100% granular base with clean skin edges no acute signs of infection deep probing or undermining. Pre and postdebridement measurements documented nursing notes. No wounds to right lower extremity. Muscular strength full to bilateral lower extremity compartments. No gross wound forming deformities noted. Debridement Note Debridement Note Post-Debridement Measurements and Additional Note: Post-Debridement Measurements/Treatment - Nurse 1 - General Ulcer Assessment Start: 12/19/23 08:51 Freq: Status: Active Protocol: SARAH Activity Type Activity Date Activity User E-sign Co-sign Detail Recorded Client Recorded Date Recorded By Document 12/19/23 08:51 KW [id number] 12/19/23 09:21 KW 12/19/23 08:51 - Today's Visit Information Type of service Initial Visit Arrival Mode Wheelchair Patient Identification Verified (Name & Yes ) Height and Weight Body Mass Index (BMI) 23.6 BMI Classification Normal Vital Signs Temperature (97.8 F-99.1 F) 96.9 F L Temperature Source Temporal Pulse Rate (60-100) 94 Pulse Location Monitor Respiratory Rate (12-18) 18 Respiratory rate source Ausculation Oxygen Delivery Method Room Air Blood Pressure (90/60-120/80) 130/62 H Blood Pressure Mean (mm Hg) 84 Source Monitor Position Sitting Blood Pressure Location Left Arm History Since Last Visit- (Skip if this is Patient's initial visit) Have you changed medications since your No last visit? Any new allergies or adverse reactions No Had a fall/change in ADL's that may No increase risk of falls Signs or symptoms of abuse and/or No neglect since last visit Have you been in the hospital since your No last visit? Has dressing in place as prescribed Yes Has compression in place as prescribed Yes Has offloadiing in place as prescribed Yes Experienced any changes in pain level or No management Left Footwear Surgical Shoe with pressure relief insole Right Footwear Regular Shoe Pain Scale: 0-10 Numeric Is Patient Pain Free? Yes WC - Nurse 1 - General Ulcer Measurement Start: 12/19/23 08:51 Freq: Status: Active Protocol: Activity Type Activity Date Activity User E-sign Co-sign Detail Recorded Client Recorded Date Recorded By Document 12/19/23 08:51 KW [id number] 12/19/23 09:21 KW 12/19/23 08:51 Wound Center Nurse 1 #5 R ISCHIUM -Current Size (cm) - Length 0.2 -Current Size (cm) - Width 0.3 -Current Size (cm) - Depth 0.2 -Total Square Cm 0.06 -Circular Undermining Yes -Exudate Amt Small -Exudate Type Serosanguineous -Wound Margin Distinct, Outline Attached -Granulation Amt Large (67-100%) -Granulation Quality Red -Necrosis Amt Small (1-33%) -Necrotic Tissue Type Adherent Slough -Texture (Dayana-wound Skin Appearance) Assessed -Moisture (Dayana-wound Skin Appearance) Weeping -Color (Dayana-wound Skin Appearance) Assessed, Erythema -Ulcer Cleansing Rinsed/ Irrigated with Saline #3 L Heel -Current Size (cm) - Length 2 -Current Size (cm) - Width 1.2 -Current Size (cm) - Depth 0.2 -Total Square Cm 2.4 -Date of Last Picture (Recall this 12/19/23 field) -Epithelialization Medium 34-66% -Exudate Amt Small -Exudate Type Serosanguineous -Wound Margin Distinct, Outline Attached -Granulation Amt Medium (34-66%) -Granulation Quality Red -Necrosis Amt Small (1-33%) -Necrotic Tissue Type Adherent Slough -Texture (Dayana-wound Skin Appearance) Assessed -Moisture (Dayana-wound Skin Appearance) Assessed -Color (Dayana-wound Skin Appearance) Assessed -Temperature (Dayana-wound Skin No Abnormality Appearance) (Pt Warm) -Tenderness on Palpation (Dayana-wound No Skin Appearance) -Ulcer Cleansing Soap and Water -Foul Odor after Cleansing No -Anesthetic Used 5% Lidocaine Gel Left Calf (cm) 32 Left Ankle (cm) 23 WC - Nurse 2 - General Ulcer CM Notes Start: 12/19/23 08:51 Freq: Status: Active Protocol: Activity Type Activity Date Activity User E-sign Co-sign Detail Recorded Client Recorded Date Recorded By Document 12/19/23 09:28 [id number] 12/19/23 09:36 OBEY 12/19/23 09:28 Wound Center Nurse 2 #5 R ISCHIUM -Correct Patient No -Correct Side, Site, Position No -Correct Procedure No -Procedure Performed No -Wound/Ulcer Outcome Not Healed #3 L Heel -Time 09:34 -Correct Patient Yes -Correct Side, Site, Position Yes -Correct Procedure Yes -Procedure Performed Yes -Type of Procedure Debridement -Clinical Debridement Subcutaneous -Tissue Removed Subcutaneous -Post Debridement (cm) - Length 2.1 -Post Debridement (cm) - Width 1.2 -Post Debridement (cm) - Depth 0.1 -Total Square (Post) (cm) 2.52 -Area of Debridement (cm) - Length 2.1 -Area of Debridement (cm) - Width 1.2 -Total Square (Area) (cm) 2.52 -Tunneling No -Undermining/Tunneling No -Circular Undermining No -Wound/Ulcer Outcome Not Healed -Ulcer Cleansing Rinsed/ Irrigated with Saline -Foul Odor after Cleansing No -Bioengineered Tissue Yes -Type of Bioengineered Tissue Epifix -Expiration Date 09/16/27 -Product Lot Number [id number] -Percent Used 100 -Lot number of Saline Used [id number] -Bleeding Controlled with Pressure -Treatment Response Procedure Tolerated Well -Offloading No -Debridement - Subq, 1st 20sq cm No -Apply Skin Sub - 1st 25 sq cm - Feet 1 -Epifix (per sq cm) 4 Pain Scale: 0-10 Numeric Is Patient Pain Free? Yes Assessment/Plan Assessment/Plan (1) Other specified peripheral vascular diseases: CODE(S): I73.89 - Other specified peripheral vascular diseases PLAN: Exam performed Hallux and fifth toe amputation sites healed. Left heel wound excisionally debrided down to including level subcutaneous tissue of all nonviable tissue using 5 mm dermal curette. Patient tolerated procedure anesthesia well apparent satisfactory condition. Topical anesthesia used. Hemostasis obtained for compression. Pre and postdebridement measurements documented nursing notes. Today 2x2 cm EpiFix graft, 11 billing units applied to left foot wound. Entire graft used, no waste. Stabilized with overlying wound veil and Steri-Strips. Applied overlying dry sterile dressing with light compression. I have recommended some Betadine application to toes 1 through 5 due to some slight maceration on the left lower extremity. Patient continue nonweightbearing left lower extremity can transfer on right foot full weightbearing to tolerance. No additional antibiotics recommended in my opinion at this time. Follow-up in 1 week. (2) Non-pressure chronic ulcer of other part of left foot with fat layer exposed: CODE(S): L97.522 - Non-pressure chronic ulcer of other part of left foot with fat layer exposed
--- NOTE | 2023-12-20 09:32 | WC ---
PHOTO 12/19/23 RIGHT HEEL
--- NOTE | 2023-12-20 09:33 | WC ---
PHOTO 12/19/23 LEFT HEEL
--- NOTE | 2023-12-20 09:34 | WC ---
PHOTO 12/19/23 RIGHT ISCHIUM
[2023-12-26 08:50] VITALS: BP 97/64; PULSE 119; RESP 16; TEMP 36.1; BMI 23.6
--- NOTE | 2023-12-26 09:20 | PCM.WC.PN ---
History of Present Illness Date of Service: 12/26/23 Chief Complaint: Right ischial sore Progress of Wound: 68 year old patient that sees Dr. Sanchez for his left heel ulcer. Surgery was performed 09/28/23 on left first and fifth toe amputation as well as wound debridement bone biopsy left calcaneus. He has been receiving Epifix to his left heel wound. Patient has been sitting more due to off loading his left foot. He started with pain in his right ischial area a couple weeks ago. He has been trying to stay off this area as much as possible with being nonweightbearing on his left foot. He denies any drainage. He denies any fever, chills, nausea or vomiting. He states that the left ischial area is very painful, especially when he sits on it. Objective Data Objective Data Vital Signs: Vital Signs Temp Pulse Resp BP O2 Del Method 97.0 F L 119 H 16 97/64 Room Air 12/26/23 08:50 12/26/23 08:50 12/26/23 08:50 12/26/23 08:50 12/26/23 08:50 Oxygen Delivery Method Room Air Weight: 155 lb 11.464 oz Body Mass Index (BMI) 23.6 Charges/Coding Visit Charges Office Visits / Consults: 58079 OV L3 Est 20min Physical Exam Const alert and oriented x3 General Appearance: cooperative HEENT normocephalic Head and Scalp: atraumatic Eyes General Eye: normal appearance of both eyes Lymph Lymphatic: no lymphedema noted Resp normal respiratory effort, no use of accessory muscles and clear to auscultation bilaterally Effort and Inspection: able to speak in complete sentences Cardio regular rate and regular rhythm GI normal to inspection, nondistended, normoactive bowel sounds and non-tender Extremity Extremity Narrative: Left heel ulcer being managed by Dr. Sanchez Skin Skin Narrative: Left ischial/perineal area with a firm, painful area approx 3 x 5 cm. No fluctuance. Very painful with palpation. Mildly erythematous, no warmth. No open wound, nothing to debride. Neuro CN's II-XII intact bilaterally Psych affect normal Debridement Note Debridement Note No debridement was completed: No debridement was completed today Post-Debridement Measurements and Additional Note: Post-Debridement Measurements/Treatment WC - Nurse 1 - General Ulcer Assessment Start: 12/19/23 08:51 Freq: Status: Active Protocol: SARAH Activity Type Activity Date Activity User E-sign Co-sign Detail Recorded Client Recorded Date Recorded By Document 12/19/23 08:51 KW [id number] 12/19/23 09:21 KW Document 12/26/23 08:50 KW [id number] 12/26/23 08:52 KW 12/19/23 12/26/23 08:51 08:50 - Today's Visit Information Type of service Initial Visit 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 ) Arrival Mode Wheelchair Wheelchair Accompanied by sister Patient Identification Verified (Name & Yes Yes ) Height and Weight Body Mass Index (BMI) 23.6 23.6 BMI Classification Normal Normal Vital Signs Temperature (97.8 F-99.1 F) 96.9 F L 97.0 F L Temperature Source Temporal Temporal Pulse Rate (60-100) 94 119 H Pulse Location Monitor Monitor Respiratory Rate (12-18) 18 16 Respiratory rate source Ausculation Monitor Oxygen Delivery Method Room Air Room Air Blood Pressure (90/60-120/80) 130/62 H 97/64 Blood Pressure Mean (mm Hg) 84 75 Source Monitor Monitor Position Sitting Sitting Blood Pressure Location Left Arm Right Arm History Since Last Visit- (Skip if this is Patient's initial visit) Have you changed medications since your No No last visit? Any new allergies or adverse reactions No No Had a fall/change in ADL's that may No No increase risk of falls Signs or symptoms of abuse and/or No No neglect since last visit Have you been in the hospital since your No No last visit? Has dressing in place as prescribed Yes Yes Has compression in place as prescribed Yes Yes Has offloadiing in place as prescribed Yes N/A Experienced any changes in pain level or No No management Left Footwear Surgical Shoe Regular Shoe with pressure relief insole Right Footwear Regular Shoe Regular Shoe Pain Scale: 0-10 Numeric Is Patient Pain Free? Yes Yes - Nurse 1 - General Ulcer Measurement Start: 12/19/23 08:51 Freq: Status: Active Protocol: Activity Type Activity Date Activity User E-sign Co-sign Detail Recorded Client Recorded Date Recorded By Document 12/19/23 08:51 KW [id number] 12/19/23 09:21 KW Document 12/26/23 08:50 KW [id number] 12/26/23 08:52 KW 12/19/23 12/26/23 08:51 08:50 Wound Center Nurse 1 #5 R ISCHIUM -Current Size (cm) - Length 0.2 0.2 -Current Size (cm) - Width 0.3 0.2 -Current Size (cm) - Depth 0.2 0.1 -Total Square Cm 0.06 0.04 -Circular Undermining Yes -Exudate Amt Small None Present -Exudate Type Serosanguineous -Wound Margin Distinct, Outline Attached -Granulation Amt Large (67-100%) Small (1-33%) -Granulation Quality Red [place],Red -Necrosis Amt Small (1-33%) -Necrotic Tissue Type Adherent Slough -Texture (Dayana-wound Skin Appearance) Assessed Assessed -Moisture (Dayana-wound Skin Appearance) Weeping Assessed -Color (Dayana-wound Skin Appearance) Assessed, Assessed, Erythema Erythema -Temperature (Dayana-wound Skin No Abnormality Appearance) (Pt Warm) -Tenderness on Palpation (Dayana-wound No Skin Appearance) -Ulcer Cleansing Rinsed/ Soap and Water Irrigated with Saline -Foul Odor after Cleansing No -Anesthetic Used 5% Lidocaine Gel #3 L Heel -Current Size (cm) - Length 2 0.1 -Current Size (cm) - Width 1.2 0.1 -Current Size (cm) - Depth 0.2 0.1 -Total Square Cm 2.4 0.01 -Date of Last Picture (Recall this 12/19/23 field) -Epithelialization Medium 34-66% -Exudate Amt Small Small -Exudate Type Serosanguineous Sanguineous -Wound Margin Distinct, Indistinct, Non Outline -Visible Attached -Granulation Amt Medium (34-66%) -Granulation Quality Red -Necrosis Amt Small (1-33%) Large (67-100%) -Necrotic Tissue Type Adherent Slough Adherent Slough -Texture (Dayana-wound Skin Appearance) Assessed Assessed -Moisture (Dayana-wound Skin Appearance) Assessed Assessed -Color (Dayana-wound Skin Appearance) Assessed Assessed -Temperature (Dayana-wound Skin No Abnormality No Abnormality Appearance) (Pt Warm) (Pt Warm) -Tenderness on Palpation (Dayana-wound No No Skin Appearance) -Ulcer Cleansing Soap and Water Soap and Water -Foul Odor after Cleansing No No -Anesthetic Used 5% Lidocaine 5% Lidocaine Gel Gel Left Calf (cm) 32 Left Ankle (cm) 23 WC - Nurse 2 - General Ulcer CM Notes Start: 12/19/23 08:51 Freq: Status: Active Protocol: Activity Type Activity Date Activity User E-sign Co-sign Detail Recorded Client Recorded Date Recorded By Document 12/19/23 09:28 OBEY [id number] 12/19/23 09:36 JF 12/19/23 09:28 Wound Center Nurse 2 #5 R ISCHIUM -Correct Patient No -Correct Side, Site, Position No -Correct Procedure No -Procedure Performed No -Wound/Ulcer Outcome Not Healed #3 L Heel -Time 09:34 -Correct Patient Yes -Correct Side, Site, Position Yes -Correct Procedure Yes -Procedure Performed Yes -Type of Procedure Debridement -Clinical Debridement Subcutaneous -Tissue Removed Subcutaneous -Post Debridement (cm) - Length 2.1 -Post Debridement (cm) - Width 1.2 -Post Debridement (cm) - Depth 0.1 -Total Square (Post) (cm) 2.52 -Area of Debridement (cm) - Length 2.1 -Area of Debridement (cm) - Width 1.2 -Total Square (Area) (cm) 2.52 -Tunneling No -Undermining/Tunneling No -Circular Undermining No -Wound/Ulcer Outcome Not Healed -Ulcer Cleansing Rinsed/ Irrigated with Saline -Foul Odor after Cleansing No -Bioengineered Tissue Yes -Type of Bioengineered Tissue Epifix -Expiration Date 09/16/27 -Product Lot Number [id number] -Percent Used 100 -Lot number of Saline Used [id number] -Bleeding Controlled with Pressure -Treatment Response Procedure Tolerated Well -Offloading No -Debridement - Subq, 1st 20sq cm No -Apply Skin Sub - 1st 25 sq cm - Feet 1 -Epifix (per sq cm) 4 Pain Scale: 0-10 Numeric Is Patient Pain Free? Yes WC - Nurse 3 - General Ulcer D/C NN Start: 12/19/23 08:51 Freq: Status: Active Protocol: Activity Type Activity Date Activity User E-sign Co-sign Detail Recorded Client Recorded Date Recorded By Document 12/19/23 09:54 RB [id number] 12/19/23 09:55 RB 12/19/23 09:54 Wound Care Center Nurse 3 #3 L Heel -Primary Dressing Covered/Secured with Dry Gauze,Dry Gauze & Roll Gauze,Secured with Tape Left -Tubular Bandage Single Layer -Size of Tubigrip Used Size D -Size D ($) 1 Treatment Response Procedure Tolerated Well Pain Scale: 0-10 Numeric Is Patient Pain Free? Yes WC - Visit Discharge Discharge Condition Stable Ambulatory Status Wheelchair Transportation Private Auto Medication Reconcilliation completed & No provided to patient/care provider Clinical Summary of Care Provided Yes Assessment/Plan Assessment/Plan (1) Perineal mass in male: CODE(S): N50.89 - Other specified disorders of the male genital organs (2) Right-sided ischial pain: CODE(S): M25.551 - Pain in right hip (3) Type 2 diabetes mellitus with foot ulcer: CODE(S): E11.621 - Type 2 diabetes mellitus with foot ulcer; L97.509 - Non-pressure chronic ulcer of other part of unspecified foot with unspecified severity QUALIFIERS: Diabetes mellitus jail insulin use: with jail use Qualified Code(s): E11.621 - Type 2 diabetes mellitus with foot ulcer; L97.509 - Non-pressure chronic ulcer of other part of unspecified foot with unspecified severity; 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 He has a 3 x 5 cm firm area that is very painful. No fluctuance noted. Instructed patient on how to do Sitz baths 2-3 times per day for 15-20 minutes at a time. Hopefully this will help relieve some of his discomfort. It also might help bring the firm area to a head. Encouraged him to try to avoid sitting on this area for long periods of time. Since he needs to be non weightbearing to his left foot, he may need to lay on his side to avoid pressure to the sacral/ischial area. Will start him on Doxycycline BID . Counseled him on signs and symptoms of infection and when to seek further treatment/go to ED. Follow up one week to see me. I am covering Dr. Sanchez's wound clinic next week.
--- NOTE | 2023-12-26 10:34 | PN.PCM_ITS ---
History of Present Illness Date of Service: 12/26/23 Chief Complaint: Right ischial sore Progress of Wound: 68 year old patient that sees Dr. Sanchez for his left heel ulcer. Surgery was performed 09/28/23 on left first and fifth toe amputation as well as wound debridement bone biopsy left calcaneus. He has been receiving Epifix to his left heel wound. Patient has been sitting more due to off loading his left foot. He started with pain in his right ischial area a couple weeks ago. He has been trying to stay off this area as much as possible with being nonweightbearing on his left foot. He denies any drainage. He denies any fever, chills, nausea or vomiting. He states that the left ischial area is very painful, especially when he sits on it. Objective Data Objective Data Vital Signs: Vital Signs Temp Pulse Resp BP O2 Del Method 97.0 F L 119 H 16 97/64 Room Air 12/26/23 08:50 12/26/23 08:50 12/26/23 08:50 12/26/23 08:50 12/26/23 08:50 Oxygen Delivery Method Room Air Weight: 70.632 kg Body Mass Index (BMI) 23.6 Physical Exam Narrative Intact pulses left lower extremity. 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 Full-thickness wound to the left lateral calcaneus. This demonstrates 100% granular base with clean skin edges no acute signs of infection deep probing or undermining. Pre and postdebridement measurements documented nursing notes. No wounds to right lower extremity. Muscular strength full to bilateral lower extremity compartments. No gross wound forming deformities noted. Debridement Note Debridement Note Post-Debridement Measurements and Additional Note: Post-Debridement Measurements/Treatment - Nurse 1 - General Ulcer Assessment Start: 12/19/23 08:51 Freq: Status: Active Protocol: LARA.LOWSUE Activity Type Activity Date Activity User E-sign Co-sign Detail Recorded Client Recorded Date Recorded By Document 12/19/23 08:51 KW [id number] 12/19/23 09:21 KW Document 12/26/23 08:50 KW [id number] 12/26/23 08:52 KW 12/19/23 12/26/23 08:51 08:50 - Today's Visit Information Type of service Initial Visit Follow-up Visit (Physician/TIGHT BARREL INSPECTOR ) Arrival Mode Wheelchair Wheelchair Accompanied by sister Patient Identification Verified (Name & Yes Yes ) Height and Weight Body Mass Index (BMI) 23.6 23.6 BMI Classification Normal Normal Vital Signs Temperature (97.8 F-99.1 F) 96.9 F L 97.0 F L Temperature Source Temporal Temporal Pulse Rate (60-100) 94 119 H Pulse Location Monitor Monitor Respiratory Rate (12-18) 18 16 Respiratory rate source Ausculation Monitor Oxygen Delivery Method Room Air Room Air Blood Pressure (90/60-120/80) 130/62 H 97/64 Blood Pressure Mean (mm Hg) 84 75 Source Monitor Monitor Position Sitting Sitting Blood Pressure Location Left Arm Right Arm History Since Last Visit- (Skip if this is Patient's initial visit) Have you changed medications since your No No last visit? Any new allergies or adverse reactions No No Had a fall/change in ADL's that may No No increase risk of falls Signs or symptoms of abuse and/or No No neglect since last visit Have you been in the hospital since your No No last visit? Has dressing in place as prescribed Yes Yes Has compression in place as prescribed Yes Yes Has offloadiing in place as prescribed Yes N/A Experienced any changes in pain level or No No management Left Footwear Surgical Shoe Regular Shoe with pressure relief insole Right Footwear Regular Shoe Regular Shoe Pain Scale: 0-10 Numeric Is Patient Pain Free? Yes Yes WC - Nurse 1 - General Ulcer Measurement Start: 12/19/23 08:51 Freq: Status: Active Protocol: Activity Type Activity Date Activity User E-sign Co-sign Detail Recorded Client Recorded Date Recorded By Document 12/19/23 08:51 KW [id number] 12/19/23 09:21 KW Document 12/26/23 08:50 KW [id number] 12/26/23 08:52 KW 12/19/23 12/26/23 08:51 08:50 Wound Center Nurse 1 #5 R ISCHIUM -Current Size (cm) - Length 0.2 0.2 -Current Size (cm) - Width 0.3 0.2 -Current Size (cm) - Depth 0.2 0.1 -Total Square Cm 0.06 0.04 -Circular Undermining Yes -Exudate Amt Small None Present -Exudate Type Serosanguineous -Wound Margin Distinct, Outline Attached -Granulation Amt Large (67-100%) Small (1-33%) -Granulation Quality Red [place],Red -Necrosis Amt Small (1-33%) -Necrotic Tissue Type Adherent Slough -Texture (Dayana-wound Skin Appearance) Assessed Assessed -Moisture (Dayana-wound Skin Appearance) Weeping Assessed -Color (Dayana-wound Skin Appearance) Assessed, Assessed, Erythema Erythema -Temperature (Dayana-wound Skin No Abnormality Appearance) (Pt Warm) -Tenderness on Palpation (Dayana-wound No Skin Appearance) -Ulcer Cleansing Rinsed/ Soap and Water Irrigated with Saline -Foul Odor after Cleansing No -Anesthetic Used 5% Lidocaine Gel #3 L Heel -Current Size (cm) - Length 2 0.1 -Current Size (cm) - Width 1.2 0.1 -Current Size (cm) - Depth 0.2 0.1 -Total Square Cm 2.4 0.01 -Date of Last Picture (Recall this 12/19/23 field) -Epithelialization Medium 34-66% -Exudate Amt Small Small -Exudate Type Serosanguineous Sanguineous -Wound Margin Distinct, Indistinct, Non Outline -Visible Attached -Granulation Amt Medium (34-66%) -Granulation Quality Red -Necrosis Amt Small (1-33%) Large (67-100%) -Necrotic Tissue Type Adherent Slough Adherent Slough -Texture (Dayana-wound Skin Appearance) Assessed Assessed -Moisture (Dayana-wound Skin Appearance) Assessed Assessed -Color (Dayana-wound Skin Appearance) Assessed Assessed -Temperature ([place]ana-wound Skin No Abnormality No Abnormality Appearance) (Pt Warm) (Pt Warm) -Tenderness on Palpation (Dayana-wound No No Skin Appearance) -Ulcer Cleansing Soap and Water Soap and Water -Foul Odor after Cleansing No No -Anesthetic Used 5% Lidocaine 5% Lidocaine Gel Gel Left Calf (cm) 32 Left Ankle (cm) 23 WC - Nurse 2 - General Ulcer CM Notes Start: 12/19/23 08:51 Freq: Status: Active Protocol: Activity Type Activity Date Activity User E-sign Co-sign Detail Recorded Client Recorded Date Recorded By Document 12/19/23 09:28 JF [id number] 12/19/23 09:36 JF Document 12/26/23 09:25 JF [id number] 12/26/23 09:28 JF 12/19/23 12/26/23 09:28 09:25 Wound Center Nurse 2 #5 R ISCHIUM -Correct Patient No -Correct Side, Site, Position No -Correct Procedure No -Procedure Performed No -Wound/Ulcer Outcome Not Healed #3 L Heel -Time 09:34 09:26 -Correct Patient Yes Yes -Correct Side, Site, Position Yes Yes -Correct Procedure Yes Yes -Procedure Performed Yes Yes -Type of Procedure Debridement Debridement -Clinical Debridement Subcutaneous Subcutaneous -Tissue Removed Subcutaneous Subcutaneous -Post Debridement (cm) - Length 2.1 0.5 -Post Debridement (cm) - Width 1.2 2.0 -Post Debridement (cm) - Depth 0.1 0.1 -Total Square (Post) (cm) 2.52 1.00 -Area of Debridement (cm) - Length 2.1 0.5 -Area of Debridement (cm) - Width 1.2 2.0 -Total Square (Area) (cm) 2.52 1.00 -Tunneling No No -Undermining/Tunneling No No -Circular Undermining No No -Wound/Ulcer Outcome Not Healed Not Healed -Ulcer Cleansing Rinsed/ Rinsed/ Irrigated with Irrigated with Saline Saline -Foul Odor after Cleansing No No -Bioengineered Tissue Yes Yes -Type of Bioengineered Tissue Epifix Epifix -Expiration Date 09/16/27 07/16/28 -Product Lot Number [id number] -Percent Used 100 100 -Lot number of Saline Used [id number] -Bleeding Controlled with Pressure Pressure -Treatment Response Procedure Procedure Tolerated Well Tolerated Well -Offloading No Yes -Type of Offloading Surgical Shoe -Debridement - Subq, 1st 20sq cm No No -Apply Skin Sub - 1st 25 sq cm - Feet 1 1 -Epifix (per sq cm) 4 4 Pain Scale: 0-10 Numeric Is Patient Pain Free? Yes Yes WC - Nurse 3 - General Ulcer D/C NN Start: 12/19/23 08:51 Freq: Status: Active Protocol: Activity Type Activity Date Activity User E-sign Co-sign Detail Recorded Client Recorded Date Recorded By Document 12/19/23 09:54 RB [id number] 12/19/23 09:55 RB Document 12/26/23 09:45 KW [id number] 12/26/23 09:45 KW 12/19/23 12/26/23 09:54 09:45 Wound Care Center Nurse 3 #3 L Heel -Primary Dressing Covered/Secured with Dry Gauze,Dry Dry Gauze & Gauze & Roll Roll Gauze, Gauze,Secured Secured with with Tape Tape Left -Tubular Bandage Single Layer Single Layer -Size of Tubigrip Used Size D Size E -Size D ($) 1 -Size E ($) 1 Treatment Response Procedure Tolerated Well Pain Scale: 0-10 Numeric Is Patient Pain Free? Yes Yes WC - Visit Discharge Discharge Condition Stable Ambulatory Status Wheelchair Transportation Private Auto Medication Reconcilliation completed & No provided to patient/care provider Clinical Summary of Care Provided Yes Assessment/Plan Assessment/Plan (1) Other specified peripheral vascular diseases: CODE(S): I73.89 - Other specified peripheral vascular diseases PLAN: Exam performed Hallux and fifth toe amputation sites healed. Left heel wound excisionally debrided down to including level subcutaneous tissue of all nonviable tissue using 5 mm dermal curette. Patient tolerated procedure anesthesia well apparent satisfactory condition. Topical anesthesia used. Hemostasis obtained for compression. Pre and postdebridement measurement s documented nursing notes. Today 2x2 cm EpiFix graft, 11 billing units applied to left foot wound. Entire graft used, no waste. Stabilized with overlying wound veil and Steri-Strips. Applied overlying dry sterile dressing with light compression. Patient can weight-bear to heels in surgical shoe on the left assisted by walker, but this is for short distances within his house to bathroom to kitchen not for long periods of standing or ambulation. Patient understands this. No additional antibiotics recommended in my opinion at this time. Follow-up in 1 week. (2) Non-pressure chronic ulcer of other part of left foot with fat layer exposed: CODE(S): L97.522 - Non-pressure chronic ulcer of other part of left foot with fat layer exposed
[2024-01-02 08:41] VITALS: BP 108/70; PULSE 107; RESP 18; TEMP 36.3; BMI 23.6
--- NOTE | 2024-01-02 11:56 | PCM.WC.PN ---
History of Present Illness Date of Service: 01/02/24 Chief Complaint: Right ischial sore History of Wound: 68 year old patient that sees Dr. Sanchez for his left heel ulcer. Surgery was performed 09/28/23 on left first and fifth toe amputation as well as wound debridement bone biopsy left calcaneus. He has been receiving Epifix to his left heel wound. Patient has been sitting more due to off loading his left foot. He started with pain in his right ischial area a couple weeks ago. He has been trying to stay off this area as much as possible with being nonweightbearing on his left foot. He denies any drainage. He denies any fever, chills, nausea or vomiting. He states that the left ischial area is very painful, especially when he sits on it. Progress of Wound: Right ischial area is healed today. There continues to be a small amount of firmness. He completes his antibiotics over the next several days. He has been doing the sitz baths, which he states has really helped him start to feel better. Left heel ulcer is improving. He is receiving Epifix to the area. Objective Data Objective Data Vital Signs: Vital Signs Temp Pulse Resp BP O2 Del Method 97.3 F L 107 H 18 108/70 Room Air 01/02/24 08:41 01/02/24 08:41 01/02/24 08:41 01/02/24 08:41 01/02/24 08:41 Oxygen Delivery Method Room Air Weight: 155 lb 11.464 oz Body Mass Index (BMI) 23.6 Charges/Coding Procedures Integumentary 150xxx-152xx: 60078 Skin sub graft trnk/arm/leg Debridement Note Debridement Note Wound debrided: heel Laterality: Left Type of Debridement: Excisional debridement Anesthesia Used: 5% Lidocaine Gel Depth: Down to and including healthy tissue and in the subcutaneous layer Percentage of wound debrided: 100 Instrument Used: 3mm curette Tissue Removed: Non viable tissue and slough Severity: Fat Layer Exposed Amount of bleeding with debridement: Mild Bleeding Controlled with: Pressure and Compression and gauze Patient tolerated procedure: Patient tolerated procedure well Post-Debridement Measurements and Additional Note: Post-Debridement Measurements/Treatment LARA - Nurse 1 - General Ulcer Assessment Start: 12/19/23 08:51 Freq: Status: Active Protocol: WC.LOWEXT Activity Type Activity Date Activity User E-sign Co-sign Detail Recorded Client Recorded Date Recorded By Document 12/19/23 08:51 KW [id number] 12/19/23 09:21 KW Document 12/26/23 08:50 KW [id number] 12/26/23 08:52 KW Document 01/02/24 08:41 KW [id number] 01/02/24 08:57 KW 12/19/23 12/26/23 01/02/24 08:51 08:50 08:41 - Today's Visit Information Type of service Initial Visit Follow-up Visit Follow-up Visit (Physician/ASSOCIATE PROFESSOR OF PATHOLOGY (Physician/ASSOCIATE PROFESSOR OF PATHOLOGY ) ) Arrival Mode Wheelchair Wheelchair Wheelchair Accompanied by sister sister Patient Identification Verified (Name & Yes Yes Yes ) Height and Weight Body Mass Index (BMI) 23.6 23.6 23.6 BMI Classification Normal Normal Normal Vital Signs Temperature (97.8 F-99.1 F) 96.9 F L 97.0 F L 97.3 F L Temperature Source Temporal Temporal Temporal Pulse Rate (60-100) 94 119 H 107 H Pulse Location Monitor Monitor Monitor Respiratory Rate (12-18) 18 16 18 Respiratory rate source Ausculation Monitor Observation Oxygen Delivery Method Room Air Room Air Room Air Blood Pressure (90/60-120/80) 130/62 H 97/64 108/70 Blood Pressure Mean (mm Hg) 84 75 82 Source Monitor Monitor Monitor Position Sitting Sitting Sitting Blood Pressure Location Left Arm Right Arm Left Arm History Since Last Visit- (Skip if this is Patient's initial visit) Have you changed medications since your No No No last visit? Any new allergies or adverse reactions No No No Had a fall/change in ADL's that may No No No increase risk of falls Signs or symptoms of abuse and/or No No No neglect since last visit Have you been in the hospital since your No No No last visit? Has dressing in place as prescribed Yes Yes Yes Has compression in place as prescribed Yes Yes Yes Has offloadiing in place as prescribed Yes N/A Yes Experienced any changes in pain level or No No No management Left Footwear Surgical Shoe Regular Shoe Regular Shoe with pressure relief insole Right Footwear Regular Shoe Regular Shoe Regular Shoe Pain Scale: 0-10 Numeric Is Patient Pain Free? Yes Yes Yes - Nurse 1 - General Ulcer Measurement Start: 12/19/23 08:51 Freq: Status: Active Protocol: Activity Type Activity Date Activity User E-sign Co-sign Detail Recorded Client Recorded Date Recorded By Document 12/19/23 08:51 KW [id number] 12/19/23 09:21 KW Document 12/26/23 08:50 KW [id number] 12/26/23 08:52 KW Document 01/02/24 08:41 KW [id number] 01/02/24 08:57 KW 12/19/23 12/26/23 01/02/24 08:51 08:50 08:41 Wound Center Nurse 1 #5 R ISCHIUM -Current Size (cm) - Length 0.2 0.2 -Current Size (cm) - Width 0.3 0.2 -Current Size (cm) - Depth 0.2 0.1 -Total Square Cm 0.06 0.04 -Circular Undermining Yes -Exudate Amt Small None Present None Present -Exudate Type Serosanguineous -Wound Margin Distinct, Indistinct, Non Outline -Visible Attached -Granulation Amt Large (67-100%) Small (1-33%) -Granulation Quality Red [place],Red Red -Necrosis Amt Small (1-33%) -Necrotic Tissue Type Adherent Slough -Texture (Dayana-wound Skin Appearance) Assessed Assessed Assessed -Moisture (Dayana-wound Skin Appearance) Weeping Assessed Assessed,Dry/ Scaly -Color (Dayana-wound Skin Appearance) Assessed, Assessed, Assessed Erythema Erythema -Temperature (Dayana-wound Skin No Abnormality Appearance) (Pt Warm) -Tenderness on Palpation (Dayana-wound No Skin Appearance) -Ulcer Cleansing Rinsed/ Soap and Water Irrigated with Saline -Foul Odor after Cleansing No -Anesthetic Used 5% Lidocaine Gel -Wound Comment(s) no open area, hard abscess still unsurfaced #3 L Heel -Current Size (cm) - Length 2 0.1 0.5 -Current Size (cm) - Width 1.2 0.1 0.3 -Current Size (cm) - Depth 0.2 0.1 0.1 -Total Square Cm 2.4 0.01 0.15 -Date of Last Picture (Recall this 12/19/23 01/02/24 field) -Epithelialization Medium 34-66% -Exudate Amt Small Small Small -Exudate Type Serosanguineous Sanguineous Serosanguineous -Wound Margin Distinct, Indistinct, Non Distinct, Outline -Visible Outline Attached Attached -Granulation Amt Medium (34-66%) Small (1-33%) -Granulation Quality Red Red -Necrosis Amt Small (1-33%) Large (67-100%) Large (67-100%) -Necrotic Tissue Type Adherent Slough Adherent Slough Eschar -Texture (Dayana-wound Skin Appearance) Assessed Assessed Assessed -Moisture (Dayana-wound Skin Appearance) Assessed Assessed Assessed,Dry/ Scaly -Color (Dayana-wound Skin Appearance) Assessed Assessed Assessed -Temperature (Dayana-wound Skin No Abnormality No Abnormality No Abnormality Appearance) (Pt Warm) (Pt Warm) (Pt Warm) -Tenderness on Palpation (Dayana-wound No No Yes Skin Appearance) -Ulcer Cleansing Soap and Water Soap and Water Soap and Water -Foul Odor after Cleansing No No No -Anesthetic Used 5% Lidocaine 5% Lidocaine 5% Lidocaine Gel Gel Gel -Wound Comment(s) scabbed and dry Left Calf (cm) 32 32.5 Left Ankle (cm) 23 22.5 WC - Nurse 2 - General Ulcer CM Notes Start: 12/19/23 08:51 Freq: Status: Active Protocol: Activity Type Activity Date Activity User E-sign Co-sign Detail Recorded Client Recorded Date Recorded By Document 12/19/23 09:28 [id number] 12/19/23 09:36 Document 12/26/23 09:25 [id number] 12/26/23 09:28 Document 01/02/24 09:27 [id number] 01/02/24 09:40 12/19/23 12/26/23 01/02/24 09:28 09:25 09:27 Wound Center Nurse 2 #5 R ISCHIUM -Correct Patient No No -Correct Side, Site, Position No No -Correct Procedure No No -Procedure Performed No No -Post Debridement (cm) - Length 0 -Post Debridement (cm) - Width 0 -Post Debridement (cm) - Depth 0 -Total Square (Post) (cm) 0 -Area of Debridement (cm) - Length 0 -Area of Debridement (cm) - Width 0 -Total Square (Area) (cm) 0 -Wound/Ulcer Outcome Not Healed Healed- Epithelialized #3 L Heel -Time 09:34 09:26 09:28 -Correct Patient Yes Yes Yes -Correct Side, Site, Position Yes Yes Yes -Correct Procedure Yes Yes Yes -Procedure Performed Yes Yes Yes -Type of Procedure Debridement Debridement Debridement -Clinical Debridement Subcutaneous Subcutaneous Subcutaneous -Tissue Removed Subcutaneous Subcutaneous Subcutaneous -Post Debridement (cm) - Length 2.1 0.5 2.0 -Post Debridement (cm) - Width 1.2 2.0 1.5 -Post Debridement (cm) - Depth 0.1 0.1 0.1 -Total Square (Post) (cm) 2.52 1.00 3.00 -Area of Debridement (cm) - Length 2.1 0.5 2.0 -Area of Debridement (cm) - Width 1.2 2.0 1.5 -Total Square (Area) (cm) 2.52 1.00 3.00 -Tunneling No No No -Undermining/Tunneling No No No -Circular Undermining No No No -Wound/Ulcer Outcome Not Healed Not Healed Not Healed -Ulcer Cleansing Rinsed/ Rinsed/ Rinsed/ Irrigated with Irrigated with Irrigated with Saline Saline Saline -Foul Odor after Cleansing No No No -Bioengineered Tissue Yes Yes Yes -Type of Bioengineered Tissue Epifix Epifix Epifix 18mm Disc -Expiration Date 09/16/27 07/16/28 07/16/28 -Product Lot Number [id number] -Percent Used 100 100 100 -Lot number of Saline Used [id number] -Bleeding Controlled with Pressure Pressure Pressure -Treatment Response Procedure Procedure Procedure Tolerated Well Tolerated Well Tolerated Well -Offloading No Yes Yes -Type of Offloading Surgical Shoe Surgical Shoe -Debridement - Subq, 1st 20sq cm No No No -Apply Skin Sub - 1st 25 sq cm - Feet 1 1 1 -Epifix (per sq cm) 4 4 -Epifix 18mm Disc 3 Pain Scale: 0-10 Numeric Is Patient Pain Free? Yes Yes Yes - Nurse 3 - General Ulcer D/C NN Start: 12/19/23 08:51 Freq: Status: Active Protocol: Activity Type Activity Date Activity User E-sign Co-sign Detail Recorded Client Recorded Date Recorded By Document 12/19/23 09:54 RB [id number] 12/19/23 09:55 RB Document 12/26/23 09:45 KW [id number] 12/26/23 09:45 KW Document 01/02/24 10:05 KW [id number] 01/02/24 10:05 KW 12/19/23 12/26/23 01/02/24 09:54 09:45 10:05 Wound Care Center Nurse 3 #3 L Heel -Primary Dressing Covered/Secured with Dry Gauze,Dry Dry Gauze & Dry Gauze,Dry Gauze & Roll Roll Gauze, Gauze & Roll Gauze,Secured Secured with Gauze,Secured with Tape Tape with Tape Left -Tubular Bandage Single Layer Single Layer Single Layer -Size of Tubigrip Used Size D Size E Size D -Size D ($) 1 1 -Size E ($) 1 Treatment Response Procedure Tolerated Well Pain Scale: 0-10 Numeric Is Patient Pain Free? Yes Yes Yes WC - Visit Discharge Discharge Condition Stable Ambulatory Status Wheelchair Transportation Private Auto Medication Reconcilliation completed & No provided to patient/care provider Clinical Summary of Care Provided Yes Assessment/Plan Assessment/Plan (1) Other specified peripheral vascular diseases: CODE(S): I73.89 - Other specified peripheral vascular diseases (2) Perineal mass in male: CODE(S): N50.89 - Other specified disorders of the male genital organs (3) Right-sided ischial pain: CODE(S): M25.551 - Pain in right hip (4) Type 2 diabetes mellitus with foot ulcer: CODE(S): E11.621 - Type 2 diabetes mellitus with foot ulcer; L97.509 - Non-pressure chronic ulcer of other part of unspecified foot with unspecified severity QUALIFIERS: Diabetes mellitus parts counterman insulin use: with parts counterman use Qualified Code(s): E11.621 - Type 2 diabetes mellitus with foot ulcer; L97.509 - Non-pressure chronic ulcer of other part of unspecified foot with unspecified severity; Z79.4 - ferry terminal agent (current) use of insulin (5) Type 2 diabetes mellitus with peripheral neuropathy: CODE(S): E11.42 - Type 2 diabetes mellitus with diabetic polyneuropathy PLAN: Plan Courtesy visit for Dr. Sanchez for his left heel ulcer. Left heel ulcer is smaller in size. He is tolerating the Epifx well. Today 18 mm Epifix (#8) placed on left heel ulcer. 100% of the product was used. It was topped with wound veil and secured with steri strips. Hydrogel topped it to help prevent it from drying out. It was covered with dry sterile dressing. Encouraged him to try to not put pressure on this area. For his right ischial/perineal mass that I have been seeing him for, it has almost completely resolved. There continue to be a very small area of firmness, but it no longer is tender. He has been doing the sitz baths that he believes have really helped with his discomfort. This area is healed. He is to complete the Doxycycline in the next couple days. Continue to off load as much as possible. Follow up one week with Dr. Sanchez. Follow up PRN with me.
--- NOTE | 2024-01-03 08:23 | WC ---
PHOTO 01/02/24 LEFT HEEL
[2024-01-09 09:31] VITALS: BP 103/61; PULSE 97; RESP 18; TEMP 36.4; BMI 23.6
--- NOTE | 2024-01-09 10:13 | PCM.WC.PN ---
History of Present Illness Date of Service: 01/09/24 Chief Complaint: Right ischial sore History of Wound: 68 year old patient that sees Dr. Sanchez for his left heel ulcer. Surgery was performed 09/28/23 on left first and fifth toe amputation as well as wound debridement bone biopsy left calcaneus. He has been receiving Epifix to his left heel wound. Patient has been sitting more due to off loading his left foot. He started with pain in his right ischial area a couple weeks ago. He has been trying to stay off this area as much as possible with being nonweightbearing on his left foot. He denies any drainage. He denies any fever, chills, nausea or vomiting. He states that the left ischial area is very painful, especially when he sits on it. Progress of Wound: Right ischial area is healed today. There continues to be a small amount of firmness. He completes his antibiotics over the next several days. He has been doing the sitz baths, which he states has really helped him start to feel better. Left heel ulcer is improving. He is receiving Epifix to the area. Objective Data Objective Data Vital Signs: Vital Signs Temp Pulse Resp BP O2 Del Method 97.6 F L 97 18 103/61 Room Air 01/09/24 09:31 01/09/24 09:31 01/09/24 09:31 01/09/24 09:31 01/09/24 09:31 Oxygen Delivery Method Room Air Weight: 70.632 kg Body Mass Index (BMI) 23.6 Physical Exam Narrative Intact pulses left lower extremity. 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 Full-thickness wound to the left lateral calcaneus. This demonstrates 100% granular base with clean skin edges no acute signs of infection deep probing or undermining. Pre and postdebridement measurements documented nursing notes. No wounds to right lower extremity. Muscular strength full to bilateral lower extremity compartments. No gross wound forming deformities noted. Debridement Note Debridement Note Post-Debridement Measurements and Additional Note: Post-Debridement Measurements/Treatment WC - Nurse 1 - General Ulcer Assessment Start: 12/19/23 08:51 Freq: Status: Active Protocol: LARA.CHETAN Activity Type Activity Date Activity User E-sign Co-sign Detail Recorded Client Recorded Date Recorded By Document 12/19/23 08:51 [id number] 12/19/23 09:21 KW Document 12/26/23 08:50 KW [id number] 12/26/23 08:52 KW Document 01/02/24 08:41 KW [id number] 01/02/24 08:57 KW Document 01/09/24 09:31 KW [id number] 01/09/24 09:42 KW 12/19/23 12/26/23 01/02/24 08:51 08:50 08:41 - Today's Visit Information Type of service Initial Visit Follow-up Visit Follow-up Visit (Physician/PACKAGING [employer]ACHINE [employer]IES DISTRIBUTOR (Physician/PACKAGING MACHINE SUPPLIES DISTRIBUTOR ) ) Arrival Mode Wheelchair Wheelchair Wheelchair Accompanied by sister sister Patient Identification Verified (Name & Yes Yes Yes ) Height and Weight Body Mass Index (BMI) 23.6 23.6 23.6 BMI Classification Normal Normal Normal Vital Signs Temperature (97.8 F-99.1 F) 96.9 F L 97.0 F L 97.3 F L Temperature Source Temporal Temporal Temporal Pulse Rate (60-100) 94 119 H 107 H Pulse Location Monitor Monitor Monitor Respiratory Rate (12-18) 18 16 18 Respiratory rate source Ausculation Monitor Observation Oxygen Delivery Method Room Air Room Air Room Air Blood Pressure (90/60-120/80) 130/62 H 97/64 108/70 Blood Pressure Mean (mm Hg) 84 75 82 Source Monitor Monitor Monitor Position Sitting Sitting Sitting Blood Pressure Location Left Arm Right Arm Left Arm History Since Last Visit- (Skip if this is Patient's initial visit) Have you changed medications since your No No No last visit? Any new allergies or adverse reactions No No No Had a fall/change in ADL's that may No No No increase risk of falls Signs or symptoms of abuse and/or No No No neglect since last visit Have you been in the hospital since your No No No last visit? Has dressing in place as prescribed Yes Yes Yes Has compression in place as prescribed Yes Yes Yes Has offloadiing in place as prescribed Yes N/A Yes Experienced any changes in pain level or No No No management Left Footwear Surgical Shoe Regular Shoe Regular Shoe with pressure relief insole Right Footwear Regular Shoe Regular Shoe Regular Shoe Pain Scale: 0-10 Numeric Is Patient Pain Free? Yes Yes Yes 01/09/24 09:31 - Today's Visit Information Type of service Follow-up Visit (Physician/PACKAGING MACHINE [employer]IES DISTRIBUTOR ) Arrival Mode Ambulatory,Cane ,Walker Accompanied by sister Patient Identification Verified (Name & Yes ) Height and Weight Body Mass Index (BMI) 23.6 BMI Classification Normal Vital Signs Temperature (97.8 F-99.1 F) 97.6 F L Temperature Source Temporal Pulse Rate (60-100) 97 Pulse Location Monitor Respiratory Rate (12-18) 18 Respiratory rate source Observation Oxygen Delivery Method Room Air Blood Pressure (90/60-120/80) 103/61 Blood Pressure Mean (mm Hg) 75 Source Monitor Position Semi-Fowlers Blood Pressure Location Left Arm History Since Last Visit- (Skip if this is Patient's initial visit) Have you changed medications since your No last visit? Any new allergies or adverse reactions No Had a fall/change in ADL's that may No increase risk of falls Signs or symptoms of abuse and/or No neglect since last visit Have you been in the hospital since your No last visit? Has dressing in place as prescribed Yes Has compression in place as prescribed Yes Has offloadiing in place as prescribed N/A Experienced any changes in pain level or No management Left Footwear Regular Shoe Right Footwear Regular Shoe Pain Scale: 0-10 Numeric Is Patient Pain Free? Yes WC - Nurse 1 - General Ulcer Measurement Start: 12/19/23 08:51 Freq: Status: Active Protocol: Activity Type Activity Date Activity User E-sign Co-sign Detail Recorded Client Recorded Date Recorded By Document 12/19/23 08:51 KW [id number] 12/19/23 09:21 KW Document 12/26/23 08:50 KW [id number] 12/26/23 08:52 KW Document 01/02/24 08:41 KW [id number] 01/02/24 08:57 KW Document 01/09/24 09:31 KW [id number] 01/09/24 09:42 KW 12/19/23 12/26/23 01/02/24 08:51 08:50 08:41 Wound Center Nurse 1 #5 R ISCHIUM -Current Size (cm) - Length 0.2 0.2 -Current Size (cm) - Width 0.3 0.2 -Current Size (cm) - Depth 0.2 0.1 -Total Square Cm 0.06 0.04 -Circular Undermining Yes -Exudate Amt Small None Present None Present -Exudate Type Serosanguineous -Wound Margin Distinct, Indistinct, Non Outline -Visible Attached -Granulation Amt Large (67-100%) Small (1-33%) -Granulation Quality Red [place],Red Red -Necrosis Amt Small (1-33%) -Necrotic Tissue Type Adherent Slough -Texture ([place]-wound Skin Appearance) Assessed Assessed Assessed -Moisture ([place]-wound Skin Appearance) Weeping Assessed Assessed,Dry/ Scaly -Color ([place]-wound Skin Appearance) Assessed, Assessed, Assessed Erythema Erythema -Temperature ([place]-wound Skin No Abnormality Appearance) (Pt Warm) -Tenderness on Palpation ([place]-wound No Skin Appearance) -Ulcer Cleansing Rinsed/ Soap and Water Irrigated with Saline -Foul Odor after Cleansing No -Anesthetic Used 5% Lidocaine Gel -Wound Comment(s) no open area, hard abscess still unsurfaced #3 L Heel -Current Size (cm) - Length 2 0.1 0.5 -Current Size (cm) - Width 1.2 0.1 0.3 -Current Size (cm) - Depth 0.2 0.1 0.1 -Total Square Cm 2.4 0.01 0.15 -Date of Last Picture (Recall this 12/19/23 01/02/24 field) -Epithelialization Medium 34-66% -Exudate Amt Small Small Small -Exudate Type Serosanguineous Sanguineous Serosanguineous -Wound Margin Distinct, Indistinct, Non Distinct, Outline -Visible Outline Attached Attached -Granulation Amt Medium (34-66%) Small (1-33%) -Granulation Quality Red Red -Necrosis Amt Small (1-33%) Large (67-100%) Large (67-100%) -Necrotic Tissue Type Adherent Slough Adherent Slough Eschar -Texture (Dayana-wound Skin Appearance) Assessed Assessed Assessed -Moisture ([place]-wound Skin Appearance) Assessed Assessed Assessed,Dry/ Scaly -Color ([place]-wound Skin Appearance) Assessed Assessed Assessed -Temperature ([place]-wound Skin No Abnormality No Abnormality No Abnormality Appearance) (Pt Warm) (Pt Warm) (Pt Warm) -Tenderness on Palpation ([place]-wound No No Yes Skin Appearance) -Ulcer Cleansing Soap and Water Soap and Water Soap and Water -Foul Odor after Cleansing No No No -Anesthetic Used 5% Lidocaine 5% Lidocaine 5% Lidocaine Gel Gel Gel -Wound Comment(s) scabbed and dry Left Calf (cm) 32 32.5 Left Ankle (cm) 23 22.5 01/09/24 09:31 Wound Center Nurse 1 #5 R ISCHIUM -Current Size (cm) - Length -Current Size (cm) - Width -Current Size (cm) - Depth -Total Square Cm -Circular Undermining -Exudate Amt -Exudate Type -Wound Margin -Granulation Amt -Granulation Quality -Necrosis Amt -Necrotic Tissue Type -Texture (Dayana-wound Skin Appearance) -Moisture (Dayana-wound Skin Appearance) -Color (Dayana-wound Skin Appearance) -Temperature (Dayana-wound Skin Appearance) -Tenderness on Palpation (Dayana-wound Skin Appearance) -Ulcer Cleansing -Foul Odor after Cleansing -Anesthetic Used -Wound Comment(s) #3 L Heel -Current Size (cm) - Length 0.6 -Current Size (cm) - Width 0.5 -Current Size (cm) - Depth 0.1 -Total Square Cm 0.30 -Date of Last Picture (Recall this field) -Epithelialization -Exudate Amt Small -Exudate Type Serosanguineous -Wound Margin Distinct, Outline Attached -Granulation Amt Large (67-100%) -Granulation Quality Red -Necrosis Amt -Necrotic Tissue Type -Texture (Dayana-wound Skin Appearance) Assessed -Moisture ([place]ana-wound Skin Appearance) Assessed,Dry/ Scaly -Color (Dayana-wound Skin Appearance) Assessed -Temperature ([place]-wound Skin No Abnormality Appearance) (Pt Warm) -Tenderness on Palpation ([place]-wound No Skin Appearance) -Ulcer Cleansing Soap and Water -Foul Odor after Cleansing No -Anesthetic Used 5% Lidocaine Gel -Wound Comment(s) Left Calf (cm) 35 Left Ankle (cm) 23.5 WC - Nurse 2 - General Ulcer CM Notes Start: 12/19/23 08:51 Freq: Status: Active Protocol: Activity Type Activity Date Activity User E-sign Co-sign Detail Recorded Client Recorded Date Recorded By Document 12/19/23 09:28 OBEY [id number] 12/19/23 09:36 OBEY Document 12/26/23 09:25 OBEY [id number] 12/26/23 09:28 JF Document 01/02/24 09:27 OBEY [id number] 01/02/24 09:40 JF Document 01/09/24 09:54 [id number] 01/09/24 09:59 JF 12/19/23 12/26/23 01/02/24 09:28 09:25 09:27 Wound Center Nurse 2 #5 R ISCHIUM -Correct Patient No No -Correct Side, Site, Position No No -Correct Procedure No No -Procedure Performed No No -Post Debridement (cm) - Length 0 -Post Debridement (cm) - Width 0 -Post Debridement (cm) - Depth 0 -Total Square (Post) (cm) 0 -Area of Debridement (cm) - Length 0 -Area of Debridement (cm) - Width 0 -Total Square (Area) (cm) 0 -Wound/Ulcer Outcome Not Healed Healed- Epithelialized #3 L Heel -Time 09:34 09:26 09:28 -Correct Patient Yes Yes Yes -Correct Side, Site, Position Yes Yes Yes -Correct Procedure Yes Yes Yes -Procedure Performed Yes Yes Yes -Type of Procedure Debridement Debridement Debridement -Clinical Debridement Subcutaneous Subcutaneous Subcutaneous -Tissue Removed Subcutaneous Subcutaneous Subcutaneous -Post Debridement (cm) - Length 2.1 0.5 2.0 -Post Debridement (cm) - Width 1.2 2.0 1.5 -Post Debridement (cm) - Depth 0.1 0.1 0.1 -Total Square (Post) (cm) 2.52 1.00 3.00 -Area of Debridement (cm) - Length 2.1 0.5 2.0 -Area of Debridement (cm) - Width 1.2 2.0 1.5 -Total Square (Area) (cm) 2.52 1.00 3.00 -Tunneling No No No -Undermining/Tunneling No No No -Circular Undermining No No No -Wound/Ulcer Outcome Not Healed Not Healed Not Healed -Ulcer Cleansing Rinsed/ Rinsed/ Rinsed/ Irrigated with Irrigated with Irrigated with Saline Saline Saline -Foul Odor after Cleansing No No No -Bioengineered Tissue Yes Yes Yes -Type of Bioengineered Tissue Epifix Epifix Epifix 18mm Disc -Expiration Date 09/16/27 07/16/28 07/16/28 -Product Lot Number [id number] -Percent Used 100 100 100 -Lot number of Saline Used [id number] -Bleeding Controlled with Pressure Pressure Pressure -Treatment Response Procedure Procedure Procedure Tolerated Well Tolerated Well Tolerated Well -Offloading No Yes Yes -Type of Offloading Surgical Shoe Surgical Shoe -Debridement - Subq, 1st 20sq cm No No No -Apply Skin Sub - 1st 25 sq cm - Feet 1 1 1 -Epifix (per sq cm) 4 4 -Epifix 18mm Disc 3 Pain Scale: 0-10 Numeric Is Patient Pain Free? Yes Yes Yes 01/09/24 09:54 Wound Center Nurse 2 #5 R ISCHIUM -Correct Patient -Correct Side, Site, Position -Correct Procedure -Procedure Performed -Post Debridement (cm) - Length -Post Debridement (cm) - Width -Post Debridement (cm) - Depth -Total Square (Post) (cm) -Area of Debridement (cm) - Length -Area of Debridement (cm) - Width -Total Square (Area) (cm) -Wound/Ulcer Outcome #3 L Heel -Time 09:55 -Correct Patient Yes -Correct Side, Site, Position Yes -Correct Procedure Yes -Procedure Performed Yes -Type of Procedure Debridement -Clinical Debridement Subcutaneous -Tissue Removed Subcutaneous -Post Debridement (cm) - Length 0.5 -Post Debridement (cm) - Width 1.5 -Post Debridement (cm) - Depth 0.1 -Total Square (Post) (cm) 0.75 -Area of Debridement (cm) - Length 0.5 -Area of Debridement (cm) - Width 1.5 -Total Square (Area) (cm) 0.75 -Tunneling No -Undermining/Tunneling No -Circular Undermining No -Wound/Ulcer Outcome Not Healed -Ulcer Cleansing Rinsed/ Irrigated with Saline -Foul Odor after Cleansing No -Bioengineered Tissue Yes -Type of Bioengineered Tissue Epifix 18mm Disc -Expiration Date 07/16/28 -Product Lot Number [id number] -Percent Used 100 -Lot number of Saline Used [id number] -Bleeding Controlled with Pressure -Treatment Response Procedure Tolerated Well -Offloading Yes -Type of Offloading Surgical Shoe -Debridement - Subq, 1st 20sq cm No -Apply Skin Sub - 1st 25 sq cm - Feet 1 -Epifix (per sq cm) -Epifix 18mm Disc 3 Pain Scale: 0-10 Numeric Is Patient Pain Free? Yes WC - Nurse 3 - General Ulcer D/C NN Start: 12/19/23 08:51 Freq: Status: Active Protocol: Activity Type Activity Date Activity User E-sign Co-sign Detail Recorded Client Recorded Date Recorded By Document 12/19/23 09:54 RB [id number] 12/19/23 09:55 RB Document 12/26/23 09:45 KW [id number] 12/26/23 09:45 KW Document 01/02/24 10:05 KW [id number] 01/02/24 10:05 KW Document 01/09/24 10:08 DL [id number] 01/09/24 10:09 DL 12/19/23 12/26/23 01/02/24 09:54 09:45 10:05 Wound Care Center Nurse 3 #3 L Heel -Foul Odor after Cleansing -Other Dressing -Primary Dressing Covered/Secured with Dry Gauze,Dry Dry Gauze & Dry Gauze,Dry Gauze & Roll Roll Gauze, Gauze & Roll Gauze,Secured Secured with Gauze,Secured with Tape Tape with Tape -Other Covering Left -Tubular Bandage Single Layer Single Layer Single Layer -Size of Tubigrip Used Size D Size E Size D -Size D ($) 1 1 -Size E ($) 1 Treatment Response Procedure Tolerated Well Pain Scale: 0-10 Numeric Is Patient Pain Free? Yes Yes Yes - Visit Discharge Discharge Condition Stable Ambulatory Status Wheelchair Transportation Private Auto Medication Reconcilliation completed & No provided to patient/care provider Clinical Summary of Care Provided Yes 01/09/24 10:08 Wound Care Center Nurse 3 #3 L Heel -Foul Odor after Cleansing No -Other Dressing Epifix -Primary Dressing Covered/Secured with Dry Gauze & Roll Gauze, Secured with Tape -Other Covering Padding/ tubigrip Left -Tubular Bandage -Size of Tubigrip Used -Size D ($) -Size E ($) Treatment Response Procedure Tolerated Well Pain Scale: 0-10 Numeric Is Patient Pain Free? Yes - Visit Discharge Discharge Condition Stable Ambulatory Status Ambulatory Transportation Private Auto Medication Reconcilliation completed & provided to patient/care provider Clinical Summary of Care Provided Assessment/Plan Assessment/Plan (1) Other specified peripheral vascular diseases: CODE(S): I73.89 - Other specified peripheral vascular diseases PLAN: Exam performed Hallux and fifth toe amputation sites healed. Left heel wound excisionally debrided down to including level subcutaneous tissue of all nonviable tissue using 5 mm dermal curette. Patient tolerated procedure anesthesia well apparent satisfactory condition. Topical anesthesia used. Hemostasis obtained for compression. Pre and postdebridement measurements documented nursing notes. Today 18mm disc EpiFix graft, applied to left foot wound. Entire graft used, no waste. Stabilized with overlying wound veil and Steri-Strips. Applied overlying dry sterile dressing with light compression. Patient can weight-bear to heels in surgical shoe on the left assisted by walker, but this is for short distances within his house to bathroom to kitchen not for long periods of standing or ambulation. Patient understands this. No additional antibiotics recommended in my opinion at this time. Follow-up in 1 week. (2) Non-pressure chronic ulcer of other part of left foot with fat layer exposed: CODE(S): L97.522 - Non-pressure chronic ulcer of other part of left foot with fat layer exposed
--- NOTE | 2024-01-09 15:07 | HP.PCM_ITS ---
History of Present Illness Date of Service: 01/09/24 Chief Complaint: Right ischial sore History of Wound: 68 year old patient that sees Dr. Sanchez for his left heel ulcer. Surgery was performed 09/28/23 on left first and fifth toe amputation as well as wound debridement bone biopsy left calcaneus. He has been receiving Epifix to his left heel wound. Dr. Sanchez asked me to evaluate the patient today because during his follow-up with Dr. Sanchez the patient complained of the left gluteal abscess. Progress of Wound: New left gluteal abscess seen and examined today. Patient reports that has been there for a couple of days. He has a history of abscesses in the past including a right gluteal abscess that was drained by her nurse practitioner recently and since healed. He reports sharp severe pain worsened by movements and improved by rest and pressure offloading. Denies fevers or PFSH Medical History Chronic pain BPH (benign prostatic hyperplasia) IBS (irritable bowel syndrome) Diabetes Lives in assisted Alcohol use Open wound Arthritis Walker as ambulation aid Back pain Injury of head and neck Syncope Shortness of breath on exertion History of pain when walking History of edema Myocardial infarct Congestive heart failure (CHF) Hypertension DVT (deep venous thrombosis) Home Medications ?Medication ?Instructions ?Recorded ?Last Taken ?Type Petrolatum 33% [Eucerin Eqivalent] 1 applic topical BID PRN PRN ##0 10/04/23 Unknown Rx arginine 7 gram-glutam 7 1 packet PO BIDCM #0 ea 10/04/23 Unknown Rx gram-CaHMB 1.5 [id number]-min oral pwd pkt (Vladimir (with collagen)) ciprofloxacin HCl 500 mg tablet 500 mg PO BID #0 tabs 10/04/23 Unknown Rx doxycycline monohydrate 100 mg 100 mg PO BID #0 caps 10/04/23 Unknown Rx capsule menthol 0.44 %-zinc oxide 20.6 % 1 applic topical BID #0 grams 10/04/23 Unknown Rx topical ointment (Calmoseptine) nystatin 100,000 unit/gram topical 1 applic topical BID #0 grams 10/04/23 Unknown Rx powder (Nyamyc) tramadol 50 mg tablet 50 mg PO Q6H PRN PRN Pain 4-5 q6h 10/04/23 Unknown Rx or Pre PT/OT 3 days #12 tabs inulin 2 gram chewable tablet g PO 12/11/23 Unknown History (Fiber Gummies) nutrition tx glu ml PO 12/11/23 Unknown History intol,lac-free,soy-fiber 0.07 gram-0.8 kcal/mL liquid (Boost Glucose Control) gabapentin 300 mg capsule 300 mg PO TIDCM #90 caps 12/15/23 Unknown Rx acetaminophen 500 mg tablet 1,000 mg (2 x 500 mg) PO Q6H PRN 12/19/23 Unknown Rx PRN Pain Score 1-3 #360 tabs aspirin 81 mg chewable tablet 81 mg PO BREAKFAST Heart #90 tabs 12/19/23 Unknown Rx atorvastatin 40 mg tablet 40 mg PO QHS Cholesterol #90 tabs 12/19/23 Unknown Rx rivaroxaban 20 mg tablet (Xarelto) 20 mg PO DINNER Blood Thinner #90 12/19/23 Unknown Rx tabs sennosides 8.6 mg-docusate sodium 2 tab PO BID #180 tabs 12/19/23 Unknown Rx 50 mg tablet (Stool Softener-Stimulant Laxative) doxycycline hyclate 100 mg capsule 100 mg PO BID 10 days #20 caps 12/26/23 Unknown Rx carvedilol 3.125 mg tablet 3.125 mg PO BIDCM BP #180 tabs 01/04/24 Unknown Rx lisinopril 2.5 mg tablet 2.5 mg PO DAILY BP #90 tabs 01/04/24 Unknown Rx metformin 500 mg tablet 500 mg PO DAILY Diabetes #90 tabs 01/04/24 Unknown Rx tamsulosin 0.4 mg capsule 0.8 mg (2 x 0.4 mg) PO DAILY@1730 01/04/24 Unknown Rx Urinary Retention #180 caps Allergy/AdvReac Type Severity Reaction Status Date / Time Penicillins Allergy Unknown Verified 12/11/23 14:11 Family History Father Diabetes Arthritis Mother Hypertension Heart disease Hyperlipemia Surgical History S/P foot surgery History of femoropopliteal bypass H/O right knee surgery Social History adopted: No household members: none current occupational status: retired pets and animals: No Smoking Status: Former smoker quit date: 05/18/23 Tobacco: How many years used: 44 alcohol intake: never substance use type: does not use caffeine: No what type of physical activity do you participate in: none and other seatbelt use: always do you feel safe at home: Yes Vital Signs Vital Signs Vital Signs: 01/09/24 09:31 Temperature 97.6 F L Temperature Source Temporal Pulse Rate 97 Respiratory Rate 18 Blood Pressure 103/61 Blood Pressure Mean 75 Blood Pressure Source Monitor Blood Pressure Position Semi-Fowlers Blood Pressure Location Left Arm Oxygen Delivery Method Room Air Weight Weight: 155 lb 11.464 oz Body Mass Index (BMI) 23.6 Physical Exam Narrative Left buttock There is a 5 x 5 cm abscess on the left ischial region of the left buttock Tender to palpation and swollen with fluctuance. Debridement Note Debridement Note Post-Debridement Measurements and Additional Note: Post-Debridement Measurements/Treatment - Nurse 1 - General Ulcer Assessment Start: 12/19/23 08:51 Freq: Status: Active Protocol: LARA.CHETAN Activity Type Activity Date Activity User E-sign Co-sign Detail Recorded Client Recorded Date Recorded By Document 12/19/23 08:51 [id number] 12/19/23 09:21 KW Document 12/26/23 08:50 KW [id number] 12/26/23 08:52 Document 01/02/24 08:41 KW [id number] 01/02/24 08:57 Document 01/09/24 09:31 KW [id number] 01/09/24 09:42 KW 12/19/23 12/26/23 01/02/24 08:51 08:50 08:41 - Today's Visit Information Type of service Initial Visit Follow-up Visit Follow-up Visit (Physician/SALES AND MARKETING ADMINISTRATOR (Physician/SALES AND MARKETING ADMINISTRATOR ) ) Arrival Mode Wheelchair Wheelchair Wheelchair Accompanied by sister sister Patient Identification Verified (Name & Yes Yes Yes ) Height and Weight Body Mass Index (BMI) 23.6 23.6 23.6 BMI Classification Normal Normal Normal Vital Signs Temperature (97.8 F-99.1 F) 96.9 F L 97.0 F L 97.3 F L Temperature Source Temporal Temporal Temporal Pulse Rate (60-100) 94 119 H 107 H Pulse Location Monitor Monitor Monitor Respiratory Rate (12-18) 18 16 18 Respiratory rate source Ausculation Monitor Observation Oxygen Delivery Method Room Air Room Air Room Air Blood Pressure (90/60-120/80) 130/62 H 97/64 108/70 Blood Pressure Mean 84 75 82 Source Monitor Monitor Monitor Position Sitting Sitting Sitting Blood Pressure Location Left Arm Right Arm Left Arm History Since Last Visit- (Skip if this is Patient's initial visit) Have you changed medications since your No No No last visit? Any new allergies or adverse reactions No No No Had a fall/change in ADL's that may No No No increase risk of falls Signs or symptoms of abuse and/or No No No neglect since last visit Have you been in the hospital since your No No No last visit? Has dressing in place as prescribed Yes Yes Yes Has compression in place as prescribed Yes Yes Yes Has offloadiing in place as prescribed Yes N/A Yes Experienced any changes in pain level or No No No management Left Footwear Surgical Shoe Regular Shoe Regular Shoe with pressure relief insole Right Footwear Regular Shoe Regular Shoe Regular Shoe Pain Scale: 0-10 Numeric Is Patient Pain Free? Yes Yes Yes 01/09/24 09:31 WC - Today's Visit Information Type of service Follow-up Visit (Physician/SALES AND MARKETING ADMINISTRATOR ) Arrival Mode Ambulatory,Cane ,Walker Accompanied by sister Patient Identification Verified (Name & Yes ) Height and Weight Body Mass Index (BMI) 23.6 BMI Classification Normal Vital Signs Temperature (97.8 F-99.1 F) 97.6 F L Temperature Source Temporal Pulse Rate (60-100) 97 Pulse Location Monitor Respiratory Rate (12-18) 18 Respiratory rate source Observation Oxygen Delivery Method Room Air Blood Pressure (90/60-120/80) 103/61 Blood Pressure Mean 75 Source Monitor Position Semi-Fowlers Blood Pressure Location Left Arm History Since Last Visit- (Skip if this is Patient's initial visit) Have you changed medications since your No last visit? Any new allergies or adverse reactions No Had a fall/change in ADL's that may No increase risk of falls Signs or symptoms of abuse and/or No neglect since last visit Have you been in the hospital since your No last visit? Has dressing in place as prescribed Yes Has compression in place as prescribed Yes Has offloadiing in place as prescribed N/A Experienced any changes in pain level or No management Left Footwear Regular Shoe Right Footwear Regular Shoe Pain Scale: 0-10 Numeric Is Patient Pain Free? Yes WC - Nurse 1 - General Ulcer Measurement Start: 12/19/23 08:51 Freq: Status: Active Protocol: Activity Type Activity Date Activity User E-sign Co-sign Detail Recorded Client Recorded Date Recorded By Document 12/19/23 08:51 KW [id number] 12/19/23 09:21 KW Document 12/26/23 08:50 KW [id number] 12/26/23 08:52 KW Document 01/02/24 08:41 KW [id number] 01/02/24 08:57 KW Document 01/09/24 09:31 KW [id number] 01/09/24 09:42 KW 12/19/23 12/26/23 01/02/24 08:51 08:50 08:41 Wound Center Nurse 1 #5 R ISCHIUM -Current Size (cm) - Length 0.2 0.2 -Current Size (cm) - Width 0.3 0.2 -Current Size (cm) - Depth 0.2 0.1 -Total Square Cm 0.06 0.04 -Circular Undermining Yes -Exudate Amt Small None Present None Present -Exudate Type Serosanguineous -Wound Margin Distinct, Indistinct, Non Outline -Visible Attached -Granulation Amt Large (67-100%) Small (1-33%) -Granulation Quality Red [place],Red Red -Necrosis Amt Small (1-33%) -Necrotic Tissue Type Adherent Slough -Texture (Dayana-wound Skin Appearance) Assessed Assessed Assessed -Moisture (Dayana-wound Skin Appearance) Weeping Assessed Assessed,Dry/ Scaly -Color (Dayana-wound Skin Appearance) Assessed, Assessed, Assessed Erythema Erythema -Temperature (Dayana-wound Skin No Abnormality Appearance) (Pt Warm) -Tenderness on Palpation (Dayana-wound No Skin Appearance) -Ulcer Cleansing Rinsed/ Soap and Water Irrigated with Saline -Foul Odor after Cleansing No -Anesthetic Used 5% Lidocaine Gel -Wound Comment(s) no open area, hard abscess still unsurfaced #3 L Heel -Current Size (cm) - Length 2 0.1 0.5 -Current Size (cm) - Width 1.2 0.1 0.3 -Current Size (cm) - Depth 0.2 0.1 0.1 -Total Square Cm 2.4 0.01 0.15 -Date of Last Picture (Recall this 12/19/23 01/02/24 field) -Epithelialization Medium 34-66% -Exudate Amt Small Small Small -Exudate Type Serosanguineous Sanguineous Serosanguineous -Wound Margin Distinct, Indistinct, Non Distinct, Outline -Visible Outline Attached Attached -Granulation Amt Medium (34-66%) Small (1-33%) -Granulation Quality Red Red -Necrosis Amt Small (1-33%) Large (67-100%) Large (67-100%) -Necrotic Tissue Type Adherent Slough Adherent Slough Eschar -Texture (Dayana-wound Skin Appearance) Assessed Assessed Assessed -Moisture (Dayana-wound Skin Appearance) Assessed Assessed Assessed,Dry/ Scaly -Color (Dayana-wound Skin Appearance) Assessed Assessed Assessed -Temperature (Dayana-wound Skin No Abnormality No Abnormality No Abnormality Appearance) (Pt Warm) (Pt Warm) (Pt Warm) -Tenderness on Palpation (Dayana-wound No No Yes Skin Appearance) -Ulcer Cleansing Soap and Water Soap and Water Soap and Water -Foul Odor after Cleansing No No No -Anesthetic Used 5% Lidocaine 5% Lidocaine 5% Lidocaine Gel Gel Gel -Wound Comment(s) scabbed and dry Left Calf (cm) 32 32.5 Left Ankle (cm) 23 22.5 01/09/24 09:31 Wound Center Nurse 1 #5 R ISCHIUM -Current Size (cm) - Length -Current Size (cm) - Width -Current Size (cm) - Depth -Total Square Cm -Circular Undermining -Exudate Amt -Exudate Type -Wound Margin -Granulation Amt -Granulation Quality -Necrosis Amt -Necrotic Tissue Type -Texture (Dayana-wound Skin Appearance) -Moisture (Dayana-wound Skin Appearance) -Color (Dayana-wound Skin Appearance) -Temperature (Dayana-wound Skin Appearance) -Tenderness on Palpation (Dayana-wound Skin Appearance) -Ulcer Cleansing -Foul Odor after Cleansing -Anesthetic Used -Wound Comment(s) #3 L Heel -Current Size (cm) - Length 0.6 -Current Size (cm) - Width 0.5 -Current Size (cm) - Depth 0.1 -Total Square Cm 0.30 -Date of Last Picture (Recall this field) -Epithelialization -Exudate Amt Small -Exudate Type Serosanguineous -Wound Margin Distinct, Outline Attached -Granulation Amt Large (67-100%) -Granulation Quality Red -Necrosis Amt -Necrotic Tissue Type -Texture (Dayana-wound Skin Appearance) Assessed -Moisture (Dayana-wound Skin Appearance) Assessed,Dry/ Scaly -Color (Dayana-wound Skin Appearance) Assessed -Temperature (Dayana-wound Skin No Abnormality Appearance) (Pt Warm) -Tenderness on Palpation (Dayana-wound No Skin Appearance) -Ulcer Cleansing Soap and Water -Foul Odor after Cleansing No -Anesthetic Used 5% Lidocaine Gel -Wound Comment(s) Left Calf (cm) 35 Left Ankle (cm) 23.5 WC - Nurse 2 - General Ulcer CM Notes Start: 12/19/23 08:51 Freq: Status: Active Protocol: Activity Type Activity Date Activity User E-sign Co-sign Detail Recorded Client Recorded Date Recorded By Document 12/19/23 09:28 [id number] 12/19/23 09:36 Document 12/26/23 09:25 [id number] 12/26/23 09:28 JF Document 01/02/24 09:27 JF [id number] 01/02/24 09:40 JF Document 01/09/24 09:54 JF [id number] 01/09/24 09:59 JF Document 01/09/24 11:50 DS [id number] 01/09/24 11:51 DS 12/19/23 12/26/23 01/02/24 09:28 09:25 09:27 Wound Center Nurse 2 #5 R ISCHIUM -Correct Patient No No -Correct Side, Site, Position No No -Correct Procedure No No -Procedure Performed No No -Post Debridement (cm) - Length 0 -Post Debridement (cm) - Width 0 -Post Debridement (cm) - Depth 0 -Total Square (Post) (cm) 0 -Area of Debridement (cm) - Length 0 -Area of Debridement (cm) - Width 0 -Total Square (Area) (cm) 0 -Wound/Ulcer Outcome Not Healed Healed- Epithelialized #3 L Heel -Time 09:34 09:26 09:28 -Correct Patient Yes Yes Yes -Correct Side, Site, Position Yes Yes Yes -Correct Procedure Yes Yes Yes -Procedure Performed Yes Yes Yes -Type of Procedure Debridement Debridement Debridement -Clinical Debridement Subcutaneous Subcutaneous Subcutaneous -Tissue Removed Subcutaneous Subcutaneous Subcutaneous -Post Debridement (cm) - Length 2.1 0.5 2.0 -Post Debridement (cm) - Width 1.2 2.0 1.5 -Post Debridement (cm) - Depth 0.1 0.1 0.1 -Total Square (Post) (cm) 2.52 1.00 3.00 -Area of Debridement (cm) - Length 2.1 0.5 2.0 -Area of Debridement (cm) - Width 1.2 2.0 1.5 -Total Square (Area) (cm) 2.52 1.00 3.00 -Tunneling No No No -Undermining/Tunneling No No No -Circular Undermining No No No -Wound/Ulcer Outcome Not Healed Not Healed Not Healed -Ulcer Cleansing Rinsed/ Rinsed/ Rinsed/ Irrigated with Irrigated with Irrigated with Saline Saline Saline -Foul Odor after Cleansing No No No -Bioengineered Tissue Yes Yes Yes -Type of Bioengineered Tissue Epifix Epifix Epifix 18mm Disc -Expiration Date 09/16/27 07/16/28 07/16/28 -Product Lot Number [id number] -Percent Used 100 100 100 -Lot number of Saline Used [id number] -Bleeding Controlled with Pressure Pressure Pressure -Treatment Response Procedure Procedure Procedure Tolerated Well Tolerated Well Tolerated Well -Offloading No Yes Yes -Type of Offloading Surgical Shoe Surgical Shoe -Debridement - Subq, 1st 20sq cm No No No -Apply Skin Sub - 1st 25 sq cm - Feet 1 1 1 -Epifix (per sq cm) 4 4 -Epifix 18mm Disc 3 -I&D / Paring / Biopsy Pain Scale: 0-10 Numeric Is Patient Pain Free? Yes Yes Yes left buttock -Description -Intensity -Duration (hours) -Alleviating Factors/Interventions -Comments 01/09/24 01/09/24 09:54 11:50 Wound Center Nurse 2 #5 R ISCHIUM -Correct Patient -Correct Side, Site, Position -Correct Procedure -Procedure Performed -Post Debridement (cm) - Length -Post Debridement (cm) - Width -Post Debridement (cm) - Depth -Total Square (Post) (cm) -Area of Debridement (cm) - Length -Area of Debridement (cm) - Width -Total Square (Area) (cm) -Wound/Ulcer Outcome #3 L Heel -Time 09:55 11:40 -Correct Patient Yes Yes -Correct Side, Site, Position Yes Yes -Correct Procedure Yes Yes -Procedure Performed Yes Yes -Type of Procedure Debridement Incision & Drainage -Clinical Debridement Subcutaneous -Tissue Removed Subcutaneous -Post Debridement (cm) - Length 0.5 -Post Debridement (cm) - Width 1.5 -Post Debridement (cm) - Depth 0.1 -Total Square (Post) (cm) 0.75 -Area of Debridement (cm) - Length 0.5 -Area of Debridement (cm) - Width 1.5 -Total Square (Area) (cm) 0.75 -Tunneling No -Undermining/Tunneling No -Circular Undermining No -Wound/Ulcer Outcome Not Healed -Ulcer Cleansing Rinsed/ Irrigated with Saline -Foul Odor after Cleansing No -Bioengineered Tissue Yes -Type of Bioengineered Tissue Epifix 18mm Disc -Expiration Date 07/16/28 -Product Lot Number [id number] -Percent Used 100 -Lot number of Saline Used [id number] -Bleeding Controlled with Pressure -Treatment Response Procedure Tolerated Well -Offloading Yes -Type of Offloading Surgical Shoe -Debridement - Subq, 1st 20sq cm No -Apply Skin Sub - 1st 25 sq cm - Feet 1 -Epifix (per sq cm) -Epifix 18mm Disc 3 -I&D / Paring / Biopsy I&D abscess - single or simple Pain Scale: 0-10 Numeric Is Patient Pain Free? Yes No left buttock -Description Aching -Intensity 8 -Duration (hours) Acute -Alleviating Factors/Interventions Will continue to monitor -Comments i&D - lido/epi 10ml WC - Nurse 3 - General Ulcer D/C NN Start: 12/19/23 08:51 Freq: Status: Active Protocol: Activity Type Activity Date Activity User E-sign Co-sign Detail Recorded Client Recorded Date Recorded By Document 12/19/23 09:54 RB [id number] 12/19/23 09:55 RB Document 12/26/23 09:45 KW [id number] 12/26/23 09:45 KW Document 01/02/24 10:05 KW [id number] 01/02/24 10:05 KW Document 01/09/24 10:08 DL [id number] 01/09/24 10:09 DL 12/19/23 12/26/23 01/02/24 09:54 09:45 10:05 Wound Care Center Nurse 3 #3 L Heel -Foul Odor after Cleansing -Other Dressing -Primary Dressing Covered/Secured with Dry Gauze,Dry Dry Gauze & Dry Gauze,Dry Gauze & Roll Roll Gauze, Gauze & Roll Gauze,Secured Secured with Gauze,Secured with Tape Tape with Tape -Other Covering Left -Tubular Bandage Single Layer Single Layer Single Layer -Size of Tubigrip Used Size D Size E Size D -Size D ($) 1 1 -Size E ($) 1 Treatment Response Procedure Tolerated Well Pain Scale: 0-10 Numeric Is Patient Pain Free? Yes Yes Yes WC - Visit Discharge Discharge Condition Stable Ambulatory Status Wheelchair Transportation Private Auto Medication Reconcilliation completed & No provided to patient/care provider Clinical Summary of Care Provided Yes 01/09/24 10:08 Wound Care Center Nurse 3 #3 L Heel -Foul Odor after Cleansing No -Other Dressing Epifix -Primary Dressing Covered/Secured with Dry Gauze & Roll Gauze, Secured with Tape -Other Covering Padding/ tubigrip Left -Tubular Bandage -Size of Tubigrip Used -Size D ($) -Size E ($) Treatment Response Procedure Tolerated Well Pain Scale: 0-10 Numeric Is Patient Pain Free? Yes WC - Visit Discharge Discharge Condition Stable Ambulatory Status Ambulatory Transportation Private Auto Medication Reconcilliation completed & provided to patient/care provider Clinical Summary of Care Provided Charges/Coding Procedures Integumentary 10xxx: 87530 Drainage of skin abscess (25 modifier) Multi Select Codes Visit Charges Office Visit/Consults: 86642 OV L4 New 45 min Assessment/Plan Assessment/Plan (1) Abscess, gluteal, left: CODE(S): L02.31 - Cutaneous abscess of buttock PLAN: Verbal consent obtained Anesthesia: 10 cc of 1% lidocaine with 1-100,000 epinephrine. Diagnosis: Left gluteal abscess Procedure performed: left gluteal wound incision and drainage, CPT code 22665 - 25 modifier Operative findings: Purulent drainage within the abscess cavity that was cultured Procedure details: Patient was prepped and draped in sterile fashion, timeout was performed. A 15 blade scalpel was used to make a horizontal direct incision over the area of most fluctuance and anaerobic and aerobic cultures were taken as copious amounts of purulence was released from the abscess cavity. Hemostat was used to break up the loculations and the 4 x 5 centimeter abscess cavity. The wound was washed out with copious amounts normal saline and packed with Dakin soaked Kerlix. Patient tolerated the procedure well Staff showed the patient how to pack the wound Plan for twice daily Dakin's packing to be packed and removed daily. Follow-up weekly in the wound care center. We will see him tomorrow to check the progress of the packing in the wound. Follow-up cultures Patient placed on doxycycline 100 mg p.o. twice daily for 1 week until culture data results
[2024-01-10 15:39] VITALS: BP 113/77; PULSE 106; RESP 18; TEMP 36.8; BMI 23.6
--- NOTE | 2024-01-10 16:41 | PCM.WC.PN ---
History of Present Illness Date of Service: 01/10/24 Chief Complaint: Left gluteal wound History of Wound: 68 year old patient that sees Dr. Sanchez for his left heel ulcer. Surgery was performed 09/28/23 on left first and fifth toe amputation as well as wound debridement bone biopsy left calcaneus. He has been receiving Epifix to his left heel wound. New left gluteal abscess seen and examined on 01/09/[address] [place]. Patient reports that has been there for a couple of days. He has a history of abscesses in the past including a right gluteal abscess that was drained by her nurse practitioner recently and since healed. He reports sharp severe pain worsened by movements and improved by rest and pressure offloading. He was seen yesterday by Dr. Birmingham who drained his left gluteal abscess. Progress of Wound: Left gluteal abscess incision evaluated today. The base of wound is pink. There is minimal drainage. Patient states it is still painful to touch and he is having difficulty packing the ulcer at home. He states that he had to use his finger to place the packing because he was unable to put it in with the cotton swab applicator. He is denying any fever and chills. He states that he is tolerating the antibiotics. Objective Data Objective Data Vital Signs: Vital Signs Temp Pulse Resp BP O2 Del Method 98.2 F 106 H 18 113/77 Room Air 01/10/24 15:39 01/10/24 15:39 01/10/24 15:39 01/10/24 15:39 01/09/24 09:31 Oxygen Delivery Method Room Air Weight: 155 lb 11.464 oz Body Mass Index (BMI) 23.6 Lab / Micro Data Micro: Microbiology 01/09/24 11:25 Wound - Buttock Gram Stain - Final 01/09/24 11:25 Wound - Buttock Wound Culture - Preliminary Staphylococcus aureus Charges/Coding Visit Charges Office Visits / Consults: 84114 OV L3 Est 20min Physical Exam Const alert and oriented x3 General Appearance: cooperative HEENT normocephalic Resp Effort and Inspection: able to speak in complete sentences Skin Wound Narrative: Left gluteal abscess that was drained yesterday. Wound is clean with pink base. Minimal drainage. Redness surrounding the wound is resolving. Neuro CN's II-XII intact bilaterally Psych Psych Narrative: Patient is very anxious Debridement Note Debridement Note No debridement was completed: No debridement was completed today Post-Debridement Measurements and Additional Note: Post-Debridement Measurements/Treatment WC - Nurse 1 - General Ulcer Assessment Start: 12/19/23 08:51 Freq: Status: Active Protocol: SARAH Activity Type Activity Date Activity User E-sign Co-sign Detail Recorded Client Recorded Date Recorded By Document 12/19/23 08:51 KW [id number] 12/19/23 09:21 KW Document 12/26/23 08:50 KW [id number] 12/26/23 08:52 KW Document 01/02/24 08:41 KW [id number] 01/02/24 08:57 KW Document 01/09/24 09:31 KW [id number] 01/09/24 09:42 KW Document 01/10/24 15:39 DL [id number] 01/10/24 15:50 DL 12/19/23 12/26/23 01/02/24 08:51 08:50 08:41 WC - Today's Visit Information Type of service Initial Visit Follow-up Visit Follow-up Visit (Physician/MEDIA RELATIONS DIRECTOR (Physician/MEDIA RELATIONS DIRECTOR ) ) Arrival Mode Wheelchair Wheelchair Wheelchair Transfer Assistance Accompanied by sister sister Patient Identification Verified (Name & Yes Yes Yes ) Patient Requires Transmission-Based Precautions Height and Weight Body Mass Index (BMI) 23.6 23.6 23.6 BMI Classification Normal Normal Normal Vital Signs Temperature (97.8 F-99.1 F) 96.9 F L 97.0 F L 97.3 F L Temperature Source Temporal Temporal Temporal Pulse Rate (60-100) 94 119 H 107 H Pulse Location Monitor Monitor Monitor Respiratory Rate (12-18) 18 16 18 Respiratory rate source Ausculation Monitor Observation Oxygen Delivery Method Room Air Room Air Room Air Blood Pressure (90/60-120/80) 130/62 H 97/64 108/70 Blood Pressure Mean (mm Hg) 84 75 82 Source Monitor Monitor Monitor Position Sitting Sitting Sitting Blood Pressure Location Left Arm Right Arm Left Arm History Since Last Visit- (Skip if this is Patient's initial visit) Have you changed medications since your No No No last visit? Any new allergies or adverse reactions No No No Had a fall/change in ADL's that may No No No increase risk of falls Signs or symptoms of abuse and/or No No No neglect since last visit Have you been in the hospital since your No No No last visit? Has dressing in place as prescribed Yes Yes Yes Has compression in place as prescribed Yes Yes Yes Has offloadiing in place as prescribed Yes N/A Yes Experienced any changes in pain level or No No No management Left Footwear Surgical Shoe Regular Shoe Regular Shoe with pressure relief insole Right Footwear Regular Shoe Regular Shoe Regular Shoe Pain Scale: 0-10 Numeric Is Patient Pain Free? Yes Yes Yes 01/09/24 01/10/24 09:31 15:39 - Today's Visit Information Type of service Follow-up Visit Follow-up Visit (Physician/MEDIA RELATIONS DIRECTOR (Physician/MEDIA RELATIONS DIRECTOR ) ) Arrival Mode Ambulatory,Cane Ambulatory, ,Walker Walker Transfer Assistance None Accompanied by sister Patient Identification Verified (Name & Yes Yes ) Patient Requires Transmission-Based No Precautions Height and Weight Body Mass Index (BMI) 23.6 23.6 BMI Classification Normal Normal Vital Signs Temperature (97.8 F-99.1 F) 97.6 F L 98.2 F Temperature Source Temporal Temporal Pulse Rate (60-100) 97 106 H Pulse Location Monitor Monitor Respiratory Rate (12-18) 18 18 Respiratory rate source Observation Observation Oxygen Delivery Method Room Air Blood Pressure (90/60-120/80) 103/61 113/77 Blood Pressure Mean (mm Hg) 75 89 Source Monitor Monitor Position Semi-Fowlers Blood Pressure Location Left Arm History Since Last Visit- (Skip if this is Patient's initial visit) Have you changed medications since your No No last visit? Any new allergies or adverse reactions No No Had a fall/change in ADL's that may No No increase risk of falls Signs or symptoms of abuse and/or No No neglect since last visit Have you been in the hospital since your No No last visit? Has dressing in place as prescribed Yes Yes Has compression in place as prescribed Yes N/A Has offloadiing in place as prescribed N/A Yes Experienced any changes in pain level or No No management Left Footwear Regular Shoe Right Footwear Regular Shoe Pain Scale: 0-10 Numeric Is Patient Pain Free? Yes Yes - Nurse 1 - General Ulcer Measurement Start: 12/19/23 08:51 Freq: Status: Active Protocol: Activity Type Activity Date Activity User E-sign Co-sign Detail Recorded Client Recorded Date Recorded By Document 12/19/23 08:51 KW [id number] 12/19/23 09:21 KW Document 12/26/23 08:50 KW [id number] 12/26/23 08:52 KW Document 01/02/24 08:41 KW [id number] 01/02/24 08:57 KW Document 01/09/24 09:31 KW [id number] 01/09/24 09:42 KW Document 01/10/24 15:39 DL [id number] 01/10/24 15:50 DL 12/19/23 12/26/23 01/02/24 08:51 08:50 08:41 Wound Center Nurse 1 #5 R ISCHIUM -Current Size (cm) - Length 0.2 0.2 -Current Size (cm) - Width 0.3 0.2 -Current Size (cm) - Depth 0.2 0.1 -Total Square Cm 0.06 0.04 -Circular Undermining Yes -Exudate Amt Small None Present None Present -Exudate Type Serosanguineous -Wound Margin Distinct, Indistinct, Non Outline -Visible Attached -Granulation Amt Large (67-100%) Small (1-33%) -Granulation Quality [place],Red Red -Necrosis Amt Small (1-33%) -Necrotic Tissue Type Adherent Slough -Texture ([place]-wound Skin Appearance) Assessed Assessed Assessed -Moisture ([place]-wound Skin Appearance) Weeping Assessed Assessed,Dry/ Scaly -Color ([place]-wound Skin Appearance) Assessed, Assessed, Assessed Erythema Erythema -Temperature ([place]-wound Skin No Abnormality Appearance) (Pt Warm) -Tenderness on Palpation ([place]-wound No Skin Appearance) -Ulcer Cleansing Rinsed/ Soap and Water Irrigated with Saline -Foul Odor after Cleansing No -Anesthetic Used 5% Lidocaine Gel -Wound Comment(s) no open area, hard abscess still unsurfaced #3 L Heel -Current Size (cm) - Length 2 0.1 0.5 -Current Size (cm) - Width 1.2 0.1 0.3 -Current Size (cm) - Depth 0.2 0.1 0.1 -Total Square Cm 2.4 0.01 0.15 -Date of Last Picture (Recall this 12/19/23 01/02/24 field) -Photo Taken -Epithelialization Medium 34-66% -Exudate Amt Small Small Small -Exudate Type Serosanguineous Sanguineous Serosanguineous -Wound Margin Distinct, Indistinct, Non Distinct, Outline -Visible Outline Attached Attached -Granulation Amt Medium (34-66%) Small (1-33%) -Granulation Quality Red [place] -Necrosis Amt Small (1-33%) Large (67-100%) Large (67-100%) -Necrotic Tissue Type Adherent Slough Adherent Slough Eschar -Structure Exposed -Texture ([place]-wound Skin Appearance) Assessed Assessed Assessed -Moisture ([place]-wound Skin Appearance) Assessed Assessed Assessed,Dry/ Scaly -Color ([place]-wound Skin Appearance) Assessed Assessed Assessed -Temperature ([place]-wound Skin No Abnormality No Abnormality No Abnormality Appearance) (Pt Warm) (Pt Warm) (Pt Warm) -Tenderness on Palpation ([place]-wound No No Yes Skin Appearance) -Ulcer Cleansing Soap and Water Soap and Water Soap and Water -Foul Odor after Cleansing No No No -Anesthetic Used 5% Lidocaine 5% Lidocaine 5% Lidocaine Gel Gel Gel -Wound Comment(s) scabbed and dry Left Calf (cm) 32 32.5 Left Ankle (cm) 23 22.5 01/09/24 01/10/24 09:31 15:39 Wound Center Nurse 1 #5 R ISCHIUM -Current Size (cm) - Length -Current Size (cm) - Width -Current Size (cm) - Depth -Total Square Cm -Circular Undermining -Exudate Amt -Exudate Type -Wound Margin -Granulation Amt -Granulation Quality -Necrosis Amt -Necrotic Tissue Type -Texture ([place]-wound Skin Appearance) -Moisture ([place]-wound Skin Appearance) -Color ([place]-wound Skin Appearance) -Temperature ([place]-wound Skin Appearance) -Tenderness on Palpation ([place]-wound Skin Appearance) -Ulcer Cleansing -Foul Odor after Cleansing -Anesthetic Used -Wound Comment(s) #3 L Heel -Current Size (cm) - Length 0.6 3 -Current Size (cm) - Width 0.5 0.2 -Current Size (cm) - Depth 0.1 1.7 -Total Square Cm 0.30 0.6 -Date of Last Picture (Recall this field) -Photo Taken Yes -Epithelialization -Exudate Amt Small Medium -Exudate Type Serosanguineous Serosanguineous -Wound Margin Distinct, Distinct, Outline Outline Attached Attached -Granulation Amt Large (67-100%) Small (1-33%) -Granulation Quality [place] -Necrosis Amt Large (67-100%) -Necrotic Tissue Type Adherent Slough -Structure Exposed N/A -Texture ([place]-wound Skin Appearance) Assessed Localized Edema ,Scarring -Moisture ([place]-wound Skin Appearance) Assessed,Dry/ No Abnormality Scaly -Color ([place]-wound Skin Appearance) Assessed Erythema -Temperature ([place]-wound Skin No Abnormality No Abnormality Appearance) (Pt Warm) (Pt Warm) -Tenderness on Palpation ([place]-wound No No Skin Appearance) -Ulcer Cleansing Soap and Water Soap and Water -Foul Odor after Cleansing No No -Anesthetic Used 5% Lidocaine 4% Lidocaine Gel Solution -Wound Comment(s) Left Calf (cm) 35 Left Ankle (cm) 23.5 WC - Nurse 2 - General Ulcer CM Notes Start: 12/19/23 08:51 Freq: Status: Active Protocol: Activity Type Activity Date Activity User E-sign Co-sign Detail Recorded Client Recorded Date Recorded By Document 12/19/23 09:28 [id number] 12/19/23 09:36 Document 12/26/23 09:25 [id number] 12/26/23 09:28 JF Document 01/02/24 09:27 JF [id number] 01/02/24 09:40 JF Document 01/09/24 09:54 [id number] 01/09/24 09:59 JF Document 01/09/24 11:50 DS [id number] 01/09/24 11:51 DS Document 01/10/24 15:58 [id number] 01/10/24 16:02 12/19/23 12/26/23 01/02/24 09:28 09:25 09:27 Wound Center Nurse 2 #5 R ISCHIUM -Correct Patient No No -Correct Side, Site, Position No No -Correct Procedure No No -Procedure Performed No No -Post Debridement (cm) - Length 0 -Post Debridement (cm) - Width 0 -Post Debridement (cm) - Depth 0 -Total Square (Post) (cm) 0 -Area of Debridement (cm) - Length 0 -Area of Debridement (cm) - Width 0 -Total Square (Area) (cm) 0 -Wound/Ulcer Outcome Not Healed Healed- Epithelialized #6 L Ishium -Time -Correct Patient -Correct Side, Site, Position -Wound/Ulcer Outcome -Ulcer Cleansing -Foul Odor after Cleansing -Bioengineered Tissue #3 L Heel -Time 09:34 09:26 09:28 -Correct Patient Yes Yes Yes -Correct Side, Site, Position Yes Yes Yes -Correct Procedure Yes Yes Yes -Procedure Performed Yes Yes Yes -Type of Procedure Debridement Debridement Debridement -Clinical Debridement Subcutaneous Subcutaneous Subcutaneous -Tissue Removed Subcutaneous Subcutaneous Subcutaneous -Post Debridement (cm) - Length 2.1 0.5 2.0 -Post Debridement (cm) - Width 1.2 2.0 1.5 -Post Debridement (cm) - Depth 0.1 0.1 0.1 -Total Square (Post) (cm) 2.52 1.00 3.00 -Area of Debridement (cm) - Length 2.1 0.5 2.0 -Area of Debridement (cm) - Width 1.2 2.0 1.5 -Total Square (Area) (cm) 2.52 1.00 3.00 -Tunneling No No No -Undermining/Tunneling No No No -Circular Undermining No No No -Wound/Ulcer Outcome Not Healed Not Healed Not Healed -Ulcer Cleansing Rinsed/ Rinsed/ Rinsed/ Irrigated with Irrigated with Irrigated with Saline Saline Saline -Foul Odor after Cleansing No No No -Bioengineered Tissue Yes Yes Yes -Type of Bioengineered Tissue Epifix Epifix Epifix 18mm Disc -Expiration Date 09/16/27 07/16/28 07/16/28 -Product Lot Number [id number] -Percent Used 100 100 100 -Lot number of Saline Used [id number] -Bleeding Controlled with Pressure Pressure Pressure -Treatment Response Procedure Procedure Procedure Tolerated Well Tolerated Well Tolerated Well -Offloading No Yes Yes -Type of Offloading Surgical Shoe Surgical Shoe -Debridement - Subq, 1st 20sq cm No No No -Apply Skin Sub - 1st 25 sq cm - Feet 1 1 1 -Epifix (per sq cm) 4 4 -Epifix 18mm Disc 3 -I&D / Paring / Biopsy Pain Scale: 0-10 Numeric Is Patient Pain Free? Yes Yes Yes left buttock -Description -Intensity -Duration (hours) -Alleviating Factors/Interventions -Comments 01/09/24 01/09/24 01/10/24 09:54 11:50 15:58 Wound Center Nurse 2 #5 R ISCHIUM -Correct Patient -Correct Side, Site, Position -Correct Procedure -Procedure Performed -Post Debridement (cm) - Length -Post Debridement (cm) - Width -Post Debridement (cm) - Depth -Total Square (Post) (cm) -Area of Debridement (cm) - Length -Area of Debridement (cm) - Width -Total Square (Area) (cm) -Wound/Ulcer Outcome #6 L Ishium -Time 16:01 -Correct Patient Yes -Correct Side, Site, Position Yes -Wound/Ulcer Outcome Not Healed -Ulcer Cleansing Rinsed/ Irrigated with Saline -Foul Odor after Cleansing No -Bioengineered Tissue No #3 L Heel -Time 09:55 11:40 -Correct Patient Yes Yes -Correct Side, Site, Position Yes Yes -Correct Procedure Yes Yes -Procedure Performed Yes Yes -Type of Procedure Debridement Incision & Drainage -Clinical Debridement Subcutaneous -Tissue Removed Subcutaneous -Post Debridement (cm) - Length 0.5 -Post Debridement (cm) - Width 1.5 -Post Debridement (cm) - Depth 0.1 -Total Square (Post) (cm) 0.75 -Area of Debridement (cm) - Length 0.5 -Area of Debridement (cm) - Width 1.5 -Total Square (Area) (cm) 0.75 -Tunneling No -Undermining/Tunneling No -Circular Undermining No -Wound/Ulcer Outcome Not Healed -Ulcer Cleansing Rinsed/ Irrigated with Saline -Foul Odor after Cleansing No -Bioengineered Tissue Yes -Type of Bioengineered Tissue Epifix 18mm Disc -Expiration Date 07/16/28 -Product Lot Number [id number] -Percent Used 100 -Lot number of Saline Used [id number] -Bleeding Controlled with Pressure -Treatment Response Procedure Tolerated Well -Offloading Yes -Type of Offloading Surgical Shoe -Debridement - Subq, 1st 20sq cm No -Apply Skin Sub - 1st 25 sq cm - Feet 1 -Epifix (per sq cm) -Epifix 18mm Disc 3 -I&D / Paring / Biopsy I&D abscess - single or simple Pain Scale: 0-10 Numeric Is Patient Pain Free? Yes No Yes left buttock -Description Aching -Intensity 8 -Duration (hours) Acute -Alleviating Factors/Interventions Will continue to monitor -Comments i&D - lido/epi 10ml WC - Nurse 3 - General Ulcer D/C NN Start: 12/19/23 08:51 Freq: Status: Active Protocol: Activity Type Activity Date Activity User E-sign Co-sign Detail Recorded Client Recorded Date Recorded By Document 12/19/23 09:54 RB [id number] 12/19/23 09:55 RB Document 12/26/23 09:45 KW [id number] 12/26/23 09:45 KW Document 01/02/24 10:05 KW [id number] 01/02/24 10:05 KW Document 01/09/24 10:08 DL [id number] 01/09/24 10:09 DL Document 01/10/24 16:11 KW [id number] 01/10/24 16:19 KW 12/19/23 12/26/23 01/02/24 09:54 09:45 10:05 Wound Care Center Nurse 3 #6 L [place] -Ulcer Cleansing -Foul Odor after Cleansing -Primary Dressing Applied -Aquacel Rope -Mepilex Border #3 L Heel -Foul Odor after Cleansing -Other Dressing -Primary Dressing Covered/Secured with Dry Gauze,Dry Dry Gauze & Dry Gauze,Dry Gauze & Roll Roll Gauze, Gauze & Roll Gauze,Secured Secured with Gauze,Secured with Tape Tape with Tape -Other Covering Left -Tubular Bandage Single Layer Single Layer Single Layer -Size of Tubigrip Used Size D Size E Size D -Size D ($) 1 1 -Size E ($) 1 Treatment Response Procedure Tolerated Well Pain Scale: 0-10 Numeric Is Patient Pain Free? Yes Yes Yes WC - Visit Discharge Discharge Condition Stable Ambulatory Status Wheelchair Transportation Private Auto Accompanied by Medication Reconcilliation completed & No provided to patient/care provider Clinical Summary of Care Provided Yes 01/09/24 01/10/24 10:08 16:11 Wound Care Center Nurse 3 #6 L Ish[place] -Ulcer Cleansing Rinsed/ Irrigated with Saline -Foul Odor after Cleansing No -Primary Dressing Applied Aquacel Rope, Mepilex Border -Aquacel Rope 3 -Mepilex Border 1 #3 L Heel -Foul Odor after Cleansing No -Other Dressing Epifix -Primary Dressing Covered/Secured with Dry Gauze & Roll Gauze, Secured with Tape -Other Covering Padding/ tubigrip Left -Tubular Bandage -Size of Tubigrip Used -Size D ($) -Size E ($) Treatment Response Procedure Procedure Tolerated Well Tolerated Well Pain Scale: 0-10 Numeric Is Patient Pain Free? Yes Yes WC - Visit Discharge Discharge Condition Stable Stable Ambulatory Status Ambulatory Ambulatory, Walker Transportation Private Auto Private Auto Accompanied by family member Medication Reconcilliation completed & provided to patient/care provider Clinical Summary of Care Provided Assessment/Plan Assessment/Plan (1) Abscess, gluteal, left: CODE(S): L02.31 - Cutaneous abscess of buttock (2) Type 2 diabetes mellitus with peripheral neuropathy: CODE(S): E11.42 - Type 2 diabetes mellitus with diabetic polyneuropathy (3) Debility: CODE(S): R53.81 - Other malaise (4) Anxiety: CODE(S): F41.9 - Anxiety disorder, unspecified (5) Peripheral vascular disease: CODE(S): I73.9 - Peripheral vascular disease, unspecified (6) Open wound of left buttock: CODE(S): S31.829A - Unspecified open wound of left buttock, initial encounter PLAN: Plan Patient evaluated at the wound healing center today. He is having difficulty packing the wound himself. He doesn't have any help at home. He states that he can pack the wound if he uses his finger. He is not able to use the cotton swab to help pack the dressing in it. He also is worried about using the Dakin's solution because he read the label and is nervous that something could happen if it touches his good skin. Will switch his dressing to Aquacel-Ag rope dressing daily covered with [place] SAP daily and as needed. He may do a sitz bath daily at the time he does his dressing changes. He is to continue to his Doxycycline as prescribed. Preliminary wound culture from 01/09/24 is positive for Staphylococcus aureus. Still waiting on the sensitivity. Discussed that if he starts having fever, chills, nausea, vomiting, worsening pain, then he should be evaluated at the ED. Will follow up next Monday after he sees Dr. Sanchez.
--- NOTE | 2024-01-12 09:01 | WC ---
PHOTO 01/10/24 LEFT BUTTOCKS
== END 2024-01-15 23:59 | disposition home or self-care (01) ==
LOC: WC 15:00
PROVIDERS: PCP Internal Medicine; Referring Provider Podiatrist; Visit Provider Podiatrist
DX: E11.621 Type 2 diabetes mellitus with foot ulcer (principal); L97.422 Non-pressure chronic ulcer of left heel and midfoot with fat layer exposed; E11.42 Type 2 diabetes mellitus with diabetic polyneuropathy; L02.31 Cutaneous abscess of buttock; I73.89 Other specified peripheral vascular diseases; Z79.82 Long term (current) use of aspirin; Z79.01 Long term (current) use of anticoagulants; Z79.84 Long term (current) use of oral hypoglycemic drugs; Z89.412 Acquired absence of left great toe; Z89.422 Acquired absence of other left toe(s); Z95.820 Peripheral vascular angioplasty status with implants and grafts; Z87.891 Personal history of nicotine dependence
CPT/HCPCS: 10060; 15275; 87070; 87075; 87077; 87186; 87205; 99213; Q4186; G0463

== ENCOUNTER 2024-02-14 13:45 | Outpatient (RCR) | payer MEDICARE, SELFPAY ==
[2024-01-16 00:20] VITALS: BP 91/59; PULSE 92; RESP 18; TEMP 36.2; BMI 23.6
[2024-01-16 09:34] VITALS: BP 105/70; PULSE 91; RESP 18; TEMP 36.3; BMI 23.6
--- NOTE | 2024-01-16 10:45 | PN.PCM_ITS ---
History of Present Illness Date of Service: 01/16/24 Chief Complaint: Left gluteal wound History of Wound: 68 year old patient that sees Dr. Sanchez for his left heel ulcer. Surgery was performed 09/28/23 on left first and fifth toe amputation as well as wound debridement bone biopsy left calcaneus. He has been receiving Epifix to his left heel wound. New left gluteal abscess seen and examined on 01/09/[address] [place]. Patient reports that has been there for a couple of days. He has a history of abscesses in the past including a right gluteal abscess that was drained by her nurse practitioner recently and since healed. He reports sharp severe pain worsened by movements and improved by rest and pressure offloading. Today he denies fever, chills, nausea or vomiting. Progress of Wound: Patient admits that he has been having a difficult time packing the wound himself. He has a hard time being able to reach it. He states that he can complete his antibiotics today. We overall the wound is a nice beefy pink color, there continues to be some depth to it. Periwound is clear. Objective Data Objective Data Vital Signs: Vital Signs Temp Pulse Resp BP O2 Del Method 97.3 F L 91 18 105/70 Room Air 01/16/24 09:34 01/16/24 09:34 01/16/24 09:34 01/16/24 09:34 01/16/24 09:34 Oxygen Delivery Method Room Air Weight: 155 lb 11.464 oz Body Mass Index (BMI) 23.6 Charges/Coding Procedures Integumentary 111xxx-113xx: 11654 Global Visit Debridement Note Debridement Note Wound debrided: Gluteal wound Laterality: Left Wound Grade/Stage: Stage III Type of Debridement: Excisional debridement Anesthesia Used: 4% Lidocaine Solution and 5% Lidocaine Gel Depth: Down to and including healthy tissue and in the subcutaneous layer Percentage of wound debrided: 100 Instrument Used: 5mm curette Tissue Removed: Nonviable tissue and slough Severity: Fat Layer Exposed Amount of bleeding with debridement: Mild Bleeding Controlled with: Pressure and Compression and gauze Patient tolerated procedure: Patient tolerated procedure well Post-Debridement Measurements and Additional Note: Post-Debridement Measurements/Treatment WC - Nurse 1 - General Ulcer Assessment Start: 01/16/24 09:34 Freq: Status: Active Protocol: WC.LOWEXT Activity Type Activity Date Activity User E-sign Co-sign Detail Recorded Client Recorded Date Recorded By Document 01/16/24 09:34 DS [id number] 01/16/24 09:37 DS 01/16/24 09:34 WC - Today's Visit Information Type of service 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 Any new allergies or adverse reactions No Had a fall/change in ADL's that may No increase risk of falls Signs or symptoms of abuse and/or No neglect since last visit Have you been in the hospital since your No last visit? Has dressing in place as prescribed Yes Has compression in place as prescribed N/A Has offloadiing in place as prescribed N/A Experienced any changes in pain level or No management Left Footwear Regular Shoe Right Footwear Regular Shoe Pain Scale: 0-10 Numeric Is Patient Pain Free? No left buttock -Description Aching -Intensity 3 -Duration (hours) Chronic LT FOOT -Description Aching -Intensity 3 -Duration (hours) Chronic - Nurse 1 - General Ulcer Measurement Start: 01/16/24 09:34 Freq: Status: Active Protocol: Activity Type Activity Date Activity User E-sign Co-sign Detail Recorded Client Recorded Date Recorded By Document 01/16/24 09:37 DS [id number] 01/16/24 09:41 DS 01/16/24 09:37 Wound Center Nurse 1 #6 L Ishium -Current Size (cm) - Length 0.2 -Current Size (cm) - Width 2.5 -Current Size (cm) - Depth 1.0 -Total Square Cm 0.50 -Photo Taken No -Tunneling No -Undermining/Tunneling No -Circular Undermining No -Classification - Thickness Partial Thickness -Exudate Amt Small -Exudate Type Serosanguineous -Wound Margin Distinct, Outline Attached -Granulation Amt Medium (34-66%) -Granulation Quality [place] -Slough/Fibrin Yes -Necrosis Amt Medium (34-66%) -Texture ([place]-wound Skin Appearance) Assessed -Moisture ([place]-wound Skin Appearance) Assessed -Color ([place]-wound Skin Appearance) Assessed -Ulcer Cleansing Soap and Water -Anesthetic Used 5% Lidocaine Gel #3 L Heel -Current Size (cm) - Length 0.1 -Current Size (cm) - Width 0.1 -Current Size (cm) - Depth 0.1 -Total Square Cm 0.01 -Photo Taken No -Tunneling No -Undermining/Tunneling No -Circular Undermining No -Classification - Thickness Partial Thickness -Exudate Amt None Present -Texture ([place]-wound Skin Appearance) Assessed -Moisture ([place]-wound Skin Appearance) Assessed -Color ([place]ana-wound Skin Appearance) Assessed -Temperature ([place]-wound Skin No Abnormality Appearance) (Pt Warm) -Tenderness on Palpation ([place]-wound No Skin Appearance) -Ulcer Cleansing Soap and Water WC - Nurse 2 - General Ulcer CM Notes Start: 01/16/24 09:34 Freq: Status: Active Protocol: Activity Type Activity Date Activity User E-sign Co-sign Detail Recorded Client Recorded Date Recorded By Document 01/16/24 09:46 DS [id number] 01/16/24 09:48 DS Document 01/16/24 09:56 JF [id number] 01/16/24 10:01 01/16/24 01/16/24 09:46 09:56 Wound Center Nurse 2 #6 L Ishium -Time 09:43 -Correct Patient Yes -Correct Side, Site, Position Yes -Correct Procedure Yes -Procedure Performed Yes -Type of Procedure Debridement -Clinical Debridement Subcutaneous -Tissue Removed Subcutaneous -Post Debridement (cm) - Length 0.6 -Post Debridement (cm) - Width 2.3 -Post Debridement (cm) - Depth 0.8 -Total Square (Post) (cm) 1.38 -Area of Debridement (cm) - Length 0.6 -Area of Debridement (cm) - Width 2.3 -Total Square (Area) (cm) 1.38 -Tunneling No -Undermining/Tunneling No -Circular Undermining No -Wound/Ulcer Outcome Not Healed -Ulcer Cleansing Rinsed/ Irrigated with Saline -Bioengineered Tissue No -Bleeding Controlled with Silver Nitrate -Treatment Response Procedure Tolerated Well -Debridement - Subq, 1st 20sq cm Yes #3 L Heel -Correct Patient Yes -Correct Side, Site, Position Yes -Correct Procedure Yes -Procedure Performed Yes -Type of Procedure Debridement -Clinical Debridement Subcutaneous -Tissue Removed Subcutaneous -Post Debridement (cm) - Length 0.2 -Post Debridement (cm) - Width 0.4 -Post Debridement (cm) - Depth 0.1 -Total Square (Post) (cm) 0.08 -Area of Debridement (cm) - Length 0.2 -Area of Debridement (cm) - Width 0.4 -Total Square (Area) (cm) 0.08 -Tunneling No -Undermining/Tunneling No -Circular Undermining No -Wound/Ulcer Outcome Not Healed -Ulcer Cleansing Rinsed/ Irrigated with Saline -Foul Odor after Cleansing No -Bioengineered Tissue Yes -Type of Bioengineered Tissue Epifix 18mm Disc -Expiration Date 07/16/28 -Product Lot Number [id number] -Percent Used 100 -Lot number of Saline Used [id number] -Bleeding Controlled with Pressure -Treatment Response Procedure Tolerated Well -Offloading No -Debridement - Subq, 1st 20sq cm No -Apply Skin Sub - 1st 25 sq cm - Feet 1 -Epifix 18mm Disc 3 Pain Scale: 0-10 Numeric Is Patient Pain Free? No Yes left buttock -Description Aching -Intensity 3 LT FOOT -Description Aching -Intensity 3 WC - Nurse 3 - General Ulcer D/C NN Start: 01/16/24 09:34 Freq: Status: Active Protocol: Activity Type Activity Date Activity User E-sign Co-sign Detail Recorded Client Recorded Date Recorded By Document 01/16/24 09:59 DS [id number] 01/16/24 10:00 DS Document 01/16/24 10:22 KW [id number] 01/16/24 10:22 KW 01/16/24 01/16/24 09:59 10:22 Wound Care Center Nurse 3 #6 L Ishium -Ulcer Cleansing Rinsed/ Irrigated with Saline -Primary Dressing Applied Aquacel Rope, Mepilex Border -Aquacel Rope 1 -Mepilex Border 3 #3 L Heel -Primary Dressing Covered/Secured with Dry Gauze & Roll Gauze, Secured with Tape Pain Scale: 0-10 Numeric Is Patient Pain Free? Yes Yes Assessment/Plan Assessment/Plan (1) Abscess, gluteal, left: CODE(S): L02.31 - Cutaneous abscess of buttock (2) Type 2 diabetes mellitus with peripheral neuropathy: CODE(S): E11.42 - Type 2 diabetes mellitus with diabetic polyneuropathy (3) Debility: CODE(S): R53.81 - Other malaise (4) Anxiety: CODE(S): F41.9 - Anxiety disorder, unspecified (5) Peripheral vascular disease: CODE(S): I73.9 - Peripheral vascular disease, unspecified (6) Open wound of left buttock: CODE(S): S31.829A - Unspecified open wound of left buttock, initial encounter QUALIFIERS: Encounter type: initial encounter Qualified Code(s): S31.829A - Unspecified open wound of left buttock, initial encounter PLAN: Plan Patient evaluated at the wound healing center today. He is having difficulty packing the wound himself. He doesn't have any help at home. He thought that he would be able to pack the wound using his finger to press it into the base of the wound. He is discovered that that is too difficult to do. We will try to get home health to come in twice a week for dressing changes. He will have 1 dressing change here at the wound center so that the dressing gets changed to total 3 times a week. Wound care?Aquacel Ag rope packed into the base of the wound covered by [place] [employer] 3 times a week. At the time of dressing changes he needs to have his wound washed well with antibacterial soap and water. Wound cultures from 01/09/24 positive for MRSA and Corynebacterium striatum and Anaerobic cocci. The MRSA is resistant to the Doxycycline. Will need change his antibiotics to Bactrim and Flagyl. Discussed how to take medications. Discussed that if he starts having fever, chills, nausea, vomiting, worsening pain, then he should be evaluated at the ED. Will follow up next Monday after he sees Dr. Sanchez.
--- NOTE | 2024-01-16 10:49 | PN.PCM_ITS ---
History of Present Illness Date of Service: 01/09/24 Chief Complaint: left heel wound History of Wound: 68 year old patient that sees Dr. Sanchez for his left heel ulcer. Surgery was performed 09/28/23 on left first and fifth toe amputation as well as wound debridement bone biopsy left calcaneus. He has been receiving Epifix to his left heel wound. Progress of Wound: Left heel ulcer is improving. He is receiving Epifix to the area. Objective Data Objective Data Vital Signs: Vital Signs Temp Pulse Resp BP O2 Del Method 97.3 F L 91 18 105/70 Room Air 01/16/24 09:34 01/16/24 09:34 01/16/24 09:34 01/16/24 09:34 01/16/24 09:34 Oxygen Delivery Method Room Air Weight: 70.632 kg Body Mass Index (BMI) 23.6 Physical Exam Narrative Intact pulses left lower extremity. 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 Full-thickness wound to the left lateral calcaneus. This demonstrates 100% granular base with clean skin edges no acute signs of infection deep probing or undermining. Pre and postdebridement measurements documented nursing notes. No wounds to right lower extremity. Muscular strength full to bilateral lower extremity compartments. No gross wound forming deformities noted. 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 Any new allergies or adverse reactions No Had a fall/change in ADL's that may No increase risk of falls Signs or symptoms of abuse and/or No neglect since last visit Have you been in the hospital since your No last visit? Has dressing in place as prescribed Yes Has compression in place as prescribed N/A Has offloadiing in place as prescribed N/A Experienced any changes in pain level or No management Left Footwear Regular Shoe Right Footwear Regular Shoe Pain Scale: 0-10 Numeric Is Patient Pain Free? No left buttock -Description Aching -Intensity 3 -Duration (hours) Chronic LT FOOT -Description Aching -Intensity 3 -Duration (hours) Chronic WC - Nurse 1 - General Ulcer Measurement Start: 01/16/24 09:34 Freq: Status: Active Protocol: Activity Type Activity Date Activity User E-sign Co-sign Detail Recorded Client Recorded Date Recorded By Document 01/16/24 09:37 DS [id number] 01/16/24 09:41 DS 01/16/24 09:37 Wound Center Nurse 1 #6 L Ishium -Current Size (cm) - Length 0.2 -Current Size (cm) - Width 2.5 -Current Size (cm) - Depth 1.0 -Total Square Cm 0.50 -Photo Taken No -Tunneling No -Undermining/Tunneling No -Circular Undermining No -Classification - Thickness Partial Thickness -Exudate Amt Small -Exudate Type Serosanguineous -Wound Margin Distinct, Outline Attached -Granulation Amt Medium (34-66%) -Granulation Quality [place] -Slough/Fibrin Yes -Necrosis Amt Medium (34-66%) -Texture (Dayana-wound Skin Appearance) Assessed -Moisture (Dayana-wound Skin Appearance) Assessed -Color (Dayana-wound Skin Appearance) Assessed -Ulcer Cleansing Soap and Water -Anesthetic Used 5% Lidocaine Gel #3 L Heel -Current Size (cm) - Length 0.1 -Current Size (cm) - Width 0.1 -Current Size (cm) - Depth 0.1 -Total Square Cm 0.01 -Photo Taken No -Tunneling No -Undermining/Tunneling No -Circular Undermining No -Classification - Thickness Partial Thickness -Exudate Amt None Present -Texture (Dayana-wound Skin Appearance) Assessed -Moisture (Dayana-wound Skin Appearance) Assessed -Color (Dayana-wound Skin Appearance) Assessed -Temperature (Dayana-wound Skin No Abnormality Appearance) (Pt Warm) -Tenderness on Palpation (Dayana-wound No Skin Appearance) -Ulcer Cleansing Soap and Water WC - Nurse 2 - General Ulcer CM Notes Start: 01/16/24 09:34 Freq: Status: Active Protocol: Activity Type Activity Date Activity User E-sign Co-sign Detail Recorded Client Recorded Date Recorded By Document 01/16/24 09:46 DS [id number] 01/16/24 09:48 DS Document 01/16/24 09:56 JF [id number] 01/16/24 10:01 JF 01/16/24 01/16/24 09:46 09:56 Wound Center Nurse 2 #6 L Ishium -Time 09:43 -Correct Patient Yes -Correct Side, Site, Position Yes -Correct Procedure Yes -Procedure Performed Yes -Type of Procedure Debridement -Clinical Debridement Subcutaneous -Tissue Removed Subcutaneous -Post Debridement (cm) - Length 0.6 -Post Debridement (cm) - Width 2.3 -Post Debridement (cm) - Depth 0.8 -Total Square (Post) (cm) 1.38 -Area of Debridement (cm) - Length 0.6 -Area of Debridement (cm) - Width 2.3 -Total Square (Area) (cm) 1.38 -Tunneling No -Undermining/Tunneling No -Circular Undermining No -Wound/Ulcer Outcome Not Healed -Ulcer Cleansing Rinsed/ Irrigated with Saline -Bioengineered Tissue No -Bleeding Controlled with Silver Nitrate -Treatment Response Procedure Tolerated Well -Debridement - Subq, 1st 20sq cm Yes #3 L Heel -Correct Patient Yes -Correct Side, Site, Position Yes -Correct Procedure Yes -Procedure Performed Yes -Type of Procedure Debridement -Clinical Debridement Subcutaneous -Tissue Removed Subcutaneous -Post Debridement (cm) - Length 0.2 -Post Debridement (cm) - Width 0.4 -Post Debridement (cm) - Depth 0.1 -Total Square (Post) (cm) 0.08 -Area of Debridement (cm) - Length 0.2 -Area of Debridement (cm) - Width 0.4 -Total Square (Area) (cm) 0.08 -Tunneling No -Undermining/Tunneling No -Circular Undermining No -Wound/Ulcer Outcome Not Healed -Ulcer Cleansing Rinsed/ Irrigated with Saline -Foul Odor after Cleansing No -Bioengineered Tissue Yes -Type of Bioengineered Tissue Epifix 18mm Disc -Expiration Date 07/16/28 -Product Lot Number [id number] -Percent Used 100 -Lot number of Saline Used [id number] -Bleeding Controlled with Pressure -Treatment Response Procedure Tolerated Well -Offloading No -Debridement - Subq, 1st 20sq cm No -Apply Skin Sub - 1st 25 sq cm - Feet 1 -Epifix 18mm Disc 3 Pain Scale: 0-10 Numeric Is Patient Pain Free? No Yes left buttock -Description Aching -Intensity 3 LT FOOT -Description Aching -Intensity 3 WC - Nurse 3 - General Ulcer D/C NN Start: 01/16/24 09:34 Freq: Status: Active Protocol: Activity Type Activity Date Activity User E-sign Co-sign Detail Recorded Client Recorded Date Recorded By Document 01/16/24 09:59 DS [id number] 01/16/24 10:00 DS Document 01/16/24 10:22 KW [id number] 01/16/24 10:22 KW 01/16/24 01/16/24 09:59 10:22 Wound Care Center Nurse 3 #6 L Ishium -Ulcer Cleansing Rinsed/ Irrigated with Saline -Primary Dressing Applied Aquacel Rope, Mepilex Border -Aquacel Rope 1 -Mepilex Border 3 #3 L Heel -Primary Dressing Covered/Secured with Dry Gauze & Roll Gauze, Secured with Tape Pain Scale: 0-10 Numeric Is Patient Pain Free? Yes Yes Assessment/Plan Assessment/Plan (1) Other specified peripheral vascular diseases: CODE(S): I73.89 - Other specified peripheral vascular diseases PLAN: Exam performed Hallux and fifth toe amputation sites healed. Left heel wound excisionally debrided down to including level subcutaneous tissue of all nonviable tissue using 5 mm dermal curette. Patient tolerated procedure anesthesia well apparent satisfactory condition. Topical anesthesia used. Hemostasis obtained for compression. Pre and postdebridement measurements documented nursing notes. Today 18mm disc EpiFix graft, applied to left foot wound. Entire graft used, no waste. Stabilized with overlying wound veil and Steri-Strips. Applied overlying dry sterile dressing with light compression. Patient can weight-bear to heels in surgical shoe on the left assisted by walker, but this is for short distances within his house to bathroom to kitchen not for long periods of standing or ambulation. Patient understands this. No additional antibiotics recommended in my opinion at this time. Follow-up in 1 week. (2) Non-pressure chronic ulcer of other part of left foot with fat layer exposed: CODE(S): L97.522 - Non-pressure chronic ulcer of other part of left foot with fat layer exposed
[2024-01-25 09:07] VITALS: BP 112/68; PULSE 101; RESP 18; TEMP 35.9; BMI 23.6
--- NOTE | 2024-01-25 09:28 | PN.PCM_ITS ---
History of Present Illness Date of Service: 01/25/24 Chief Complaint: Left gluteal wound History of Wound: 68 year old patient that sees Dr. Sanchez for his left heel ulcer. Surgery was performed 09/28/23 on left first and fifth toe amputation as well as wound debridement bone biopsy left calcaneus. He has been receiving Epifix to his left heel wound. New left gluteal abscess seen and examined on 01/09/[address] [place]. Patient reports that has been there for a couple of days. He has a history of abscesses in the past including a right gluteal abscess that was drained by her nurse practitioner recently and since healed. He reports sharp severe pain worsened by movements and improved by rest and pressure offloading. Today he denies fever, chills, nausea or vomiting. Progress of Wound: Patient admits that he has been having a difficult time packing the wound himself. He has a hard time being able to reach it. He states that he can complete his antibiotics today. We overall the wound is a nice beefy pink color, there continues to be some depth to it. Periwound is clear. Objective Data Objective Data Vital Signs: Vital Signs Temp Pulse Resp BP O2 Del Method 96.6 F L 101 H 18 112/68 Room Air 01/25/24 09:07 01/25/24 09:07 01/25/24 09:07 01/25/24 09:07 01/16/24 09:34 Oxygen Delivery Method Room Air Weight: 70.632 kg Body Mass Index (BMI) 23.6 Physical Exam Narrative Intact pulses left lower extremity. 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 Healed wound to the left lateral calcaneus. es. No wounds to right lower extremity. Muscular strength full to bilateral lower extremity compartments. No gross wound forming deformities noted. Debridement Note Debridement Note Post-Debridement Measurements and Additional Note: Post-Debridement Measurements/Treatment WC - Nurse 1 - General Ulcer Assessment Start: 01/16/24 09:34 Freq: Status: Active Protocol: LOWEXT Activity Type Activity Date Activity User E-sign Co-sign Detail Recorded Client Recorded Date Recorded By Document 01/16/24 09:34 DS [id number] 01/16/24 09:37 DS Document 01/25/24 09:07 DL [id number] 01/25/24 09:10 DL 01/16/24 01/25/24 09:34 09:07 WC - Today's Visit Information Type of service Follow-up Visit Follow-up Visit (Physician/TECHNICAL SUPPORT COORDINATOR (Physician/TECHNICAL SUPPORT COORDINATOR ) ) Arrival Mode Ambulatory,Cane Ambulatory, Walker Transfer Assistance None Patient Identification Verified (Name & Yes ) Patient Requires Transmission-Based No No Precautions Height and Weight Body Mass Index (BMI) 23.6 23.6 BMI Classification Normal Normal Vital Signs Temperature (97.8 F-99.1 F) 97.3 F L 96.6 F L Temperature Source Temporal Temporal Pulse Rate (60-100) 91 101 H Pulse Location Monitor Monitor Respiratory Rate (12-18) 18 18 Respiratory rate source Observation Observation Oxygen Delivery Method Room Air Blood Pressure (90/60-120/80) 105/70 112/68 Blood Pressure Mean (mm Hg) 81 82 Source Monitor History Since Last Visit- (Skip if this is Patient's initial visit) Have you changed medications since your No No last visit? Any new allergies or adverse reactions No No Had a fall/change in ADL's that may No No increase risk of falls Signs or symptoms of abuse and/or No No neglect since last visit Have you been in the hospital since your No No last visit? Has dressing in place as prescribed Yes Yes Has compression in place as prescribed N/A Yes Has offloadiing in place as prescribed N/A Yes Experienced any changes in pain level or No No management Left Footwear Regular Shoe Right Footwear Regular Shoe Pain Scale: 0-10 Numeric Is Patient Pain Free? No Yes left buttock -Description Aching -Intensity 3 -Duration (hours) Chronic LT FOOT -Description Aching -Intensity 3 -Duration (hours) Chronic WC - Nurse 1 - General Ulcer Measurement Start: 01/16/24 09:34 Freq: Status: Active Protocol: Activity Type Activity Date Activity User E-sign Co-sign Detail Recorded Client Recorded Date Recorded By Document 01/16/24 09:37 DS [id number] 01/16/24 09:41 DS Document 01/25/24 09:07 DL [id number] 01/25/24 09:10 DL 01/16/24 01/25/24 09:37 09:07 Wound Center Nurse 1 #3 L Heel -Current Size (cm) - Length 0.1 0.1 -Current Size (cm) - Width 0.1 0.1 -Current Size (cm) - Depth 0.1 0.1 -Total Square Cm 0.01 0.01 -Photo Taken No Yes -Tunneling No -Undermining/Tunneling No -Circular Undermining No -Classification - Thickness Partial Thickness -Exudate Amt None Present None Present -Wound Margin Thickened -Granulation Amt Large (67-100%) -Granulation Quality Quail -Necrosis Amt Small (1-33%) -Necrotic Tissue Type Eschar -Structure Exposed N/A -Texture (Dayana-wound Skin Appearance) Assessed Scarring -Moisture (Dayana-wound Skin Appearance) Assessed Dry/Scaly -Color (Dayana-wound Skin Appearance) Assessed No Abnormality -Temperature ([place]ana-wound Skin No Abnormality Appearance) (Pt Warm) -Tenderness on Palpation (Dayana-wound No Skin Appearance) -Ulcer Cleansing Soap and Water Soap and Water -Foul Odor after Cleansing No -Anesthetic Used 5% Lidocaine Gel #6 L Ishium -Current Size (cm) - Length 0.2 -Current Size (cm) - Width 2.5 -Current Size (cm) - Depth 1.0 -Total Square Cm 0.50 -Photo Taken No -Tunneling No -Undermining/Tunneling No -Circular Undermining No -Classification - Thickness Partial Thickness -Exudate Amt Small -Exudate Type Serosanguineous -Wound Margin Distinct, Outline Attached -Granulation Amt Medium (34-66%) -Granulation Quality Quail -Slough/Fibrin Yes -Necrosis Amt Medium (34-66%) -Texture (Dayana-wound Skin Appearance) Assessed -Moisture (Dayana-wound Skin Appearance) Assessed -Color (Dayana-wound Skin Appearance) Assessed -Ulcer Cleansing Soap and Water -Anesthetic Used 5% Lidocaine Gel WC - Nurse 2 - General Ulcer CM Notes Start: 01/16/24 09:34 Freq: Status: Active Protocol: Activity Type Activity Date Activity User E-sign Co-sign Detail Recorded Client Recorded Date Recorded By Document 01/16/24 09:46 DS [id number] 01/16/24 09:48 DS Document 01/16/24 09:56 JF [id number] 01/16/24 10:01 JF Document 01/25/24 09:21 JF [id number] 01/25/24 09:24 JF 01/16/24 01/16/24 01/25/24 09:46 09:56 09:21 Wound Center Nurse 2 #3 L Heel -Correct Patient Yes No -Correct Side, Site, Position Yes No -Correct Procedure Yes No -Procedure Performed Yes No -Type of Procedure Debridement -Clinical Debridement Subcutaneous -Tissue Removed Subcutaneous -Post Debridement (cm) - Length 0.2 0 -Post Debridement (cm) - Width 0.4 0 -Post Debridement (cm) - Depth 0.1 0 -Total Square (Post) (cm) 0.08 0 -Area of Debridement (cm) - Length 0.2 0 -Area of Debridement (cm) - Width 0.4 0 -Total Square (Area) (cm) 0.08 0 -Tunneling No -Undermining/Tunneling No -Circular Undermining No -Wound/Ulcer Outcome Not Healed Healed- Epithelialized -Ulcer Cleansing Rinsed/ Irrigated with Saline -Foul Odor after Cleansing No -Bioengineered Tissue Yes -Type of Bioengineered Tissue Epifix 18mm Disc -Expiration Date 07/16/28 -Product Lot Number [id number] -Percent Used 100 -Lot number of Saline Used [id number] -Bleeding Controlled with Pressure -Treatment Response Procedure Tolerated Well -Offloading No -Debridement - Subq, 1st 20sq cm No -Apply Skin Sub - 1st 25 sq cm - Feet 1 -Epifix 18mm Disc 3 #6 L Ishium -Time 09:43 -Correct Patient Yes No -Correct Side, Site, Position Yes No -Correct Procedure Yes No -Procedure Performed Yes No -Type of Procedure Debridement -Clinical Debridement Subcutaneous -Tissue Removed Subcutaneous -Post Debridement (cm) - Length 0.6 -Post Debridement (cm) - Width 2.3 -Post Debridement (cm) - Depth 0.8 -Total Square (Post) (cm) 1.38 -Area of Debridement (cm) - Length 0.6 -Area of Debridement (cm) - Width 2.3 -Total Square (Area) (cm) 1.38 -Tunneling No -Undermining/Tunneling No -Circular Undermining No -Wound/Ulcer Outcome Not Healed -Ulcer Cleansing Rinsed/ Irrigated with Saline -Bioengineered Tissue No -Bleeding Controlled with Silver Nitrate -Treatment Response Procedure Tolerated Well -Debridement - Subq, 1st 20sq cm Yes Pain Scale: 0-10 Numeric Is Patient Pain Free? No Yes Yes left buttock -Description Aching -Intensity 3 LT FOOT -Description Aching -Intensity 3 WC - Nurse 3 - General Ulcer D/C NN Start: 01/16/24 09:34 Freq: Status: Active Protocol: Activity Type Activity Date Activity User E-sign Co-sign Detail Recorded Client Recorded Date Recorded By Document 01/16/24 09:59 DS [id number] 01/16/24 10:00 DS Document 01/16/24 10:22 KW [id number] 01/16/24 10:22 KW Document 01/25/24 09:13 RB [id number] 01/25/24 09:14 RB Document 01/25/24 09:25 JF [id number] 01/25/24 09:26 JF 01/16/24 01/16/24 01/25/24 09:59 10:22 09:13 Wound Care Center Nurse 3 #3 L Heel -Primary Dressing Covered/Secured with Dry Gauze & Roll Gauze, Secured with Tape #6 L Ishium -Ulcer Cleansing Rinsed/ Rinsed/ Irrigated with Irrigated with Saline Saline -Primary Dressing Applied Aquacel Rope, Aquacel Rope Mepilex Border -Other Dressing mepilex border -Aquacel Rope 1 1 -Mepilex Border 3 Treatment Response Procedure Tolerated Well Pain Scale: 0-10 Numeric Is Patient Pain Free? Yes Yes Yes WC - Visit Discharge Discharge Condition Stable Ambulatory Status Ambulatory, Walker Transportation Private Auto Accompanied by Medication Reconcilliation completed & No provided to patient/care provider Clinical Summary of Care Provided Yes Notes: 01/25/24 09:25 Wound Care Center Nurse 3 #3 L Heel -Primary Dressing Covered/Secured with #6 L Ishium -Ulcer Cleansing -Primary Dressing Applied -Other Dressing -Aquacel Rope -Mepilex Border Treatment Response Pain Scale: 0-10 Numeric Is Patient Pain Free? Yes WC - Visit Discharge Discharge Condition Stable Ambulatory Status Ambulatory, Walker Transportation Private Auto Accompanied by brother Medication Reconcilliation completed & Yes provided to patient/care provider Clinical Summary of Care Provided Yes Notes: heel is healed on left side. Patient is discharged from Dr Sanchez's services but will be following up with ej Alonso COMMERCIAL INSULATOR for his left ischium ulcer. patient verbalizes understanding. Assessment/Plan Assessment/Plan (1) Other specified peripheral vascular diseases: CODE(S): I73.89 - Other specified peripheral vascular diseases PLAN: Exam performed Hallux and fifth toe amputation sites healed. left heel wound healed patient can return to full weightbearing plan for daily foot checks follow up in outpatient clinic in 1 month to ensure no wound recurrence (2) Non-pressure chronic ulcer of other part of left foot with fat layer exposed: CODE(S): L97.522 - Non-pressure chronic ulcer of other part of left foot with fat layer exposed
--- NOTE | 2024-01-26 12:05 | WC ---
PHOTO 01/25/24 LEFT ISCHIUM
[2024-01-31 13:41] VITALS: BP 111/72; PULSE 90; RESP 18; TEMP 35.8; BMI 23.6
--- NOTE | 2024-01-31 16:39 | PCM.WC.PN ---
History of Present Illness Date of Service: 01/31/24 Chief Complaint: Left gluteal wound History of Wound: 68 year old patient that sees Dr. Sanchez for his left heel ulcer. Surgery was performed 09/28/23 on left first and fifth toe amputation as well as wound debridement bone biopsy left calcaneus. He has been receiving Epifix to his left heel wound. New left gluteal abscess seen and examined on 01/09/[address] [place]. Patient reports that has been there for a couple of days. He has a history of abscesses in the past including a right gluteal abscess that was drained by her nurse practitioner recently and since healed. He reports sharp severe pain worsened by movements and improved by rest and pressure offloading. Today he denies fever, chills, nausea or vomiting. Progress of Wound: He has home health to assist with the wound dressing changes. The left gluteal wound has some curling of the edges of the wound, wound bed is pink but fibrous. Dayana wound is clear. Objective Data Objective Data Vital Signs: Vital Signs Temp Pulse Resp BP O2 Del Method 96.4 F L 90 18 111/72 Room Air 01/31/24 13:41 01/31/24 13:41 01/31/24 13:41 01/31/24 13:41 01/31/24 13:41 Oxygen Delivery Method Room Air Weight: 155 lb 11.464 oz Body Mass Index (BMI) 23.6 Charges/Coding Procedures Integumentary 111xxx-113xx: 02194 Cher subq tissue 20 sq cm/< Debridement Note Debridement Note Wound debrided: Gluteal wound Laterality: Left Wound Grade/Stage: Stage III Type of Debridement: Excisional debridement Anesthesia Used: 4% Lidocaine Solution and 5% Lidocaine Gel Depth: Down to and including healthy tissue and in the subcutaneous layer Percentage of wound debrided: 100 Instrument Used: 3mm curette Tissue Removed: Nonviable tissue and slough Severity: Fat Layer Exposed Amount of bleeding with debridement: Mild Bleeding Controlled with: Pressure and Compression and gauze Patient tolerated procedure: Patient tolerated procedure well Post-Debridement Measurements and Additional Note: Post-Debridement Measurements/Treatment LARA - Nurse 1 - General Ulcer Assessment Start: 01/16/24 09:34 Freq: Status: Active Protocol: SARAH Activity Type Activity Date Activity User E-sign Co-sign Detail Recorded Client Recorded Date Recorded By Document 01/16/24 09:34 DS [id number] 01/16/24 09:37 DS Document 01/25/24 09:07 DL [id number] 01/25/24 09:10 DL Document 01/31/24 13:41 KW [id number] 01/31/24 13:43 KW 01/16/24 01/25/24 01/31/24 09:34 09:07 13:41 WC - Today's Visit Information Type of service Follow-up Visit Follow-up Visit Follow-up Visit (Physician/FENCE ERECTOR (Physician/FENCE ERECTOR (Physician/FENCE ERECTOR ) ) ) Arrival Mode Ambulatory,Cane Ambulatory, Ambulatory, Walker Walker Transfer Assistance None Patient Identification Verified (Name & Yes Yes ) Patient Requires Transmission-Based No No Precautions Height and Weight Body Mass Index (BMI) 23.6 23.6 23.6 BMI Classification Normal Normal Normal Vital Signs Temperature (97.8 F-99.1 F) 97.3 F L 96.6 F L 96.4 F L Temperature Source Temporal Temporal Temporal Pulse Rate (60-100) 91 101 H 90 Pulse Location Monitor Monitor Monitor Respiratory Rate (12-18) 18 18 18 Respiratory rate source Observation Observation Observation Oxygen Delivery Method Room Air Room Air Blood Pressure (90/60-120/80) 105/70 112/68 111/72 Blood Pressure Mean (mm Hg) 81 82 85 Source Monitor Monitor Position Semi-Fowlers Blood Pressure Location Left Arm History Since Last Visit- (Skip if this is Patient's initial visit) Have you changed medications since your No No No last visit? Any new allergies or adverse reactions No No No Had a fall/change in ADL's that may No No No increase risk of falls Signs or symptoms of abuse and/or No No No neglect since last visit Have you been in the hospital since your No No No last visit? Has dressing in place as prescribed Yes Yes Yes Has compression in place as prescribed N/A Yes N/A Has offloadiing in place as prescribed N/A Yes N/A Experienced any changes in pain level or No No No management Left Footwear Regular Shoe Regular Shoe Right Footwear Regular Shoe Regular Shoe Pain Scale: 0-10 Numeric Is Patient Pain Free? No Yes Yes left buttock -Description Aching -Intensity 3 -Duration (hours) Chronic LT FOOT -Description Aching -Intensity 3 -Duration (hours) Chronic WC - Nurse 1 - General Ulcer Measurement Start: 01/16/24 09:34 Freq: Status: Active Protocol: Activity Type Activity Date Activity User E-sign Co-sign Detail Recorded Client Recorded Date Recorded By Document 01/16/24 09:37 DS [id number] 01/16/24 09:41 DS Document 01/25/24 09:07 DL [id number] 01/25/24 09:10 DL Document 01/31/24 13:41 KW [id number] 01/31/24 13:43 KW 01/16/24 01/25/24 01/31/24 09:37 09:07 13:41 Wound Center Nurse 1 #3 L Heel -Current Size (cm) - Length 0.1 0.1 -Current Size (cm) - Width 0.1 0.1 -Current Size (cm) - Depth 0.1 0.1 -Total Square Cm 0.01 0.01 -Photo Taken No Yes -Tunneling No -Undermining/Tunneling No -Circular Undermining No -Classification - Thickness Partial Thickness -Exudate Amt None Present None Present -Wound Margin Thickened -Granulation Amt Large (67-100%) -Granulation Quality [place] -Necrosis Amt Small (1-33%) -Necrotic Tissue Type Eschar -Structure Exposed N/A -Texture ([place]ana-wound Skin Appearance) Assessed Scarring -Moisture ([place]-wound Skin Appearance) Assessed Dry/Scaly -Color ([place]-wound Skin Appearance) Assessed No Abnormality -Temperature ([place]-wound Skin No Abnormality Appearance) (Pt Warm) -Tenderness on Palpation ([place]-wound No Skin Appearance) -Ulcer Cleansing Soap and Water Soap and Water -Foul Odor after Cleansing No -Anesthetic Used 5% Lidocaine Gel #6 L Ishium -Current Size (cm) - Length 0.2 1 -Current Size (cm) - Width 2.5 0.1 -Current Size (cm) - Depth 1.0 0.4 -Total Square Cm 0.50 0.1 -Date of Last Picture (Recall this 01/31/24 field) -Photo Taken No -Tunneling No -Undermining/Tunneling No -Circular Undermining No -Classification - Thickness Partial Thickness -Exudate Amt Small Small -Exudate Type Serosanguineous Serosanguineous -Wound Margin Distinct, Distinct, Outline Outline Attached Attached -Granulation Amt Medium (34-66%) Large (67-100%) -Granulation Quality [place] -Slough/Fibrin Yes -Necrosis Amt Medium (34-66%) Small (1-33%) -Necrotic Tissue Type Adherent Slough -Texture (Dayana-wound Skin Appearance) Assessed Assessed -Moisture ([place]-wound Skin Appearance) Assessed Assessed -Color ([place]-wound Skin Appearance) Assessed Assessed -Temperature ([place]-wound Skin No Abnormality Appearance) (Pt Warm) -Tenderness on Palpation ([place]-wound No Skin Appearance) -Ulcer Cleansing Soap and Water Rinsed/ Irrigated with Saline -Foul Odor after Cleansing No -Anesthetic Used 5% Lidocaine 5% Lidocaine Gel Gel WC - Nurse 2 - General Ulcer CM Notes Start: 01/16/24 09:34 Freq: Status: Active Protocol: Activity Type Activity Date Activity User E-sign Co-sign Detail Recorded Client Recorded Date Recorded By Document 01/16/24 09:46 DS [id number] 01/16/24 09:48 DS Document 01/16/24 09:56 JF [id number] 01/16/24 10:01 JF Document 01/25/24 09:21 JF [id number] 01/25/24 09:24 JF Document 01/31/24 14:01 [id number] 01/31/24 14:04 01/16/24 01/16/24 01/25/24 09:46 09:56 09:21 Wound Center Nurse 2 #3 L Heel -Correct Patient Yes No -Correct Side, Site, Position Yes No -Correct Procedure Yes No -Procedure Performed Yes No -Type of Procedure Debridement -Clinical Debridement Subcutaneous -Tissue Removed Subcutaneous -Post Debridement (cm) - Length 0.2 0 -Post Debridement (cm) - Width 0.4 0 -Post Debridement (cm) - Depth 0.1 0 -Total Square (Post) (cm) 0.08 0 -Area of Debridement (cm) - Length 0.2 0 -Area of Debridement (cm) - Width 0.4 0 -Total Square (Area) (cm) 0.08 0 -Tunneling No -Undermining/Tunneling No -Circular Undermining No -Wound/Ulcer Outcome Not Healed Healed- Epithelialized -Ulcer Cleansing Rinsed/ Irrigated with Saline -Foul Odor after Cleansing No -Bioengineered Tissue Yes -Type of Bioengineered Tissue Epifix 18mm Disc -Expiration Date 07/16/28 -Product Lot Number [id number] -Percent Used 100 -Lot number of Saline Used [id number] -Bleeding Controlled with Pressure -Treatment Response Procedure Tolerated Well -Offloading No -Debridement - Subq, 1st 20sq cm No -Apply Skin Sub - 1st 25 sq cm - Feet 1 -Epifix 18mm Disc 3 #6 L Ishium -Time 09:43 -Correct Patient Yes No -Correct Side, Site, Position Yes No -Correct Procedure Yes No -Procedure Performed Yes No -Type of Procedure Debridement -Clinical Debridement Subcutaneous -Tissue Removed Subcutaneous -Post Debridement (cm) - Length 0.6 -Post Debridement (cm) - Width 2.3 -Post Debridement (cm) - Depth 0.8 -Total Square (Post) (cm) 1.38 -Area of Debridement (cm) - Length 0.6 -Area of Debridement (cm) - Width 2.3 -Total Square (Area) (cm) 1.38 -Tunneling No -Undermining/Tunneling No -Circular Undermining No -Wound/Ulcer Outcome Not Healed -Ulcer Cleansing Rinsed/ Irrigated with Saline -Foul Odor after Cleansing -Bioengineered Tissue No -Bleeding Controlled with Silver Nitrate -Treatment Response Procedure Tolerated Well -Debridement - Subq, 1st 20sq cm Yes Pain Scale: 0-10 Numeric Is Patient Pain Free? No Yes Yes left buttock -Description Aching -Intensity 3 LT FOOT -Description Aching -Intensity 3 01/31/24 14:01 Wound Center Nurse 2 #3 L Heel -Correct Patient -Correct Side, Site, Position -Correct Procedure -Procedure Performed -Type of Procedure -Clinical Debridement -Tissue Removed -Post Debridement (cm) - Length -Post Debridement (cm) - Width -Post Debridement (cm) - Depth -Total Square (Post) (cm) -Area of Debridement (cm) - Length -Area of Debridement (cm) - Width -Total Square (Area) (cm) -Tunneling -Undermining/Tunneling -Circular Undermining -Wound/Ulcer Outcome -Ulcer Cleansing -Foul Odor after Cleansing -Bioengineered Tissue -Type of Bioengineered Tissue -Expiration Date -Product Lot Number -Percent Used -Lot number of Saline Used -Bleeding Controlled with -Treatment Response -Offloading -Debridement - Subq, 1st 20sq cm -Apply Skin Sub - 1st 25 sq cm - Feet -Epifix 18mm Disc #6 L Ishium -Time 14:03 -Correct Patient Yes -Correct Side, Site, Position Yes -Correct Procedure Yes -Procedure Performed Yes -Type of Procedure Debridement -Clinical Debridement Subcutaneous -Tissue Removed Subcutaneous -Post Debridement (cm) - Length 0.5 -Post Debridement (cm) - Width 1.2 -Post Debridement (cm) - Depth 0.2 -Total Square (Post) (cm) 0.60 -Area of Debridement (cm) - Length 0.5 -Area of Debridement (cm) - Width 1.2 -Total Square (Area) (cm) 0.60 -Tunneling No -Undermining/Tunneling No -Circular Undermining No -Wound/Ulcer Outcome Not Healed -Ulcer Cleansing Rinsed/ Irrigated with Saline -Foul Odor after Cleansing No -Bioengineered Tissue No -Bleeding Controlled with Pressure -Treatment Response Procedure Tolerated Well -Debridement - Subq, 1st 20sq cm Yes Pain Scale: 0-10 Numeric Is Patient Pain Free? Yes left buttock -Description -Intensity LT FOOT -Description -Intensity WC - Nurse 3 - General Ulcer D/C NN Start: 01/16/24 09:34 Freq: Status: Active Protocol: Activity Type Activity Date Activity User E-sign Co-sign Detail Recorded Client Recorded Date Recorded By Document 01/16/24 09:59 DS [id number] 01/16/24 10:00 DS Document 01/16/24 10:22 KW [id number] 01/16/24 10:22 KW Document 01/25/24 09:13 RB [id number] 01/25/24 09:14 RB Document 01/25/24 09:25 JF [id number] 01/25/24 09:26 JF Document 01/31/24 14:18 MT [id number] 01/31/24 14:18 MT 01/16/24 01/16/24 01/25/24 09:59 10:22 09:13 Wound Care Center Nurse 3 #3 L Heel -Primary Dressing Covered/Secured with Dry Gauze & Roll Gauze, Secured with Tape #6 L Ishium -Ulcer Cleansing Rinsed/ Rinsed/ Irrigated with Irrigated with Saline Saline -Primary Dressing Applied Aquacel Rope, Aquacel Rope Mepilex Border -Other Dressing mepilex border -Aquacel Rope 1 1 -Mepilex Border 3 Treatment Response Procedure Tolerated Well Pain Scale: 0-10 Numeric Is Patient Pain Free? Yes Yes Yes WC - Visit Discharge Discharge Condition Stable Ambulatory Status Ambulatory, Walker Transportation Private Auto Accompanied by Medication Reconcilliation completed & No provided to patient/care provider Clinical Summary of Care Provided Yes Notes: 01/25/24 01/31/24 09:25 14:18 Wound Care Center Nurse 3 #3 L Heel -Primary Dressing Covered/Secured with #6 L Ishium -Ulcer Cleansing -Primary Dressing Applied Aquacel Rope, Mepilex Border -Other Dressing -Aquacel Rope 1 -Mepilex Border 1 Treatment Response Pain Scale: 0-10 Numeric Is Patient Pain Free? Yes Yes WC - Visit Discharge Discharge Condition Stable Ambulatory Status Ambulatory, Walker Transportation Private Auto Accompanied by brother Medication Reconcilliation completed & Yes provided to patient/care provider Clinical Summary of Care Provided Yes Notes: heel is healed on left side. Patient is discharged from Dr Sanchez's services but will be following up with ej Alonso DIESEL DRAGLINE OPERATOR for his left ischium ulcer. patient verbalizes understanding. Assessment/Plan Assessment/Plan (1) Abscess, gluteal, left: CODE(S): L02.31 - Cutaneous abscess of buttock (2) Type 2 diabetes mellitus with peripheral neuropathy: CODE(S): E11.42 - Type 2 diabetes mellitus with diabetic polyneuropathy (3) Debility: CODE(S): R53.81 - Other malaise (4) Anxiety: CODE(S): F41.9 - Anxiety disorder, unspecified (5) Peripheral vascular disease: CODE(S): I73.9 - Peripheral vascular disease, unspecified (6) Open wound of left buttock: CODE(S): S31.829A - Unspecified open wound of left buttock, initial encounter QUALIFIERS: Encounter type: initial encounter Qualified Code(s): S31.829A - Unspecified open wound of left buttock, initial encounter PLAN: Plan Patient evaluated at the wound healing center today. He has home health to assist with his dressing changes. Wound care?Aquacel Ag rope packed into the base of the wound covered by [place] [employer] 3 times a week. At the time of dressing changes he needs to have his wound washed well with antibacterial soap and water. Wound cultures from 01/09/24 positive for MRSA and Corynebacterium striatum and Anaerobic cocci. The MRSA is resistant to the Doxycycline. Will need change his antibiotics to Bactrim and Flagyl. Discussed how to take medications. Discussed that if he starts having fever, chills, nausea, vomiting, worsening pain, then he should be evaluated at the ED. Will follow up 2 weeks.
--- NOTE | 2024-02-01 11:37 | WC ---
PHOTO 01/31/24 LEFT ISCHIUM
[2024-02-14 13:37] VITALS: BP 108/66; PULSE 99; RESP 16; TEMP 36.4; BMI 23.6
--- NOTE | 2024-02-14 14:10 | PCM.WC.PN ---
History of Present Illness Date of Service: 02/14/24 Chief Complaint: Left gluteal wound History of Wound: 68 year old patient that sees Dr. Sanchez for his left heel ulcer. Surgery was performed 09/28/23 on left first and fifth toe amputation as well as wound debridement bone biopsy left calcaneus. He has been receiving Epifix to his left heel wound. New left gluteal abscess seen and examined on 01/09/[address] [place]. Patient reports that has been there for a couple of days. He has a history of abscesses in the past including a right gluteal abscess that was drained by her nurse practitioner recently and since healed. He reports sharp severe pain worsened by movements and improved by rest and pressure offloading. Today he denies fever, chills, nausea or vomiting. Progress of Wound: The left gluteal wound is healed today. There is a small divot in the center of the healed area that with time should flatten out. Encourage patient to massage this with lotion to help soften the scarring. Objective Data Objective Data Vital Signs: Vital Signs Temp Pulse Resp BP O2 Del Method 97.5 F L 99 16 108/66 Room Air 02/14/24 13:37 02/14/24 13:37 02/14/24 13:37 02/14/24 13:37 02/14/24 13:37 Oxygen Delivery Method Room Air Weight: 155 lb 11.464 oz Body Mass Index (BMI) 23.6 Charges/Coding Visit Charges Office Visits / Consults: 42701 OV L2 Est 10min Physical Exam Const alert and oriented x3 General Appearance: cooperative HEENT normocephalic Lymph Lymphatic: no lymphedema noted Resp normal respiratory effort Effort and Inspection: able to speak in complete sentences Cardio regular rate Extremity normal capillary refill Skin Wound Narrative: Left ischial wound is healed today. There is a small divot in the center of the wound that should flatten out over time with massage. Neuro CN's II-XII intact bilaterally Psych affect normal Debridement Note Debridement Note No debridement was completed: No debridement was completed today Post-Debridement Measurements and Additional Note: Post-Debridement Measurements/Treatment LARA - Nurse 1 - General Ulcer Assessment Start: 01/16/24 09:34 Freq: Status: Active Protocol: SARAH Activity Type Activity Date Activity User E-sign Co-sign Detail Recorded Client Recorded Date Recorded By Document 01/16/24 09:34 DS [id number] 01/16/24 09:37 DS Document 01/25/24 09:07 DL [id number] 01/25/24 09:10 DL Document 01/31/24 13:41 KW [id number] 01/31/24 13:43 KW Document 02/14/24 13:37 BMF [id number] 02/14/24 13:39 BMF 01/16/24 01/25/24 01/31/24 09:34 09:07 13:41 WC - Today's Visit Information Type of service Follow-up Visit Follow-up Visit Follow-up Visit (Physician/ADA ACCOMMODATION CONSULTANT (Physician/ADA ACCOMMODATION CONSULTANT (Physician/ADA ACCOMMODATION CONSULTANT ) ) ) Arrival Mode Ambulatory,Cane Ambulatory, Ambulatory, Walker Walker Transfer Assistance None Patient Identification Verified (Name & Yes Yes ) Patient Requires Transmission-Based No No Precautions Height and Weight Body Mass Index (BMI) 23.6 23.6 23.6 BMI Classification Normal Normal Normal Vital Signs Temperature (97.8 F-99.1 F) 97.3 F L 96.6 F L 96.4 F L Temperature Source Temporal Temporal Temporal Pulse Rate (60-100) 91 101 H 90 Pulse Location Monitor Monitor Monitor Respiratory Rate (12-18) 18 18 18 Respiratory rate source Observation Observation Observation Oxygen Delivery Method Room Air Room Air Blood Pressure (90/60-120/80) 105/70 112/68 111/72 Blood Pressure Mean (mm Hg) 81 82 85 Source Monitor Monitor Position Semi-Fowlers Blood Pressure Location Left Arm History Since Last Visit- (Skip if this is Patient's initial visit) Have you changed medications since your No No No last visit? Any new allergies or adverse reactions No No No Had a fall/change in ADL's that may No No No increase risk of falls Signs or symptoms of abuse and/or No No No neglect since last visit Have you been in the hospital since your No No No last visit? Has dressing in place as prescribed Yes Yes Yes Has compression in place as prescribed N/A Yes N/A Has offloadiing in place as prescribed N/A Yes N/A Experienced any changes in pain level or No No No management Left Footwear Regular Shoe Regular Shoe Right Footwear Regular Shoe Regular Shoe Pain Scale: 0-10 Numeric Is Patient Pain Free? No Yes Yes left buttock -Description Aching -Intensity 3 -Duration (hours) Chronic LT FOOT -Description Aching -Intensity 3 -Duration (hours) Chronic 02/14/24 13:37 WC - Today's Visit Information Type of service Follow-up Visit (Physician/ADA ACCOMMODATION CONSULTANT ) Arrival Mode Ambulatory, Walker Transfer Assistance None Patient Identification Verified (Name & Yes ) Patient Requires Transmission-Based No Precautions Height and Weight Body Mass Index (BMI) 23.6 BMI Classification Normal Vital Signs Temperature (97.8 F-99.1 F) 97.5 F L Temperature Source Temporal Pulse Rate (60-100) 99 Pulse Location Monitor Respiratory Rate (12-18) 16 Respiratory rate source Observation Oxygen Delivery Method Room Air Blood Pressure (90/60-120/80) 108/66 Blood Pressure Mean (mm Hg) 80 Source Monitor Position Sitting Blood Pressure Location Left Arm History Since Last Visit- (Skip if this is Patient's initial visit) Have you changed medications since your No last visit? Any new allergies or adverse reactions No Had a fall/change in ADL's that may No increase risk of falls Signs or symptoms of abuse and/or No neglect since last visit Have you been in the hospital since your No last visit? Has dressing in place as prescribed Yes Has compression in place as prescribed N/A Has offloadiing in place as prescribed N/A Experienced any changes in pain level or No management Left Footwear Regular Shoe Right Footwear Regular Shoe Pain Scale: 0-10 Numeric Is Patient Pain Free? Yes left buttock -Description -Intensity -Duration (hours) LT FOOT -Description -Intensity -Duration (hours) WC - Nurse 1 - General Ulcer Measurement Start: 01/16/24 09:34 Freq: Status: Active Protocol: Activity Type Activity Date Activity User E-sign Co-sign Detail Recorded Client Recorded Date Recorded By Document 01/16/24 09:37 DS [id number] 01/16/24 09:41 DS Document 01/25/24 09:07 DL [id number] 01/25/24 09:10 DL Document 01/31/24 13:41 KW [id number] 01/31/24 13:43 KW Document 02/14/24 13:37 BMF [id number] 02/14/24 13:39 BMF 01/16/24 01/25/24 01/31/24 09:37 09:07 13:41 Wound Center Nurse 1 #6 L Ishium -Combined with other wound -Current Size (cm) - Length 0.2 1 -Current Size (cm) - Width 2.5 0.1 -Current Size (cm) - Depth 1.0 0.4 -Total Square Cm 0.50 0.1 -Date of Last Picture (Recall this 01/31/24 field) -Photo Taken No -Epithelialization -Tunneling No -Undermining/Tunneling No -Circular Undermining No -Classification - Thickness Partial Thickness -Exudate Amt Small Small -Exudate Type Serosanguineous Serosanguineous -Wound Margin Distinct, Distinct, Outline Outline Attached Attached -Granulation Amt Medium (34-66%) Large (67-100%) -Granulation Quality [place] -Slough/Fibrin Yes -Necrosis Amt Medium (34-66%) Small (1-33%) -Necrotic Tissue Type Adherent Slough -Texture (Dayana-wound Skin Appearance) Assessed Assessed -Moisture (Dayana-wound Skin Appearance) Assessed Assessed -Color (Dayana-wound Skin Appearance) Assessed Assessed -Temperature (Dayana-wound Skin No Abnormality Appearance) (Pt Warm) -Tenderness on Palpation (Dayana-wound No Skin Appearance) -Ulcer Cleansing Soap and Water Rinsed/ Irrigated with Saline -Foul Odor after Cleansing No -Anesthetic Used 5% Lidocaine 5% Lidocaine Gel Gel #3 L Heel -Current Size (cm) - Length 0.1 0.1 -Current Size (cm) - Width 0.1 0.1 -Current Size (cm) - Depth 0.1 0.1 -Total Square Cm 0.01 0.01 -Photo Taken No Yes -Tunneling No -Undermining/Tunneling No -Circular Undermining No -Classification - Thickness Partial Thickness -Exudate Amt None Present None Present -Wound Margin Thickened -Granulation Amt Large (67-100%) -Granulation Quality [place] -Necrosis Amt Small (1-33%) -Necrotic Tissue Type Eschar -Structure Exposed N/A -Texture (Dayana-wound Skin Appearance) Assessed Scarring -Moisture (Dayana-wound Skin Appearance) Assessed Dry/Scaly -Color (Dayana-wound Skin Appearance) Assessed No Abnormality -Temperature (Dayana-wound Skin No Abnormality Appearance) (Pt Warm) -Tenderness on Palpation (Dayana-wound No Skin Appearance) -Ulcer Cleansing Soap and Water Soap and Water -Foul Odor after Cleansing No -Anesthetic Used 5% Lidocaine Gel 02/14/24 13:37 Wound Center Nurse 1 #6 L Ishium -Combined with other wound No -Current Size (cm) - Length 0.1 -Current Size (cm) - Width 0.1 -Current Size (cm) - Depth 0.1 -Total Square Cm 0.01 -Date of Last Picture (Recall this 02/14/24 field) -Photo Taken Yes -Epithelialization Large 67-100% -Tunneling -Undermining/Tunneling -Circular Undermining -Classification - Thickness -Exudate Amt None Present -Exudate Type -Wound Margin -Granulation Amt -Granulation Quality -Slough/Fibrin -Necrosis Amt -Necrotic Tissue Type -Texture (Dayana-wound Skin Appearance) Assessed -Moisture (Dayana-wound Skin Appearance) Assessed -Color (Dayana-wound Skin Appearance) Assessed -Temperature (Dayana-wound Skin No Abnormality Appearance) (Pt Warm) -Tenderness on Palpation (Dayana-wound No Skin Appearance) -Ulcer Cleansing Rinsed/ Irrigated with Saline -Foul Odor after Cleansing No -Anesthetic Used 5% Lidocaine Gel #3 L Heel -Current Size (cm) - Length -Current Size (cm) - Width -Current Size (cm) - Depth -Total Square Cm -Photo Taken -Tunneling -Undermining/Tunneling -Circular Undermining -Classification - Thickness -Exudate Amt -Wound Margin -Granulation Amt -Granulation Quality -Necrosis Amt -Necrotic Tissue Type -Structure Exposed -Texture (Dayana-wound Skin Appearance) -Moisture (Dayana-wound Skin Appearance) -Color (Dayana-wound Skin Appearance) -Temperature (Dayana-wound Skin Appearance) -Tenderness on Palpation (Dayana-wound Skin Appearance) -Ulcer Cleansing -Foul Odor after Cleansing -Anesthetic Used WC - Nurse 2 - General Ulcer CM Notes Start: 01/16/24 09:34 Freq: Status: Active Protocol: Activity Type Activity Date Activity User E-sign Co-sign Detail Recorded Client Recorded Date Recorded By Document 01/16/24 09:46 DS [id number] 01/16/24 09:48 DS Document 01/16/24 09:56 JF [id number] 01/16/24 10:01 JF Document 01/25/24 09:21 JF [id number] 01/25/24 09:24 JF Document 01/31/24 14:01 [id number] 01/31/24 14:04 Document 02/14/24 14:03 [id number] 02/14/24 14:04 01/16/24 01/16/24 01/25/24 09:46 09:56 09:21 Wound Center Nurse 2 #6 L Ishium -Time 09:43 -Correct Patient Yes No -Correct Side, Site, Position Yes No -Correct Procedure Yes No -Procedure Performed Yes No -Type of Procedure Debridement -Clinical Debridement Subcutaneous -Tissue Removed Subcutaneous -Post Debridement (cm) - Length 0.6 -Post Debridement (cm) - Width 2.3 -Post Debridement (cm) - Depth 0.8 -Total Square (Post) (cm) 1.38 -Area of Debridement (cm) - Length 0.6 -Area of Debridement (cm) - Width 2.3 -Total Square (Area) (cm) 1.38 -Tunneling No -Undermining/Tunneling No -Circular Undermining No -Wound/Ulcer Outcome Not Healed -Ulcer Cleansing Rinsed/ Irrigated with Saline -Foul Odor after Cleansing -Bioengineered Tissue No -Bleeding Controlled with Silver Nitrate -Treatment Response Procedure Tolerated Well -Debridement - Subq, 1st 20sq cm Yes #3 L Heel -Correct Patient Yes No -Correct Side, Site, Position Yes No -Correct Procedure Yes No -Procedure Performed Yes No -Type of Procedure Debridement -Clinical Debridement Subcutaneous -Tissue Removed Subcutaneous -Post Debridement (cm) - Length 0.2 0 -Post Debridement (cm) - Width 0.4 0 -Post Debridement (cm) - Depth 0.1 0 -Total Square (Post) (cm) 0.08 0 -Area of Debridement (cm) - Length 0.2 0 -Area of Debridement (cm) - Width 0.4 0 -Total Square (Area) (cm) 0.08 0 -Tunneling No -Undermining/Tunneling No -Circular Undermining No -Wound/Ulcer Outcome Not Healed Healed- Epithelialized -Ulcer Cleansing Rinsed/ Irrigated with Saline -Foul Odor after Cleansing No -Bioengineered Tissue Yes -Type of Bioengineered Tissue Epifix 18mm Disc -Expiration Date 07/16/28 -Product Lot Number [id number] -Percent Used 100 -Lot number of Saline Used [id number] -Bleeding Controlled with Pressure -Treatment Response Procedure Tolerated Well -Offloading No -Debridement - Subq, 1st 20sq cm No -Apply Skin Sub - 1st 25 sq cm - Feet 1 -Epifix 18mm Disc 3 Pain Scale: 0-10 Numeric Is Patient Pain Free? No Yes Yes left buttock -Description Aching -Intensity 3 LT FOOT -Description Aching -Intensity 3 01/31/24 02/14/24 14:01 14:03 Wound Center Nurse 2 #6 L Ishium -Time 14:03 14:03 -Correct Patient Yes Yes -Correct Side, Site, Position Yes Yes -Correct Procedure Yes -Procedure Performed Yes -Type of Procedure Debridement -Clinical Debridement Subcutaneous -Tissue Removed Subcutaneous -Post Debridement (cm) - Length 0.5 -Post Debridement (cm) - Width 1.2 -Post Debridement (cm) - Depth 0.2 -Total Square (Post) (cm) 0.60 -Area of Debridement (cm) - Length 0.5 -Area of Debridement (cm) - Width 1.2 -Total Square (Area) (cm) 0.60 -Tunneling No -Undermining/Tunneling No -Circular Undermining No -Wound/Ulcer Outcome Not Healed Healed- Epithelialized -Ulcer Cleansing Rinsed/ Irrigated with Saline -Foul Odor after Cleansing No -Bioengineered Tissue No -Bleeding Controlled with Pressure -Treatment Response Procedure Tolerated Well -Debridement - Subq, 1st 20sq cm Yes #3 L Heel -Correct Patient -Correct Side, Site, Position -Correct Procedure -Procedure Performed -Type of Procedure -Clinical Debridement -Tissue Removed -Post Debridement (cm) - Length -Post Debridement (cm) - Width -Post Debridement (cm) - Depth -Total Square (Post) (cm) -Area of Debridement (cm) - Length -Area of Debridement (cm) - Width -Total Square (Area) (cm) -Tunneling -Undermining/Tunneling -Circular Undermining -Wound/Ulcer Outcome -Ulcer Cleansing -Foul Odor after Cleansing -Bioengineered Tissue -Type of Bioengineered Tissue -Expiration Date -Product Lot Number -Percent Used -Lot number of Saline Used -Bleeding Controlled with -Treatment Response -Offloading -Debridement - Subq, 1st 20sq cm -Apply Skin Sub - 1st 25 sq cm - Feet -Epifix 18mm Disc Pain Scale: 0-10 Numeric Is Patient Pain Free? Yes Yes left buttock -Description -Intensity LT FOOT -Description -Intensity WC - Nurse 3 - General Ulcer D/C NN Start: 01/16/24 09:34 Freq: Status: Active Protocol: Activity Type Activity Date Activity User E-sign Co-sign Detail Recorded Client Recorded Date Recorded By Document 01/16/24 09:59 DS [id number] 01/16/24 10:00 DS Document 01/16/24 10:22 KW [id number] 01/16/24 10:22 KW Document 01/25/24 09:13 RB [id number] 01/25/24 09:14 RB Document 01/25/24 09:25 JF [id number] 01/25/24 09:26 JF Document 01/31/24 14:18 MT [id number] 01/31/24 14:18 MT Document 02/14/24 14:04 GM [id number] 02/14/24 14:04 GM 01/16/24 01/16/24 01/25/24 09:59 10:22 09:13 Wound Care Center Nurse 3 #6 L Ishium -Ulcer Cleansing Rinsed/ Rinsed/ Irrigated with Irrigated with Saline Saline -Primary Dressing Applied Aquacel Rope, Aquacel Rope Mepilex Border -Other Dressing mepilex border -Aquacel Rope 1 1 -Mepilex Border 3 #3 L Heel -Primary Dressing Covered/Secured with Dry Gauze & Roll Gauze, Secured with Tape Treatment Response Procedure Tolerated Well Pain Scale: 0-10 Numeric Is Patient Pain Free? Yes Yes Yes WC - Visit Discharge Discharge Condition Stable Ambulatory Status Ambulatory, Walker Transportation Private Auto Accompanied by Medication Reconcilliation completed & No provided to patient/care provider Clinical Summary of Care Provided Yes Notes: 01/25/24 01/31/24 02/14/24 09:25 14:18 14:04 Wound Care Center Nurse 3 #6 L Ishium -Ulcer Cleansing -Primary Dressing Applied Aquacel Rope, Mepilex Border -Other Dressing -Aquacel Rope 1 -Mepilex Border 1 #3 L Heel -Primary Dressing Covered/Secured with Treatment Response Pain Scale: 0-10 Numeric Is Patient Pain Free? Yes Yes Yes WC - Visit Discharge Discharge Condition Stable Stable Ambulatory Status Ambulatory, Ambulatory, Walker Walker Transportation Private Auto Private Auto Accompanied by brother Medication Reconcilliation completed & Yes provided to patient/care provider Clinical Summary of Care Provided Yes Notes: heel is healed on left side. Patient is discharged from Dr Sanchez's services but will be following up with ej Alonso PIECE DYEING MACHINE TENDER for his left ischium ulcer. patient verbalizes understanding. Assessment/Plan Assessment/Plan (1) Abscess, gluteal, left: CODE(S): L02.31 - Cutaneous abscess of buttock (2) Type 2 diabetes mellitus with peripheral neuropathy: CODE(S): E11.42 - Type 2 diabetes mellitus with diabetic polyneuropathy (3) Debility: CODE(S): R53.81 - Other malaise (4) Anxiety: CODE(S): F41.9 - Anxiety disorder, unspecified (5) Peripheral vascular disease: CODE(S): I73.9 - Peripheral vascular disease, unspecified (6) Open wound of left buttock: CODE(S): S31.829A - Unspecified open wound of left buttock, initial encounter QUALIFIERS: Encounter type: initial encounter Qualified Code(s): S31.829A - Unspecified open wound of left buttock, initial encounter PLAN: Plan Patient evaluated at the wound healing center today. His left ischial wound is healed today. Encouraged him to massage this area with lotion 1-2 times a day to help soften the scarring. That should also help flatten out the little divot that is in the center of the healed scar. Follow-up on an as-needed basis.
--- NOTE | 2024-02-15 10:21 | WC ---
PHOTO 02/14/24 ISCHIUM
== END 2024-02-14 16:33 | disposition home or self-care (01) ==
LOC: WC 13:45
PROVIDERS: PCP Internal Medicine; Referring Provider Podiatrist; Visit Provider Podiatrist
DX: L97.422 Non-pressure chronic ulcer of left heel and midfoot with fat layer exposed (principal); E11.42 Type 2 diabetes mellitus with diabetic polyneuropathy; E11.51 Type 2 diabetes mellitus with diabetic peripheral angiopathy without gangrene; S31.829A Unspecified open wound of left buttock, initial encounter; L02.31 Cutaneous abscess of buttock; F41.9 Anxiety disorder, unspecified; R53.81 Other malaise; Z79.82 Long term (current) use of aspirin; Z79.84 Long term (current) use of oral hypoglycemic drugs; Z79.01 Long term (current) use of anticoagulants; Z79.899 Other long term (current) drug therapy; Z89.412 Acquired absence of left great toe; Z89.422 Acquired absence of other left toe(s)
CPT/HCPCS: 11042; 15275; 99212; 99213; Q4186; G0463

== ENCOUNTER → 2024-02-27 | Outpatient (CLI) | payer MEDICARE, SELFPAY ==
[2024-02-27 12:25] LABS: Absolute Lymphocyte Count 1.46 X10^3/uL (0.83-4.51); Absolute Neutrophil Count 3.7 X10^3/uL (2.0-7.7); Basophil# 0.06 X10^3/uL; Eosinophil# 0.36 X10^3/uL; Eosinophils% 5.9 % (0-5); Hematocrit 40.5 % (40-54); Lymphocyte # 1.46 X10^3/ul (0.83-4.51); Mean Corp Hgb Conc 32.1 g/dL (32-36); Mean Corpuscular Hgb 29.7 pg (27.0-32.0); Mean Corpuscular Volume 92.5 fL (80-94); Mean Platelet Vol. 10.1 fl (6.2-12.0); Monocyte% 8.2 % (0-10); NRBC Flagged by Analyzer 0 % (0-5); Neutrophil # 3.69 X10^3/uL (2.7-7.7); Neutrophil % 60.6 % (47-70); Platelet Count 212 K/mm3 (150-450); RBC Distribution Width CV 14.6 % (11.6-14.6); RBC Distribution Width SD 49.5 fl (35.1-43.9); Red Blood Count 4.38 M/mm3 (4.6-6.2); White Blood Count 6.1 K/mm3 (4.4-11.0)
[2024-02-27 12:59] LABS: ALB/GLOB Ratio 0.8 RATIO (0.9-2.4); AST(SGOT) 10 U/L (15-37); Alanine Aminotransfer ALT/SGPT 19 U/L (16-61); Albumin, Serum 3.3 g/dL (3.2-5.0); Alkaline Phosphatase 55 U/L (45-117); Anion Gap 5 (5-15); BUN 23 mg/dL (7-18); BUN/Creat Ratio 24.7 RATIO (10-20); Calcium,Total 9.3 mg/dL (8.5-10.1); Chloride 106 mmol/L (98-107); Cholesterol 191 mg/dL (200); Creatinine, Serum 0.93 mg/dL (0.70-1.30); EST Glomerular Filtration Rate 86 mL/min (>60); Est Glom Filt Rate - Afr Amer 104 mL/min (>60); Globulin 4.4 g/dL (2.2-4.2); Glucose 135 mg/dL (74-106); High Density Lipoprotein 46 mg/dL; Potassium 4.2 mmol/L (3.5-5.1); Protein, Total 7.7 g/dL (6.4-8.2); Sodium Level 137 mmol/L (136-145); Triglycerides 158 mg/dL; Very Low Density Lipoprotein 32 mg/dL (5-40)
[2024-02-27 13:14] LABS: Microalbumin,Random Urine 46.7 mg/L (NO RANGE EST.); Microalbumin:Creatinine Ratio 37.7 mg/g CRE (<30 mg/g CRE)
[2024-02-27 13:27] LABS: Hemoglobin A1c 6.5 % (3.8-5.6)
== END | disposition home or self-care (01) ==
LOC: BIMLAB 10:05
PROVIDERS: PCP Internal Medicine; Visit Provider Internal Medicine
DX: E11.65 Type 2 diabetes mellitus with hyperglycemia (principal); I10 Essential (primary) hypertension
CPT/HCPCS: 36415; 80053; 80061; 82043; 82570; 83036; 85025

== ENCOUNTER → 2024-06-10 | Outpatient (CLI) | payer MEDICARE, SELFPAY ==
[2024-06-10 16:46] LABS: Absolute Lymphocyte Count 1.88 X10^3/uL (0.83-4.51); Basophil# 0.04 X10^3/uL; Basophil% 0.6 % (0-1); Eosinophil# 0.28 X10^3/uL; Hematocrit 40.4 % (40-54); Hemoglobin 12.8 g/dL (13.0-16.5); Lymphocyte # 1.88 X10^3/ul (0.83-4.51); Lymphocyte % 27.1 % (19-41); Mean Corp Hgb Conc 31.7 g/dL (32-36); Mean Corpuscular Volume 91.4 fL (80-94); Mean Platelet Vol. 10.1 fl (6.2-12.0); Monocyte# 0.73 X10^3/uL; Monocyte% 10.5 % (0-10); NRBC Flagged by Analyzer 0 % (0-5); Neutrophil # 3.99 X10^3/uL (2.7-7.7); Neutrophil % 57.5 % (47-70); Platelet Count 216 K/mm3 (150-450); RBC Distribution Width CV 13.2 % (11.6-14.6); RBC Distribution Width SD 43.8 fl (35.1-43.9); Red Blood Count 4.42 M/mm3 (4.6-6.2); White Blood Count 6.9 K/mm3 (4.4-11.0)
[2024-06-10 17:24] LABS: Hemoglobin A1c 8.4 % (3.8-5.6)
[2024-06-10 19:30] LABS: Anion Gap 6 (5-15); BUN 25 mg/dL (7-18); BUN/Creat Ratio 19.1 RATIO (10-20); Calcium,Total 9.9 mg/dL (8.5-10.1); Chloride 105 mmol/L (98-107); Creatinine, Serum 1.31 mg/dL (0.70-1.30); EST Glomerular Filtration Rate 58 mL/min (>60); Est Glom Filt Rate - Afr Amer 70 mL/min (>60); Glucose 172 mg/dL (74-106); Potassium 4.9 mmol/L (3.5-5.1); Sodium Level 136 mmol/L (136-145)
== END | disposition home or self-care (01) ==
LOC: BIMLAB 15:29
PROVIDERS: PCP Internal Medicine; Referring Provider Internal Medicine; Visit Provider Internal Medicine
DX: I10 Essential (primary) hypertension (principal); E11.621 Type 2 diabetes mellitus with foot ulcer; L97.509 Non-pressure chronic ulcer of other part of unspecified foot with unspecified severity
CPT/HCPCS: 36415; 80048; 83036; 85025

== ENCOUNTER → 2024-07-05 | Outpatient (CLI) | payer MEDICARE, SELFPAY ==
--- NOTE | 2024-07-05 12:25 | ADUL_ITS ---
Reason For Study Reason For Study: s/p LT SUPPLY CRIB ATTENDANT Endart, SUPPLY CRIB ATTENDANT-TELEVISION INSTALLER BPG, EIA stent Left Velocities Ext Iliac Artery, dist = 88 cm./sec. Common Femoral Artery, mid = 22 cm./sec. SUPPLY CRIB ATTENDANT-TELEVISION INSTALLER BYPASS Prox Anastamosis: 128 cm/s Prox Graft: 72 cm/s Mid Graft: 60 cm/s Dist Graft: 35 cm/s Dist Anastamosis: 90 cm/s. Profunda Femoral Artery = 79 cm./sec. Popliteal Artery, mid = 14 cm./sec. Retrograde flow noted Lt Milady. Post. Tibial Artery, prox = 55 cm./sec. Post Tibial Artery, mid = 39 cm./sec. Post Tibial Artery, dist. = 32 cm./sec. Peroneal Artery, prox = 49 cm./sec. Peroneal Artery, mid = 26 cm./sec. Peroneal Artery,dist. = 22 cm./sec. Ant.Tibial Artery, prox = 62 cm./sec. Ant Tibial Artery, mid = 41 cm./sec. Ant. Tibial Artery, distal = 48 cm./sec. Procedure Exam performed in department. Prelim given to Vanessa MONTEIRO. /US Art Duplex Unilat Lower Ext Interpretation Summary Patent left femoral-posterior tibial bypass with focal diminished velocity at d istal graft. No stenosis identified. Ordering Physician: Carolina Del Rio Referring Physician: Jen Guzman Performed By: Justine Perez, RDCS, RVT
--- NOTE | 2024-07-05 12:25 | ART_ITS ---
Reason For Study Reason For Study: s/p Lt ONCOLOGY NAVIGATOR Endart, Profuda Endart, ONCOLOGY NAVIGATOR-HAIR CUTTER BPG, EIA Stent Procedure A bilateral lower extremity continuous wave Doppler with analog waveform analysis and ankle brachial indexes. Left Segmental Pressures Left brachial= 105mmHg. Left posterior tibial artery = 109mmHg. Left dorsalis pedis artery = 131mmHg. Right Segmental Pressures Right brachial= 120mmHg. Right posterior tibial artery = 50mmHg. Right dorsalis pedis artery = 58mmHg. Indices The right ankle brachial index by the posterior tibial artery is 0.42. The right ankle brachial index by the dorsalis pedis is 0.48. The left ankle brachial index by the posterior tibial artery is 1.09. The left ankle brachial index by the dorsalis pedis is 0.91. VL/Ankle Brachial Index Interpretation Summary Right GERHARD 0.48, severe arterial insufficiency. Doppler/PVR waveforms of the rig ht ankle severely diminished at rest. Left GERHARD 1.09, normal. Doppler/PVR waveforms of the left ankle normal at rest. Ordering Physician: Carolina Del Rio Referring Physician: Jen Guzman Performed By: Justine Perez RDCS/RVT
== END | disposition home or self-care (01) ==
LOC: CVS 12:14
PROVIDERS: PCP Internal Medicine; Referring Provider Physician Assistant; Visit Provider Physician Assistant
DX: Z95.828 Presence of other vascular implants and grafts (principal); Z48.812 Encounter for surgical aftercare following surgery on the circulatory system
CPT/HCPCS: 93922; 93926

== ENCOUNTER → 2024-07-08 | Outpatient (CLI) | payer MEDICARE, SELFPAY ==
[2024-07-08 16:27] LABS: Anion Gap 11 (5-15); BUN 23 mg/dL (4-19); BUN/Creat Ratio 17.3 RATIO (10-20); Calcium,Total 9.6 mg/dL (7.6-11.0); Carbon Dioxide 23.9 mmol/L (21.0-32.0); Chloride 103 mmol/L (98-108); Creatinine, Serum 1.34 mg/dL (0.70-1.20); EST Glomerular Filtration Rate 58 (>60); Glucose 165 mg/dL (70-99); Potassium 4.8 mmol/L (3.3-5.1); Sodium Level 138 mmol/L (133-145)
== END | disposition home or self-care (01) ==
LOC: BIMLAB 11:21
PROVIDERS: PCP Internal Medicine; Referring Provider Internal Medicine; Visit Provider Internal Medicine
DX: I10 Essential (primary) hypertension (principal)
CPT/HCPCS: 36415; 80048

== ENCOUNTER → 2024-09-11 | Outpatient (CLI) | payer MEDICARE, SELFPAY ==
[2024-09-11 17:14] LABS: Absolute Lymphocyte Count 1.82 X10^3/uL (0.83-4.51); Absolute Neutrophil Count 3.7 X10^3/uL (2.0-7.7); Basophil# 0.07 X10^3/uL; Eosinophils% 4.5 % (0-5); Hematocrit 39.2 % (40-54); Hemoglobin 12.6 g/dL (13.0-16.5); Lymphocyte # 1.82 X10^3/ul (0.83-4.51); Lymphocyte % 27.1 % (19-41); Mean Corp Hgb Conc 32.1 g/dL (32-36); Mean Corpuscular Hgb 29.5 pg (27.0-32.0); Mean Corpuscular Volume 91.8 fL (80-94); Monocyte# 0.79 X10^3/uL; Monocyte% 11.8 % (0-10); NRBC Flagged by Analyzer 0 % (0-5); Neutrophil % 55.2 % (47-70); Platelet Count 221 K/mm3 (150-450); RBC Distribution Width CV 13.3 % (11.6-14.6); RBC Distribution Width SD 45.3 fl (35.1-43.9); Red Blood Count 4.27 M/mm3 (4.6-6.2); White Blood Count 6.7 K/mm3 (4.4-11.0)
[2024-09-11 17:18] LABS: Anion Gap 12 (5-15); BUN 27 mg/dL (4-19); BUN/Creat Ratio 24.1 RATIO (10-20); Calcium,Total 10.1 mg/dL (7.6-11.0); Carbon Dioxide 23.3 mmol/L (21.0-32.0); Chloride 103 mmol/L (98-108); Creatinine, Serum 1.11 mg/dL (0.70-1.20); EST Glomerular Filtration Rate 72 (>60); Glucose 132 mg/dL (70-99); Potassium 4.7 mmol/L (3.3-5.1); Pro- Brain NATRIURETIC PEPTIDE 233 pg/mL (<=900); Sodium Level 138 mmol/L (133-145)
[2024-09-11 20:37] LABS: Microalbumin,Random Urine 51.4 mg/L (NO RANGE EST.); Microalbumin:Creatinine Ratio 573.7 mg/g CRE
== END | disposition home or self-care (01) ==
LOC: BIMLAB 14:50
PROVIDERS: PCP Internal Medicine; Referring Provider Internal Medicine; Visit Provider Internal Medicine
DX: I10 Essential (primary) hypertension (principal); E11.621 Type 2 diabetes mellitus with foot ulcer; L97.509 Non-pressure chronic ulcer of other part of unspecified foot with unspecified severity; Z79.4 Long term (current) use of insulin; R06.02 Shortness of breath
CPT/HCPCS: 36415; 80048; 82043; 82570; 83880; 85025

== ENCOUNTER → 2024-10-17 | Outpatient (CLI) | payer MEDICARE, SELFPAY | END | disposition home or self-care (01) | PROVIDERS: PCP Internal Medicine; Referring Provider Internal Medicine; Visit Provider Internal Medicine | DX: R06.02 Shortness of breath (principal) | CPT/HCPCS: 93017; 93350; A4216 ==

== ENCOUNTER → 2025-01-09 | Outpatient (CLI) | payer MEDICARE, SELFPAY ==
--- NOTE | 2025-01-09 12:31 | ADUL_ITS ---
Reason For Study Reason For Study: S/P LT DATA RECOVERY PLANNER-BAKE ROOM WORKER BPG, EIA Stent Left Velocities Ext Iliac Artery, dist = 76.8 cm./sec. Common Femoral Artery, mid = 131.1 cm./sec. Profunda Femoral Artery = 56.4 cm./sec. DATA RECOVERY PLANNER-BAKE ROOM WORKER BYPASS Prox Anastamosis: 76.6 cm/s Prox Graft: 105.8 cm/s Mid Graft: 44.3 cm/s Dist Graft: 37.7 cm/s Dist Anastamosis: 37.7 cm/s. Post. Tibial Artery, prox = 45.3 cm./sec. Post Tibial Artery, mid = 40.5 cm./sec. Post Tibial Artery, dist. = 39.6 cm./sec. Peroneal Artery, prox = 49.0 cm./sec. Peroneal Artery, mid = 29.2 cm./sec. Peroneal Artery,dist. = 26.4 cm./sec. Ant.Tibial Artery, prox = 74.3 cm./sec. Ant Tibial Artery, mid = 49.0 cm./sec. Ant. Tibial Artery, distal = 54.5 cm./sec. Procedure Exam performed in department. VL/US Art Duplex Unilat Lower Ext Interpretation Summary Patent left femoral-posterior tibial bypass with diminsihed velocities througho ut, no stenosis identified. Similar to prior study. Ordering Physician: Carolina Del Rio Referring Physician: Jen Guzman Performed By: Joelle Magallon and Student, RVT
--- NOTE | 2025-01-09 12:31 | ART_ITS ---
Reason For Study Reason For Study: S/P Lt HAND COKE DRAWER-BLANKET CUTTING MACHINE OPERATOR BPG, EIA Stent Procedure A bilateral lower extremity continuous wave Doppler with analog waveform analysis and ankle brachial indexes. Left Segmental Pressures Left brachial= 122mmHg. Left posterior tibial artery = 130mmHg. Left dorsalis pedis artery = 143mmHg. The left dorsalis pedis waveforms are triphasic. The left posterior tibial artery waveforms are triphasic. Right Segmental Pressures Right brachial= 125mmHg. Right posterior tibial artery = 62mmHg. Right dorsalis pedis artery = 57mmHg. The right dorsalis pedis waveforms are monophasic. The right posterior tibial artery waveforms are monophasic. Indices The right ankle brachial index by the dorsalis pedis is 0.46. The right ankle brachial index by the posterior tibial artery is 0.50. The left ankle brachial index by the dorsalis pedis is 1.14. The left ankle brachial index by the posterior tibial artery is 1.04. VL/Ankle Brachial Index Interpretation Summary Right GERHARD 0.5, moderate arterial insufficiency. Doppler/PVR waveforms of the ri ght ankle moderately diminished at rest. Left GERHARD 1.14, normal. Doppler/PVR waveforms of the left ankle normal at rest. Ordering Physician: Carolina Del Rio Referring Physician: Jen Guzman Performed By: Joelle Magallon and Student, T
== END | disposition home or self-care (01) ==
LOC: CVS 12:29
PROVIDERS: PCP Internal Medicine; Referring Provider Physician Assistant; Visit Provider Physician Assistant
DX: Z48.812 Encounter for surgical aftercare following surgery on the circulatory system (principal); I73.9 Peripheral vascular disease, unspecified; Z95.828 Presence of other vascular implants and grafts
CPT/HCPCS: 93922; 93926